=== PATIENT | male | born 1955 | race Caucasian/White ===

== ENCOUNTER 2022-08-06 12:23 | Inpatient (IN) | payer MEDICARE, OTHER ==
[2022-08-06] MEDS ORDERED: ASPIRIN 81 MG PO STA (12:57)
[2022-08-06] MEDS ORDERED: NITROGLYCERIN OINT 1 INCH/GM PACKET TOPICAL STA (12:57)
[2022-08-06 13:06] LABS: Glucose,Whole Blood 119 mg/dL (70-110)
[2022-08-06 13:18] LABS: Basophils % (A) 1 %; Eosinophils # (A) 0.1 k/uL (0-0.7); Eosinophils % (A) 2 %; HGB 11.5 gm/dL (13.0-17.5); Lymphocytes # (A) 1.1 k/uL (1.0-4.8); Lymphocytes % (A) 17 %; MCH 29.9 pg (25.0-35.0); MCHC 33.7 g/dL (31.0-37.0); MCV 88.7 fL (80.0-100.0); Mean Platelet Volume 8.4; Monocytes # (A) 0.5 k/uL (0-1.0); Monocytes % (A) 7 %; Neutrophils # (A) 4.3 k/uL (1.3-7.7); Neutrophils % (A) 71 %; Platelet Count 188 k/uL (150-450); RBC 3.84 m/uL (4.30-5.90); RDW 14.3 % (11.5-15.5); WBC 6.1 k/uL (3.8-10.6)
[2022-08-06] MEDS ORDERED: ALPRAZolam 0.25 MG TAB PO PRN (13:24)
[2022-08-06] MEDS ORDERED: NITROGLYCERIN SL TABS 0.4 MG TAB SUBLINGUAL PRN ×2 (13:24→13:50)
[2022-08-06] MEDS ORDERED: ALPRAZolam 0.5 MG TAB PO PRN (13:24)
[2022-08-06 13:27] LABS: Partial Thromboplastin Time 24.6 sec (22.0-30.0); Prothrombin Time 10.2 sec (9.0-12.0)
[2022-08-06 13:30] LABS: Albumin 3.1 g/dL (3.5-5.0); Calcium 8.3 mg/dL (8.4-10.2); Magnesium 1.8 mg/dL (1.6-2.3); Potassium 4.7 mmol/L (3.5-5.1); Total Bilirubin 0.5 mg/dL (0.2-1.3); Total Protein 5.8 g/dL (6.3-8.2)
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
--- NOTE | 2022-08-06 13:44 | ED ---
General Adult HPI - General Chief complaint: Dizziness Stated complaint: dizziness Time Seen by Provider: 08/06/22 12:47 Source: patient, family Mode of arrival: wheelchair Limitations: no limitations - History of Present Illness Initial comments: This 67-year-old male presents with a complaint of having chest pain 2 days ago. He states that it was primarily in his midsternal region. It is pressure related. He also is having shortness of breath. He presented to [facility] and was admitted to their hospital. He was seen by cardiology and had a diagnostic heart catheterization done which did show some urinary artery disease. He was to be transferred to our hospital for a heart stent by Dr. Acevedo but apparently left [facility] AGAINST MEDICAL ADVICE this past evening. He apparently changed his mind and is now ready to be admitted and have the heart stent placed. He states that the shortness of breath is worse with any exertion. There is no leg pain or swelling. He states that he was told that he only has 20% of his heart working. Overall is not a great historian but his son is present and does give good history. The patient denies any other complaints or modifying factors. Per cardiology, he apparently had a non-ST elevation myocardial infarction at [facility]. He also had a CHF exacerbation. - Related Data Home Medications Medication Instructions Recorded Confirmed No Known Home Medications 08/06/22 08/06/22 Allergies Allergy/AdvReac Type Severity Reaction Status Date / Time Sulfa (Sulfonamide Allergy Rash/Hives Verified 08/06/22 14:11 Antibiotics) Review of Systems ROS Statement: Those systems with pertinent positive or pertinent negative responses have been documented in the HPI. ROS Other: All systems not noted in ROS Statement are negative. Past Medical History Past Medical History: Diabetes Mellitus, Hyperlipidemia, Hypertension, Myocardial Infarction ([place]) History of Any Multi-Drug Resistant Organisms: None Reported Past Surgical History: Orthopedic Surgery Past Psychological History: No Psychological Hx Reported Smoking Status: Current every day smoker Past Alcohol Use History: None Reported Past Drug Use History: None Reported General Exam - General Exam Comments Initial Comments: GENERAL: The patient is well nourished and well hydrated. VITAL SIGNS: Heart rate, blood pressure, respiratory rate reviewed as recorded in nurse's notes. EYES: Pupils are round and reactive. Extraocular movements are intact. No conjunctival / lid redness or swelling. ENT: No external evidence of injury, swelling, or ecchymosis. Airway is patent. Throat is clear. NECK: Nontender. No swelling or evidence of injury. No subcutaneous emphysema. Trachea is midline. No thyroid mass. HEART: Regular rate and rhythm. Good peripheral pulses. LUNGS/CHEST: Breath sounds clear and equal bilaterally. No rales, rhonchi, or wheezes. No ecchymosis, subcutaneous emphysema, or tenderness. ABDOMEN: Abdomen soft without tenderness. No palpable masses or organomegaly. No peritoneal signs. No abdominal wall swelling or ecchymosis. EXTREMITIES: No extremity tenderness. Normal muscle tone and function. No thoracolumbar tenderness. NEUROLOGIC: Sensation is grossly intact. Cranial nerve exam reveals face is symmetrical, tongue is midline, speech is clear. SKIN: No abrasions or ecchymosis is noted. No induration or masses noted. PSYCHIATRIC: Alert and oriented. Appropriate behavior and judgment. Limitations: no limitations Course Vital Signs 08/06/22 08/06/22 08/06/22 12:28 13:18 14:14 Temperature 97 F L Pulse Rate 64 73 Pulse Rate [ 71 Project Development Coordinator ] Respiratory 20 18 Rate Blood Pressure 115/78 133/63 O2 Sat by Pulse 98 97 Oximetry Medical Decision Making - Medical Decision Making The patient was seen and examined. All diagnostics are reviewed. The patient was placed on hat lacer no ectopy is identified. The EKG shows a normal sinus rhythm at a rate of 65. There is some ST depression and T-wave inversions in leads V4 through V6. There is some T-wave inversions in inferior leads as well. There is no ST elevation identified. The MN interval is 168, QRS duration is 90, and QTC intervals 441. The patient had an IV established and does receive aspirin and Nitropaste. He is not currently complaining of any chest pain. Case is discussed with Kandice from cardiology and she does inform me the patient is scheduled to have the heart cath tomorrow morning and they rec ommend admission to the hospital. He apparently does have an LAD stenosis which will require cardiac stenting. The case also was discussed with Dr. Negro from internal medicine and he is agreeable with admission. Records from [facility] are requested and are currently pending. The laboratory thus far does show mild renal insufficiency as well as mild anemia. The chest x-ray xiomara ws evidence of congestive heart failure. It also shows evidence of a pleural based mass versus fluid. Radiologist recommends follow-up with additional radiologic imaging in this regard. The troponin did come back elevated which would be consistent with his history of recent non-ST elevation myocardial infarction. Heparin is initiated. Was pt. sent in by a medical professional or institution? @ -Patient was seen at [facility]. and left AMA at approximately 3 AM and now presents to our facility. Did you speak to anyone other than the patient for history? @ -Son is present and also does give additional history. Did you review nursing and triage notes? @ -Yes Were old charts reviewed? @ -Records are requested from previous hospital but are not currently present. Differential Diagnosis? @ -Non-ST elevation myocardial infarction, unstable angina, coronary artery disease EKG interpreted by me (3pts min.)? @ -Yes X-rays interpreted by me (1pt min.)? @ -Yes CT interpreted by me (1pt min.)? @ -Not applicable U/S interpreted by me (1pt. min.)? @ -Not applicable What testing was considered but not performed? (CT, X-rays, U/S, labs)? Why? @Not applicable What meds were considered but not given? Why? @ -None Did you discuss the management of the patient with other professionals? @ -Please see above Did you reconcile home meds? @ -The patient is unsure of his home medications. Records have been requested from [facility] and [facility]. If these are received and I will reconcile medications. Was smoking cessation discussed for >3mins.? @ -No Was critical care preformed (if so, how long)? @ -No Were there social determinants of health that impacted care today? How? (Home lessness, low income, unemployed, alcoholism, drug addiction, transportation, low edu. Level, literacy, decrease access to med. care, assisted, rehab)? @ -None Was there de-escalation of care discussed even if they declined? (Discuss DNR or withdrawal of care, Hospice)? @ -No What co-morbidities impacted this encounter? (DM, HTN, Smoking, COPD, CAD, Cancer, CVA, Hep., AIDS, mental health diagnosis, sleep apnea, morbid obesity)? @ -Smoking Was patient admitted / discharged? @ -Admitted Undiagnosed new problem with uncertain prognosis? @ -No Drug Therapy requiring intensive monitoring for toxicity (Heparin, Nitro, Insulin, Cardizem)? @ -No Were any procedures done? @ -None Diagnosis/symptom? @ -Please see chart Acute, or Chronic, or Acute on Chronic? @ -Acute Uncomplicated (without systemic symptoms) or Complicated (systemic symptoms)? @ -Uncomplicated Side effects of treatment? @ -None Exacerbation, Progression, or Severe Exacerbation] @ -Exacerbation Poses a threat to life or bodily function? @ -Yes - Lab Data Result diagrams: 08/06/22 13:09 08/06/22 13:09 Lab Results 08/06/22 08/06/22 08/06/22 Range/Units 12:49 13:09 13:09 WBC 6.1 (3.8-10.6) k/uL RBC 3.84 L (4.30-5.90) m/uL Hgb 11.5 L (13.0-17.5) gm/dL Hct 34.0 L (39.0-53.0) % MCV 88.7 (80.0-100.0) fL MCH 29.9 (25.0-35.0) pg MCHC 33.7 (31.0-37.0) g/dL RDW 14.3 (11.5-15.5) % Plt Count 188 (150-450) k/uL MPV 8.4 Neutrophils % 71 % Lymphocytes % 17 % Monocytes % 7 % Eosinophils % 2 % Basophils % 1 % Neutrophils # 4.3 (1.3-7.7) k/uL Lymphocytes # 1.1 (1.0-4.8) k/uL Monocytes # 0.5 (0-1.0) k/uL Eosinophils # 0.1 (0-0.7) k/uL Basophils # 0.0 (0-0.2) k/uL PT 10.2 (9.0-12.0) sec INR 1.0 (<1.2) APTT 24.6 (22.0-30.0) sec Sodium (137-145) mmol/L Potassium (3.5-5.1) mmol/L Chloride (98-107) mmol/L Carbon Dioxide (22-30) mmol/L Anion Gap mmol/L BUN (9-20) mg/dL Creatinine (0.66-1.25) mg/dL Est GFR (CKD-EPI)AfAm (>60 ml/min/1.73 sqM) Est GFR (CKD-EPI)NonAf (>60 ml/min/1.73 sqM) Glucose (74-99) mg/dL POC Glucose (mg/dL) 119 H (70-110) mg/dL POC Glu Retail Training Manager ID Chance Valladares Calcium (8.4-10.2) mg/dL Magnesium (1.6-2.3) mg/dL Total Bilirubin (0.2-1.3) mg/dL AST (17-59) U/L ALT (4-49) U/L Alkaline Phosphatase (38-126) U/L Troponin I (0.000-0.034) ng/mL Total Protein (6.3-8.2) g/dL Albumin (3.5-5.0) g/dL 08/06/22 08/06/22 Range/Units 13:09 13:09 WBC (3.8-10.6) k/uL RBC (4.30-5.90) m/uL Hgb (13.0-17.5) gm/dL Hct (39.0-53.0) % MCV (80.0-100.0) fL MCH (25.0-35.0) pg MCHC (31.0-37.0) g/dL RDW (11.5-15.5) % Plt Count (150-450) k/uL MPV Neutrophils % % Lymphocytes % % Monocytes % % Eosinophils % % Basophils % % Neutrophils # (1.3-7.7) k/uL Lymphocytes # (1.0-4.8) k/uL Monocytes # (0-1.0) k/uL Eosinophils # (0-0.7) k/uL Basophils # (0-0.2) k/uL PT (9.0-12.0) sec INR (<1.2) APTT (22.0-30.0) sec Sodium 137 (137-145) mmol/L Potassium 4.7 (3.5-5.1) mmol/L Chloride 107 (98-107) mmol/L Carbon Dioxide 26 (22-30) mmol/L Anion Gap 4 mmol/L BUN 35 H (9-20) mg/dL Creatinine 1.45 H (0.66-1.25) mg/dL Est GFR (CKD-EPI)AfAm 57 (>60 ml/min/1.73 sqM) Est GFR (CKD-EPI)NonAf 50 (>60 ml/min/1.73 sqM) Glucose 128 H (74-99) mg/dL POC Glucose (mg/dL) (70-110) mg/dL POC Glu Retail Training Manager ID Calcium 8.3 L (8.4-10.2) mg/dL Magnesium 1.8 (1.6-2.3) mg/dL Total Bilirubin 0.5 (0.2-1.3) mg/dL AST 28 (17-59) U/L ALT 19 (4-49) U/L Alkaline Phosphatase 126 (38-126) U/L Troponin I 2.360 H* (0.000-0.034) ng/mL Total Protein 5.8 L (6.3-8.2) g/dL Albumin 3.1 L (3.5-5.0) g/dL Disposition Clinical Impression: Chest pain, Anemia, Renal insufficiency, Congestive heart failure, Non-ST elevation myocardial infarction (NSTEMI), Hyperlipidemia, Diabetes, Nicotine dependence, Hypertension, Pleural condition, Elevated troponin Disposition: ADMITTED IP TO THIS HOSP Condition: Fair Is patient prescribed a controlled substance at d/c from ED?: No Time of Disposition: :44 Decision Date: 08/06/22 Decision Time: :44
--- NOTE | 2022-08-06 13:46 | XR ---
EXAMINATION TYPE: XR chest 2V DATE OF EXAM: 08/06/2022 COMPARISON: None HISTORY: 67-year-old male with chest pain and dizziness TECHNIQUE: AP and lateral views FINDINGS: Heart is mildly enlarged. Mild interstitial prominence. Trace pleural effusions on both sides. Convex ly marginated opacity posteriorly left hemithorax on the lateral view measuring 6.3 x 2[address] etiology is unclear. IMPRESSION: 1. Correlate for CHF with mild pulmonary vascular congestion. Trace pleural effusions on lateral view . 2. Possible 6.3 x 2.6 cm pleural-based mass or loculated fluid collection posteriorly on the left see n on the lateral view. Further cross-sectional evaluation recommended.
[2022-08-06] MEDS ORDERED: HEPARIN SODIUM 1,000 UN/ML (10ML VL) IV ONE (13:50)
[2022-08-06] MEDS ORDERED: FUROSEMIDE 10 MG/ML 4 ML VIAL IV STA (13:50)
[2022-08-06] MEDS: HEPARIN SOD,PORK IN 0.45% NACL 25,000 UNIT in 0.45% NACL 1 250ML.BAG IV SCH (14:20)
[2022-08-06] MEDS ORDERED: DEXTROSE 50% SYRINGE 50 ML IVP PRN ×2 (16:50)
[2022-08-06] MEDS ORDERED: ACETAMINOPHEN TAB 325 MG TAB PO PRN (16:52)
[2022-08-06 16:59] LABS: Glucose,Whole Blood 256 mg/dL (70-110)
[2022-08-06] MEDS: INSULIN ASPART (NovoLOG) 100 UNIT/ML VIAL SQ SCH ×2 (17:33→20:27)
--- NOTE | 2022-08-06 17:50 | XR ---
EXAMINATION TYPE: XR foot complete RT, XR ankle complete RT DATE OF EXAM: 08/06/2022 5:41 PM INDICATION: Patient age:Male; 67 years old; Reason for study: pain, redness; PHH. COMPARISON: None TECHNIQUE: The right foot and ankle were examined in the AP, oblique, and lateral projections. FINDINGS: No evidence of any acute osseous pathology. Mild soft tissue swelling suggested on the lower extremi ty. Atherosclerosis of the arterial vasculature. Mild calcaneal plantar spurring. Mild Achilles enthe sophyte formation. Joints are preserved. No evidence of osseous erosion to suggest osteomyelitis. IMPRESSION: 1. No evidence of acute fracture. 2. Soft tissue swelling around the foot and ankle. No evidence for osteomyelitis
[2022-08-06] MEDS ORDERED: NITROGLYCERIN OINT 1 INCH/GM PACKET TOPICAL SCH (18:00)
--- NOTE | 2022-08-06 18:14 | P.HPIM ---
History of Present Illness This is a pleasant 67 years old male who presents with chest pain and dyspnea. His documented chronic conditions including COPD, hypertension, CHF, diabetes, hyperlipidemia, ADHD. He was admitted to yesterday because of chest pain or dyspnea radiating to the right arm with dizziness and lightheadedness. Patient was recently hospitalized with similar symptoms on July 04 and was found to have non-STEMI and at that time echocardiogram showing ejection fraction of 20- 25% with moderate TR and RVSP of 53 mmHg. He supposed to follow up with his wall man as an outpatient because of elevated cardiac enzymes and high proB GEAR INSPECTOR at 17, 091. When he came to the hospital area On admission received IV heparin. CTA of the chest was negative for PE. On July 04 he had some admission, He had limited 2-D echocardiogram showed global hypokinesia of the left ventricle and lateral wall with moderate concentric LVH with ejection fraction of 20-25%. Cardiac cath could not be done because of worsening kidney function. Yesterday his creatinine was 1.1, glucose 261 CTA of the chest: No pulmonary embolism, trace and small loculated left pleural effusion, multifocal groundglass attenuation of the lung parenchyma, likely on t he basis of atelectasis versus acute inflammatory process. Sequelae findings suggesting underlying pulmonary hypertension patient underwent cardiac cath yesterday showing significnant coronary triple vessel coronary artery disease with 7-75% stenosis of the LAD AND 40% stenosis of the PLV Branch of the circumflex aetery , and normal left main , and diffuse disease of the RCA, as such wall man recommended and pt was planned to undergo another cardiac cath for pci of the LAD, However pt states he had some kind of interaction with the nurse and then he decided to leave against medical advise, he comes [facility] , and pt denies any chest pain or dyspea currently CBC is unremarkable. INR 1.0. Creatinine went up to 1.4 compared to 1.1 yesterday at [facility]. Elevated glucose 256. Troponin is elevated 2.3. Chest x-ray: Correlate for CHF with my pulmonary vascular congestion and trace pleural effusion on lateral view. Possible 6.3 x 2.6 cm pleural-based mass or loculated fluid collection posteriorly on the left seen on the lateral view. Right ankle x-ray: No evidence of acute fracture. Soft tissue swelling around the foot and ankle. No evidence of for osteomyelitis Review of Systems Review of systems CONSTITUTIONAL: No fever, no malaise, no fatigue. HEENT: No recent visual problems or hearing problems. Denied any sore throat. CARDIOVASCULAR: No orthopnea, PND, no palpitations, no syncope. PULMONARY: No shortness of breath, no cough, no hemoptysis. GASTROINTESTINAL: No diarrhea, no nausea, no vomiting, no abdominal pain. Normoactive bowel sounds. NEUROLOGICAL: No headaches, no weakness, no numbness. HEMATOLOGICAL: Denies any bleeding or petechiae. GENITOURINARY: Denies any burning micturition, frequency, or urgency. MUSCULOSKELETAL/RHEUMATOLOGICAL: Denies any joint pain, swelling, or any muscle pain. ENDOCRINE: Denies any polyuria or polydipsia. Past Medical History Past Medical History: Diabetes Mellitus, Hyperlipidemia, Hypertension, Myocardial Infarction ([place]) History of Any Multi-Drug Resistant Organisms: None Reported Past Surgical History: Orthopedic Surgery Past Psychological History: No Psychological Hx Reported Smoking Status: Current every day smoker Past Alcohol Use History: None Reported Past Drug Use History: None Reported Medications and Allergies Home Medications Medication Instructions Recorded Confirmed Type No Known Home Medications 08/06/22 08/06/22 History Allergies Allergy/AdvReac Type Severity Reaction Status Date / Time Sulfa (Sulfonamide Allergy Rash/Hives Verified 08/06/22 14:11 Antibiotics) Physical Exam Vitals: Vital Signs Temp Pulse Pulse Resp BP Pulse Ox 08/06/22 15:49 67 18 140/76 97 08/06/22 14:14 73 18 133/63 97 08/06/22 13:18 71 08/06/22 12:28 97 F L 64 20 115/78 98 Intake and Output 08/06/22 08/06/22 08/06/22 06:59 14:59 22:59 Other: Weight 106.141 kg GENERAL: The patient is alert and oriented x3, not in any acute distress. Well developed, well nourished. HEENT: Pupils are round and equally reacting to light. EOMI. No scleral icterus. No conjunctival pallor. Normocephalic, atraumatic. No pharyngeal erythema. No thyromegaly. CARDIOVASCULAR: S1 and S2 present. No murmurs, rubs, or gallops. -PULMONARY: Chest is clear to auscultation, no wheezing . Mild bilateral basalr crackles. ABDOMEN: Soft, nontender, nondistended, normoactive bowel sounds. No palpable organomegaly. MUSCULOSKELETAL: No joint swelling or deformity. -EXTREMITIES: No cyanosis, clubbing, , bilateral pitting leg edema. painful and tender fissure in the right ankle NEUROLOGICAL: Gross neurological examination did not reveal any focal deficits. SKIN: No rashes. no petechiae. Results CBC & Chem 7: 08/06/22 13:09 08/06/22 13:09 Labs: Abnormal Lab Results - Last 24 Hours (Table) 08/06/22 08/06/22 08/06/22 Range/Units 12:49 13:09 13:09 RBC 3.84 L (4.30-5.90) m/uL Hgb 11.5 L (13.0-17.5) gm/dL Hct 34.0 L (39.0-53.0) % BUN 35 H (9-20) mg/dL Creatinine 1.45 H (0.66-1.25) mg/dL Glucose 128 H (74-99) mg/dL POC Glucose (mg/dL) 119 H (70-110) mg/dL Calcium 8.3 L (8.4-10.2) mg/dL Troponin I (0.000-0.034) ng/mL Total Protein 5.8 L (6.3-8.2) g/dL Albumin 3.1 L (3.5-5.0) g/dL 08/06/22 Range/Units 13:09 RBC (4.30-5.90) m/uL Hgb (13.0-17.5) gm/dL Hct (39.0-53.0) % BUN (9-20) mg/dL Creatinine (0.66-1.25) mg/dL Glucose (74-99) mg/dL POC Glucose (mg/dL) (70-110) mg/dL Calcium (8.4-10.2) mg/dL Troponin I 2.360 H* (0.000-0.034) ng/mL Total Protein (6.3-8.2) g/dL Albumin (3.5-5.0) g/dL Assessment and Plan Assessment: triple-vessel coronary artery disease with 7-75% stenosis of the LAD, requring cardiac cath left ankle pain and swelling with fissure , rule acute peripheral artery disease acute kidney injury Acute and chronic CHF with ejection fraction 20-25% Moderate tricuspid regurgitation with pulmonary hypertension Bilateral pitting leg edema with possible status dermatitis secondary to above and CHF painful right ankle fissure pain and tenderness diabetes mellitus with hyperglycemia, present on admission Noncompliance, patient also left AMA from [facility] COPD with exacerbation Plan: continue with heparin drip Aspirin, and Plavix, and statin Cardiology consult Check procalcitonin, check ultrasound of the legs consult vascular surgery for right ankle fissure and pain and tenderness check hemoglobin A1c possible cardiac cath in the morning for wall man Nephrology consult Labs and medication were reviewed.. Continue same treatment. Continue with symptomatic treatment. Resume home medication. Monitor lytes and vitals. DVT and GI prophylaxis. Further recommendations as per clinical course of the patient DVT prophylaxis: heparin GI Prophylaxis: Pepcid PT/OT: Pending Prognosis is guarded
[2022-08-06] MEDS ORDERED: NICOTINE 21MG/24HR PATCH TRANSDERM SCH (18:30)
--- NOTE | 2022-08-06 19:24 | US ---
EXAMINATION TYPE: US venous doppler duplex LE DATE OF EXAM: 08/06/2022 6:10 PM COMPARISON: NONE CLINICAL HISTORY: leg swelling. Patient states his swelling is in his ankles and is having shooting p ain. No hx of DVT SIDE PERFORMED: Bilateral TECHNIQUE: The lower extremity deep venous system is examined utilizing real time linear array sonog bobby with graded compression, doppler sonography and color-flow sonography. VESSELS IMAGED: Common Femoral Vein Deep Femoral Vein Greater Saphenous Vein * Femoral Vein Popliteal Vein Small Saphenous Vein * Proximal Calf Veins (* superficial vessels) Right Leg: No evidence for DVT Left Leg: No evidence for DVT Grayscale, color doppler, spectral doppler imaging performed of the deep veins of the lower extremiti es. There is normal flow, compressibility, vascular waveforms. IMPRESSION: No evidence for deep vein thrombosis of the bilateral lower extremities.
[2022-08-06 19:49] LABS: Glucose,Whole Blood 188 mg/dL (70-110)
[2022-08-06] MEDS: FUROSEMIDE 10 MG/ML 2 ML VIAL IV SCH (20:26)
[2022-08-06] MEDS: NICOTINE 21MG/24HR PATCH TRANSDERM SCH (20:27)
[2022-08-06] MEDS: METOPROLOL TARTRATE 25 MG TAB PO SCH (20:27)
[2022-08-06] MEDS ORDERED: SODIUM CHLORIDE 0.9% 1,000 ML in EMPTY BAG 1 BAG IV SCH (23:00)
[2022-08-07 04:49] LABS: Basophils # (A) 0.1 k/uL (0-0.2); Basophils % (A) 1 %; Eosinophils # (A) 0.2 k/uL (0-0.7); Eosinophils % (A) 3 %; HCT 34.9 % (39.0-53.0); HGB 11.4 gm/dL (13.0-17.5); Hypochromasia Slight; Lymphocytes % (A) 15 %; MCH 29.4 pg (25.0-35.0); MCHC 32.5 g/dL (31.0-37.0); MCV 90.4 fL (80.0-100.0); Mean Platelet Volume 8.2; Monocytes # (A) 0.3 k/uL (0-1.0); Monocytes % (A) 5 %; Neutrophils # (A) 4.9 k/uL (1.3-7.7); Neutrophils % (A) 74 %; Platelet Count 195 k/uL (150-450); RBC 3.86 m/uL (4.30-5.90); RDW 14.2 % (11.5-15.5); WBC 6.7 k/uL (3.8-10.6)
[2022-08-07] MEDS ORDERED: ASPIRIN 325 MG TAB PO ONE (05:00)
[2022-08-07] MEDS ORDERED: ATORVASTATIN 80 MG TAB PO ONE (05:00)
[2022-08-07 05:22] LABS: African American GFR (CKD) 59 (>60 ml/min/1.73 sqM); Anion Gap 6 mmol/L; Blood Urea Nitrogen 38 mg/dL (9-20); Calcium 8.7 mg/dL (8.4-10.2); Carbon Dioxide 25 mmol/L (22-30); Chloride 106 mmol/L (98-107); Glucose 201 mg/dL (74-99); Non-African American GFR(CKD) 51 (>60 ml/min/1.73 sqM); Potassium 4.9 mmol/L (3.5-5.1); Sodium 137 mmol/L (137-145)
[2022-08-07] MEDS: CLOPIDOGREL 75 MG TAB PO SCH (05:32)
[2022-08-07] MEDS: ASPIRIN 81 MG PO SCH (05:32)
[2022-08-07] MEDS: ISOSORBIDE MONONITRATE ER 30 MG TAB.ER.24H PO SCH (05:32)
[2022-08-07] MEDS: LOSARTAN 25 MG TAB PO SCH (05:32)
[2022-08-07] MEDS: METOPROLOL TARTRATE 25 MG TAB PO SCH ×2 (05:32→20:17)
[2022-08-07 06:10] LABS: Glucose,Whole Blood 198 mg/dL (70-110)
[2022-08-07] MEDS: INSULIN ASPART (NovoLOG) 100 UNIT/ML VIAL SQ SCH ×4 (06:17→20:16)
[2022-08-07] MEDS ORDERED: HEPARIN SODIUM,PORCINE 2,500 UNIT in SODIUM CHLORIDE 0.9% 250 ML IRRIGATION PRN (07:00)
[2022-08-07] MEDS ORDERED: HEPARIN SODIUM,PORCINE 10,000 UNIT in SODIUM CHLORIDE 0.9% 1,000 ML IRRIGATION PRN (07:00)
[2022-08-07] MEDS ORDERED: SODIUM CHLORIDE 0.9% 1,000 ML IV SCH (07:45)
[2022-08-07] MEDS: FUROSEMIDE 10 MG/ML 2 ML VIAL IV SCH ×2 (08:33→20:16)
[2022-08-07] MEDS: SPIRONOLACTONE 25 MG TAB PO SCH (08:33)
[2022-08-07] MEDS ORDERED: ASPIRIN 325 MG TAB PO SCH (09:00)
[2022-08-07] MEDS ORDERED: EPINEPHrine 10 ML SYRINGE (0.1 MG/ML) ONE (09:40)
[2022-08-07] MEDS ORDERED: MIDAZOLAM 2 MG/2 ML VIAL ONE (09:40)
[2022-08-07] MEDS ORDERED: KETAMINE 10 MG/ML 20 ML VIAL ONE (09:40)
[2022-08-07] MEDS ORDERED: ESMOLOL 100 MG/10 ML VIAL ONE (09:40)
[2022-08-07] MEDS ORDERED: fentaNYL (PF) 50 MCG/ML 2 ML AMP ONE (09:40)
[2022-08-07] MEDS ORDERED: PROPOFOL 10 MG/ML 20 ML VIAL IV ONE (09:40)
[2022-08-07] MEDS ORDERED: IV FLUID CONTINUATION 1,000 ML IV ONE (09:55)
[2022-08-07] MEDS ORDERED: LIDOCAINE 1% INJ 10MG/ML (30 ML VIAL-PF) SQ ONE (09:58)
[2022-08-07] MEDS: HEPARIN SODIUM 1,000 UN/ML (10ML VL) IV ONE ×3 (10:13→10:43)
[2022-08-07] MEDS ORDERED: IOPAMIDOL-370 100ML BTL INJ ONE (10:35)
[2022-08-07] MEDS ORDERED: IOPAMIDOL-370 50ML BTL INJ ONE (10:43)
[2022-08-07] MEDS ORDERED: SODIUM CHLORIDE 0.9% 1,000 ML IV ONE (10:44)
[2022-08-07] MEDS ORDERED: ATROPINE SULFATE 0.1 MG/ML 10ML SYRINGE IV PRN (11:02)
[2022-08-07] MEDS ORDERED: ZOLPIDEM 5 MG TAB PO PRN (11:02)
[2022-08-07] MEDS ORDERED: RX INFO: IV CONTRAST WAS GIVEN 1 EACH MISC MISCELLANE PRN (11:02)
[2022-08-07] MEDS ORDERED: MAG HYDROX/AL HYDROX/SIMETH 30 ML CUP PO PRN (11:02)
[2022-08-07] MEDS ORDERED: CLOPIDOGREL 75 MG TAB PO ONE (11:32)
--- NOTE | 2022-08-07 11:51 | PTCA ---
PERCUTANEOUSTRANS CORORONARY ANGIOGRAPHY PROCEDURE PERFORMED: Percutaneous transluminal coronary angioplasty and stenting of proximal left anterior descending with drug-eluting stent. PERFORMED BY: Dr. Mary Ann Acevedo. The patient's moderate conscious sedation was provided by Anesthesia. CLINICAL INFORMATION: Mr. Rory Herman is a 67-year-old gentleman with ischemic cardiomyopathy, hypertension, hyperlipidemia, diabetes, and peripheral arterial disease, who was seen by me during his previous hospitalization, and recently, he was hospitalized at [facility] with a [id number] AR. Cardiac catheterization from right radial approach revealed that he had a proximal LAD lesion, calcified, eccentric, probably 70%, best seen in the PARAGUAYAN cranial projection. However, I advised him to come in for a PCI, but he left the hospital against medical advice and came back to the hospital yesterday. His creatinine is about 1.45. He also has a peripheral artery disease with a poorly- healing wound on his right heel. Right radial approach was technically somewhat difficult, and radial pulse is also very poor, as is the left radial pulse. I explained to the patient that his reduced ejection fraction and peripheral artery disease make it very high-risk procedure, and I am going to do it without Impella support given his peripheral artery disease. He understood all details. He understands that there is a mortality risk of nearly 10%. His left ventricular end- diastolic pressure was 24. He was diuresed. After explaining all the risks, benefits, and options, I brought him for the procedure with the Anesthesia help to sedate him because he was very difficult to give him IV conscious sedation during his catheterization at [facility]. PROCEDURE NOTE: Under local anesthesia and strict aseptic precautions, a 6-Turkish introducer was placed in the right femoral artery. I used a standard JL4 guide catheter to cannulate the left coronary artery. Using an FFR wire, I performed iFR assessment. This came out to be 0.52. Wire was kept in the mid/distal LAD. I then pre-dilated the lesion using the same with a 3.0-caliber NC Trek balloon of 15 mm length at 12 atmospheres for 20 seconds. The patient became very hypotensive. He was already on a small dose of ketamine and propofol. He became very hypotensive requiring IV epinephrine to bring his pressure up. After again stabilizing him, I went ahead and deployed a 3.25-caliber 15-mm long Xience stent at 12 atmospheres. The patient again became transiently hypotensive. However, excellent angiographic result was achieved with remarkable improvement in angiographic appearance and flow. I suspect that he may have some left main disease also, which may not be critical. Whenever I intubated the left main coronary artery, there was some damping of pressure noted, but the catheter was also oriented superiorly. Overall, excellent angiographic result was achieved. The patient's blood pressure and heart rate were normal, and he was already waking up from the anesthetic effect, was sent to the recovery room in [facility], and he will be seen by Anesthesia until he is fully recovered. He will be on dual-antiplatelet therapy with aspirin and Plavix uninterrupted for 1 year. Details of the procedure were discussed with the patient, but I could not talk to any family, and I left a message for his sister on her cellphone. Angiographically, the result was excellent. Overall prognosis is poor given his poor ejection fraction and also multiple comorbid conditions. Prognosis remains quite guarded. The patient is not an optimal candidate at this time for ICD given his poorly-healing wound on his right heel. We will have him evaluated by Wound Care and then go from there. Prognosis remains poor. MMODL / IJN: [id number] /
[2022-08-07 11:57] LABS: Glucose,Whole Blood 181 mg/dL (70-110)
--- NOTE | 2022-08-07 12:40 | P.PN ---
Subjective This is a pleasant 67 years old male who presents with chest pain and dyspnea. His documented chronic conditions including COPD, hypertension, CHF, diabetes, hyperlipidemia, ADHD. He was admitted to yesterday because of chest pain or dyspnea radiating to the right arm with dizziness and lightheadedness. Patient was recently hospitalized with similar symptoms on July 04 and was found to have non-STEMI and at that time echocardiogram showing ejection fraction of 20- 25% with moderate TR and RVSP of 53 mmHg. He supposed to follow up with his respiratory equipment assistant as an outpatient because of elevated cardiac enzymes and high proBNP at 17, 091. When he came to the hospital area On admission received IV heparin. CTA of the chest was negative for PE. On July 04 he had some admission, He had limited 2-D echocardiogram showed global hypokinesia of the left ventricle and lateral wall with moderate concentric LVH with ejection fraction of 20-25%. Cardiac cath could not be done because of worsening kidney function. Yesterday his creatinine was 1.1, glucose 261 CTA of the chest: No pulmonary embolism, trace and small loculated left pleural effusion, multifocal groundglass attenuation of the lung parenchyma, likely on the basis of atelectasis versus acute inflammatory process. Sequelae findings suggesting underlying pulmonary hypertension patient underwent cardiac cath yesterday showing significnant coronary triple vessel coronary artery disease with 7-75% stenosis of the LAD AND 40% stenosis of the PLV Branch of the circumflex aetery , and normal left main , and diffuse disease of the RCA, as such respiratory equipment assistant recommended and pt was planned to undergo another cardiac cath for pci of the LAD, However pt states he had some kind of interaction with the nurse and then he decided to leave against medical advise, he comes today to [facility] to pursue treatment , and pt denies any chest pain or dyspea currently CBC is unremarkable. INR 1.0. Creatinine went up to 1.4 compared to 1.1 yesterday at [facility]. Elevated glucose 256. Troponin is elevated 2.3. Chest x-ray: Correlate for CHF with my pulmonary vascular congestion and trace pleural effusion on lateral view. Possible 6.3 x 2.6 cm pleural-based mass or loculated fluid collection posteriorly on the left seen on the lateral view. Right ankle x-ray: No evidence of acute fracture. Soft tissue swelling around the foot and ankle. No evidence of for osteomyelitis 08/07/2029 Patient was awake and alert and not in distress this morning with no chest pain. He underwent cardiac cath and stent placement in his LAD however patient became hypotensive transiently during the cath and a levophed has to be placed for him. However his blood pressure improved and patient still monitored postoperatively by anesthesia team per report Patient creatinine is 1.4, was 1.1 at [facility] 2 days ago therefore we consulted court orderly. Remission IV Lasix 20 mg twice daily. He is on aspirin and Plavix Vascular surgery were consulted for his right heel painful fissure wound Review of systems CONSTITUTIONAL: No fever, no malaise, no fatigue. HEENT: No recent visual problems or hearing problems. Denied any sore throat. CARDIOVASCULAR: No orthopnea, PND, no palpitations, no syncope. PULMONARY: No shortness of breath, no cough, no hemoptysis. GASTROINTESTINAL: No diarrhea, no nausea, no vomiting, no abdominal pain. Normoactive bowel sounds. NEUROLOGICAL: No headaches, no weakness, no numbness. Active Medications Generic Name Dose Route Start Last Admin Trade Name Freq PRN Reason Stop Dose Admin Acetaminophen 650 mg 08/06/22 16:52 Acetaminophen Tab 325 Mg Tab PO Q6HR PRN Fever and/ or Pain Al Hydroxide/Mg Hydroxide 30 ml 08/07/22 11:02 Mag Hydrox/Al Hydrox/Simeth 30 Ml Cup PO Q4HR PRN Heartburn Alprazolam 0.25 mg 08/06/22 13:24 Alprazolam 0.25 Mg Tab PO 09/05/22 13:25 Q6HR PRN Mild Anxiety Alprazolam 0.5 mg 08/06/22 13:24 Alprazolam 0.5 Mg Tab PO 09/05/22 13:25 Q6HR PRN Moderate Anxiety Aspirin 81 mg 08/07/22 09:00 08/07/22 05:32 Aspirin 81 Mg PO 09/06/22 09:01 81 mg DAILY SHANNA Administration Atropine Sulfate 0.5 mg 08/07/22 11:02 Atropine Sulfate 0.1 Mg/Ml 10ml Syringe IV ONCE PRN Symptomatic Bradycardia Clopidogrel Bisulfate 75 mg 08/07/22 09:00 08/07/22 05:32 Clopidogrel 75 Mg Tab PO 75 mg DAILY SHANNA Administration Dextrose/Water 25 ml 08/06/22 16:50 Dextrose 50% Syringe 50 Ml IVP PER PROTOCOL PRN Hypoglycemia Protocol Dextrose/Water 50 ml 08/06/22 16:50 Dextrose 50% Syringe 50 Ml IVP PER PROTOCOL PRN Hypoglycemia Protocol Furosemide 20 mg 08/06/22 21:00 08/07/22 08:33 Furosemide 10 Mg/Ml 2 Ml Vial IV 20 mg Q12HR SHANNA Administration Heparin Sodium (Porcine) 10, 1,001 mls @ 999 mls/hr 08/07/22 07:00 000 unit/ Sodium Chloride IRRIGATION 08/07/22 23:00 ONCE PRN INTRA-OP Heparin Sodium (Porcine) 2,500 250.5 mls @ 250 mls/hr 08/07/22 07:00 unit/ Sodium Chloride IRRIGATION 08/07/22 23:00 ONCE PRN INTRA-OP Heparin Sodium/Sodium Chloride 250 mls @ 10 mls/hr 08/06/22 14:00 08/07/22 05:26 25,000 unit/ Sodium Chloride IV 09/05/22 14:01 13.421 units/kg/hr .Q24H SHANNA 14.245 mls/hr Titration Protocol 9.421 UNITS/KG/HR Sodium Chloride 1,000 mls @ 75 mls/hr 08/07/22 07:45 08/07/22 08:34 Saline 0.9% IV 08/07/22 19:46 75 mls/hr .[id number] SHANNA Administration Insulin Aspart 0 unit 08/06/22 17:30 08/07/22 12:20 Insulin Aspart (Novolog) 100 Unit/Ml Vial SQ 2 unit ACHS SHANNA Administration Protocol Isosorbide Mononitrate 30 mg 08/07/22 09:00 08/07/22 05:32 Isosorbide Mononitrate Er 30 Mg Tab.Er.24h PO 30 mg DAILY SHANNA Administration Losartan Potassium 25 mg 08/07/22 09:00 08/07/22 05:32 Losartan 25 Mg Tab PO 25 mg DAILY SHANNA Administration Metoprolol Tartrate 25 mg 08/06/22 21:00 08/07/22 05:32 Metoprolol Tartrate 25 Mg Tab PO 25 mg BID SHANNA Administration Miscellaneous Information 1 each 08/07/22 11:02 Rx Info: Iv Contrast Was Given 1 Each Misc MISCELLANE 08/09/22 11:02 DAILY PRN Per Protocol Nicotine 1 patch 08/06/22 21:00 08/06/22 20:27 Nicotine 21mg/24hr Patch TRANSDERM Not Given HS SHANNA Nitroglycerin 0.4 mg 08/06/22 13:50 Nitroglycerin Sl Tabs 0.4 Mg Tab SUBLINGUAL 09/05/22 13:51 Q5M PRN Chest Pain Spironolactone 12.5 mg 08/07/22 09:00 08/07/22 08:33 Spironolactone 25 Mg Tab PO 12.5 mg DAILY SHANNA Administration Zolpidem Tartrate 5 mg 08/07/22 11:02 Zolpidem 5 Mg Tab PO HS PRN Insomnia Objective - Vital Signs Vital signs: Vital Signs Temp 98.0 F 08/07/22 08:00 Pulse 69 08/07/22 04:00 Resp 16 08/07/22 08:00 BP 120/71 08/07/22 08:00 Pulse Ox 92 L 08/07/22 08:00 FiO2 Intake & Output 08/06/22 08/07/22 08/07/22 18:59 06:59 18:59 Intake Total 240 173.129 825 Output Total 1900 475 Balance 240 -1726.871 350 Weight 106.141 kg 87.7 kg Intake: IV 825 Intake, IV Titration 173.129 Amount Heparin Sod,Pork in 0.45% 173.129 NaCl 25,000 unit In 0.45 % NaCl 1 250ml.bag @ 9. 421 UNITS/KG/HR 10 mls/hr IV .Q24H SHANNA Rx#: [id number] Oral 240 Output: Urine 1900 475 Other: Voiding Method Toilet Urinal # Voids 1 - Exam GENERAL: The patient is alert and oriented x3, not in any acute distress. Well developed, well nourished. HEENT: Pupils are round and equally reacting to light. EOMI. No scleral icterus. No conjunctival pallor. Normocephalic, atraumatic. No pharyngeal erythema. No thyromegaly. CARDIOVASCULAR: S1 and S2 present. No murmurs, rubs, or gallops. -PULMONARY: Chest is clear to auscultation, no wheezing . Mild bilateral basalr crackles. ABDOMEN: Soft, nontender, nondistended, normoactive bowel sounds. No palpable organomegaly. MUSCULOSKELETAL: No joint swelling or deformity. -EXTREMITIES: No cyanosis, clubbing, , bilateral pitting leg edema. painful and tender fissure in the right ankle NEUROLOGICAL: Gross neurological examination did not reveal any focal deficits. SKIN: No rashes. no petechiae. - Labs CBC & Chem 7: 08/07/22 04:36 08/07/22 04:36 Labs: Abnormal Lab Results - Last 24 Hours (Table) 08/06/22 08/06/22 08/06/22 Range/Units 12:49 13:09 13:09 RBC 3.84 L (4.30-5.90) m/uL Hgb 11.5 L (13.0-17.5) gm/dL Hct 34.0 L (39.0-53.0) % APTT (22.0-30.0) sec BUN 35 H (9-20) mg/dL Creatinine 1.45 H (0.66-1.25) mg/dL Glucose 128 H (74-99) mg/dL POC Glucose (mg/dL) 119 H (70-110) mg/dL Hemoglobin A1c (0.0-6.0) % Calcium 8.3 L (8.4-10.2) mg/dL Troponin I (0.000-0.034) ng/mL Total Protein 5.8 L (6.3-8.2) g/dL Albumin 3.1 L (3.5-5.0) g/dL 08/06/22 08/06/22 08/06/22 Range/Units 13:09 16:43 16:55 RBC (4.30-5.90) m/uL Hgb (13.0-17.5) gm/dL Hct (39.0-53.0) % APTT (22.0-30.0) sec BUN (9-20) mg/dL Creatinine (0.66-1.25) mg/dL Glucose (74-99) mg/dL POC Glucose (mg/dL) 256 H (70-110) mg/dL Hemoglobin A1c (0.0-6.0) % Calcium (8.4-10.2) mg/dL Troponin I 2.360 H* 1.990 H* (0.000-0.034) ng/mL Total Protein (6.3-8.2) g/dL Albumin (3.5-5.0) g/dL 0108/06/22 08/06/22 Range/Units 19:48 20:26 20:26 RBC (4.30-5.90) m/uL Hgb (13.0-17.5) gm/dL Hct (39.0-53.0) % APTT 30.7 H (22.0-30.0) sec BUN (9-20) mg/dL Creatinine (0.66-1.25) mg/dL Glucose (74-99) mg/dL POC Glucose (mg/dL) 188 H (70-110) mg/dL Hemoglobin A1c (0.0-6.0) % Calcium (8.4-10.2) mg/dL Troponin I 1.980 H* (0.000-0.034) ng/mL Total Protein (6.3-8.2) g/dL Albumin (3.5-5.0) g/dL 08/06/22 08/07/22 08/07/22 Range/Units 20:26 04:36 04:36 RBC 3.86 L (4.30-5.90) m/uL Hgb 11.4 L (13.0-17.5) gm/dL Hct 34.9 L (39.0-53.0) % APTT (22.0-30.0) sec BUN 38 H (9-20) mg/dL Creatinine 1.43 H (0.66-1.25) mg/dL Glucose 201 H (74-99) mg/dL POC Glucose (mg/dL) (70-110) mg/dL Hemoglobin A1c 9.8 H (0.0-6.0) % Calcium (8.4-10.2) mg/dL Troponin I (0.000-0.034) ng/mL Total Protein (6.3-8.2) g/dL Albumin (3.5-5.0) g/dL 08/07/22 08/07/22 08/07/22 Range/Units 04:36 06:09 11:49 RBC (4.30-5.90) m/uL Hgb (13.0-17.5) gm/dL Hct (39.0-53.0) % APTT 37.9 H (22.0-30.0) sec BUN (9-20) mg/dL Creatinine (0.66-1.25) mg/dL Glucose (74-99) mg/dL POC Glucose (mg/dL) 198 H 181 H (70-110) mg/dL Hemoglobin A1c (0.0-6.0) % Calcium (8.4-10.2) mg/dL Troponin I (0.000-0.034) ng/mL Total Protein (6.3-8.2) g/dL Albumin (3.5-5.0) g/dL Assessment and Plan Assessment: triple-vessel coronary artery disease with 7-75% stenosis of the LAD, requring status post cardiac cath and PCI to LAD on 08/07 left ankle pain and swelling with fissure , rule acute peripheral artery disease acute kidney injury Acute and chronic CHF with ejection fraction 20-25% Moderate tricuspid regurgitation with pulmonary hypertension Bilateral pitting leg edema with possible status dermatitis secondary to above and CHF painful right ankle fissure pain and tenderness diabetes mellitus with hyperglycemia, present on admission Noncompliance, patient also left AMA from [facility] COPD with exacerbation Plan: continue with Aspirin, and Plavix, and statin Cardiology consult Check procalcitonin, check ultrasound of the legs consult vascular surgery for right ankle fissure and pain and tenderness check hemoglobin A1c possible cardiac cath in the morning for respiratory equipment assistant Nephrology consult Labs and medication were reviewed.. Continue same treatment. Continue with symptomatic treatment. Resume home medication. Monitor lytes and vitals. DVT and GI prophylaxis. Further recommendations as per clinical course of the patient DVT prophylaxis: Subcutaneous heparin GI Prophylaxis: Pepcid PT/OT: Pending Prognosis is guarded
--- NOTE | 2022-08-07 13:04 | P.NPCON ---
History of Present Illness - Reason for Consult acute renal failure - History of Present Illness Reason for consultation: Acute kidney injury History of present illness: Patient is a 67-year-old male seen in renal consultation for acute kidney injury. Patient's creatinine in May 2015 was 1.65 at this admission and has been stable near 1.45. Unknown baseline renal function. Patient denies seeing a manganese wheeler outpatient. Patient presented to [facility] due to burning sensation in the chest. He underwent cardiac catheterization and was noted to have triple-vessel disease. Echocardiogram showed ejection fraction of 20-25% with mild mitral, tricuspid and aortic regurgitation. He was transferred to [facility] and underwent cardiac catheterization with stent placement to the LAD this morning. Currently resting in bed. Denies chest pain or shortness of breath. No vomiting or diarrhea. No hematuria or dysuria. Patient was started on IV fluids last night and is currently on normal saline at 75 mL an hour. He is also receiving IV Lasix 20 mg twice daily. Patient states he did have swelling in his lower extremities but is now improved. He does admit to history of diabetes. Patient's A1c this admission was 9.8%. Denies family history of renal disease. Vital signs are stable. General: No acute distress. HEENT: Head exam is unremarkable. LUNGS: Breath sounds decreased. HEART: Rate and Rhythm are regular. ABDOMEN: Soft, no distention. EXTREMITITES: No edema. Past Medical History Past Medical History: Diabetes Mellitus, Hyperlipidemia, Hypertension, Myocardial Infarction (SC) Last Myocardial Infarction Date:: unknown History of Any Multi-Drug Resistant Organisms: None Reported Past Surgical History: Orthopedic Surgery Past Psychological History: No Psychological Hx Reported Smoking Status: Current every day smoker Past Alcohol Use History: None Reported Past Drug Use History: None Reported Medications and Allergies Home Medications Medication Instructions Recorded Confirmed Type No Known Home Medications 08/06/22 08/06/22 History Allergies Allergy/AdvReac Type Severity Reaction Status Date / Time Sulfa (Sulfonamide Allergy Rash/Hives Verified 08/06/22 14:11 Antibiotics) Physical Exam Vitals: Vital Signs Temp Pulse Pulse Pulse Resp BP BP 08/07/22 12:47 68 119/70 08/07/22 12:17 77 16 122/67 08/07/22 11:47 97.2 F L 16 111/62 08/07/22 08:00 98.0 F 16 120/71 08/07/22 04:00 69 18 138/64 08/07/22 00:00 65 18 123/59 08/06/22 20:00 98 F 74 18 119/59 08/06/22 16:56 08/06/22 16:00 98.1 F 65 18 112/71 08/06/22 15:49 67 18 140/76 08/06/22 14:22 98.2 F 66 18 116/74 08/06/22 14:14 73 18 133/63 08/06/22 13:18 71 Pulse Ox 08/07/22 12:47 08/07/22 12:17 94 L 08/07/22 11:47 97 08/07/22 08:00 92 L 08/07/22 04:00 96 08/07/22 00:00 97 08/06/22 20:00 98 08/06/22 16:56 98 08/06/22 16:00 96 08/06/22 15:49 97 08/06/22 14:22 96 08/06/22 14:14 97 08/06/22 13:18 Intake and Output 08/06/22 08/07/22 08/07/22 22:59 06:59 14:59 Intake Total 321.5 91.629 825 Output Total 700 1200 475 Balance -378.5 -1108.371 350 Intake: IV 825 Intake, IV Titration 81.5 91.629 Amount Heparin Sod,Pork in 0.45% 81.5 91.629 NaCl 25,000 unit In 0.45 % NaCl 1 250ml.bag @ 9. 421 UNITS/KG/HR 10 mls/hr IV .Q24H [facility] Rx#: [id number] Oral 240 Output: Urine 700 1200 475 Other: Voiding Method Toilet Urinal # Voids 1 1 Weight 87.7 kg Results - Lab Results Most recent lab results Calcium 8.7 mg/dL (8.4-10.2) 08/07/22 04:36 Magnesium 1.8 mg/dL (1.6-2.3) 08/06/22 13:09 08/07/22 04:36 08/07/22 04:36 Assessment and Plan Plan: Assessment: 1. Acute kidney injury versus underlying chronic kidney disease. Creatinine stable at 1.4. Patient's creatinine in May 2015 was 1.65. 2. End STEMI status post cardiac catheterization August 06 and LAD stent letty cement 08/07/2022. 3. Chronic systolic CHF with ejection fraction of 20-25%. 4. Diabetes mellitus. 5. Hypertension with chronic kidney disease. Controlled. Plan: Decrease rate of normal saline to 50 mL an hour. Hep-Lock IV fluids at 5 PM today. Transition to oral diuretics tomorrow. Check UA. Check renal ultrasound. Monitor for contrast-induced acute kidney injury. Advised patient to follow up outpatient in 1-2 weeks post discharge to establish CKD care. Avoid nephrotoxins. Thank you for the consultation. I will continue to follow the patient with you during his hospital stay.
[2022-08-07 13:28] VITALS: BMI 29.4
--- NOTE | 2022-08-07 15:55 | US ---
EXAMINATION TYPE: US kidneys/renal and bladder DATE OF EXAM: 08/07/2022 COMPARISON: NONE CLINICAL HISTORY: gokul. EXAM MEASUREMENTS: Right Kidney: 9.9 x 5.9 x 5.0 cm Left Kidney: 10.0 x 5.8 x 5.3 cm Study somewhat limited by technologist ability to reach patient and patient inability to move closer to road roller operator hot mix. Right Kidney: No hydronephrosis or masses seen Left Kidney: No hydronephrosis or masses seen Bladder: wnl IMPRESSION: No evidence of an acute process.
[2022-08-07 16:50] LABS: Glucose,Whole Blood 317 mg/dL (70-110)
[2022-08-07] MEDS: HEPARIN SOD,PORK IN 0.45% NACL 25,000 UNIT in 0.45% NACL 1 250ML.BAG IV SCH (17:16)
[2022-08-07 20:03] LABS: Glucose,Whole Blood 237 mg/dL (70-110)
[2022-08-07] MEDS: NICOTINE 21MG/24HR PATCH TRANSDERM SCH (20:08)
[2022-08-07] MEDS: HEPARIN SODIUM,PORCINE/PF 5,000 UNIT/0.5 ML SYRINGE SQ SCH (20:16)
--- NOTE | 2022-08-07 21:03 | CONS ---
DATE OF CONSULTATION: 08/07/2022 HISTORY OF PRESENT ILLNESS: Rory Herman was seen at [facility] with history of bilateral lower extremity mild cellulitis on the dorsal aspect of the foot and history of superficial wound on the right heel. This patient has history of COPD, hypertension, congestive heart failure, diabetes mellitus, and hyperlipidemia. The patient has been admitted for heart catheterization and angioplasty. The patient had a CTA of the chest, no evidence of PE. The patient has some small loculated left pleural effusion. On examination, the patient was seen in his room. SOCIAL HISTORY: The patient has history of smoking, continues to smoke. PHYSICAL EXAMINATION: CHEST: Clear. Few crackles at the lung bases. ABDOMEN: Soft and nontender. EXTREMITIES: Femorals are 1+. PT and DP by the Doppler. Right heel has a superficial skin crack. Mild redness noted on the dorsal aspect of the bilateral foot. PLAN: We will use Medihoney gel to the wound on the right heel. The patient is going for a heart catheterization and angioplasty. Follow with you. MMODL / IJN: [id number] / SOILA
[2022-08-07 21:59] LABS: Appearance,Urine Clear (Clear); Bilirubin,Urine Negative (Negative); Blood,Urine Negative (Negative); Color,Urine Colorless; Glucose,Urine (UA) Trace (Negative); Ketones,Urine Negative (Negative); Leukocyte Esterase,Urine Negative (Negative); Nitrite,Urine Negative (Negative); PH, Urine 6.5 (5.0-8.0); Protein,Urine Trace (Negative); Specific Gravity,Urine 1.016 (1.001-1.035); Urobilinogen,Urine <2.0 mg/dL (<2.0)
[2022-08-07 23:08] LABS: Chol/HDL Ratio 2.49 Ratio; LDL Cholesterol,Calculated 67.6 mg/dL (0.0-131.0)
[2022-08-08 06:38] LABS: Glucose,Whole Blood 173 mg/dL (70-110)
[2022-08-08] MEDS: INSULIN ASPART (NovoLOG) 100 UNIT/ML VIAL SQ SCH ×4 (06:41→20:20)
[2022-08-08] MEDS: LOSARTAN 25 MG TAB PO SCH (08:35)
[2022-08-08] MEDS: ISOSORBIDE MONONITRATE ER 30 MG TAB.ER.24H PO SCH (08:35)
[2022-08-08] MEDS: SPIRONOLACTONE 25 MG TAB PO SCH (08:35)
[2022-08-08] MEDS: FUROSEMIDE 10 MG/ML 2 ML VIAL IV SCH (08:36)
[2022-08-08] MEDS: METOPROLOL TARTRATE 25 MG TAB PO SCH ×2 (08:36→20:20)
[2022-08-08] MEDS: ASPIRIN 81 MG PO SCH (08:36)
[2022-08-08] MEDS: HEPARIN SODIUM,PORCINE/PF 5,000 UNIT/0.5 ML SYRINGE SQ SCH ×2 (08:36→20:20)
[2022-08-08] MEDS: CLOPIDOGREL 75 MG TAB PO SCH (08:36)
--- NOTE | 2022-08-08 09:12 | CA ---
Transthoracic Echo Report Name: Rory Herman Age: 67 Gender: M : 1955 Exam Date: 08/07/2022 14:23 Exam Location: [place] [facility] Ht (in): 68 Wt (lb): 193 Ordering Physician: Berny Acevedo MD ([id number]) Attending/Referring Phys: Dye House Helper Doreen Jones, KALEE Procedure CPT: Indications: ef 20% Cardiac Hx: Limited Study for EF. Technical Quality: Contrast 1: Total Dose (mL): Contrast 2: Total Dose (mL): MEASUREMENTS (Male / Female) Normal Values 2D ECHO LV Diastolic Diameter PLAX 5.4 cm 4.2 - 5.9 / 3.9 - 5.3 cm LV Systolic Diameter PLAX 4.4 cm IVS Diastolic Thickness 1.4 cm 0.6 - 1.0 / 0.6 - 0.9 cm LVPW Diastolic Thickness 1.6 cm 0.6 - 1.0 / 0.6 - 0.9 cm LV Relative Wall Thickness 0.6 RV Internal Dim ED PLAX 3.2 cm LA Systolic Diameter LX 4.7 cm 3.0 - 4.0 / 2.7 - 3.8 cm DOPPLER TR Peak Velocity 341.8 cm/s TR Peak Gradient 46.7 mmHg Right Ventricular Systolic Press 59.2 mmHg FINDINGS Left Ventricle Mildly increased septal wall thickness. Left ventricular ejection fraction is estimated at 40% with mild anteroseptal hypokinesia Right Ventricle Normal right ventricular size and function. Moderate pulmonary hypertension. Right ventricular systolic pressure estimated at 59 mm hg. Right Atrium Normal right atrial size. Left Atrium Mildly increased left atrial diameter. Mitral Valve Mild mitral regurgitation. Aortic Valve Trileaflet aortic valve. Tricuspid Valve Structurally normal tricuspid valve. Mild tricuspid regurgitation. Pulmonic Valve Structurally normal pulmonic valve. Pericardium Normal pericardium. Aorta Normal size aortic root and proximal ascending aorta. CONCLUSIONS Left ventricle is of a normal size with ejection fraction of 40% with anteroseptal hypokinesia and moderate to severe pulmonary hypertension. Mild mitral and moderate tricuspid regurgitation no pericardial effusion Previewed by: Dr. Berny Acevedo MD (Electronically Signed) Final Date: 08 August 2022 09:12
[2022-08-08 09:22] LABS: Basophils % (A) 0 %; Eosinophils # (A) 0.2 k/uL (0-0.7); Eosinophils % (A) 2 %; HCT 33.6 % (39.0-53.0); HGB 10.8 gm/dL (13.0-17.5); Lymphocytes # (A) 1.1 k/uL (1.0-4.8); Lymphocytes % (A) 17 %; MCH 28.7 pg (25.0-35.0); MCHC 32.2 g/dL (31.0-37.0); Mean Platelet Volume 8.3; Monocytes # (A) 0.4 k/uL (0-1.0); Monocytes % (A) 6 %; Neutrophils # (A) 4.7 k/uL (1.3-7.7); Neutrophils % (A) 72 %; Platelet Count 192 k/uL (150-450); RBC 3.77 m/uL (4.30-5.90); RDW 14.6 % (11.5-15.5); WBC 6.6 k/uL (3.8-10.6)
[2022-08-08 09:46] LABS: Calcium 8.3 mg/dL (8.4-10.2); Magnesium 1.7 mg/dL (1.6-2.3)
--- NOTE | 2022-08-08 11:04 | CDI ---
Documentation Clarification Form Date: 08/08/2022 10:47:43 AM From: Aspen Peng CCS, CCDS Admit Date: 08/06/2022 1:51:00 PM Patient Name: Rory Herman Visit Number: [id number] Discharge Date: ATTENTION: The Clinical Documentation Specialists (CDI) and [facility] Coding Staff appreciate your assistance in clarifying documentation. Please respond to the clarification below the line at the bottom and electronically sign. The CDI & [facility] Coding staff will review the response and follow-up if needed. Please note: Queries are made part of the Legal Health Record. If you have any questions, please contact the author of this message via ITS. Dr. Jean Claude Chavez. Sheet: Mild Anemia is documented in the 08/06 ED note without further specificity. The patient has co-morbid conditions of CKD, Hypertension and Diabetes Mellitus. Additional specificity regarding the Type & Acuity of Anemia is requested. History/Risk Factors per the 08/06 H/P: DM, Hyperlipidemia, Hypertension, [place], Smoker. Clinical indicators: Presented to the ED 08/06 with Dizziness, Chest Pain and SOB. Seen by cardiology at [facility] and taken to the [facility] for a diagnostic heart cath which showed CAD. Patient left AMA from [facility]. Presented back to [facility] ED with same symptoms, taken to the [facility] for a PTCA with stent. Admit with Chest Pain, Anemia, Renal Insufficiency, CHF, NSTEMI and Pleural Condition. Hemoglobin 08/06: 11.5. 08/07: 11.4. 08/08: 10.8. Hematocrit 08/06: 34.0. 08/07: 34.9. 08/08: 33.6. Treatment 08/06: Cardiology Consult, Vascular Surgery (bilateral feet red), PTCA w/KAMRYN stent, Telemetry, Accuchecks, po Aspirin 324 mg x1, Nitropaste x1, Nitro sl 0.4 mg q5M/prn, IV Lasix 40 mg x1, 20 mg x1; IV Heparin 4,000 units x1, IV Dextrose 25 ml - 50 ml per protocol/prn, Insulin sq, Habitrol patch daily, IV Na Chl 1,000 mls. 08/07: Nephrology Consult, Dietitian Consult. Please clarify the Type & Acuity of Anemia: [ ] Chronic blood loss anemia [ ] Iron deficiency anemia [ ] Hemolytic anemia [ ] Drug induced anemia [ ] Anemia due to CKD [ ] Anemia due other chronic condition [ ] Nutritional anemia [ ] Unable to determine [ ] Other, please specify (Template Last Revised: August 2020) Unable to determine MTDD
--- NOTE | 2022-08-08 11:14 | P.PN ---
Subjective Patient is seen in follow-up for acute kidney injury. Renal function stable. Has been waiting. No chest pain or shortness of breath. Hemodynamically stable. On room air. Vital signs are stable. General: Awake. No acute distress. HEENT: Head exam is unremarkable. LUNGS: Breath sounds decreased. HEART: Rate and Rhythm are regular. ABDOMEN: Soft, no distention. EXTREMITITES: Trace edema. Objective - Vital Signs Vital signs: Vital Signs Temp 98 F 08/07/22 20:00 Pulse 71 08/08/22 08:00 Resp 16 08/08/22 08:00 BP 120/59 08/08/22 08:00 Pulse Ox 100 08/08/22 08:00 FiO2 Intake & Output 08/07/22 08/08/22 08/08/22 18:59 06:59 18:59 Intake Total 2225 600 Output Total 1450 1300 600 Balance 775 -1300 0 Weight 87.7 kg 85.9 kg Intake: IV 825 Oral 1400 600 Output: Urine 1450 1300 600 Other: Voiding Method Toilet Toilet Toilet Urinal Urinal Urinal - Labs CBC & Chem 7: 08/08/22 09:08 08/08/22 09:08 Labs: Abnormal Lab Results - Last 24 Hours (Table) 08/07/22 08/07/22 08/07/22 Range/Units 04:36 11:49 12:23 RBC (4.30-5.90) m/uL Hgb (13.0-17.5) gm/dL Hct (39.0-53.0) % APTT 62.2 H (22.0-30.0) sec BUN (9-20) mg/dL Creatinine (0.66-1.25) mg/dL Glucose (74-99) mg/dL POC Glucose (mg/dL) 181 H (70-110) mg/dL Calcium (8.4-10.2) mg/dL HDL Cholesterol 63.40 H (40.00-60.00) mg/dL Urine Protein (Negative) Urine Glucose (UA) (Negative) 08/07/22 08/07/22 08/07/22 Range/Units 16:30 16:42 20:02 RBC (4.30-5.90) m/uL Hgb (13.0-17.5) gm/dL Hct (39.0-53.0) % APTT (22.0-30.0) sec BUN (9-20) mg/dL Creatinine (0.66-1.25) mg/dL Glucose (74-99) mg/dL POC Glucose (mg/dL) 317 H 237 H (70-110) mg/dL Calcium (8.4-10.2) mg/dL HDL Cholesterol (40.00-60.00) mg/dL Urine Protein Trace H (Negative) Urine Glucose (UA) Trace H (Negative) 08/08/22 08/08/22 08/08/22 Range/Units 06:36 09:08 09:08 RBC 3.77 L (4.30-5.90) m/uL Hgb 10.8 L (13.0-17.5) gm/dL Hct 33.6 L (39.0-53.0) % APTT (22.0-30.0) sec BUN 29 H (9-20) mg/dL Creatinine 1.42 H (0.66-1.25) mg/dL Glucose 255 H (74-99) mg/dL POC Glucose (mg/dL) 173 H (70-110) mg/dL Calcium 8.3 L (8.4-10.2) mg/dL HDL Cholesterol (40.00-60.00) mg/dL Urine Protein (Negative) Urine Glucose (UA) (Negative) Assessment and Plan Plan: Assessment: 1. Acute kidney injury versus underlying chronic kidney disease. Creatinine stable at 1.4. Patient's creatinine in May 2015 was 1.65. UA shows trace protein. No hydronephrosis noted on kidney ultrasound. 2. End STEMI status post cardiac catheterization August 06 and LAD stent placement 08/07/2022. 3. Chronic systolic CHF with ejection fraction of 20-25%. 4. Diabetes mellitus. 5. Hypertension with chronic kidney disease. Controlled. Plan: Change IV Lasix to oral 20 mg twice daily. Advised patient to follow up outpatient in 1-2 weeks post discharge to establish CKD care. Avoid nephrotoxins.
--- NOTE | 2022-08-08 11:15 | P.PN ---
Subjective This is a pleasant 67 years old male who presents with chest pain and dyspnea. His documented chronic conditions including COPD, hypertension, CHF, diabetes, hyperlipidemia, ADHD. He was admitted to yesterday because of chest pain or dyspnea radiating to the right arm with dizziness and lightheadedness. Patient was recently hospitalized with similar symptoms on July 04 and was found to have non-STEMI and at that time echocardiogram showing ejection fraction of 20- 25% with moderate TR and RVSP of 53 mmHg. He supposed to follow up with his cow tender as an outpatient because of elevated cardiac enzymes and high proBNP at 17, 091. When he came to the hospital area On admission received IV heparin. CTA of the chest was negative for PE. On July 04 he had some admission, He had limited 2-D echocardiogram showed global hypokinesia of the left ventricle and lateral wall with moderate concentric LVH with ejection fraction of 20-25%. Cardiac cath could not be done because of worsening kidney function. Yesterday his creatinine was 1.1, glucose 261 CTA of the chest: No pulmonary embolism, trace and small loculated left pleural effusion, multifocal groundglass attenuation of the lung parenchyma, likely on the basis of atelectasis versus acute inflammatory process. Sequelae findings suggesting underlying pulmonary hypertension patient underwent cardiac cath yesterday showing significnant coronary triple vessel coronary artery disease with 7-75% stenosis of the LAD AND 40% stenosis of the PLV Branch of the circumflex aetery , and normal left main , and diffuse disease of the RCA, as such cow tender recommended and pt was planned to undergo another cardiac cath for pci of the LAD, However pt states he had some kind of interaction with the nurse and then he decided to leave against medical advise, he [facility] , and pt denies any chest pain or dyspea currently CBC is unremarkable. INR 1.0. Creatinine went up to 1.4 compared to 1.1 yesterday at [facility]. Elevated glucose 256. Troponin is elevated 2.3. Chest x-ray: Correlate for CHF with my pulmonary vascular congestion and trace pleural effusion on lateral view. Possible 6.3 x 2.6 cm pleural-based mass or loculated fluid collection posteriorly on the left seen on the lateral view. Right ankle x-ray: No evidence of acute fracture. Soft tissue swelling around the foot and ankle. No evidence of for osteomyelitis 08/07/2022 Patient was awake and alert and not in distress this morning with no chest pain. He underwent cardiac cath and stent placement in his LAD however patient became hypotensive transiently during the cath and a levophed has to be placed for him. However his blood pressure improved and patient still monitored postoperatively by anesthesia team per report Patient creatinine is 1.4, was 1.1 at [facility] 2 days ago therefore we consulted fur blowing machine attendant. Remission IV Lasix 20 mg twice daily. He is on aspirin and Plavix Vascular surgery were consulted for his right heel painful fissure wound 08/08/2022 Patient feels no chest pain, no dyspnea at rest, he did not specify any specific complaints and actually wants to go home However patient is still have some basal interpretation is still have leg swelling. He remains on IV Lasix. Also he had the stent placed yesterday and currently on aspirin Plavix and the importance of dual antiplatelet therapy explained for him extensively. Vascular surgery and nephrology team on the case, his ultrasound of the kidney looks unremarkable. Creatinine is 1.4, patient instructed to follow up as an outpatient and is agreeable Patient also have some suspicion for cellulitis on the legs given his uncontrolled diabetes we will add a short course of oral antibiotics with close outpatient follow-up. I discussed the case with Dr. Sanchez and cleared her for discharge by tomorrow follow-up with him in 1 week, patient is already informed about his discharge instructions and he is agreeable Review of systems CONSTITUTIONAL: No fever, no malaise, no fatigue. HEENT: No recent visual problems or hearing problems. Denied any sore throat. CARDIOVASCULAR: No orthopnea, PND, no palpitations, no syncope. PULMONARY: No shortness of breath, no cough, no hemoptysis. GASTROINTESTINAL: No diarrhea, no nausea, no vomiting, no abdominal pain. Normoactive bowel sounds. NEUROLOGICAL: No headaches, no weakness, no numbness. Active Medications Generic Name Dose Route Start Last Admin Trade Name Freq PRN Reason Stop Dose Admin Acetaminophen 650 mg 08/06/22 16:52 Acetaminophen Tab 325 Mg Tab PO Q6HR PRN Fever and/ or Pain Al Hydroxide/Mg Hydroxide 30 ml 08/07/22 11:02 Mag Hydrox/Al Hydrox/Simeth 30 Ml Cup PO Q4HR PRN Heartburn Alprazolam 0.25 mg 08/06/22 13:24 Alprazolam 0.25 Mg Tab PO 09/05/22 13:25 Q6HR PRN Mild Anxiety Alprazolam 0.5 mg 08/06/22 13:24 Alprazolam 0.5 Mg Tab PO 09/05/22 13:25 Q6HR PRN Moderate Anxiety Aspirin 81 mg 08/07/22 09:00 08/08/22 08:36 Aspirin 81 Mg PO 09/06/22 09:01 81 mg DAILY [facility] Administration Atropine Sulfate 0.5 mg 08/07/22 11:02 Atropine Sulfate 0.1 Mg/Ml 10ml Syringe IV ONCE PRN Symptomatic Bradycardia Cephalexin 500 mg 08/08/22 11:15 Cephalexin 500 Mg Cap PO TID [facility] Protocol Clopidogrel Bisulfate 75 mg 08/07/22 09:00 08/08/22 08:36 Clopidogrel 75 Mg Tab PO 75 mg DAILY [facility] Administration Dextrose/Water 25 ml 08/06/22 16:50 Dextrose 50% Syringe 50 Ml IVP PER PROTOCOL PRN Hypoglycemia Protocol Dextrose/Water 50 ml 08/06/22 16:50 Dextrose 50% Syringe 50 Ml IVP PER PROTOCOL PRN Hypoglycemia Protocol Furosemide 20 mg 08/06/22 21:00 08/08/22 08:36 Furosemide 10 Mg/Ml 2 Ml Vial IV 20 mg Q12HR [facility] Administration Heparin Sodium (Porcine) 5,000 unit 08/07/22 21:00 08/08/22 08:36 Heparin Sodium,Porcine/Pf 5,000 Unit/0.5 Ml Syringe SQ 5,000 unit Q12HR [facility] Administration Heparin Sodium/Sodium Chloride 250 mls @ 10 mls/hr 08/06/22 14:00 08/07/22 17:16 25,000 unit/ Sodium Chloride IV 09/05/22 14:01 Not Given .Q24H [facility] Protocol 9.421 UNITS/KG/HR Insulin Aspart 0 unit 08/06/22 17:30 08/08/22 06:41 Insulin Aspart (Novolog) 100 Unit/Ml Vial SQ 2 unit ACHS [facility] Administration Protocol Insulin Detemir 5 unit 08/08/22 12:00 Insulin Detemir (Levemir) 100 Unit/Ml Syr SQ DAILY@0700 [facility] Isosorbide Mononitrate 30 mg 08/07/22 09:00 08/08/22 08:35 Isosorbide Mononitrate Er 30 Mg Tab.Er.24h PO 30 mg DAILY [facility] Administration Losartan Potassium 25 mg 08/07/22 09:00 08/08/22 08:35 Losartan 25 Mg Tab PO 25 mg DAILY [facility] Administration Metoprolol Tartrate 25 mg 08/06/22 21:00 08/08/22 08:36 Metoprolol Tartrate 25 Mg Tab PO 25 mg BID [facility] Administration Miscellaneous Information 1 each 08/07/22 11:02 Rx Info: Iv Contrast Was Given 1 Each Misc MISCELLANE 08/09/22 11:02 DAILY PRN Per Protocol Nicotine 1 patch 08/06/22 21:00 08/07/22 20:08 Nicotine 21mg/24hr Patch TRANSDERM Not Given HS [facility] Nitroglycerin 0.4 mg 08/06/22 13:50 Nitroglycerin Sl Tabs 0.4 Mg Tab SUBLINGUAL 09/05/22 13:51 Q5M PRN Chest Pain Spironolactone 12.5 mg 08/07/22 09:00 08/08/22 08:35 Spironolactone 25 Mg Tab PO 12.5 mg DAILY [facility] Administration Zolpidem Tartrate 5 mg 08/07/22 11:02 Zolpidem 5 Mg Tab PO HS PRN Insomnia Objective - Vital Signs Vital signs: Vital Signs Temp 98 F 08/07/22 20:00 Pulse 71 08/08/22 08:00 Resp 16 08/08/22 08:00 BP 120/59 08/08/22 08:00 Pulse Ox 100 08/08/22 08:00 FiO2 Intake & Output 08/07/22 08/08/22 08/08/22 18:59 06:59 18:59 Intake Total 2225 600 Output Total 1450 1300 600 Balance 775 -1300 0 Weight 87.7 kg 85.9 kg Intake: IV 825 Oral 1400 600 Output: Urine 1450 1300 600 Other: Voiding Method Toilet Toilet Toilet Urinal Urinal Urinal - Exam GENERAL: The patient is alert and oriented x3, not in any acute distress. Well developed, well nourished. HEENT: Pupils are round and equally reacting to light. EOMI. No scleral icterus. No conjunctival pallor. Normocephalic, atraumatic. No pharyngeal erythema. No thyromegaly. CARDIOVASCULAR: S1 and S2 present. No murmurs, rubs, or gallops. -PULMONARY: Chest is clear to auscultation, no wheezing . Mild bilateral basalr crackles. ABDOMEN: Soft, nontender, nondistended, normoactive bowel sounds. No palpable organomegaly. MUSCULOSKELETAL: No joint swelling or deformity. -EXTREMITIES: No cyanosis, clubbing, , bilateral pitting leg edema. painful and tender fissure in the right ankle, with mild surrounding erythema NEUROLOGICAL: Gross neurological examination did not reveal any focal deficits. SKIN: No rashes. no petechiae. - Labs CBC & Chem 7: 08/08/22 09:08 08/08/22 09:08 Labs: Abnormal Lab Results - Last 24 Hours (Table) 08/07/22 08/07/22 08/07/22 Range/Units 04:36 11:49 12:23 RBC (4.30-5.90) m/uL Hgb (13.0-17.5) gm/dL Hct (39.0-53.0) % APTT 62.2 H (22.0-30.0) sec BUN (9-20) mg/dL Creatinine (0.66-1.25) mg/dL Glucose (74-99) mg/dL POC Glucose (mg/dL) 181 H (70-110) mg/dL Calcium (8.4-10.2) mg/dL HDL Cholesterol 63.40 H (40.00-60.00) mg/dL Urine Protein (Negative) Urine Glucose (UA) (Negative) 08/07/22 08/07/22 08/07/22 Range/Units 16:30 16:42 20:02 RBC (4.30-5.90) m/uL Hgb (13.0-17.5) gm/dL Hct (39.0-53.0) % APTT (22.0-30.0) sec BUN (9-20) mg/dL Creatinine (0.66-1.25) mg/dL Glucose (74-99) mg/dL POC Glucose (mg/dL) 317 H 237 H (70-110) mg/dL Calcium (8.4-10.2) mg/dL HDL Cholesterol (40.00-60.00) mg/dL Urine Protein Trace H (Negative) Urine Glucose (UA) Trace H (Negative) 08/08/22 08/08/22 08/08/22 Range/Units 06:36 09:08 09:08 RBC 3.77 L (4.30-5.90) m/uL Hgb 10.8 L (13.0-17.5) gm/dL Hct 33.6 L (39.0-53.0) % APTT (22.0-30.0) sec BUN 29 H (9-20) mg/dL Creatinine 1.42 H (0.66-1.25) mg/dL Glucose 255 H (74-99) mg/dL POC Glucose (mg/dL) 173 H (70-110) mg/dL Calcium 8.3 L (8.4-10.2) mg/dL HDL Cholesterol (40.00-60.00) mg/dL Urine Protein (Negative) Urine Glucose (UA) (Negative) Assessment and Plan Assessment: triple-vessel coronary artery disease with 70-75% stenosis of the LAD, requring status post cardiac cath and PCI to LAD on 08/07 with PCI to LAD left ankle pain and swelling with fissure , rule acute peripheral artery disease acute kidney injury Acute and chronic CHF with ejection fraction 20-25% Moderate tricuspid regurgitation with pulmonary hypertension Bilateral pitting leg edema with possible status dermatitis secondary to above and CHF painful right ankle fissure pain and tenderness diabetes mellitus with hyperglycemia, present on admission Noncompliance, patient also left AMA from [facility] COPD with exacerbation Plan: continue with Aspirin, and Plavix, and statin. Importance of dual antiplatelet therapy are explained for him as well as risks and benefits and he is agreeable Cardiology consult Check procalcitonin, however start Keflex consult vascular surgery for right ankle fissure and pain and tenderness, patient can be discharged tomorrow per Vascular surgery team Nephrology consult discussed with the staff to teach him to inject insulin Labs and medication were reviewed.. Continue same treatment. Continue with sy mptomatic treatment. Resume home medication. Monitor lytes and vitals. DVT and GI prophylaxis. Further recommendations as per clinical course of the patient DVT prophylaxis: Subcutaneous heparin GI Prophylaxis: Pepcid PT/OT: Pending, however when I talked to the patient he refuses to go to rehab if indicated. He has a cane at bedside Prognosis is guarded Possible discharge in 24-48 hours
[2022-08-08 12:04] LABS: Glucose,Whole Blood 197 mg/dL (70-110)
[2022-08-08] MEDS: HEPARIN SOD,PORK IN 0.45% NACL 25,000 UNIT in 0.45% NACL 1 250ML.BAG IV SCH (12:46)
[2022-08-08] MEDS: CEPHALEXIN 500 MG CAP PO SCH ×3 (12:53→20:20)
[2022-08-08] MEDS: INSULIN DETEMIR (LEVEMIR) 100 UNIT/ML SYR SQ SCH (12:53)
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
--- NOTE | 2022-08-08 16:30 | P.PCN ---
Description of Procedure: 67-year-old gentleman patient had a coronary artery stent placed patient was seen in the office patient has a wound on the right heel which we treated with local wound care using medihoney gel patient has a poor circulation patient is going home tomorrow advised to come follow-up Friday in my office continue with the local wound care using medihoney gel
[2022-08-08 17:14] LABS: Glucose,Whole Blood 293 mg/dL (70-110)
[2022-08-08] MEDS: FUROSEMIDE 20 MG TAB PO SCH (17:23)
[2022-08-08 20:01] LABS: Glucose,Whole Blood 177 mg/dL (70-110)
[2022-08-08] MEDS: NICOTINE 21MG/24HR PATCH TRANSDERM SCH ×2 (20:20→20:25)
[2022-08-09 06:36] LABS: Glucose,Whole Blood 228 mg/dL (70-110)
[2022-08-09] MEDS: INSULIN DETEMIR (LEVEMIR) 100 UNIT/ML SYR SQ SCH (06:36)
[2022-08-09] MEDS: INSULIN ASPART (NovoLOG) 100 UNIT/ML VIAL SQ SCH (06:36)
[2022-08-09 08:22] VITALS: BP 105/59; PULSE 72; RESP 20; TEMP 97.3
[2022-08-09] MEDS: SPIRONOLACTONE 25 MG TAB PO SCH (08:25)
[2022-08-09] MEDS: HEPARIN SODIUM,PORCINE/PF 5,000 UNIT/0.5 ML SYRINGE SQ SCH (08:25)
[2022-08-09] MEDS: LOSARTAN 25 MG TAB PO SCH (08:25)
[2022-08-09] MEDS: ASPIRIN 81 MG PO SCH (08:26)
[2022-08-09] MEDS: CEPHALEXIN 500 MG CAP PO SCH (08:26)
[2022-08-09] MEDS: ISOSORBIDE MONONITRATE ER 30 MG TAB.ER.24H PO SCH (08:26)
[2022-08-09] MEDS: FUROSEMIDE 20 MG TAB PO SCH (08:26)
[2022-08-09] MEDS: METOPROLOL TARTRATE 25 MG TAB PO SCH (08:26)
[2022-08-09] MEDS: CLOPIDOGREL 75 MG TAB PO SCH (08:26)
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
--- NOTE | 2022-08-09 10:47 | P.PN ---
Subjective Patient is seen in follow-up for acute kidney injury. Renal function stable as of yesterday. Admits to good urine output. No chest pain or shortness of breath. Hemodynamically stable. On room air. Wants to go home. Vital signs are stable. General: Awake. No acute distress. HEENT: Head exam is unremarkable. LUNGS: Breath sounds decreased. HEART: Rate and Rhythm are regular. ABDOMEN: Soft, no distention. EXTREMITITES: No edema. Objective - Vital Signs Vital signs: Vital Signs Temp 97.3 F L 08/09/22 08:21 Pulse 72 08/09/22 08:21 Resp 20 08/09/22 08:21 BP 105/59 08/09/22 08:21 Pulse Ox 95 08/09/22 08:21 FiO2 Intake & Output 08/08/22 08/09/22 08/09/22 18:59 06:59 18:59 Intake Total 1200 1088 180 Output Total 600 1800 650 Balance 600 -712 -470 Weight 84.9 kg Intake: Oral 1200 1088 180 Output: Urine 600 1800 650 Other: Voiding Method Toilet Toilet Urinal Urinal - Labs CBC & Chem 7: 08/08/22 09:08 08/08/22 09:08 Labs: Abnormal Lab Results - Last 24 Hours (Table) 08/08/22 08/08/22 08/08/22 Range/Units 09:08 11:56 16:47 POC Glucose (mg/dL) 197 H 293 H (70-110) mg/dL Procalcitonin 0.18 H (0.02-0.09) ng/mL 08/08/22 08/09/22 Range/Units 19:56 06:34 POC Glucose (mg/dL) 177 H 228 H (70-110) mg/dL Procalcitonin (0.02-0.09) ng/mL Assessment and Plan Plan: Assessment: 1. Acute kidney injury versus underlying chronic kidney disease. Creatinine stable at 1.4 as of yesterday. Patient's creatinine in May 2015 was 1.65. UA shows trace protein. No hydronephrosis noted on kidney ultrasound. 2. End STEMI status post cardiac catheterization August 06 and LAD stent placement 08/07/2022. 3. Chronic systolic CHF with ejection fraction of 20-25%. 4. Diabetes mellitus. 5. Hypertension with chronic kidney disease. Controlled. Plan: Maintain oral Lasix. Advised patient to follow up outpatient in 1-2 weeks post discharge to establish CKD care. Avoid nephrotoxins.
--- NOTE | 2022-08-14 10:27 | P.DS ---
Providers Date of admission: 08/06/22 13:51 Attending physician: Jean Claude Negro MD Consults: 08/06/22 13:51 Consult Physician Urgent Consulting Provider: Berny Acevedo Consult Reason/Comments: cp Do you want consulting provider notified?: Already Contacted 08/06/22 16:53 Consult Physician Urgent Consulting Provider: Duc Sanchez Consult Reason/Comments: alexis feet red, known patient Do you want consulting provider notified?: Yes 08/07/22 08:56 Consult Physician Urgent Consulting Provider: Angelito Dougherty Consult Reason/Comments: gokul Do you want consulting provider notified?: Yes 08/07/22 09:49 Consult Physician Stat Consulting Provider: Angelito Dougherty Consult Reason/Comments: elevated creatinine Do you want consulting provider notified?: Yes 08/07/22 11:02 Consult Physician Routine Consulting Provider: [facility] Consult Reason/Comments: Post Interventional Patient Do you want consulting provider notified?: Already Contacted Primary care physician: Stated None Hospital Course: Diagnoses: triple-vessel coronary artery disease with 70-75% stenosis of the LAD, requring status post cardiac cath and PCI to LAD on 08/07 with PCI to LAD left ankle pain and swelling with fissure , rule acute peripheral artery disease acute kidney injury Acute and chronic CHF with ejection fraction 20-25% Moderate tricuspid regurgitation with pulmonary hypertension Bilateral pitting leg edema with possible status dermatitis secondary to above and CHF painful right ankle fissure pain and tenderness diabetes mellitus with hyperglycemia, present on admission Noncompliance, patient also left AMA from [facility] COPD with exacerbation Hospital course: This is a pleasant 67 years old male who presents with chest pain and dyspnea. His documented chronic conditions including COPD, hypertension, CHF, diabetes, hyperlipidemia, ADHD. Patient is found to have non-STEMI with triple-vessel coronary artery disease and 75% reduction in the flow of LAD coronary artery. He is status post PCI to the proximal LAD. Patient currently sitting up in bed and walking with no difficulty asking to be discharged and he agrees to go home today. He denies any chest pain or dyspnea. No other new complaints His leg swelling is improved and looks like he has chronic bilateral symmetrical dermatitis which is not an active issue. There is no evidence of cellulitis and no need for treatment with antibiotics as this more than benefits upon discharge. Patient afebrile with no leukocytosis. Echocardiogram showed ejection fraction is reduced, patient is been evaluated by senior planning manager and sticker on and physical discharge. Also muscular surgery following the patient and patient told me he is going to follow up with Dr. Sanchez in coming week after discharge Patient denies any other new symptoms. Problems and management plan were discussed with the patient and he verbalized understanding and acceptance Patient was found stable and can be discharged home in guarded prognosis however he needs follow-up as an outpatient. Patient was instructed to follow up with PCP patient was instructed to follow up with Dr. Sanchez on 08/12 and he agrees. And with senior planning manager Dr. Acevedo in 1-[address] Dougherty within one to two weeks and patient agrees. Physical exam Gen: patient is a AAOx3, no distress CVS: S1-S2, RRR, no murmur Lungs: B/L CTA, no wheezing Abdomen: soft, no distention, no tenderness, positive bowel sounds Extremity: no leg edema or induration Time spent more than 35 minutes Patient Condition at Discharge: Fair Plan - Discharge Summary Discharge Rx Participant: Yes New Discharge Prescriptions: New Losartan [Cozaar] 25 mg PO DAILY #30 tab Isosorbide Mononitrate ER [Imdur] 30 mg PO DAILY #30 tab Nitroglycerin Sl Tabs [Nitrostat] 0.4 mg SUBLINGUAL Q5M PRN #20 tab PRN Reason: Chest Pain Clopidogrel [Plavix] 75 mg PO DAILY #30 tab Spironolactone [Aldactone] 12.5 mg PO DAILY #15 tab Aspirin 81 mg PO DAILY #30 tab Metoprolol Tartrate [Lopressor] 25 mg PO BID #60 tab Furosemide [Lasix] 20 mg PO BID@0900,1600 #60 tab Insulin Detemir (Levemir) [Levemir] 5 unit SQ DAILY@0700 #10 ml Discharge Medication List Aspirin 81 mg PO DAILY #30 tab 08/09/22 [Rx] Clopidogrel [Plavix] 75 mg PO DAILY #30 tab 08/09/22 [Rx] Furosemide [Lasix] 20 mg PO BID@0900,1600 #60 tab 08/09/22 [Rx] Insulin Detemir (Levemir) [Levemir] 5 unit SQ DAILY@0700 #10 ml 08/09/22 [Rx] Isosorbide Mononitrate ER [Imdur] 30 mg PO DAILY #30 tab 08/09/22 [Rx] Losartan [Cozaar] 25 mg PO DAILY #30 tab 08/09/22 [Rx] Metoprolol Tartrate [Lopressor] 25 mg PO BID #60 tab 08/09/22 [Rx] Nitroglycerin Sl Tabs [Nitrostat] 0.4 mg SUBLINGUAL Q5M PRN #20 tab 08/09/22 [Rx] Spironolactone [Aldactone] 12.5 mg PO DAILY #15 tab 08/09/22 [Rx] Follow up Appointment(s)/Referral(s): Berny Acevedo MD [STAFF PHYSICIAN] - 08/19/22 2:45 pm [facility],[place] [NON-STAFF] - (Can help with housekeeping, meals on wheels, transportation.) [facility] [REFERRING] - (Call to help with in home assistance through medicaid) Sadi Stokes MD [REFERRING] - 10 Days (Diabetes DrClifford, please call when office is open to make appointment) None,Stated [Primary Care Provider] - 1-2 days Angelito Dougherty DO [STAFF PHYSICIAN] - 1 Week (office will call with appointment date and time) Duc Sanchez MD [STAFF PHYSICIAN] - 08/12/22 2:00 pm (Arterial study) Patient Instructions/Handouts: *Surgery [facility] - After Heart Catheterization - [employer] Motel Manager Instructions Activity/Diet/Wound Care/Special Instructions: Call the number on your MEDICAID card to help with medical transportation. Discharge/Stand Alone Forms: Who Do I Call?, Community Resources, Personal Recordist Chief Discharge Disposition: HOME SELF-CARE
== END 2022-08-09 11:45 | disposition home or self-care (01) | DRG 246 ==
LOC: CATHCVL 12:23 → 3SCARD 13:51
PROVIDERS: ADMIT Internal Medicine; ATTEND Internal Medicine
PROC: 027034Z Dilation of Coronary Artery, One Artery with Drug-eluting Intraluminal Device, Percutaneous Approach (ICD-10-PCS; principal; 2022-08-07 09:30)
DX: I25.110 Atherosclerotic heart disease of native coronary artery with unstable angina pectoris (principal); I21.4 Non-ST elevation (NSTEMI) myocardial infarction; I50.23 Acute on chronic systolic (congestive) heart failure; I13.0 Hypertensive heart and chronic kidney disease with heart failure and stage 1 through stage 4 chronic kidney disease, or unspecified chronic kidney disease; J44.1 Chronic obstructive pulmonary disease with (acute) exacerbation; N17.9 Acute kidney failure, unspecified; I27.20 Pulmonary hypertension, unspecified; E11.65 Type 2 diabetes mellitus with hyperglycemia; E11.22 Type 2 diabetes mellitus with diabetic chronic kidney disease; E11.51 Type 2 diabetes mellitus with diabetic peripheral angiopathy without gangrene; I95.9 Hypotension, unspecified; S90.921A Unspecified superficial injury of right foot, initial encounter; L30.9 Dermatitis, unspecified; I08.3 Combined rheumatic disorders of mitral, aortic and tricuspid valves; N18.9 Chronic kidney disease, unspecified; I25.5 Ischemic cardiomyopathy; E78.5 Hyperlipidemia, unspecified; D64.9 Anemia, unspecified; F17.210 Nicotine dependence, cigarettes, uncomplicated; Z91.199 Patient's noncompliance with other medical treatment and regimen due to unspecified reason; Z88.2 Allergy status to sulfonamides; F90.9 Attention-deficit hyperactivity disorder, unspecified type; Z79.02 Long term (current) use of antithrombotics/antiplatelets; Z79.82 Long term (current) use of aspirin; Z79.899 Other long term (current) drug therapy; Z95.5 Presence of coronary angioplasty implant and graft
CPT/HCPCS: 71046; 76770; 80048; 80053; 80061; 81003; 83036; 83735; 84145; 84484; 85025; 85610; 85730; 93005; 93308; 93970; 94760

== ENCOUNTER 2022-12-10 19:24 | Inpatient (IN) | payer MEDICARE, OTHER ==
--- NOTE | 2022-12-10 20:27 | ED ---
Skin/Abscess/FB HPI - General Source: patient, family, RN notes reviewed Mode of arrival: wheelchair Limitations: no limitations <Marlen Carlson - Last Filed: 12/10/22 20:28> <Erich Bacon - Last Filed: 12/10/22 23:28> - General Chief complaint: Skin/Abscess/Foreign Body Stated complaint: SWOLLEN FEET-REDNESS Time Seen by Provider: 12/10/22 20:25 - History of Present Illness Initial comments: This is a 67-year-old male who presents to the emergency department for pain, swelling, and redness to the right foot. This has been present for a long period of time and he states that it has started to get worse and he is now having difficulty walking on it. Denies any fevers or chills. (Marlen Carlson) This is a 67-year-old male with a past medical history including diabetes presents emergency department for pain and redness in the right foot. The patient stated that this is been going on for the last 2-3 months and stated that he had worsening pain to the point where he could not walk on his right foot. The patient reported a dark area on his right foot that his neighbor noticed and told to come to the emergency department. The patient stated that he has not noticed anything himself. The patient is an overall poor historian and did not know any of his medical issues but stated that he does have help at home and her to take care of his medications. The patient denied any fevers and chills but was complaining of right foot pain only with ambulation. The patient was not in any active acute pain or distress. (Erich Bacon) - Related Data Home Medications Medication Instructions Recorded Confirmed Atorvastatin [Lipitor] 40 mg PO DAILY 12/10/22 12/10/22 Cholecalciferol [Vitamin D3 (25 50 mcg PO DAILY 12/10/22 12/10/22 Mcg = 1000 Iu)] Collagenase [Santyl Ointment] 1 applic TOPICAL DAILY 12/10/22 12/10/22 Empagliflozin [Jardiance] 10 mg PO DAILY 12/10/22 12/10/22 Insulin Detemir (Levemir) [Levemir] 5 unit SQ DIRECTED 12/10/22 12/10/22 Nitroglycerin Sl Tabs [Nitrostat] 0.4 mg SL Q5M PRN 12/10/22 12/10/22 Previous Rx's Medication Instructions Recorded Aspirin 81 mg PO DAILY #30 tab 08/09/22 Clopidogrel [Plavix] 75 mg PO DAILY #30 tab 08/09/22 Furosemide [Lasix] 20 mg PO BID@0900,1600 #60 tab 08/09/22 Isosorbide Mononitrate ER [Imdur] 30 mg PO DAILY #30 tab 08/09/22 Losartan [Cozaar] 25 mg PO DAILY #30 tab 08/09/22 Metoprolol Tartrate [Lopressor] 25 mg PO BID #60 tab 08/09/22 Spironolactone [Aldactone] 12.5 mg PO DAILY #15 tab 08/09/22 Allergies Allergy/AdvReac Type Severity Reaction Status Date / Time Sulfa (Sulfonamide Allergy Rash/Hives Verified 12/10/22 22:38 Antibiotics) Review of Systems ROS Other: All systems not noted in ROS Statement are negative. <Marlen Carlson - Last Filed: 12/10/22 20:28> ROS Other: All systems not noted in ROS Statement are negative. <Erich Bacon - Last Filed: 12/10/22 23:28> ROS Statement: Those systems with pertinent positive or pertinent negative responses have been documented in the HPI. Past Medical History Past Medical History: Diabetes Mellitus, Hyperlipidemia, Hypertension, Myocardial Infarction (NV) Last Myocardial Infarction Date:: unknown History of Any Multi-Drug Resistant Organisms: None Reported Past Surgical History: Orthopedic Surgery Past Psychological History: No Psychological Hx Reported Smoking Status: Current every day smoker Past Alcohol Use History: None Reported Past Drug Use History: None Reported <Marlen Carlson - Last Filed: 12/10/22 20:28> General Exam Limitations: no limitations <Marlen Carlson - Last Filed: 12/10/22 20:28> Limitations: no limitations General appearance: alert, in no apparent distress Head exam: Present: atraumatic, normocephalic, normal inspection Eye exam: Present: normal appearance, PERRL Pupils: Present: normal accommodation ENT exam: Present: normal exam, normal oropharynx, mucous membranes moist Neck exam: Present: normal inspection, full ROM Respiratory exam: Present: normal lung sounds bilaterally Cardiovascular Exam: Present: regular rate, normal rhythm, normal heart sounds GI/Abdominal exam: Present: soft, normal bowel sounds Extremities exam: Present: full ROM, other (Redness noted to the underside of the right foot with a 2 cm circular necrotic area with the lower margins having active maggots in the wound. The wound was not actively draining however was tender to palpation as well as having crepitus on palpation. Small punctate necrotic areas on both feet) Back exam: Present: normal inspection, full ROM Neurological exam: Present: alert, oriented X3, CN II-XII intact Psychiatric exam: Present: normal affect, normal mood Skin exam: Present: warm, dry <Erich Bacon - Last Filed: 12/10/22 23:28> - General Exam Comments Initial Comments: Visual Physical Exam Vital signs reviewed General: Well-appearing, nontoxic, no acute distress. Head: Normocephalic, atraumatic Eyes: PERRLA, EOMI ENT: Airway patent Chest: Nonlabored breathing Skin: No visual rash, normal skin tone Neuro: Alert and oriented 3 Musculoskeletal: No gross abnormalities (Vogley,Marlen) Course Vital Signs 12/10/22 19:49 Temperature 98.5 F Pulse Rate 80 Respiratory 18 Rate Blood Pressure 111/62 O2 Sat by Pulse 97 Oximetry Medical Decision Making - Lab Data Result diagrams: 12/10/22 20:50 12/10/22 20:50 <Erich Bacon - Last Filed: 12/10/22 23:28> - Medical Decision Making Was pt. sent in by a medical professional or institution (, [facility], [facility], urgent care, hospital, or skilled nursing...) When possible be specific @ -No Did you speak to anyone other than the patient for history (EMS, parent, family, police, friend...)? What history was obtained from this source @ -No Did you review nursing and triage notes (agree or disagree)? Why? @ -I reviewed and agree with nursing and triage notes Were old charts reviewed (outside hosp., previous admission, EMS record, old EKG, old radiological studies, urgent care reports/EKG's, skilled nursing records)? Report findings @ -No old charts were reviewed Differential Diagnosis (chest pain, altered mental status, abdominal pain women, abdominal pain men, vaginal bleeding, weakness, fever, dyspnea, syncope, headache, dizziness, GI bleed, back pain, seizure, CVA, palpatations, mental health)? @ -Diabetic foot infection, wet gangrene, osteomyelitis EKG interpreted by me (3pts min.). @ -None X-rays interpreted by me (1pt min.). @ -X-ray of the right foot was obtained was interpreted by myself showing no evidence of acute osteomyelitis. There was soft tissue ulceration noted. CT interpreted by me (1pt min.). @ -None done U/S interpreted by me (1pt. min.). @ -None done What testing was considered but not performed or refused? (CT, X-rays, U/S, labs)? Why? @ -None What meds were considered but not given or refused? Why? @ -None Did you discuss the management of the patient with other professionals (professionals i.e. , PA, [employer], lab, RT, psych nurse, social security specialist, foreign exchange student coordinator, teacher, border patrol officer, block and case maker)? Give summary @ -Yes, admitting team was contacted regarding patient admission. Was smoking cessation discussed for >3mins.? @ -No Was critical care preformed (if so, how long)? @ -No Were there social determinants of health that impacted care today? How? (Homelessness, low income, unemployed, alcoholism, drug addiction, transportation, low edu. Level, literacy, decrease access to med. care, prison, rehab)? @ -No Was there de-escalation of care discussed even if they declined (Discuss DNR or withdrawal of care, Hospice)? DNR status @ -No What co-morbidities impacted this encounter? (DM, HTN, Smoking, COPD, CAD, Cancer, CVA, ARF, Chemo, Hep., AIDS, mental health diagnosis, sleep apnea, morbid obesity)? @ -Hypertension Was patient admitted / discharged? Hospital course, mention meds given and route, prescriptions, significant lab abnormalities, going to OR and other pe rtinent info. @ -The patient was seen and evaluated emergency department. On physical exam, the patient was resting in bed without any acute distress. Vital signs admission were stable. Physical exam demonstrated wet gangrene over the wound of the right foot. The patient also likely had a significant diabetic foot infection and there were maggots in the wound. The wound was rinsed with saline and diluted hydroperoxide in order to assist with the maggots. The patient did have full laboratory workup obtained and was within normal limits. Blood cultures were obtained as was a lactic acid. The patient received 30 mL per KG of fluid for possible sepsis workup. The patient did also receive vancomycin and Zosyn. Due to the patient's significant diabetic foot infection with wet gangrene, the patient will be admitted for further workup and evaluation. Vascular surgery was also placed on consult for further evaluation. The patient was told of this plan and was agreeable. The patient was admitted in stable condition. Undiagnosed new problem with uncertain prognosis? @ -No Drug Therapy requiring intensive monitoring for toxicity (Heparin, Nitro, Insulin, Cardizem)? @ -No Were any procedures done? @ -No Diagnosis/symptom? @ -Diabetic foot infection with wet gangrene Acute, or Chronic, or Acute on Chronic? @ -Acute on chronic Uncomplicated (without systemic symptoms) or Complicated (systemic symptoms)? @ -Complicated Side effects of treatment? @ -No Exacerbation, Progression, or Severe Exacerbation? @ -No Poses a threat to life or bodily function? How? (Chest pain, [place], NV, pneumonia, PE, COPD, DKA, ARF, appy, cholecystitis, CVA, Diverticulitis, Homicidal, Suicidal, threat to staff... and all critical care pts) @ -Yes, worsening infection and gangrene can lead to permanent damage and possible . (Erich Bacon) - Lab Data Lab Results 12/10/22 12/10/22 12/10/22 Range/Units 20:50 20:50 20:50 WBC 11.5 H (3.8-10.6) k/uL RBC 3.92 L (4.30-5.90) m/uL Hgb 12.2 L (13.0-17.5) gm/dL Hct 36.4 L (39.0-53.0) % MCV 93.0 (80.0-100.0) fL MCH 31.2 (25.0-35.0) pg MCHC 33.6 (31.0-37.0) g/dL RDW 12.7 (11.5-15.5) % Plt Count 523 H (150-450) k/uL MPV 7.2 Neutrophils % 76 % Lymphocytes % 15 % Monocytes % 5 % Eosinophils % 1 % Basophils % 0 % Neutrophils # 8.7 H (1.3-7.7) k/uL Lymphocytes # 1.7 (1.0-4.8) k/uL Monocytes # 0.6 (0-1.0) k/uL Eosinophils # 0.2 (0-0.7) k/uL Basophils # 0.0 (0-0.2) k/uL Poikilocytosis Slight Sodium 139 (137-145) mmol/L Potassium 4.0 (3.5-5.1) mmol/L Chloride 100 (98-107) mmol/L Carbon Dioxide 27 (22-30) mmol/L Anion Gap 12 mmol/L BUN 25 H (9-20) mg/dL Creatinine 1.30 H (0.66-1.25) mg/dL Est GFR (CKD-EPI)AfAm 66 (>60 ml/min/1.73 sqM) Est GFR (CKD-EPI)NonAf 57 (>60 ml/min/1.73 sqM) Glucose 184 H (74-99) mg/dL Plasma Lactic Acid Julien 1.1 (0.7-2.0) mmol/L Calcium 8.5 (8.4-10.2) mg/dL Total Bilirubin 0.6 (0.2-1.3) mg/dL AST 20 (17-59) U/L ALT 15 (4-49) U/L Alkaline Phosphatase 119 (38-126) U/L C-Reactive Protein 4.3 H (<1.0) mg/dL Total Protein 7.3 (6.3-8.2) g/dL Albumin 3.6 (3.5-5.0) g/dL 12/10/22 Range/Units 22:53 WBC (3.8-10.6) k/uL RBC (4.30-5.90) m/uL Hgb (13.0-17.5) gm/dL Hct (39.0-53.0) % MCV (80.0-100.0) fL MCH (25.0-35.0) pg MCHC (31.0-37.0) g/dL RDW (11.5-15.5) % Plt Count (150-450) k/uL MPV Neutrophils % % Lymphocytes % % Monocytes % % Eosinophils % % Basophils % % Neutrophils # (1.3-7.7) k/uL Lymphocytes # (1.0-4.8) k/uL Monocytes # (0-1.0) k/uL Eosinophils # (0-0.7) k/uL Basophils # (0-0.2) k/uL Poikilocytosis Sodium (137-145) mmol/L Potassium (3.5-5.1) mmol/L Chloride (98-107) mmol/L Carbon Dioxide (22-30) mmol/L Anion Gap mmol/L BUN (9-20) mg/dL Creatinine (0.66-1.25) mg/dL Est GFR (CKD-EPI)AfAm (>60 ml/min/1.73 sqM) Est GFR (CKD-EPI)NonAf (>60 ml/min/1.73 sqM) Glucose (74-99) mg/dL Plasma Lactic Acid Julien 1.1 (0.7-2.0) mmol/L Calcium (8.4-10.2) mg/dL Total Bilirubin (0.2-1.3) mg/dL AST (17-59) U/L ALT (4-49) U/L Alkaline Phosphatase (38-126) U/L C-Reactive Protein (<1.0) mg/dL Total Protein (6.3-8.2) g/dL Albumin (3.5-5.0) g/dL Disposition <Marlen Carlson - Last Filed: 12/10/22 20:28> Is patient prescribed a controlled substance at d/c from ED?: No Time of Disposition: 22:00 Decision to Admit Reason: Admit from EC Decision Date: 12/10/22 Decision Time: 22:00 <Erich Bacon - Last Filed: 12/10/22 23:28> Clinical Impression: Diabetic foot infection, Diabetic wet gangrene of the foot Disposition: ADMITTED IP TO THIS [facility] Condition: Stable Referrals: None,Stated [Primary Care Provider] - 1-2 days
--- NOTE | 2022-12-10 20:46 | XR ---
EXAMINATION TYPE: XR foot complete RT DATE OF EXAM: 12/10/2022 CLINICAL HISTORY: Infection. Focal pain and swelling. TECHNIQUE: Frontal, lateral, and oblique images of the right foot are obtained. COMPARISON: Right foot x-ray August 06, 2022 FINDINGS: No new bony destruction clearly seen. No acute displaced fracture. Soft tissue lucency cons istent with ulceration is seen along the lateral plantar aspect at the level of the anterior calcaneu s. Mild to moderate narrowing throughout the mid foot structures is present. IMPRESSION: No convincing radiographic evidence for acute osteomyelitis. Soft tissue ulceration is no jayro.
[2022-12-10 20:59] LABS: Basophils % (A) 0 %; Eosinophils # (A) 0.2 k/uL (0-0.7); Eosinophils % (A) 1 %; HCT 36.4 % (39.0-53.0); HGB 12.2 gm/dL (13.0-17.5); Lymphocytes # (A) 1.7 k/uL (1.0-4.8); Lymphocytes % (A) 15 %; MCH 31.2 pg (25.0-35.0); MCHC 33.6 g/dL (31.0-37.0); Mean Platelet Volume 7.2; Monocytes # (A) 0.6 k/uL (0-1.0); Monocytes % (A) 5 %; Neutrophils # (A) 8.7 k/uL (1.3-7.7); Neutrophils % (A) 76 %; Platelet Count 523 k/uL (150-450); Poikilocytosis Slight; RBC 3.92 m/uL (4.30-5.90); RDW 12.7 % (11.5-15.5); WBC 11.5 k/uL (3.8-10.6)
[2022-12-10 21:18] LABS: Albumin 3.6 g/dL (3.5-5.0); C Reactive Protein 4.3 mg/dL (<1.0); Calcium 8.5 mg/dL (8.4-10.2); Total Bilirubin 0.6 mg/dL (0.2-1.3); Total Protein 7.3 g/dL (6.3-8.2)
[2022-12-10] MEDS ORDERED: SODIUM CHLORIDE 0.9% 1,000 ML IV ONE ×2 (22:19→22:23)
[2022-12-10] MEDS ORDERED: PIPERACILLIN-TAZOBACTAM 3.375 GM in SODIUM CHLORIDE 0.9% 100 ML IVPB STA (22:20)
[2022-12-10] MEDS ORDERED: VANCOMYCIN 1,500 MG in SODIUM CHLORIDE 0.9% 500 ML 500 ML IVPB STA (22:20)
[2022-12-10] MEDS ORDERED: SODIUM CHLORIDE 0.9% 500 ML 500 ML IV STA (22:24)
[2022-12-10] MEDS ORDERED: VANCOMYCIN IV PER PHARMACY 1 EACH MISC MISCELLANE PRN (22:33)
[2022-12-10] MEDS ORDERED: NALOXONE 0.4 MG/ML 1 ML VIAL IV PRN (23:19)
[2022-12-10] MEDS ORDERED: BACITRACIN OINT 1 EACH PACKET TOPICAL ONE (23:54)
[2022-12-11] MEDS: SODIUM CHLORIDE 0.9% 1,000 ML IV SCH ×4 (03:02→23:29)
[2022-12-11 05:49] LABS: Glucose,Whole Blood 148 mg/dL (70-110)
[2022-12-11] MEDS ORDERED: DEXTROSE 50% SYRINGE 50 ML IVP PRN ×2 (10:16)
--- NOTE | 2022-12-11 10:37 | P.GSCN ---
History of Present Illness Consult date: 12/11/22 Reason for Consult: Diabetic foot infection, wet gangrene Requesting physician: Erich Bacon History of present illness: This 67-year-old male who reportedly has a past medical history of diabetes mellitus, hypertension, hyperlipidemia, and daily pack per day smoker for over 30 years, who states he does not follow with a primary care physician presented to the emergency department yesterday with complaints of right foot pain and wound. Patient is overall a poor historian and has health. Most obtained from chart. Patient states he has had the wound for about 2-3 months, it progressively got more painful and harder to talk so he came to the emergency department advised by his neighbor. He states he has not seen anybody for this wound in the last 2-3 months. He states there is been no drainage, he was not aware that there was a follow odor. He denies any fevers or chills. He states it is tender to touch and to walk. He also states he's had wounds to the left dorsal aspect of his foot as well, which is tender. Apparently maggots were seen coming from wound in the emergency department and foot was cleansed. Patient states he manages his diabetes, he does not see anybody for his diabetes home medications also listed Plavix but patient is unsure when he last took his medications. Reviewing patient's medical records he was seen in July of this year for a NSTEMI and underwent percutaneous transluminal coronary angioplasty and stenting of the proximal left anterior descending with drug eluding stent and put on Plavix at that time. At that time he was also seen by Dr. Sanchez for a superficial right heel skin crack and recommended medihoney to the wound and outpatient follow-up. Patient currently denies any shortness of breath, chest pain, abdominal pain, nausea or vomiting. No chills or body aches. He has been afebrile. Right foot x-ray reports no convincing radiographic evidence for acute osteomyelitis. Soft tissue ulceration noted. Admitting labs WBC 11.5 hemoglobin 12.2 platelet count 523,000 sodium 139 potassium 4.0 BUN 25 creatinine 1.3 glucose 184 lactic acid 1.1C reactive protein 4.3 Review of Systems A 14 point review systems was completed all pertinent positives and negatives as stated in the HPI. Past Medical History Past Medical History: Diabetes Mellitus, Hyperlipidemia, Hypertension, Myocardial Infarction ([place]) Last Myocardial Infarction Date:: unknown History of Any Multi-Drug Resistant Organisms: None Reported Past Surgical History: Orthopedic Surgery Past Psychological History: No Psychological Hx Reported Smoking Status: Current every day smoker Past Alcohol Use History: None Reported Past Drug Use History: None Reported Medications and Allergies Home Medications Medication Instructions Recorded Confirmed Type Aspirin 81 mg PO DAILY #30 tab 08/09/22 12/10/22 Rx Clopidogrel [Plavix] 75 mg PO DAILY #30 tab 08/09/22 12/10/22 Rx Furosemide [Lasix] 20 mg PO BID@0900,1600 #60 tab 08/09/22 12/10/22 Rx Isosorbide Mononitrate ER [Imdur] 30 mg PO DAILY #30 tab 08/09/22 12/10/22 Rx Losartan [Cozaar] 25 mg PO DAILY #30 tab 08/09/22 12/10/22 Rx Metoprolol Tartrate [Lopressor] 25 mg PO BID #60 tab 08/09/22 12/10/22 Rx Spironolactone [Aldactone] 12.5 mg PO DAILY #15 tab 08/09/22 12/10/22 Rx Atorvastatin [Lipitor] 40 mg PO DAILY 12/10/22 12/10/22 History Cholecalciferol [Vitamin D3 (25 50 mcg PO DAILY 12/10/22 12/10/22 History Mcg = 1000 Iu)] Collagenase [Santyl Ointment] 1 applic TOPICAL DAILY 12/10/22 12/10/22 History Empagliflozin [Jardiance] 10 mg PO DAILY 12/10/22 12/10/22 History Insulin Detemir (Levemir) [Levemir] 5 unit SQ DIRECTED 12/10/22 12/10/22 History Nitroglycerin Sl Tabs [Nitrostat] 0.4 mg SL Q5M PRN 12/10/22 12/10/22 History Allergies Allergy/AdvReac Type Severity Reaction Status Date / Time Sulfa (Sulfonamide Allergy Rash/Hives Verified 12/10/22 22:38 Antibiotics) Surgical - Exam Vital Signs Temp Pulse Resp BP Pulse Ox 98.5 F 80 18 111/62 97 12/10/22 19:49 12/10/22 19:49 12/10/22 19:49 12/10/22 19:49 12/10/22 19:49 General appearance: The patient is alert, oriented, appears in no acute distress. HET: Head is normocephalic and atraumatic. Pupils are equal and reactive. Neck: Supple.. Trachea midline. Heart: Regular. Lungs: Equal expansion, normal respiratory effort. Abdomen: Soft, nontender, nondistended. Extremities: Bilateral pedal edema. Right foot lateral aspect of heel with diabetic ulcer, vaginal odor, no drainage, minimal surrounding erythema. Left foot with erythema and multiple small black scabs/ulcers to dorsal aspect of fo ot. Palpable bilateral femoral pulses, nonpalpable DP or PT pulse. Good capillary refill bilaterally. Bilateral DP and PT Doppler signal present. Sensorimotor intact. Neurological: No focal deficits. Strength and sensation are grossly intact. Results - Labs 12/10/22 20:50 12/10/22 20:50 Abnormal Lab Results - Last 24 Hours (Table) 12/10/22 12/10/22 12/11/22 Range/Units 20:50 20:50 05:44 WBC 11.5 H (3.8-10.6) k/uL RBC 3.92 L (4.30-5.90) m/uL Hgb 12.2 L (13.0-17.5) gm/dL Hct 36.4 L (39.0-53.0) % Plt Count 523 H (150-450) k/uL Neutrophils # 8.7 H (1.3-7.7) k/uL BUN 25 H (9-20) mg/dL Creatinine 1.30 H (0.66-1.25) mg/dL Glucose 184 H (74-99) mg/dL POC Glucose (mg/dL) 148 H (70-110) mg/dL C-Reactive Protein 4.3 H (<1.0) mg/dL Diabetes panel 12/10/22 Range/Units 20:50 Sodium 139 (137-145) mmol/L Potassium 4.0 (3.5-5.1) mmol/L Chloride 100 (98-107) mmol/L Carbon Dioxide 27 (22-30) mmol/L BUN 25 H (9-20) mg/dL Creatinine 1.30 H (0.66-1.25) mg/dL Glucose 184 H (74-99) mg/dL Calcium 8.5 (8.4-10.2) mg/dL AST 20 (17-59) U/L ALT 15 (4-49) U/L Alkaline Phosphatase 119 (38-126) U/L Total Protein 7.3 (6.3-8.2) g/dL Albumin 3.6 (3.5-5.0) g/dL Calcium panel 12/10/22 Range/Units 20:50 Calcium 8.5 (8.4-10.2) mg/dL Albumin 3.6 (3.5-5.0) g/dL Pituitary panel 12/10/22 Range/Units 20:50 Sodium 139 (137-145) mmol/L Potassium 4.0 (3.5-5.1) mmol/L Chloride 100 (98-107) mmol/L Carbon Dioxide 27 (22-30) mmol/L BUN 25 H (9-20) mg/dL Creatinine 1.30 H (0.66-1.25) mg/dL Glucose 184 H (74-99) mg/dL Calcium 8.5 (8.4-10.2) mg/dL Adrenal panel 12/10/22 Range/Units 20:50 Sodium 139 (137-145) mmol/L Potassium 4.0 (3.5-5.1) mmol/L Chloride 100 (98-107) mmol/L Carbon Dioxide 27 (22-30) mmol/L BUN 25 H (9-20) mg/dL Creatinine 1.30 H (0.66-1.25) mg/dL Glucose 184 H (74-99) mg/dL Calcium 8.5 (8.4-10.2) mg/dL Total Bilirubin 0.6 (0.2-1.3) mg/dL AST 20 (17-59) U/L ALT 15 (4-49) U/L Alkaline Phosphatase 119 (38-126) U/L Total Protein 7.3 (6.3-8.2) g/dL Albumin 3.6 (3.5-5.0) g/dL Assessment and Plan Assessment: 1. Infected diabetic foot ulcer 2. Cellulitis of left foot 3. Diabetes mellitus 4. Coronary artery disease status post recent stenting 5. Nicotine dependence, 1ppd greater than 30 years 6. Chronic kidney disease Plan: 1. Continue IV antibiotics 2. Arterial duplex ordered 3. The patient had previously been seen and established with Dr. Sanchez, will defer consult to him. Dr. Sanchez is agreeable. Thank you for this consultation, we will continue to follow. The impression and plan of care has been dictated as directed. I performed a history and examination of this patient, discussed the same with the dictator. I agree with the dictator's note ,documented as a scribe. Any additional findings or plans will be noted.
[2022-12-11] MEDS: METOPROLOL TARTRATE 25 MG TAB PO SCH ×2 (10:38→21:16)
[2022-12-11] MEDS: ISOSORBIDE MONONITRATE ER 30 MG TAB.ER.24H PO SCH (10:38)
[2022-12-11] MEDS: ATORVASTATIN 40 MG TAB PO SCH (10:38)
[2022-12-11 11:32] LABS: Glucose,Whole Blood 189 mg/dL (70-110)
[2022-12-11] MEDS: INSULIN ASPART (NovoLOG) 100 UNIT/ML VIAL SQ SCH ×3 (11:37→21:16)
[2022-12-11] MEDS ORDERED: LIDOCAINE 1% INJ 10MG/ML (30 ML VIAL-PF) SQ ONE (16:04)
[2022-12-11 16:52] LABS: Glucose,Whole Blood 236 mg/dL (70-110)
[2022-12-11] MEDS: HEPARIN SODIUM,PORCINE/PF 5,000 UNIT/0.5 ML SYRINGE SQ SCH ×2 (16:54→23:58)
[2022-12-11] MEDS: VANCOMYCIN 1,500 MG in SODIUM CHLORIDE 0.9% 500 ML 500 ML IVPB SCH (17:31)
[2022-12-11 21:01] LABS: Glucose,Whole Blood 234 mg/dL (70-110)
[2022-12-11] MEDS: HYDROcodone/APAP 5-325MG 1 EACH TAB PO PRN (21:15)
[2022-12-11] MEDS: INSULIN DETEMIR (LEVEMIR) 100 UNIT/ML SYR SQ SCH (21:16)
--- NOTE | 2022-12-11 22:42 | P.HPIM ---
History of Present Illness H&P Date: 12/11/22 Chief Complaint: Foot pain Patient is a 67-year-old male with a known history of hypertension, hyperlipidemia, diabetes type 2 insulin-dependent, history [place], chronic CHF with systolic dysfunction ejection fraction 20 to 25%, coronary artery disease status post stent placement to LAD on 08/08/2022 and currently everyday smoker presents to ER with complaints of right foot pain and wound on the lateral side of the heel. Patient was seen by his primary care physician and recommended to go to ER. Patient states that she has been having right foot wound for about a month and progressively getting painful and ulcer with dark scab and getting harder. Denies any purulent discharge. Denies any fever or chills. Patient is also having leg swelling and difficulty to walk. Patient otherwise denies any complaints of chest pain or shortness of breath. No nausea vomiting abdominal pain or diarrhea. No cough or sputum production. X-ray of the foot showed no convincing radiographic evidence for acute osteomyelitis. Soft tissue ulceration seen along the lateral plantar aspect at the level of anterior calcaneus. Laboratory data showed WBC 11.4 hemoglobin 12.2 and platelets 523 Sodium 139 potassium 4.0 chloride 100 bicarb is 27 BUN 25 and creatinine 1.3 and blood sugar 184. CRP 4.3 and liver enzymes are not elevated. Patient is a poor historian. Review of Systems Constitutional: Patient denies any fever or chills . Generalized weakness. Abdomen: Patient denied any nausea or vomiting or abd. pain Cardiovascular: Patient denies any chest pain or short of breath no palpitations. Respiratory: patient denied any cough . no sputum production. No shortness of breath Neurologic: Patient denied any numbness or tingling headache. Musculoskeletal: Patient denies any complaints of joint swelling or deformity. Right foot swelling and wound. Skin: Negative Psychiatric: Negative Endocrine: No heat or cold intolerance. No recent weight gain. Genitourinary: No dysuria or hematuria. All other 14 point ROS negative except the above Past Medical History Past Medical History: Diabetes Mellitus, Hyperlipidemia, Hypertension, Myocardial Infarction ([place]) Last Myocardial Infarction Date:: unknown History of Any Multi-Drug Resistant Organisms: None Reported Past Surgical History: Orthopedic Surgery Past Psychological History: No Psychological Hx Reported Smoking Status: Current every day smoker Past Alcohol Use History: None Reported Past Drug Use History: None Reported Medications and Allergies Home Medications Medication Instructions Recorded Confirmed Type Aspirin 81 mg PO DAILY #30 tab 08/09/22 12/10/22 Rx Clopidogrel [Plavix] 75 mg PO DAILY #30 tab 08/09/22 12/10/22 Rx Furosemide [Lasix] 20 mg PO BID@0900,1600 #60 tab 08/09/22 12/10/22 Rx Isosorbide Mononitrate ER [Imdur] 30 mg PO DAILY #30 tab 08/09/22 12/10/22 Rx Losartan [Cozaar] 25 mg PO DAILY #30 tab 08/09/22 12/10/22 Rx Metoprolol Tartrate [Lopressor] 25 mg PO BID #60 tab 08/09/22 12/10/22 Rx Spironolactone [Aldactone] 12.5 mg PO DAILY #15 tab 08/09/22 12/10/22 Rx Atorvastatin [Lipitor] 40 mg PO DAILY 12/10/22 12/10/22 History Cholecalciferol [Vitamin D3 (25 50 mcg PO DAILY 12/10/22 12/10/22 History Mcg = 1000 Iu)] Collagenase [Santyl Ointment] 1 applic TOPICAL DAILY 12/10/22 12/10/22 History Empagliflozin [Jardiance] 10 mg PO DAILY 12/10/22 12/10/22 History Insulin Detemir (Levemir) [Levemir] 5 unit SQ DIRECTED 12/10/22 12/10/22 History Nitroglycerin Sl Tabs [Nitrostat] 0.4 mg SL Q5M PRN 12/10/22 12/10/22 History Allergies Allergy/AdvReac Type Severity Reaction Status Date / Time Sulfa (Sulfonamide Allergy Rash/Hives Verified 12/10/22 22:38 Antibiotics) Physical Exam Vitals: Vital Signs Temp Pulse Resp BP Pulse Ox 12/11/22 20:00 97.8 F 84 17 143/68 97 12/11/22 13:05 97.4 F L 58 L 18 140/59 95 12/11/22 07:10 97.8 F 78 14 173/79 97 12/11/22 02:55 98.1 F 73 16 139/57 100 Intake and Output 12/11/22 12/11/22 12/11/22 06:59 14:59 22:59 Output Total 1900 Balance -1900 Output: Urine 1900 Other: Voiding Method Urinal # Voids 0 Weight 86.183 kg PHYSICAL EXAMINATION: Patient is lying in the bed comfortably, no acute distress, awake alert and oriented.. Lethargic and weak and poor historian. HEENT: Normocephalic. Neck is supple. Pupils reactive. Nostrils clear. Oral cavity is moist. Neck reveals no JVD, carotid bruits, or thyromegaly. CHEST EXAMINATION: Trachea is central. Symmetrical expansion. Lung marquez clear to auscultation and percussion. CARDIAC: Normal S1, S2 with no gallops. No murmurs ABDOMEN: Soft. Bowel sounds present. Nontender. No organomegaly. No abdominal bruits. Extremities: reveal no edema. No clubbing or cyanosis. Pulses palpable. Neurologically awake, alert, oriented x2-3 with well-coordinated movements. No gross focal deficits noted Skin: Right foot necrotic wound about 4 x 2 cm on the lateral aspect of the ca lcaneum without any discharge. Surrounding redness of the foot and tender to palpation. Psychiatric: Coperative. Could not be assessed completely. Musculoskeletal: No joint swelling or deformity. Normal range of motion. Results CBC & Chem 7: 12/10/22 20:50 12/10/22 20:50 Labs: Abnormal Lab Results - Last 24 Hours (Table) 12/11/22 12/11/22 12/11/22 Range/Units 05:44 11:30 16:50 POC Glucose (mg/dL) 148 H 189 H 236 H (70-110) mg/dL 12/11/22 Range/Units 21:00 POC Glucose (mg/dL) 234 H (70-110) mg/dL Assessment and Plan Assessment: Right diabetic foot ulcer with necrotic base on the lateral aspect of the calcaneum. Left foot swelling and redness/cellulitis Diabetes type 2 insulin-dependent. Uncontrolled. Coronary artery disease history of stent placement to LAD in July 2022 History of non-ST elevated [place] Chronic CHF with systolic dysfunction with ejection fraction 40% in July 2022 Severe pulmonary hypertension Mild MR and moderate TR Chronic kidney disease stage III Normocytic anemia with hemoglobin 12.2 Ongoing nicotine addiction Noncompliance with medications and follow-up. DVT prophylaxis with heparin subcu Plan: Patient will be continued on antibiotics, vancomycin will continue with gentle hydration due to history of CHF. Vascular surgery was consulted for possible wound debridement and cultures and further evaluation. Lower extremity ultrasound was ordered.. Continue with wound care and ID will be consulted. Patient will be started on insulin regimen better blood sugar control along with sliding scale. We will continue with aspirin and Plavix if no surgical intervention is planned. Continue with statins, metoprolol losartan and Imdur and Aldactone and also on Lasix.. Follow-up closely. Prognosis guarded with multimedical problems and comorbid conditions. Time with Patient: Greater than 30
--- NOTE | 2022-12-12 00:16 | CONS ---
CONSULTATION HISTORY OF PRESENT ILLNESS: This is a 67-year-old gentleman, who has been admitted through the emergency room with history of ulcer on his right foot heel and also superficial ulcer on the left foot toes. The patient has history of diabetes, hypertension, hyperlipidemia. The patient complained of pain and foul odor noted on the right foot. PAST MEDICAL HISTORY: History of hypertension, diabetes, and hyperlipidemia. PERSONAL HISTORY: The patient had a history of smoking. He continued to smoke. PHYSICAL EXAMINATION: GENERAL: The patient was seen in his room. NECK: Supple. No bruit appreciated. CHEST: Clear. Good air entry in both lungs. HEART: First and second sounds present. ABDOMEN: Soft, nontender. VASCULAR: Femorals are 2+ bilateral. PT, DP not palpable. Right foot heel has a scab with foul odor smell with some redness and some fluctuation noted and left foot toes had superficial ulcer on the toes. PLAN: The patient is on IV antibiotic. The patient needs debridement and deep culture. X- ray foot showed possible acute osteomyelitis of the right foot. We will arrange for debridement and follow with you. MMODL / IJN: [id number] /
[2022-12-12] MEDS: HYDROcodone/APAP 5-325MG 1 EACH TAB PO PRN ×3 (00:21→20:28)
[2022-12-12 05:46] LABS: Glucose,Whole Blood 127 mg/dL (70-110)
[2022-12-12] MEDS: INSULIN ASPART (NovoLOG) 100 UNIT/ML VIAL SQ SCH ×4 (06:05→21:44)
[2022-12-12 07:52] LABS: African American GFR (CKD) >90 (>60 ml/min/1.73 sqM); Anion Gap 9 mmol/L; Blood Urea Nitrogen 17 mg/dL (9-20); Calcium 8.4 mg/dL (8.4-10.2); Carbon Dioxide 23 mmol/L (22-30); Chloride 108 mmol/L (98-107); Glucose 127 mg/dL (74-99); Non-African American GFR(CKD) 81 (>60 ml/min/1.73 sqM); Potassium 4.4 mmol/L (3.5-5.1); Sodium 140 mmol/L (137-145)
--- NOTE | 2022-12-12 08:23 | PCN ---
PROCEDURE NOTE PREOPERATIVE DIAGNOSIS: Infected wound, right foot lateral aspect of the heel with maggots. Measurement is 4 x 3 cm. POSTOPERATIVE DIAGNOSIS: Infected wound, right foot lateral aspect of the heel with maggots. Measurement is 4 x 3 x 1 cm. INDICATIONS FOR PROCEDURE: This patient came to the emergency room with a history of maggots in the right foot heel. He had this for the past few months. The patient has a history of diabetes. DESCRIPTION OF PROCEDURE: Right foot was prepped, and drapes were applied in a sterile manner. 1% lidocaine plain was infiltrated. Using knife, we did the debridement down to the subcutaneous fat and fascia. All the devitalized tissue was removed. There was foul odor smell noted. There were a few maggots under the deep tissue. The wound was irrigated. Hemostasis was well controlled. Medihoney gel was applied to the wound. Plan is to be sent the deep culture. I request to have an ID consult on this patient, and we will change the dressing tomorrow. MMODL / IJN: [id number] /
[2022-12-12] MEDS: LOSARTAN 25 MG TAB PO SCH (09:06)
[2022-12-12] MEDS: ATORVASTATIN 40 MG TAB PO SCH (09:06)
[2022-12-12] MEDS: SPIRONOLACTONE 25 MG TAB PO SCH (09:06)
[2022-12-12] MEDS: METOPROLOL TARTRATE 25 MG TAB PO SCH (09:06)
[2022-12-12] MEDS: CHOLECALCIFEROL 25 MCG (1000 IU) TABLET PO SCH (09:06)
[2022-12-12] MEDS: ISOSORBIDE MONONITRATE ER 30 MG TAB.ER.24H PO SCH (09:06)
[2022-12-12] MEDS: HEPARIN SODIUM,PORCINE/PF 5,000 UNIT/0.5 ML SYRINGE SQ SCH ×2 (09:07→17:18)
[2022-12-12] MEDS: VANCOMYCIN 1,500 MG in SODIUM CHLORIDE 0.9% 500 ML 500 ML IVPB SCH ×2 (09:07→21:46)
[2022-12-12] MEDS: FUROSEMIDE 20 MG TAB PO SCH ×2 (09:07→17:19)
[2022-12-12 11:04] LABS: Basophils # (A) 0.06 X 10*3/uL (0.00-0.10); Basophils % (A) 0.5 %; Eosinophils # (A) 0.18 X 10*3/uL (0.04-0.35); Eosinophils % (A) 1.4 %; HCT 34.3 % (39.6-50.0); HGB 10.9 g/dL (13.0-17.0); Immature Grans, Automated 0.7 %; Lymphocytes # (A) 1.16 X 10*3/uL (0.90-5.00); Lymphocytes % (A) 8.8 %; MCH 30.4 pg (27.0-32.0); MCHC 31.8 g/dL (32.0-37.0); MCV 95.8 fL (80.0-97.0); Mean Platelet Volume 9.2 fL (9.5-12.2); Monocytes # (A) 0.85 X 10*3/uL (0.20-1.00); Monocytes % (A) 6.4 %; NRBC Per 100 WBC 0 /100 WBCS (0.0-0.0); Neutrophils # (A) 10.85 X 10*3/uL (1.80-7.70); Neutrophils % (A) 82.2 %; Platelet Count 425 X 10*3/uL (140-440); RBC 3.58 X 10*6/uL (4.40-5.60); RDW 12.1 % (11.5-14.5); WBC 13.19 X 10*3/uL (4.50-10.00)
[2022-12-12 11:12] LABS: Glucose,Whole Blood 167 mg/dL (70-110)
[2022-12-12] MEDS: AMPICILLIN-SULBACTAM 3 GM in SODIUM CHLORIDE 0.9% 100 ML IVPB SCH ×2 (13:41→17:19)
[2022-12-12] MEDS: ASPIRIN 81 MG PO SCH (14:23)
[2022-12-12] MEDS: CLOPIDOGREL 75 MG TAB PO SCH (14:23)
--- NOTE | 2022-12-12 16:07 | CDI ---
Documentation Clarification Form Date: 12/12/2022 3:40:33 PM From: Bertha Kennedy RN, CCDS Admit Date: 12/10/2022 11:21:00 PM Patient Name: Rory Herman Visit Number: [id number] Discharge Date: ATTENTION: The Clinical Documentation Specialists (CDI) and [facility] Coding Staff appreciate your assistance in clarifying documentation. Please respond to the clarification below the line at the bottom and electronically sign. The CDI & [facility] Coding staff will review the response and follow-up if needed. Please note: Queries are made part of the Legal Health Record. If you have any questions, please contact the author of this message via ITS. Dr. Duc Galo debridement is documented in the procedure note on 12/11/22. Additional clarification regarding the procedure is requested. History/Risk Factors: DM, HTN MT Hyperlipidemia, Current smoker Clinical Indicators: 67-year-old male present with complaints of pain swelling redness to right foot. He was ruled in for right infected diabetic foot ulcer. VS 111/62 80 18 98.5 97% 11.5 hgb 12.2 bun 25 Cr 1.30 12/11/22 Procedure report: Using knife, we did the debridement down to the subcutaneous fat and fascia. All the devitalized tissue was removed. Treatment: Medihoney gel to wound change dressing 12/13/22 Unasyn 3 GM IVPB Vancomychn 1,500 MG IVPB Q 12 (PTD) ID Consult Please clarify the type of procedure performed: [ ] Excisional debridement (the removal of necrotic, devitalized tissue or slough by means of cutting away of tissue) [ ] Non-excisional debridement (the removal of necrotic, devitalized tissue or slough by means of flushing, brushing, or washing. (Irrigation) [ ] Other; please specify [ ] Unable to determine Five elements required for accurate and compliant documentation of a debridement: Technique used (e.g., excisional, excised, cutting, brushing, jet lavage etc.) Instrument(s) used (e.g., scalpel, curette, etc.) Nature of the tissue removed (e.g., necrotic, devitalized tissues, non-viable tissue, etc.) Appearance and size of the wound (e.g., down to fresh bleeding tissue, 7cm x 10cm, etc.) Depth of the debridement* (e.g., skin, subcutaneous tissue, fascia, muscle, bone, etc.) (Template Last Revised: September 2020) MTDD
[2022-12-12 16:49] LABS: Glucose,Whole Blood 562 mg/dL (70-110)
[2022-12-12] MEDS ORDERED: INSULIN ASPART (NovoLOG) 100 UNIT/ML VIAL SQ ONE (17:15)
[2022-12-12 20:46] LABS: Glucose,Whole Blood 131 mg/dL (70-110)
[2022-12-12] MEDS: INSULIN DETEMIR (LEVEMIR) 100 UNIT/ML SYR SQ SCH (21:44)
[2022-12-12 21:45] LABS: Glucose,Whole Blood 75 mg/dL (70-110)
--- NOTE | 2022-12-12 22:18 | P.CONS ---
History of Present Illness - Reason for Consult Consult date: 12/12/22 Infected heel wound Requesting physician: Duc Sanchez - Chief Complaint Nonhealing wound to the right foot x weeks - History of Present Illness Patient is a 67-year-old male with a past medical his significant for diabetes mellitus hypertension hyperlipidemia history of smoking presenting to the ER complaining of right foot pain and wound apparently the patient wound has been going on for the last 2 to 3 months and has been progressive getting more worse and painful patient has been complaining of pain to the right foot wound to be sharp almost 7-8 of 10 with no radiation with associated swelling redness and some foul-smelling drainage apparently patient was noticed to have maggots coming out of the wound in the emergency department and the wound was clean subsequently has been evaluated by vascular surgery patient did have a debridement of the wound which apparently has been tracking down to the bone patient on presentation to the hospital was afebrile and no fever has been recorded subsequently did have vital of 13.19 creatinine has been normal patient was started on vancomycin infectious disease was consulted for further management of antibiotic therapy Review of Systems Positive point and negatives has been mentioned in the HPI, complete review of systems was performed and all other systems are negative Past Medical History Past Medical History: Diabetes Mellitus, Hyperlipidemia, Hypertension, Myocardial Infarction (DE) Last Myocardial Infarction Date:: unknown History of Any Multi-Drug Resistant Organisms: None Reported Past Surgical History: Orthopedic Surgery Past Psychological History: No Psychological Hx Reported Smoking Status: Current every day smoker Past Alcohol Use History: None Reported Past Drug Use History: None Reported Medications and Allergies Home Medications Medication Instructions Recorded Confirmed Type Aspirin 81 mg PO DAILY #30 tab 08/09/22 12/10/22 Rx Clopidogrel [Plavix] 75 mg PO DAILY #30 tab 08/09/22 12/10/22 Rx Furosemide [Lasix] 20 mg PO BID@0900,1600 #60 tab 08/09/22 12/10/22 Rx Isosorbide Mononitrate ER [Imdur] 30 mg PO DAILY #30 tab 08/09/22 12/10/22 Rx Losartan [Cozaar] 25 mg PO DAILY #30 tab 08/09/22 12/10/22 Rx Metoprolol Tartrate [Lopressor] 25 mg PO BID #60 tab 08/09/22 12/10/22 Rx Spironolactone [Aldactone] 12.5 mg PO DAILY #15 tab 08/09/22 12/10/22 Rx Cholecalciferol [Vitamin D3 (25 50 mcg PO DAILY 12/10/22 12/10/22 History Mcg = 1000 Iu)] Collagenase [Santyl Ointment] 1 applic TOPICAL DAILY 12/10/22 12/10/22 History Empagliflozin [Jardiance] 10 mg PO DAILY 12/10/22 12/10/22 History Insulin Detemir (Levemir) [Levemir] 5 unit SQ DIRECTED 12/10/22 12/10/22 History Nitroglycerin Sl Tabs [Nitrostat] 0.4 mg SL Q5M PRN 12/10/22 12/10/22 History HYDROcodone/APAP 7.5-325MG [[place] 1 each PO Q6HR PRN #12 tab 12/16/22 Rx 7.5-325] metroNIDAZOLE [Flagyl] 500 mg PO TID #90 tab 12/16/22 Rx DAPTOmycin [Cubicin] 500 mg IV DAILY #42 each 12/18/22 Rx Allergies Allergy/AdvReac Type Severity Reaction Status Date / Time Sulfa (Sulfonamide Allergy Rash/Hives Verified 12/10/22 22:38 Antibiotics) Physical Exam Vitals: Vital Signs Temp Pulse Resp BP Pulse Ox 12/12/22 08:00 97.8 F 72 16 133/63 97 12/12/22 02:00 97.9 F 62 18 191/76 100 12/11/22 20:00 97.8 F 84 17 143/68 97 12/11/22 13:05 97.4 F L 58 L 18 140/59 95 Intake and Output 12/11/22 12/12/22 12/12/22 22:59 06:59 14:59 Output Total 1900 800 Balance -1900 -800 Output: Urine 1900 800 Other: Voiding Method Urinal # Voids 1 GENERAL DESCRIPTION: Elderly male lying in bed, no distress. No tachypnea or accessory muscle of respiration use. HEENT: Shows Pallor , no scleral icterus. Oral mucous membrane is dry. NECK: Trachea central, no thyromegaly. LUNGS: Unlabored breathing. Clear to auscultation anteriorly. No wheeze or crackle. HEART: S1, S2, regular rate and rhythm. No loud murmur ABDOMEN: Soft, no tenderness , guarding or rigidity, no organomegaly EXTREMITIES: Right foot wound which is deep with surrounding swelling redness no foul-smelling drainage SKIN: No rash, no masses palpable. NEUROLOGICAL: The patient is awake, alert, oriented x3, mood and affect normal. Results CBC & Chem 7: 12/15/22 09:17 12/16/22 05:36 Labs: Abnormal Lab Results - Last 24 Hours (Table) 12/11/22 12/11/22 12/12/22 Range/Units 16:50 21:00 05:44 WBC (4.50-10.00) X 10*3/uL RBC (4.40-5.60) X 10*6/uL Hgb (13.0-17.0) g/dL Hct (39.6-50.0) % MCHC (32.0-37.0) g/dL MPV (9.5-12.2) fL Immature Gran # (0.00-0.04) X 10*3/uL Neutrophils # (1.80-7.70) X 10*3/uL Chloride (98-107) mmol/L Glucose (74-99) mg/dL POC Glucose (mg/dL) 236 H 234 H 127 H (70-110) mg/dL Hemoglobin A1c (0.0-6.0) % 12/12/22 12/12/22 12/12/22 Range/Units 06:25 06:25 06:25 WBC 13.19 H (4.50-10.00) X 10*3/uL RBC 3.58 L (4.40-5.60) X 10*6/uL Hgb 10.9 L (13.0-17.0) g/dL Hct 34.3 L (39.6-50.0) % MCHC 31.8 L (32.0-37.0) g/dL MPV 9.2 L (9.5-12.2) fL Immature Gran # 0.09 H (0.00-0.04) X 10*3/uL Neutrophils # 10.85 H (1.80-7.70) X 10*3/uL Chloride 108 H (98-107) mmol/L Glucose 127 H (74-99) mg/dL POC Glucose (mg/dL) (70-110) mg/dL Hemoglobin A1c 8.0 H (0.0-6.0) % 12/12/22 Range/Units 11:10 WBC (4.50-10.00) X 10*3/uL RBC (4.40-5.60) X 10*6/uL Hgb (13.0-17.0) g/dL Hct (39.6-50.0) % MCHC (32.0-37.0) g/dL MPV (9.5-12.2) fL Immature Gran # (0.00-0.04) X 10*3/uL Neutrophils # (1.80-7.70) X 10*3/uL Chloride (98-107) mmol/L Glucose (74-99) mg/dL POC Glucose (mg/dL) 167 H (70-110) mg/dL Hemoglobin A1c (0.0-6.0) % Microbiology - Last 24 Hours (Table) 12/10/22 22:50 Blood Culture - Preliminary Blood 12/10/22 22:35 Blood Culture - Preliminary Blood 12/11/22 16:48 Anaerobic Culture - Preliminary Heel - Right 12/11/22 16:48 Tissue Culture - Preliminary Heel - Right Assessment and Plan (1) Diabetic foot infection Status: Acute Code(s): E11.628 - TYPE 2 DIABETES MELLITUS WITH OTHER SKIN COMPLICATIONS; L08.9 - LOCAL INFECTION OF THE SKIN AND SUBCUTANEOUS TISSUE, UNSP SNOMED Code(s): 360010052 (2) Foot osteomyelitis, right Status: Acute Code(s): M86.9 - OSTEOMYELITIS, UNSPECIFIED SNOMED Code(s): 6858837264208815 Plan: 1patient with right diabetic foot wound infection that has been going on for the last few months with maggot infestation in this patient who is status post surgical debridement with a wound extend down to the bone we will need to cover for the polymicrobial gregg usually associated with diabetic foot infection with underlying acute osteomyelitis 2-patient to continue vancomycin pharmacy to dose however we will add Unasyn 3 g every 6 hours while waiting for the culture to finalize 3local wound care to continue per surgery 4patient will likely need outpatient antibiotic therapy on discharge We will follow on clinical condition and cultures to further adjust medication if needed Thank you for this consultation we will follow the patient along with you Time with Patient: Greater than 30
[2022-12-13] MEDS: AMPICILLIN-SULBACTAM 3 GM in SODIUM CHLORIDE 0.9% 100 ML IVPB SCH ×5 (02:04→23:06)
[2022-12-13] MEDS: HEPARIN SODIUM,PORCINE/PF 5,000 UNIT/0.5 ML SYRINGE SQ SCH ×4 (02:05→23:06)
[2022-12-13] MEDS: METOPROLOL TARTRATE 25 MG TAB PO SCH ×3 (02:05→20:09)
[2022-12-13 02:07] LABS: Glucose,Whole Blood 267 mg/dL (70-110)
[2022-12-13] MEDS: INSULIN DETEMIR (LEVEMIR) 100 UNIT/ML SYR SQ SCH ×2 (02:13→20:09)
[2022-12-13] MEDS: SODIUM CHLORIDE 0.9% 1,000 ML IV SCH (03:05)
[2022-12-13 06:07] LABS: Glucose,Whole Blood 192 mg/dL (70-110)
[2022-12-13] MEDS: INSULIN ASPART (NovoLOG) 100 UNIT/ML VIAL SQ SCH ×4 (06:52→20:09)
[2022-12-13] MEDS ORDERED: VANCOMYCIN TROUGH DUE 1 EACH MISC MISCELLANE ONE (08:00)
[2022-12-13 08:38] LABS: African American GFR (CKD) 83 (>60 ml/min/1.73 sqM); Anion Gap 10 mmol/L; Blood Urea Nitrogen 24 mg/dL (9-20); Calcium 8.6 mg/dL (8.4-10.2); Carbon Dioxide 23 mmol/L (22-30); Chloride 106 mmol/L (98-107); Glucose 185 mg/dL (74-99); Non-African American GFR(CKD) 72 (>60 ml/min/1.73 sqM); Potassium 4.2 mmol/L (3.5-5.1); Sodium 139 mmol/L (137-145)
[2022-12-13] MEDS: CHOLECALCIFEROL 25 MCG (1000 IU) TABLET PO SCH (09:50)
[2022-12-13] MEDS: ATORVASTATIN 40 MG TAB PO SCH (09:50)
[2022-12-13] MEDS: FUROSEMIDE 20 MG TAB PO SCH ×2 (09:50→16:02)
[2022-12-13] MEDS: CLOPIDOGREL 75 MG TAB PO SCH (09:50)
[2022-12-13] MEDS: ASPIRIN 81 MG PO SCH (09:50)
[2022-12-13] MEDS: ISOSORBIDE MONONITRATE ER 30 MG TAB.ER.24H PO SCH (09:54)
[2022-12-13] MEDS: LOSARTAN 25 MG TAB PO SCH (09:54)
[2022-12-13] MEDS: VANCOMYCIN 1,500 MG in SODIUM CHLORIDE 0.9% 500 ML 500 ML IVPB SCH (09:55)
[2022-12-13] MEDS: SPIRONOLACTONE 25 MG TAB PO SCH (09:56)
[2022-12-13 10:52] LABS: Basophils # (A) 0.05 X 10*3/uL (0.00-0.10); Basophils % (A) 0.5 %; Eosinophils # (A) 0.16 X 10*3/uL (0.04-0.35); Eosinophils % (A) 1.6 %; HCT 31.5 % (39.6-50.0); HGB 10.3 g/dL (13.0-17.0); Immature Grans, Automated 0.8 %; Lymphocytes # (A) 1.38 X 10*3/uL (0.90-5.00); Lymphocytes % (A) 13.4 %; MCH 31.2 pg (27.0-32.0); MCHC 32.7 g/dL (32.0-37.0); MCV 95.5 fL (80.0-97.0); Mean Platelet Volume 9.1 fL (9.5-12.2); Monocytes # (A) 0.71 X 10*3/uL (0.20-1.00); Monocytes % (A) 6.9 %; NRBC Per 100 WBC 0 /100 WBCS (0.0-0.0); Neutrophils # (A) 7.94 X 10*3/uL (1.80-7.70); Neutrophils % (A) 76.8 %; Platelet Count 396 X 10*3/uL (140-440); RDW 12.3 % (11.5-14.5); WBC 10.32 X 10*3/uL (4.50-10.00)
[2022-12-13 11:17] LABS: Glucose,Whole Blood 165 mg/dL (70-110)
[2022-12-13] MEDS ORDERED: LIDOCAINE 1% INJ 10MG/ML (30 ML VIAL-PF) SQ ONE (13:00)
--- NOTE | 2022-12-13 15:41 | P.PN ---
Subjective Progress Note Date: 12/13/22 Principal diagnosis: Right diabetic foot infection with Osteomyelitis acute MRSA Patient is a 67-year-old male with a past medical his significant for diabetes mellitus hypertension hyperlipidemia history of smoking presenting to the ER complaining of right foot pain and wound apparently the patient wound has been going on for the last 2 to 3 months , patient noticed to have Maggot infestation in his wound, patient is status post surgical debridement of the wound which has been extended on to the bone concerning for osteomyelitis. On today's evaluation that is 12/13/2022, the patient denies having any fever and chills has been complaining of some pain to the ear, patient denies any chest pain shortness of breath or cough no nausea no vomiting no abdominal pain or worsening pain to the right foot wound area Objective - Vital Signs Vital signs: Vital Signs Temp 98.0 F 12/13/22 07:05 Pulse 87 12/13/22 07:05 Resp 15 12/13/22 07:05 BP 106/56 12/13/22 07:05 Pulse Ox 99 12/13/22 07:05 FiO2 Intake & Output 12/12/22 12/13/22 12/13/22 18:59 06:59 18:59 Intake Total 1050 Output Total 700 Balance 350 Intake: Intake, IV Titration 1050 Amount Ampicillin-Sulbactam 3 gm 100 In Sodium Chloride 0.9% 100 ml @ 200 mls/hr IVPB Q6HR [facility] Rx#:[id number] Sodium Chloride 0.9% 1, 450 000 ml @ 50 mls/hr IV . Q20H [facility] Rx#:[id number] Vancomycin 1,500 mg In 500 Sodium Chloride 0.9% 500 ml 500 ml @ 167 mls/hr IVPB Q12H [facility] Rx#: [id number] Output: Urine 700 Other: # Voids 5 1 # Bowel Movements 2 - Exam GENERAL DESCRIPTION: An elderly male lying in bed in no distress RESPIRATORY SYSTEM: Unlabored breathing , decreased breath sounds at bases HEART: S1 S2 regular rate and rhythm , ABDOMEN: Soft , no tenderness EXTREMITIES: Right foot wound is currently dressed no drainage on the dressing - Labs CBC & Chem 7: 12/13/22 07:56 12/13/22 07:56 Labs: Abnormal Lab Results - Last 24 Hours (Table) 12/12/22 12/12/22 12/13/22 Range/Units 16:48 20:45 02:06 WBC (4.50-10.00) X 10*3/uL RBC (4.40-5.60) X 10*6/uL Hgb (13.0-17.0) g/dL Hct (39.6-50.0) % MPV (9.5-12.2) fL Immature Gran # (0.00-0.04) X 10*3/uL Neutrophils # (1.80-7.70) X 10*3/uL BUN (9-20) mg/dL Glucose (74-99) mg/dL POC Glucose (mg/dL) 562 H 131 H 267 H (70-110) mg/dL 12/13/22 12/13/22 12/13/22 Range/Units 06:06 07:56 07:56 WBC 10.32 H (4.50-10.00) X 10*3/uL RBC 3.30 L (4.40-5.60) X 10*6/uL Hgb 10.3 L (13.0-17.0) g/dL Hct 31.5 L (39.6-50.0) % MPV 9.1 L (9.5-12.2) fL Immature Gran # 0.08 H (0.00-0.04) X 10*3/uL Neutrophils # 7.94 H (1.80-7.70) X 10*3/uL BUN 24 H (9-20) mg/dL Glucose 185 H (74-99) mg/dL POC Glucose (mg/dL) 192 H (70-110) mg/dL 12/13/22 Range/Units 11:15 WBC (4.50-10.00) X 10*3/uL RBC (4.40-5.60) X 10*6/uL Hgb (13.0-17.0) g/dL Hct (39.6-50.0) % MPV (9.5-12.2) fL Immature Gran # (0.00-0.04) X 10*3/uL Neutrophils # (1.80-7.70) X 10*3/uL BUN (9-20) mg/dL Glucose (74-99) mg/dL POC Glucose (mg/dL) 165 H (70-110) mg/dL Microbiology - Last 24 Hours (Table) 12/11/22 16:48 Gram Stain - Preliminary Heel - Right Tissue Culture - Preliminary Presumptive MRSA Gram Neg Bacilli 12/10/22 22:50 Blood Culture - Preliminary Blood 12/10/22 22:35 Blood Culture - Preliminary Blood Assessment and Plan (1) Foot osteomyelitis, right Current Visit: Yes Status: Acute Code(s): M86.9 - OSTEOMYELITIS, UNSPECIFIED SNOMED Code(s): 5900581825979157 (2) MRSA (methicillin resistant staph aureus) culture positive Current Visit: Yes Status: Acute Code(s): Z22.322 - CARRIER OR SUSPECTED CARRIER OF METHICILLIN RESIS STAPH SNOMED Code(s): 809279198 (3) Diabetic foot infection Current Visit: Yes Status: Acute Code(s): E11.628 - TYPE 2 DIABETES MELLITUS WITH OTHER SKIN COMPLICATIONS; L08.9 - LOCAL INFECTION OF THE SKIN AND SUBCUTANEOUS TISSUE, UNSP SNOMED Code(s): 051367692 Plan: 1patient with right diabetic foot wound infection that has been going on for the last few months with maggot infestation in this patient who is status post surgical debridement with a wound extend down to the bone we will need to cover for the polymicrobial gregg usually associated with diabetic foot infection with underlying acute osteomyelitis 2-patient is status post surgical debridement culture is currently growing gram- negative and presented to MRSA 3-patient to continue vancomycin pharmacy to dose and Unasyn 3 g every 6 hours while waiting for the culture to finalize 4local wound care to continue per surgery Time with Patient: Less than 30
[2022-12-13 16:45] LABS: Glucose,Whole Blood 192 mg/dL (70-110)
[2022-12-13] MEDS: HYDROcodone/APAP 5-325MG 1 EACH TAB PO PRN ×2 (16:53→23:07)
[2022-12-13 20:03] LABS: Glucose,Whole Blood 201 mg/dL (70-110)
[2022-12-14] MEDS: VANCOMYCIN 1,500 MG in SODIUM CHLORIDE 0.9% 500 ML 500 ML IVPB SCH ×2 (01:31→18:41)
--- NOTE | 2022-12-14 02:22 | P.PN ---
Subjective Progress Note Date: 12/12/22 Patient is a 67-year-old male with a known history of hypertension, hyperlipidemia, diabetes type 2 insulin-dependent, history [place], chronic CHF with systolic dysfunction ejection fraction 20 to 25%, coronary artery disease status post stent placement to LAD on 08/08/2022 and currently everyday smoker presents to ER with complaints of right foot pain and wound on the lateral side of the heel. Patient was seen by his primary care physician and recommended to go to ER. Patient states that she has been having right foot wound for about a month and progressively getting painful and ulcer with dark scab and getting harder. Denies any purulent discharge. Denies any fever or chills. Patient is also hav ing leg swelling and difficulty to walk. Patient otherwise denies any complaints of chest pain or shortness of breath. No nausea vomiting abdominal pain or diarrhea. No cough or sputum production. X-ray of the foot showed no convincing radiographic evidence for acute osteomyelitis. Soft tissue ulceration seen along the lateral plantar aspect at the level of anterior calcaneus. Laboratory data showed WBC 11.4 hemoglobin 12.2 and platelets 523 Sodium 139 potassium 4.0 chloride 100 bicarb is 27 BUN 25 and creatinine 1.3 and blood sugar 184. CRP 4.3 and liver enzymes are not elevated. Patient is a poor historian. 12/12/2022 Patient is currently lying in the bed. Awake alert and oriented x2-3. No complaints of chest pain. Leg pain and swelling is improving. Patient was seen by vascular surgery and is s/p debridement of the right foot wound. Patient is being continued on broad-spectrum antibiotics and follow culture reports. Blood sugar was elevated today afternoon 562 and was given 10 units of NovoLog. Continue with Levemir 15 units at bedtime and titrate dose as needed. Laboratory data showed WBC 13.1 hemoglobin 10.9 and platelets 425 Sodium 140 potassium 4.4 chloride 108 bicarb is 23 BUN 17 and creatinine 0.97 and A1c level is 8.0. Current medications reviewed. Objective - Vital Signs Vital signs: Vital Signs Temp 97.7 F 12/13/22 19:40 Pulse 76 12/13/22 19:40 Resp 18 12/13/22 19:40 BP 115/64 12/13/22 19:40 Pulse Ox 97 12/13/22 19:40 FiO2 Intake & Output 12/13/22 12/13/22 12/14/22 06:59 18:59 06:59 Intake Total 1050 Output Total 700 2950 450 Balance 350 -2950 -450 Intake: Intake, IV Titration 1050 Amount Ampicillin-Sulbactam 3 gm 100 In Sodium Chloride 0.9% 100 ml @ 200 mls/hr IVPB Q6HR [facility] Rx#:[id number] Sodium Chloride 0.9% 1, 450 000 ml @ 50 mls/hr IV . Q20H [facility] Rx#:[id number] Vancomycin 1,500 mg In 500 Sodium Chloride 0.9% 500 ml 500 ml @ 167 mls/hr IVPB Q12H [facility] Rx#: [id number] Output: Urine 700 2950 450 Other: # Voids 1 - Exam PHYSICAL EXAMINATION: Patient is lying in the bed comfortably, no acute distress, awake alert and oriented.. Lethargic and weak and poor historian. HEENT: Normocephalic. Neck is supple. Pupils reactive. Nostrils clear. Oral cavity is moist. Neck reveals no JVD, carotid bruits, or thyromegaly. CHEST EXAMINATION: Trachea is central. Symmetrical expansion. Lung marquez clear to auscultation and percussion. CARDIAC: Normal S1, S2 with no gallops. No murmurs ABDOMEN: Soft. Bowel sounds present. Nontender. No organomegaly. No abdominal bruits. Extremities: reveal no edema. No clubbing or cyanosis. Pulses palpable. Neurologically awake, alert, oriented x2-3 with well-coordinated movements. No gross focal deficits noted Skin: Right foot wound is bandaged. Left foot swelling is improving.. Psychiatric: Coperative. Could not be assessed completely. Musculoskeletal: No joint swelling or deformity. Normal range of motion. - Labs CBC & Chem 7: 12/13/22 07:56 12/13/22 07:56 Labs: Abnormal Lab Results - Last 24 Hours (Table) 12/13/22 12/13/22 12/13/22 Range/Units 06:06 07:56 07:56 WBC 10.32 H (4.50-10.00) X 10*3/uL RBC 3.30 L (4.40-5.60) X 10*6/uL Hgb 10.3 L (13.0-17.0) g/dL Hct 31.5 L (39.6-50.0) % MPV 9.1 L (9.5-12.2) fL Immature Gran # 0.08 H (0.00-0.04) X 10*3/uL Neutrophils # 7.94 H (1.80-7.70) X 10*3/uL BUN 24 H (9-20) mg/dL Glucose 185 H (74-99) mg/dL POC Glucose (mg/dL) 192 H (70-110) mg/dL 12/13/22 12/13/22 12/13/22 Range/Units 11:15 16:44 20:01 WBC (4.50-10.00) X 10*3/uL RBC (4.40-5.60) X 10*6/uL Hgb (13.0-17.0) g/dL Hct (39.6-50.0) % MPV (9.5-12.2) fL Immature Gran # (0.00-0.04) X 10*3/uL Neutrophils # (1.80-7.70) X 10*3/uL BUN (9-20) mg/dL Glucose (74-99) mg/dL POC Glucose (mg/dL) 165 H 192 H 201 H (70-110) mg/dL Microbiology - Last 24 Hours (Table) 12/11/22 16:48 Gram Stain - Preliminary Heel - Right Tissue Culture - Preliminary Presumptive MRSA Gram Neg Bacilli 12/10/22 22:50 Blood Culture - Preliminary Blood 12/10/22 22:35 Blood Culture - Preliminary Blood Assessment and Plan Assessment: Right diabetic foot ulcer with necrotic base on the lateral aspect of the c alcaneum.S/p debridement. Left foot swelling and redness/cellulitis Diabetes type 2 insulin-dependent. Uncontrolled. Coronary artery disease history of stent placement to LAD in July 2022 History of non-ST elevated [place] Chronic CHF with systolic dysfunction with ejection fraction 40% in July 2022 Severe pulmonary hypertension Mild MR and moderate TR Chronic kidney disease stage III Normocytic anemia with hemoglobin 12.2 Ongoing nicotine addiction Noncompliance with medications and follow-up. DVT prophylaxis with heparin subcu Plan: Patient will be continued on antibiotics, vancomycin will continue with gentle hydration due to history of CHF. Patient was seen by vascular surgery and is s/p debridement. Follow-up wound cultures.. Continue with wound care and ID is on board. Patient will be started on insulin regimen better blood sugar control along with sliding scale. We will continue with aspirin and Plavix if no surgical intervention is planned. Continue with statins, metoprolol losartan and Imdur and Aldactone and also on Lasix.. Follow-up closely. Prognosis guarded with multimedical problems and comorbid conditions. Time with Patient: Greater than 30
--- NOTE | 2022-12-14 02:24 | P.PN ---
Subjective Progress Note Date: 12/13/22 Patient is a 67-year-old male with a known history of hypertension, hyperlipidemia, diabetes type 2 insulin-dependent, history [place], chronic CHF with systolic dysfunction ejection fraction 20 to 25%, coronary artery disease status post stent placement to LAD on 08/08/2022 and currently everyday smoker presents to ER with complaints of right foot pain and wound on the lateral side of the heel. Patient was seen by his primary care physician and recommended to go to ER. Patient states that she has been having right foot wound for about a month and progressively getting painful and ulcer with dark scab and getting harder. Denies any purulent discharge. Denies any fever or chills. Patient is also hav ing leg swelling and difficulty to walk. Patient otherwise denies any complaints of chest pain or shortness of breath. No nausea vomiting abdominal pain or diarrhea. No cough or sputum production. X-ray of the foot showed no convincing radiographic evidence for acute osteomyelitis. Soft tissue ulceration seen along the lateral plantar aspect at the level of anterior calcaneus. Laboratory data showed WBC 11.4 hemoglobin 12.2 and platelets 523 Sodium 139 potassium 4.0 chloride 100 bicarb is 27 BUN 25 and creatinine 1.3 and blood sugar 184. CRP 4.3 and liver enzymes are not elevated. Patient is a poor historian. 12/12/2022 Patient is currently lying in the bed. Awake alert and oriented x2-3. No complaints of chest pain. Leg pain and swelling is improving. Patient was seen by vascular surgery and is s/p debridement of the right foot wound. Patient is being continued on broad-spectrum antibiotics and follow culture reports. Blood sugar was elevated today afternoon 562 and was given 10 units of NovoLog. Continue with Levemir 15 units at bedtime and titrate dose as needed. Laboratory data showed WBC 13.1 hemoglobin 10.9 and platelets 425 Sodium 140 potassium 4.4 chloride 108 bicarb is 23 BUN 17 and creatinine 0.97 and A1c level is 8.0. 12/13/2022 Patient is currently sitting on the side of the bed. No complaints chest pain or shortness of breath. Afebrile. Pain is fairly controlled. Tolerating oral diet. Blood sugars controlled as well. Ordered wound cultures showing present MRSA and gram-negative bacilli. Patient remains on antibiotics and follow vancomycin and Unasyn. ID is on board. Patient may need PICC line and IV antibiotics at home. Laboratory data reviewed. Current medications reviewed. Objective - Vital Signs Vital signs: Vital Signs Temp 98.0 F 12/13/22 07:05 Pulse 87 12/13/22 07:05 Resp 15 12/13/22 07:05 BP 106/56 12/13/22 07:05 Pulse Ox 99 12/13/22 07:05 FiO2 Intake & Output 12/12/22 12/13/22 12/13/22 18:59 06:59 18:59 Intake Total 1050 Output Total 700 2400 Balance 350 -2400 Intake: Intake, IV Titration 1050 Amount Ampicillin-Sulbactam 3 gm 100 In Sodium Chloride 0.9% 100 ml @ 200 mls/hr IVPB Q6HR [facility] Rx#:[id number] Sodium Chloride 0.9% 1, 450 000 ml @ 50 mls/hr IV . Q20H [facility] Rx#:[id number] Vancomycin 1,500 mg In 500 Sodium Chloride 0.9% 500 ml 500 ml @ 167 mls/hr IVPB Q12H [facility] Rx#: [id number] Output: Urine 700 2400 Other: # Voids 5 1 # Bowel Movements 2 - Exam PHYSICAL EXAMINATION: Patient is lying in the bed comfortably, no acute distress, awake alert and oriented.. Lethargic and weak and poor historian. HEENT: Normocephalic. Neck is supple. Pupils reactive. Nostrils clear. Oral cavity is moist. Neck reveals no JVD, carotid bruits, or thyromegaly. CHEST EXAMINATION: Trachea is central. Symmetrical expansion. Lung marquez clear to auscultation and percussion. CARDIAC: Normal S1, S2 with no gallops. No murmurs ABDOMEN: Soft. Bowel sounds present. Nontender. No organomegaly. No abdominal bruits. Extremities: reveal no edema. No clubbing or cyanosis. Pulses palpable. Neurologically awake, alert, oriented x2-3 with well-coordinated movements. No gross focal deficits noted Skin: Right foot wound is bandaged. Left foot swelling is improving.. Psychiatric: Coperative. Could not be assessed completely. Musculoskeletal: No joint swelling or deformity. Normal range of motion. - Labs CBC & Chem 7: 12/13/22 07:56 12/13/22 07:56 Labs: Abnormal Lab Results - Last 24 Hours (Table) 12/12/22 12/13/22 12/13/22 Range/Units 20:45 02:06 06:06 WBC (4.50-10.00) X 10*3/uL RBC (4.40-5.60) X 10*6/uL Hgb (13.0-17.0) g/dL Hct (39.6-50.0) % MPV (9.5-12.2) fL Immature Gran # (0.00-0.04) X 10*3/uL Neutrophils # (1.80-7.70) X 10*3/uL BUN (9-20) mg/dL Glucose (74-99) mg/dL POC Glucose (mg/dL) 131 H 267 H 192 H (70-110) mg/dL 12/13/22 12/13/22 12/13/22 Range/Units 07:56 07:56 11:15 WBC 10.32 H (4.50-10.00) X 10*3/uL RBC 3.30 L (4.40-5.60) X 10*6/uL Hgb 10.3 L (13.0-17.0) g/dL Hct 31.5 L (39.6-50.0) % MPV 9.1 L (9.5-12.2) fL Immature Gran # 0.08 H (0.00-0.04) X 10*3/uL Neutrophils # 7.94 H (1.80-7.70) X 10*3/uL BUN 24 H (9-20) mg/dL Glucose 185 H (74-99) mg/dL POC Glucose (mg/dL) 165 H (70-110) mg/dL 12/13/22 Range/Units 16:44 WBC (4.50-10.00) X 10*3/uL RBC (4.40-5.60) X 10*6/uL Hgb (13.0-17.0) g/dL Hct (39.6-50.0) % MPV (9.5-12.2) fL Immature Gran # (0.00-0.04) X 10*3/uL Neutrophils # (1.80-7.70) X 10*3/uL BUN (9-20) mg/dL Glucose (74-99) mg/dL POC Glucose (mg/dL) 192 H (70-110) mg/dL Microbiology - Last 24 Hours (Table) 12/11/22 16:48 Gram Stain - Preliminary Heel - Right Tissue Culture - Preliminary Presumptive MRSA Gram Neg Bacilli 12/10/22 22:50 Blood Culture - Preliminary Blood 12/10/22 22:35 Blood Culture - Preliminary Blood Assessment and Plan Assessment: Right diabetic foot ulcer with necrotic base on the lateral aspect of the calcaneum.S/p debridement.Wound cultures growing presumptive MRSA and gram- negative bacilli. Left foot swelling and redness/cellulitis Diabetes type 2 insulin-dependent. Uncontrolled. Coronary artery disease history of stent placement to LAD in July 2022 History of non-ST elevated CT Chronic CHF with systolic dysfunction with ejection fraction 40% in July 2022 Severe pulmonary hypertension Mild MR and moderate TR Chronic kidney disease stage III Normocytic anemia with hemoglobin 12.2 Ongoing nicotine addiction Noncompliance with medications and follow-up. DVT prophylaxis with heparin subcu Plan: Patient will be continued on antibiotics, vancomycin will continue with gentle hydration due to history of CHF. Patient was seen by vascular surgery and is s/p debridement. Follow-up wound cultures.. Continue with wound care and ID is on board. Patient will be started on insulin regimen better blood sugar control along with sliding scale. We will continue with aspirin and Plavix if no surgical intervention is planned. Continue with statins, metoprolol losartan and Imdur and Aldactone and also on Lasix.. Follow-up closely. Prognosis guarded with multimedical problems and comorbid conditions. Time with Patient: Greater than 30
[2022-12-14 05:48] LABS: Glucose,Whole Blood 140 mg/dL (70-110)
[2022-12-14] MEDS: INSULIN ASPART (NovoLOG) 100 UNIT/ML VIAL SQ SCH ×4 (06:10→20:52)
[2022-12-14] MEDS: AMPICILLIN-SULBACTAM 3 GM in SODIUM CHLORIDE 0.9% 100 ML IVPB SCH ×3 (06:12→18:08)
[2022-12-14] MEDS: CHOLECALCIFEROL 25 MCG (1000 IU) TABLET PO SCH (08:52)
[2022-12-14] MEDS: HEPARIN SODIUM,PORCINE/PF 5,000 UNIT/0.5 ML SYRINGE SQ SCH ×2 (08:52→17:05)
[2022-12-14] MEDS: ATORVASTATIN 40 MG TAB PO SCH (08:52)
[2022-12-14] MEDS: SPIRONOLACTONE 25 MG TAB PO SCH (08:52)
[2022-12-14] MEDS: CLOPIDOGREL 75 MG TAB PO SCH (08:52)
[2022-12-14] MEDS: ISOSORBIDE MONONITRATE ER 30 MG TAB.ER.24H PO SCH (08:52)
[2022-12-14] MEDS: METOPROLOL TARTRATE 25 MG TAB PO SCH ×2 (08:53→20:52)
[2022-12-14] MEDS: LOSARTAN 25 MG TAB PO SCH (08:53)
[2022-12-14] MEDS: FUROSEMIDE 20 MG TAB PO SCH ×2 (08:53→17:05)
[2022-12-14] MEDS: ASPIRIN 81 MG PO SCH (08:53)
[2022-12-14 11:32] LABS: Glucose,Whole Blood 269 mg/dL (70-110)
[2022-12-14 14:31] VITALS: BMI 28.8
--- NOTE | 2022-12-14 15:20 | P.PN ---
Subjective Progress Note Date: 12/14/22 Patient is a 67-year-old male with a known history of hypertension, hyperlipidemia, diabetes type 2 insulin-dependent, history [place], chronic CHF with systolic dysfunction ejection fraction 20 to 25%, coronary artery disease status post stent placement to LAD on 08/08/2022 and currently everyday smoker presents to ER with complaints of right foot pain and wound on the lateral side of the heel. Patient was seen by his primary care physician and recommended to go to ER. Patient states that she has been having right foot wound for about a month and progressively getting painful and ulcer with dark scab and getting harder. Denies any purulent discharge. Denies any fever or chills. Patient is also having leg swelling and difficulty to walk. Patient otherwise denies any complaints of chest pain or shortness of breath. No nausea vomiting abdominal pain or diarrhea. No cough or sputum production. X-ray of the foot showed no convincing radiographic evidence for acute osteomyelitis. Soft tissue ulceration seen along the lateral plantar aspect at the level of anterior calcaneus. Laboratory data showed WBC 11.4 hemoglobin 12.2 and platelets 523 Sodium 139 potassium 4.0 chloride 100 bicarb is 27 BUN 25 and creatinine 1.3 and blood sugar 184. CRP 4.3 and liver enzymes are not elevated. Patient is a poor historian. 12/12/2022 Patient is currently lying in the bed. Awake alert and oriented x2-3. No complaints of chest pain. Leg pain and swelling is improving. Patient was seen by vascular surgery and is s/p debridement of the right foot wound. Patient is being continued on broad-spectrum antibiotics and follow culture reports. Blood sugar was elevated today afternoon 562 and was given 10 units of NovoLog. Continue with Levemir 15 units at bedtime and titrate dose as needed. Laboratory data showed WBC 13.1 hemoglobin 10.9 and platelets 425 Sodium 140 potassium 4.4 chloride 108 bicarb is 23 BUN 17 and creatinine 0.97 and A1c level is 8.0. 12/13/2022 Patient is currently sitting on the side of the bed. No complaints chest pain or shortness of breath. Afebrile. Pain is fairly controlled. Tolerating oral diet. Blood sugars controlled as well. Ordered wound cultures showing present MRSA and gram-negative bacilli. Patient remains on antibiotics and follow vancomycin and Unasyn. ID is on board. Patient may need PICC line and IV antibiotics at home. Laboratory data reviewed. 12/14. Patient seen and examined. Still complaining of pain in his right foot. Denies any acute issues overnight REVIEW OF SYSTEMS: CONSTITUTIONAL: No fever, no malaise,. CARDIOVASCULAR: No chest pain, no palpitations, no syncope. PULMONARY: No shortness of breath, no cough, GASTROINTESTINAL: No diarrhea, no nausea, no vomiting, no abdominal pain. NEUROLOGICAL: No headaches, no weakness, PHYSICAL EXAMINATION: GENERAL: The patient is alert and oriented x3, not in any acute distress. Well developed, well nourished. HEENT: Pupils are round and equally reacting to light. EOMI. No scleral icterus. No conjunctival pallor. Normocephalic, atraumatic. No pharyngeal erythema. No thyromegaly. CARDIOVASCULAR: S1 and S2 present. No murmurs, rubs, or gallops. PULMONARY: Chest is clear to auscultation, no wheezing or crackles. ABDOMEN: Soft, nontender, nondistended, normoactive bowel sounds. No palpable organomegaly. MUSCULOSKELETAL: Right foot dressing in place NEUROLOGICAL: Gross neurological examination did not reveal any focal deficits. SKIN: No rashes. Assessment and plan Right diabetic foot ulcer with necrotic base on the lateral aspect of the calcaneum.S/p debridement.Wound cultures growing presumptive MRSA and gram- negative bacilli. Left foot swelling and redness/cellulitis Diabetes type 2 insulin-dependent. Uncontrolled. Coronary artery disease history of stent placement to LAD in July 2022 History of non-ST elevated [place] Chronic CHF with systolic dysfunction with ejection fraction 40% in July 2022 Severe pulmonary hypertension Mild MR and moderate TR Chronic kidney disease stage III Normocytic anemia with hemoglobin 12.2 Ongoing nicotine addiction Monitor vital signs Monitor CBC Monitor CMP status post surgical debridement culture is currently growing gram-negative and presented to MRSA Continue pharmacy dose vancomycin and Unasyn Follow-up wound cultures.. Continue with wound care and ID is on board. Continue sliding scale insulin Continue aspirin and Plavix if no surgical intervention is planned. Continue with statins, metoprolol losartan and Imdur and Aldactone and also on Lasix.. Objective - Vital Signs Vital signs: Vital Signs Temp 98.4 F 12/14/22 07:20 Pulse 64 12/14/22 07:20 Resp 16 12/14/22 07:20 BP 163/71 12/14/22 07:20 Pulse Ox 97 12/14/22 07:20 FiO2 Intake & Output 12/13/22 12/14/22 12/14/22 18:59 06:59 18:59 Output Total 2950 850 Balance -2950 -850 Output: Urine 2950 850 Other: # Voids 3 - Labs CBC & Chem 7: 12/13/22 07:56 12/13/22 07:56 Labs: Abnormal Lab Results - Last 24 Hours (Table) 12/13/22 12/13/22 12/13/22 Range/Units 07:56 11:15 16:44 WBC 10.32 H (4.50-10.00) X 10*3/uL RBC 3.30 L (4.40-5.60) X 10*6/uL Hgb 10.3 L (13.0-17.0) g/dL Hct 31.5 L (39.6-50.0) % MPV 9.1 L (9.5-12.2) fL Immature Gran # 0.08 H (0.00-0.04) X 10*3/uL Neutrophils # 7.94 H (1.80-7.70) X 10*3/uL POC Glucose (mg/dL) 165 H 192 H (70-110) mg/dL 12/13/22 12/14/22 Range/Units 20:01 05:47 WBC (4.50-10.00) X 10*3/uL RBC (4.40-5.60) X 10*6/uL Hgb (13.0-17.0) g/dL Hct (39.6-50.0) % MPV (9.5-12.2) fL Immature Gran # (0.00-0.04) X 10*3/uL Neutrophils # (1.80-7.70) X 10*3/uL POC Glucose (mg/dL) 201 H 140 H (70-110) mg/dL Microbiology - Last 24 Hours (Table) 12/11/22 16:48 Gram Stain - Preliminary Heel - Right Tissue Culture - Preliminary Presumptive MRSA Gram Neg Bacilli 12/10/22 22:50 Blood Culture - Preliminary Blood 12/10/22 22:35 Blood Culture - Preliminary Blood
[2022-12-14 16:25] LABS: Glucose,Whole Blood 190 mg/dL (70-110)
[2022-12-14] MEDS: HYDROcodone/APAP 5-325MG 1 EACH TAB PO PRN ×2 (18:45→23:37)
[2022-12-14 20:18] LABS: Glucose,Whole Blood 209 mg/dL (70-110)
[2022-12-14] MEDS: INSULIN DETEMIR (LEVEMIR) 100 UNIT/ML SYR SQ SCH (20:52)
--- NOTE | 2022-12-14 22:16 | P.PN ---
Subjective Progress Note Date: 12/14/22 Principal diagnosis: Right diabetic foot infection with Osteomyelitis acute MRSA Patient is a 67-year-old male with a past medical his significant for diabetes mellitus hypertension hyperlipidemia history of smoking presenting to the ER complaining of right foot pain and wound apparently the patient wound has been going on for the last 2 to 3 months , patient noticed to have Maggot infestation in his wound, patient is status post surgical debridement of the wound which has been extended on to the bone concerning for osteomyelitis. On today's evaluation that is 12/14/2022 patient remains to be afebrile, the patient is breathing comfortably on room air patient denies having any chest pain shortness of breath occasional cough no nausea vomiting no abdominal pain s till complaining of pain to the right foot area and wants her pain medication to be adjusted up Objective - Vital Signs Vital signs: Vital Signs Temp 98.4 F 12/14/22 07:20 Pulse 64 12/14/22 07:20 Resp 16 12/14/22 07:20 BP 163/71 12/14/22 07:20 Pulse Ox 97 12/14/22 07:20 FiO2 Intake & Output 12/13/22 12/14/22 12/14/22 18:59 06:59 18:59 Output Total 2950 850 Balance -2950 -850 Output: Urine 2950 850 Other: # Voids 3 - Exam GENERAL DESCRIPTION: An elderly male lying in bed in no distress RESPIRATORY SYSTEM: Unlabored breathing , decreased breath sounds at bases HEART: S1 S2 regular rate and rhythm , ABDOMEN: Soft , no tenderness EXTREMITIES: Right foot wound is currently dressed no drainage on the dressing - Labs CBC & Chem 7: 12/13/22 07:56 12/13/22 07:56 Labs: Abnormal Lab Results - Last 24 Hours (Table) 12/13/22 12/13/22 12/13/22 Range/Units 11:15 16:44 20:01 POC Glucose (mg/dL) 165 H 192 H 201 H (70-110) mg/dL 12/14/22 Range/Units 05:47 POC Glucose (mg/dL) 140 H (70-110) mg/dL Microbiology - Last 24 Hours (Table) 12/11/22 16:48 Gram Stain - Preliminary Heel - Right Tissue Culture - Preliminary Presumptive MRSA Gram Neg Bacilli 12/10/22 22:50 Blood Culture - Preliminary Blood 12/10/22 22:35 Blood Culture - Preliminary Blood Assessment and Plan (1) Foot osteomyelitis, right Current Visit: Yes Status: Acute Code(s): M86.9 - OSTEOMYELITIS, UNSPECIFIED SNOMED Code(s): 9857089727178934 (2) MRSA (methicillin resistant staph aureus) culture positive Current Visit: Yes Status: Acute Code(s): Z22.322 - CARRIER OR SUSPECTED CARRIER OF METHICILLIN RESIS STAPH SNOMED Code(s): 248320060 (3) Diabetic foot infection Current Visit: Yes Status: Acute Code(s): E11.628 - TYPE 2 DIABETES MELLITUS WITH OTHER SKIN COMPLICATIONS; L08.9 - LOCAL INFECTION OF THE SKIN AND SUBCUTANEOUS TISSUE, UNSP SNOMED Code(s): 398829642 Plan: 1patient with right diabetic foot wound infection that has been going on for the last few months with maggot infestation in this patient who is status post surgical debridement with a wound extend down to the bone we will need to cover for the polymicrobial gregg usually associated with diabetic foot infection with underlying acute osteomyelitis 2-patient is status post surgical debridement culture Are currently growing MRSA and gram-negative with ID sensitivities pending. 3patient to continue with the Unasyn and vancomycin while waiting for the culture to finalize he will need PICC line for outpatient IV antibiotic therapy Time with Patient: Less than 30
[2022-12-15] MEDS: AMPICILLIN-SULBACTAM 3 GM in SODIUM CHLORIDE 0.9% 100 ML IVPB SCH ×5 (06:18→17:05)
[2022-12-15] MEDS: INSULIN ASPART (NovoLOG) 100 UNIT/ML VIAL SQ SCH ×4 (06:19→21:37)
[2022-12-15 06:21] LABS: Glucose,Whole Blood 96 mg/dL (70-110)
[2022-12-15] MEDS: HYDROcodone/APAP 5-325MG 1 EACH TAB PO PRN ×2 (06:33→10:02)
[2022-12-15] MEDS ORDERED: VANCOMYCIN TROUGH DUE 1 EACH MISC MISCELLANE ONE (09:00)
[2022-12-15] MEDS: VANCOMYCIN 1,500 MG in SODIUM CHLORIDE 0.9% 500 ML 500 ML IVPB SCH (09:57)
[2022-12-15] MEDS: LOSARTAN 25 MG TAB PO SCH (09:59)
[2022-12-15] MEDS: CLOPIDOGREL 75 MG TAB PO SCH (09:59)
[2022-12-15] MEDS: SPIRONOLACTONE 25 MG TAB PO SCH (09:59)
[2022-12-15] MEDS: ISOSORBIDE MONONITRATE ER 30 MG TAB.ER.24H PO SCH (09:59)
[2022-12-15] MEDS: ASPIRIN 81 MG PO SCH (09:59)
[2022-12-15] MEDS: CHOLECALCIFEROL 25 MCG (1000 IU) TABLET PO SCH (09:59)
[2022-12-15] MEDS: ATORVASTATIN 40 MG TAB PO SCH (09:59)
[2022-12-15] MEDS: METOPROLOL TARTRATE 25 MG TAB PO SCH ×2 (09:59→21:36)
[2022-12-15] MEDS: HEPARIN SODIUM,PORCINE/PF 5,000 UNIT/0.5 ML SYRINGE SQ SCH ×3 (10:00→17:05)
[2022-12-15] MEDS: FUROSEMIDE 20 MG TAB PO SCH ×2 (10:00→17:05)
--- NOTE | 2022-12-15 10:01 | PN ---
PROGRESS NOTE This is a 67-year-old male patient with right foot heel infected wound with maggots. The patient had extensive debridement. He has been treated with local wound care. Today, we have changed the dressing with Medihoney gel. The patient is on IV antibiotic, under care of Infectious Disease. Continue with local wound care and IV antibiotics. MMODL / IJN: [id number] /
[2022-12-15 10:07] LABS: HCT 29.8 % (39.0-53.0); HGB 10.1 gm/dL (13.0-17.5); Hypochromasia Slight; MCH 31.8 pg (25.0-35.0); MCHC 33.8 g/dL (31.0-37.0); MCV 94.1 fL (80.0-100.0); Platelet Count 393 k/uL (150-450); RBC 3.17 m/uL (4.30-5.90); RDW 13.1 % (11.5-15.5); WBC 8.5 k/uL (3.8-10.6)
[2022-12-15 10:56] LABS: ALT 17 U/L (4-49); AST 28 U/L (17-59); African American GFR (CKD) 81 (>60 ml/min/1.73 sqM); Albumin 3.1 g/dL (3.5-5.0); Alkaline Phosphatase 92 U/L (38-126); Anion Gap 14 mmol/L; Blood Urea Nitrogen 24 mg/dL (9-20); Calcium 8.7 mg/dL (8.4-10.2); Carbon Dioxide 23 mmol/L (22-30); Chloride 104 mmol/L (98-107); Globulin 3.2 g/dL; Glucose 150 mg/dL (74-99); Non-African American GFR(CKD) 70 (>60 ml/min/1.73 sqM); Potassium 4.1 mmol/L (3.5-5.1); Sodium 141 mmol/L (137-145); Total Bilirubin 0.4 mg/dL (0.2-1.3); Total Protein 6.3 g/dL (6.3-8.2)
[2022-12-15 11:31] LABS: Glucose,Whole Blood 194 mg/dL (70-110)
--- NOTE | 2022-12-15 13:09 | P.PN ---
Subjective Progress Note Date: 12/15/22 Patient is a 67-year-old male with a known history of hypertension, hyperlipidemia, diabetes type 2 insulin-dependent, history [place], chronic CHF with systolic dysfunction ejection fraction 20 to 25%, coronary artery disease status post stent placement to LAD on 08/08/2022 and currently everyday smoker presents to ER with complaints of right foot pain and wound on the lateral side of the heel. Patient was seen by his primary care physician and recommended to go to ER. Patient states that she has been having right foot wound for about a month and progressively getting painful and ulcer with dark scab and getting harder. Denies any purulent discharge. Denies any fever or chills. Patient is also having leg swelling and difficulty to walk. Patient otherwise denies any complaints of chest pain or shortness of breath. No nausea vomiting abdominal pain or diarrhea. No cough or sputum production. X-ray of the foot showed no convincing radiographic evidence for acute osteomyelitis. Soft tissue ulceration seen along the lateral plantar aspect at the level of anterior calcaneus. Laboratory data showed WBC 11.4 hemoglobin 12.2 and platelets 523 Sodium 139 potassium 4.0 chloride 100 bicarb is 27 BUN 25 and creatinine 1.3 and blood sugar 184. CRP 4.3 and liver enzymes are not elevated. Patient is a poor historian. 12/12/2022 Patient is currently lying in the bed. Awake alert and oriented x2-3. No complaints of chest pain. Leg pain and swelling is improving. Patient was seen by vascular surgery and is s/p debridement of the right foot wound. Patient is being continued on broad-spectrum antibiotics and follow culture reports. Blood sugar was elevated today afternoon 562 and was given 10 units of NovoLog. Continue with Levemir 15 units at bedtime and titrate dose as needed. Laboratory data showed WBC 13.1 hemoglobin 10.9 and platelets 425 Sodium 140 potassium 4.4 chloride 108 bicarb is 23 BUN 17 and creatinine 0.97 and A1c level is 8.0. 12/13/2022 Patient is currently sitting on the side of the bed. No complaints chest pain or shortness of breath. Afebrile. Pain is fairly controlled. Tolerating oral diet. Blood sugars controlled as well. Ordered wound cultures showing present MRSA and gram-negative bacilli. Patient remains on antibiotics and follow vancomycin and Unasyn. ID is on board. Patient may need PICC line and IV antibiotics at home. Laboratory data reviewed. 12/14. Patient seen and examined. Still complaining of pain in his right foot. Denies any acute issues overnight 12/15. Patient seen and examined. WBC 8.5, hemoglobin 10.1, sodium 141, pota ssium 4.1, BUN 24, creatinine 1.09. Still complaining of pain in his right foot. Friend at the bedside. All questions answered REVIEW OF SYSTEMS: CONSTITUTIONAL: No fever, no malaise,. CARDIOVASCULAR: No chest pain, no palpitations, no syncope. PULMONARY: No shortness of breath, no cough, GASTROINTESTINAL: No diarrhea, no nausea, no vomiting, no abdominal pain. NEUROLOGICAL: No headaches, no weakness, PHYSICAL EXAMINATION: GENERAL: The patient is alert and oriented x3, not in any acute distress. Well developed, well nourished. HEENT: Pupils are round and equally reacting to light. EOMI. No scleral icterus. No conjunctival pallor. Normocephalic, atraumatic. No pharyngeal erythema. No thyromegaly. CARDIOVASCULAR: S1 and S2 present. No murmurs, rubs, or gallops. PULMONARY: Chest is clear to auscultation, no wheezing or crackles. ABDOMEN: Soft, nontender, nondistended, normoactive bowel sounds. No palpable organomegaly. MUSCULOSKELETAL: Right foot dressing in place NEUROLOGICAL: Gross neurological examination did not reveal any focal deficits. SKIN: No rashes. Assessment and plan Right diabetic foot ulcer with necrotic base on the lateral aspect of the calcaneum.S/p debridement.Wound cultures growing presumptive MRSA and gram-negat timothy bacilli. Left foot swelling and redness/cellulitis Diabetes type 2 insulin-dependent. Uncontrolled. Coronary artery disease history of stent placement to LAD in July 2022 History of non-ST elevated [place] Chronic CHF with systolic dysfunction with ejection fraction 40% in July 2022 Severe pulmonary hypertension Mild MR and moderate TR Chronic kidney disease stage III Normocytic anemia with hemoglobin 12.2 Ongoing nicotine addiction Monitor vital signs Monitor CBC Monitor CMP status post surgical debridement culture is currently growing gram-negative and presented to MRSA Continue pharmacy dose vancomycin and Unasyn Follow-up wound cultures.. Continue with wound care Continue sliding scale insulin Continue aspirin and Plavix Continue with statins, metoprolol losartan and Imdur and Aldactone and also on Lasix.. ID will determine the duration of outpatient IV antibiotics Objective - Vital Signs Vital signs: Vital Signs Temp 97.5 F L 12/15/22 07:05 Pulse 64 12/15/22 07:05 Resp 14 12/15/22 07:05 BP 136/73 12/15/22 07:05 Pulse Ox 97 12/15/22 07:05 FiO2 Intake & Output 12/14/22 12/15/22 12/15/22 18:59 06:59 18:59 Output Total 1500 2000 Balance -1500 -1999 Weight 86.183 kg Output: Urine 1500 2000 Other: Voiding Method Toilet Toilet Urinal Urinal - Labs CBC & Chem 7: 12/15/22 09:17 12/15/22 09:17 Labs: Abnormal Lab Results - Last 24 Hours (Table) 12/14/22 12/14/22 12/15/22 Range/Units 16:21 20:17 09:17 RBC 3.17 L (4.30-5.90) m/uL Hgb 10.1 L (13.0-17.5) gm/dL Hct 29.8 L (39.0-53.0) % BUN (9-20) mg/dL Glucose (74-99) mg/dL POC Glucose (mg/dL) 190 H 209 H (70-110) mg/dL Albumin (3.5-5.0) g/dL 12/15/22 12/15/22 Range/Units 09:17 11:30 RBC (4.30-5.90) m/uL Hgb (13.0-17.5) gm/dL Hct (39.0-53.0) % BUN 24 H (9-20) mg/dL Glucose 150 H (74-99) mg/dL POC Glucose (mg/dL) 194 H (70-110) mg/dL Albumin 3.1 L (3.5-5.0) g/dL Microbiology - Last 24 Hours (Table) 12/11/22 16:48 Gram Stain - Final Heel - Right Tissue Culture - Final Methicillin resist S. aureus Staphylococcus cohnii Klebsiella oxytoca 12/10/22 22:50 Blood Culture - Preliminary Blood 12/10/22 22:35 Blood Culture - Preliminary Blood
--- NOTE | 2022-12-15 15:07 | P.PN ---
Subjective Progress Note Date: 12/15/22 Principal diagnosis: Right diabetic foot infection with Osteomyelitis acute MRSA Patient is a 67-year-old male with a past medical his significant for diabetes mellitus hypertension hyperlipidemia history of smoking presenting to the ER complaining of right foot pain and wound apparently the patient wound has been going on for the last 2 to 3 months , patient noticed to have Maggot infestation in his wound, patient is status post surgical debridement of the wound which has been extended on to the bone concerning for osteomyelitis. On today's evaluation that is 12/15/2022 patient continues to be afebrile, the patient is breathing comfortably on room air, patient denies having any chest pain shortness of breath occasional cough no nausea vomiting no abdominal pain , the patient pain to the right foot area is better controlled today Objective - Vital Signs Vital signs: Vital Signs Temp 97.9 F 12/15/22 13:49 Pulse 60 12/15/22 13:49 Resp 16 12/15/22 13:49 BP 184/68 12/15/22 13:49 Pulse Ox 98 12/15/22 13:49 FiO2 Intake & Output 12/14/22 12/15/22 12/15/22 18:59 06:59 18:59 Output Total 1500 2000 1200 Balance -1500 -2000 -1200 Weight 86.183 kg Output: Urine 1500 2000 1200 Other: Voiding Method Toilet Toilet Urinal Urinal - Exam GENERAL DESCRIPTION: An elderly male lying in bed in no distress RESPIRATORY SYSTEM: Unlabored breathing , decreased breath sounds at bases HEART: S1 S2 regular rate and rhythm , ABDOMEN: Soft , no tenderness EXTREMITIES: Right foot wound is currently dressed no drainage on the dressing - Labs CBC & Chem 7: 12/15/22 09:17 12/15/22 09:17 Labs: Abnormal Lab Results - Last 24 Hours (Table) 12/14/22 12/14/22 12/15/22 Range/Units 16:21 20:17 09:17 RBC 3.17 L (4.30-5.90) m/uL Hgb 10.1 L (13.0-17.5) gm/dL Hct 29.8 L (39.0-53.0) % BUN (9-20) mg/dL Glucose (74-99) mg/dL POC Glucose (mg/dL) 190 H 209 H (70-110) mg/dL Albumin (3.5-5.0) g/dL 12/15/22 12/15/22 Range/Units 09:17 11:30 RBC (4.30-5.90) m/uL Hgb (13.0-17.5) gm/dL Hct (39.0-53.0) % BUN 24 H (9-20) mg/dL Glucose 150 H (74-99) mg/dL POC Glucose (mg/dL) 194 H (70-110) mg/dL Albumin 3.1 L (3.5-5.0) g/dL Microbiology - Last 24 Hours (Table) 12/10/22 22:50 Blood Culture - Preliminary Blood 12/10/22 22:35 Blood Culture - Preliminary Blood 12/11/22 16:48 Anaerobic Culture - Final Heel - Right Anaerobic Gm Negative Bacilli 12/11/22 16:48 Gram Stain - Final Heel - Right Tissue Culture - Final Methicillin resist S. aureus Staphylococcus cohnii Klebsiella oxytoca Assessment and Plan (1) Foot osteomyelitis, right Current Visit: Yes Status: Acute Code(s): M86.9 - OSTEOMYELITIS, UNSPECIFIED SNOMED Code(s): 8300161188919713 (2) MRSA (methicillin resistant staph aureus) culture positive Current Visit: Yes Status: Acute Code(s): Z22.322 - CARRIER OR SUSPECTED CARRIER OF METHICILLIN RESIS STAPH SNOMED Code(s): 773483723 (3) Diabetic foot infection Current Visit: Yes Status: Acute Code(s): E11.628 - TYPE 2 DIABETES MELLITUS WITH OTHER SKIN COMPLICATIONS; L08.9 - LOCAL INFECTION OF THE SKIN AND SUBCUTANEOUS TISSUE, UNSP SNOMED Code(s): 633785165 Plan: 1patient with right diabetic foot wound infection that has been going on for the last few months with maggot infestation in this patient who is status post surgical debridement with a wound extend down to the bone we will need to cover for the polymicrobial gregg usually associated with diabetic foot infection with underlying acute osteomyelitis 2-patient is status post surgical debridement culture Are currently growing MRSA , Klebsiella and anaerobic gram-negative bacilli. 3patient to continue with the Unasyn and vancomycin , will order a PICC line for outpatient IV antibiotic therapy local care to continue per surgery
[2022-12-15 16:38] LABS: Glucose,Whole Blood 190 mg/dL (70-110)
[2022-12-15] MEDS: HYDROcodone/APAP 7.5-325MG 1 EACH TAB PO PRN (17:36)
[2022-12-15 20:06] LABS: Glucose,Whole Blood 232 mg/dL (70-110)
[2022-12-15] MEDS: INSULIN DETEMIR (LEVEMIR) 100 UNIT/ML SYR SQ SCH (21:36)
[2022-12-16] MEDS: AMPICILLIN-SULBACTAM 3 GM in SODIUM CHLORIDE 0.9% 100 ML IVPB SCH ×3 (00:08→12:57)
[2022-12-16] MEDS: HEPARIN SODIUM,PORCINE/PF 5,000 UNIT/0.5 ML SYRINGE SQ SCH ×3 (00:09→15:15)
[2022-12-16 05:31] LABS: Glucose,Whole Blood 230 mg/dL (70-110)
[2022-12-16] MEDS: HYDROcodone/APAP 7.5-325MG 1 EACH TAB PO PRN (06:10)
[2022-12-16] MEDS: INSULIN ASPART (NovoLOG) 100 UNIT/ML VIAL SQ SCH ×2 (07:14→12:56)
--- NOTE | 2022-12-16 07:44 | PN ---
PROGRESS NOTE Rae came with history of maggots, infected wound right heel. Patient went for extensive debridement. Today, we have changed the dressing and we placed Medihoney gel to the wound. The patient is on IV antibiotic under care of Infectious Disease. Plan is continue with Medihoney gel and IV antibiotic. If the patient goes home, patient to follow up with the wound clinic. Patient needs a PICC line for long-term antibiotic per Infectious Disease. DICTATION ENDS HERE MMODL / IJN: [id number] /
[2022-12-16 08:00] VITALS: RESP 17
[2022-12-16] MEDS: FUROSEMIDE 20 MG TAB PO SCH ×2 (08:12→15:15)
[2022-12-16] MEDS: ASPIRIN 81 MG PO SCH (08:12)
[2022-12-16] MEDS: CHOLECALCIFEROL 25 MCG (1000 IU) TABLET PO SCH (08:12)
[2022-12-16] MEDS: ATORVASTATIN 40 MG TAB PO SCH (08:12)
[2022-12-16] MEDS: ISOSORBIDE MONONITRATE ER 30 MG TAB.ER.24H PO SCH (08:12)
[2022-12-16] MEDS: CLOPIDOGREL 75 MG TAB PO SCH (08:13)
[2022-12-16] MEDS: SPIRONOLACTONE 25 MG TAB PO SCH (08:13)
[2022-12-16] MEDS: LOSARTAN 25 MG TAB PO SCH (08:13)
[2022-12-16] MEDS: METOPROLOL TARTRATE 25 MG TAB PO SCH (08:14)
[2022-12-16 11:04] LABS: Glucose,Whole Blood 206 mg/dL (70-110)
[2022-12-16 11:28] LABS: Prothrombin Time 10.6 sec (9.0-12.0)
--- NOTE | 2022-12-16 11:50 | US ---
EXAMINATION TYPE: US arterial LE single level DATE OF EXAM: 12/11/2022 9:53 AM CLINICAL INDICATION: Male, 67 years old with history of chronic wounds b/l feet; Chronic wounds b/l f eet. History of: Smoker: Current Smoker Hypertension: Yes Diabetic: Yes Hyperlipidemia: TIA/CVA: No Previous Vascular Surgery: Hx cardiac stents placed. CAD: CO: Yes Vascular Ulcers: Yes Gangrene: Yes Doppler Waveforms: Right: Monophasic Left: Monophasic Pulse Volume Recording: Pressure Gradients: Right Brachial Pressure: Deferred due to IV. Left Brachial Pressure: 179 Ankle-Brachial Indices: Right: CNO Left: CNO Toe Brachial Indices: Right: 0.98 Left: Unable to obtain due to movement of foot with cuff inflation. IMPRESSION: Nondiagnostic study. Further workup and follow-up advised.
--- NOTE | 2022-12-16 14:25 | P.DS ---
Providers Date of admission: 12/10/22 23:21 Expected date of discharge: 12/16/22 Attending physician: Simone Srinivasan Consults: 12/11/22 11:08 Consult Physician Routine Consulting Provider: Duc Sanchez Consult Reason/Comments: diabetic foot ulcer Do you want consulting provider notified?: Already Contacted 12/11/22 16:47 Consult Physician Routine Consulting Provider: Hanane Graham Consult Reason/Comments: infected heel wound Do you want consulting provider notified?: Yes Primary care physician: Stated None Hospital Course: Discharge diagnoses; Right diabetic foot ulcer with necrotic base on the lateral aspect of the calcaneum.S/p debridement.Wound cultures growing presumptive MRSA and gram- negative bacilli. Left foot swelling and redness/cellulitis Diabetes type 2 insulin-dependent. Uncontrolled. Coronary artery disease history of stent placement to LAD in July 2022 History of non-ST elevated WI Chronic CHF with systolic dysfunction with ejection fraction 40% in July 2022 Severe pulmonary hypertension Mild MR and moderate TR Chronic kidney disease stage III Normocytic anemia with hemoglobin 12.2 Ongoing nicotine addiction Hospital course; Patient is a 67-year-old male with a known history of hypertension, hyperlipidemia, diabetes type 2 insulin-dependent, history WI, chronic CHF with systolic dysfunction ejection fraction 20 to 25%, coronary artery disease status post stent placement to LAD on 08/08/2022 and currently everyday smoker presents to ER with complaints of right foot pain and wound on the lateral side of the heel. Patient was seen by his primary care physician and recommended to go to ER. Patient states that she has been having right foot wound for about a month and progressively getting painful and ulcer with dark scab and getting harder. Denies any purulent discharge. Denies any fever or chills. Patient is also having leg swelling and difficulty to walk. Patient otherwise denies any complaints of chest pain or shortness of breath. No nausea vomiting abdominal pain or diarrhea. No cough or sputum production. X-ray of the foot showed no convincing radiographic evidence for acute osteomyelitis. Soft tissue ulceration seen along the lateral plantar aspect at the level of anterior calcaneus. Laboratory data showed WBC 11.4 hemoglobin 12.2 and platelets 523 Sodium 139 potassium 4.0 chloride 100 bicarb is 27 BUN 25 and creatinine 1.3 and blood sugar 184. CRP 4.3 and liver enzymes are not elevated. Patient is a poor historian. 12/12/2022 Patient is currently lying in the bed. Awake alert and oriented x2-3. No complaints of chest pain. Leg pain and swelling is improving. Patient was seen by vascular surgery and is s/p debridement of the right foot wound. Patient is being continued on broad-spectrum antibiotics and follow culture reports. Blood sugar was elevated today afternoon 562 and was given 10 units of NovoLog. Continue with Levemir 15 units at bedtime and titrate dose as needed. Laboratory data showed WBC 13.1 hemoglobin 10.9 and platelets 425 Sodium 140 potassium 4.4 chloride 108 bicarb is 23 BUN 17 and creatinine 0.97 and A1c level is 8.0. 12/13/2022 Patient is currently sitting on the side of the bed. No complaints chest pain or shortness of breath. Afebrile. Pain is fairly controlled. Tolerating oral diet. Blood sugars controlled as well. Ordered wound cultures showing present MRSA and gram-negative bacilli. Patient remains on antibiotics and follow vancomycin and Unasyn. ID is on board. Patient may need PICC line and IV antibiotics at home. Laboratory data reviewed. 12/14. Patient seen and examined. Still complaining of pain in his right foot. Denies any acute issues overnight 12/15. Patient seen and examined. WBC 8.5, hemoglobin 10.1, sodium 141, potassium 4.1, BUN 24, creatinine 1.09. Still complaining of pain in his right foot. Friend at the bedside. All questions answered 12/16. Patient seen and examined. ID cleared the patient for discharge, scripts were given by ID for vancomycin, Flagyl. Outpatient follow-up with ID PHYSICAL EXAMINATION: GENERAL: The patient is alert and oriented x3, not in any acute distress. Well developed, well nourished. HEENT: Pupils are round and equally reacting to light. EOMI. No scleral icterus. No conjunctival pallor. Normocephalic, atraumatic. No pharyngeal erythema. No thyromegaly. CARDIOVASCULAR: S1 and S2 present. No murmurs, rubs, or gallops. PULMONARY: Chest is clear to auscultation, no wheezing or crackles. ABDOMEN: Soft, nontender, nondistended, normoactive bowel sounds. No palpable organomegaly. MUSCULOSKELETAL: Right foot dressing in place NEUROLOGICAL: Gross neurological examination did not reveal any focal deficits. SKIN: No rashes. Patient Condition at Discharge: Stable Plan - Discharge Summary New Discharge Prescriptions: New metroNIDAZOLE [Flagyl] 500 mg PO TID #90 tab HYDROcodone/APAP 7.5-325MG [[place] 7.5-325] 1 each PO Q6HR PRN #12 tab PRN Reason: Pain Continue Losartan [Cozaar] 25 mg PO DAILY #30 tab Isosorbide Mononitrate ER [Imdur] 30 mg PO DAILY #30 tab Clopidogrel [Plavix] 75 mg PO DAILY #30 tab Empagliflozin [Jardiance] 10 mg PO DAILY Spironolactone [Aldactone] 12.5 mg PO DAILY #15 tab Aspirin 81 mg PO DAILY #30 tab Metoprolol Tartrate [Lopressor] 25 mg PO BID #60 tab Furosemide [Lasix] 20 mg PO BID@0900,1600 #60 tab Cholecalciferol [Vitamin D3 (25 Mcg = 1000 Iu)] 50 mcg PO DAILY Atorvastatin [Lipitor] 40 mg PO DAILY Collagenase [Santyl Ointment] 1 applic TOPICAL DAILY Insulin Detemir (Levemir) [Levemir] 5 unit SQ DIRECTED Nitroglycerin Sl Tabs [Nitrostat] 0.4 mg SL Q5M PRN PRN Reason: Chest Pain Discharge Medication List Aspirin 81 mg PO DAILY #30 tab 08/09/22 [Rx] Clopidogrel [Plavix] 75 mg PO DAILY #30 tab 08/09/22 [Rx] Furosemide [Lasix] 20 mg PO BID@0900,1600 #60 tab 08/09/22 [Rx] Isosorbide Mononitrate ER [Imdur] 30 mg PO DAILY #30 tab 08/09/22 [Rx] Losartan [Cozaar] 25 mg PO DAILY #30 tab 08/09/22 [Rx] Metoprolol Tartrate [Lopressor] 25 mg PO BID #60 tab 08/09/22 [Rx] Spironolactone [Aldactone] 12.5 mg PO DAILY #15 tab 08/09/22 [Rx] Atorvastatin [Lipitor] 40 mg PO DAILY 12/10/22 [History] Cholecalciferol [Vitamin D3 (25 Mcg = 1000 Iu)] 50 mcg PO DAILY 12/10/22 [History] Collagenase [Santyl Ointment] 1 applic TOPICAL DAILY 12/10/22 [History] Empagliflozin [Jardiance] 10 mg PO DAILY 12/10/22 [History] Insulin Detemir (Levemir) [Levemir] 5 unit SQ DIRECTED 12/10/22 [History] Nitroglycerin Sl Tabs [Nitrostat] 0.4 mg SL Q5M PRN 12/10/22 [History] HYDROcodone/APAP 7.5-325MG [[place] 7.5-325] 1 each PO Q6HR PRN #12 tab 12/16/22 [Rx] metroNIDAZOLE [Flagyl] 500 mg PO TID #90 tab 12/16/22 [Rx] Follow up Appointment(s)/Referral(s): [facility], [NON-STAFF] - As Needed None,Stated [Primary Care Provider] - 1-2 days Hanane Graham MD [STAFF PHYSICIAN] - 1 Week Discharge Disposition: HOME SELF-CARE
[2022-12-16 14:36] VITALS: BP 170/56; PULSE 69; TEMP 97.9
[2022-12-16] MEDS ORDERED: DAPTOmycin 500 MG in SODIUM CHLORIDE 0.9% 50 ML IVPB ONE (16:00)
[2022-12-16] MEDS ORDERED: VANCOMYCIN 1,500 MG in SODIUM CHLORIDE 0.9% 500 ML 500 ML IVPB SCH (16:00)
--- NOTE | 2022-12-18 13:50 | P.PN ---
Subjective Progress Note Date: 12/16/22 Principal diagnosis: Right diabetic foot infection with Osteomyelitis acute MRSA Patient is a 67-year-old male with a past medical his significant for diabetes mellitus hypertension hyperlipidemia history of smoking presenting to the ER complaining of right foot pain and wound apparently the patient wound has been going on for the last 2 to 3 months , patient noticed to have Maggot infestation in his wound, patient is status post surgical debridement of the wound which has been extended on to the bone concerning for osteomyelitis. On today's evaluation that is 12/16/2022 patient remains to be afebrile, the patient is breathing comfortably on room air, patient denies having any chest pain shortness of breath , no cough no nausea vomiting no abdominal pain , the patient pain to the right foot area is better controlled with the current medication, patient has been insisting on going home Objective - Vital Signs Vital signs: Vital Signs Temp 97.8 F 12/16/22 07:20 Pulse 68 12/16/22 07:20 Resp 17 12/16/22 07:20 BP 149/75 12/16/22 07:20 Pulse Ox 98 12/16/22 07:20 FiO2 Intake & Output 12/15/22 12/16/22 12/16/22 18:59 06:59 18:59 Intake Total 1000 Output Total 1200 2000 Balance -200 -2000 Intake: Intake, IV Titration 500 Amount Vancomycin 1,500 mg In 500 Sodium Chloride 0.9% 500 ml 500 ml @ 167 mls/hr IVPB Q24H [facility] Rx#: [id number] Oral 500 Output: Urine 1200 2000 Other: Voiding Method Toilet Toilet Urinal Urinal # Voids 2 - Exam GENERAL DESCRIPTION: An elderly male lying in bed in no distress RESPIRATORY SYSTEM: Unlabored breathing , decreased breath sounds at bases HEART: S1 S2 regular rate and rhythm , ABDOMEN: Soft , no tenderness EXTREMITIES: Right foot wound is currently dressed no drainage on the dressing - Labs CBC & Chem 7: 12/15/22 09:17 12/16/22 05:36 Labs: Abnormal Lab Results - Last 24 Hours (Table) 12/15/22 12/15/22 12/16/22 Range/Units 16:37 20:04 05:30 POC Glucose (mg/dL) 190 H 232 H 230 H (70-110) mg/dL 05/22/23 Range/Units 11:03 POC Glucose (mg/dL) 206 H (70-110) mg/dL Microbiology - Last 24 Hours (Table) 12/10/22 22:50 Blood Culture - Final Blood 12/10/22 22:35 Blood Culture - Final Blood 12/11/22 16:48 Anaerobic Culture - Final Heel - Right Anaerobic Gm Negative Bacilli 12/11/22 16:48 Gram Stain - Final Heel - Right Tissue Culture - Final Methicillin resist S. aureus Staphylococcus cohnii Klebsiella oxytoca Assessment and Plan (1) Foot osteomyelitis, right Status: Acute Code(s): M86.9 - OSTEOMYELITIS, UNSPECIFIED SNOMED Code(s): 5104077727462958 (2) MRSA (methicillin resistant staph aureus) culture positive Status: Acute Code(s): Z22.322 - CARRIER OR SUSPECTED CARRIER OF METHICILLIN RESIS STAPH SNOMED Code(s): 892765927 (3) Diabetic foot infection Status: Acute Code(s): E11.628 - TYPE 2 DIABETES MELLITUS WITH OTHER SKIN COMPLICATIONS; L08.9 - LOCAL INFECTION OF THE SKIN AND SUBCUTANEOUS TISSUE, UNSP SNOMED Code(s): 636422046 Plan: 1patient with right diabetic foot wound infection that has been going on for the last few months with maggot infestation in this patient who is status post surgical debridement with a wound extend down to the bone we will need to cover for the polymicrobial gregg usually associated with diabetic foot infection with underlying acute osteomyelitis 2-patient is status post surgical debridement culture Are currently growing MRSA , Klebsiella and anaerobic gram-negative bacilli. 3patient has been insisting on going home. We will try to arrange for a PICC line unfortunately intervention radiology is not available and patient ended up getting a midline with a plan for a PICC line week later, patient biotic has been adjusted to vancomycin pharmacy to dose with a target trough of 15, may be adjusted to daptomycin if vancomycin cannot be done however Lipitor should be discontinued while on daptomycin, Unasyn to be switched over to Rocephin 2 g daily and oral Flagyl this has been discussed in detail with the director case as well as with admitting physician
== END 2022-12-16 17:05 | disposition home or self-care (01) | DRG 264 ==
LOC: EC 19:24 → 4SSUR 23:21
PROVIDERS: ADMIT Hospitalist; ATTEND Hospitalist
PROC: 0JBQ0ZZ Excision of Right Foot Subcutaneous Tissue and Fascia, Open Approach (ICD-10-PCS; principal; 2022-12-11)
DX: E11.52 Type 2 diabetes mellitus with diabetic peripheral angiopathy with gangrene (principal); I13.0 Hypertensive heart and chronic kidney disease with heart failure and stage 1 through stage 4 chronic kidney disease, or unspecified chronic kidney disease; I50.22 Chronic systolic (congestive) heart failure; L03.116 Cellulitis of left lower limb; E11.621 Type 2 diabetes mellitus with foot ulcer; B95.62 Methicillin resistant Staphylococcus aureus infection as the cause of diseases classified elsewhere; E11.628 Type 2 diabetes mellitus with other skin complications; D63.1 Anemia in chronic kidney disease; E78.5 Hyperlipidemia, unspecified; I08.1 Rheumatic disorders of both mitral and tricuspid valves; F17.210 Nicotine dependence, cigarettes, uncomplicated; I25.10 Atherosclerotic heart disease of native coronary artery without angina pectoris; I25.2 Old myocardial infarction; I27.20 Pulmonary hypertension, unspecified; L97.519 Non-pressure chronic ulcer of other part of right foot with unspecified severity; N18.30 Chronic kidney disease, stage 3 unspecified; Z91.148 Patient's other noncompliance with medication regimen for other reason; Z79.02 Long term (current) use of antithrombotics/antiplatelets; Z79.4 Long term (current) use of insulin; Z79.82 Long term (current) use of aspirin; Z79.84 Long term (current) use of oral hypoglycemic drugs; Z79.899 Other long term (current) drug therapy; Z95.5 Presence of coronary angioplasty implant and graft; B87.0 Cutaneous myiasis; Z28.310 Unvaccinated for COVID-19; Z88.2 Allergy status to sulfonamides
CPT/HCPCS: 36410; 36415; 76937; 80048; 80053; 80202; 82565; 83036; 83605; 85025; 85027; 85610; 86140; 87040; 87070; 87075; 87077; 87186; 87205; 93922; 96361; 96365; 96366; 96367; 99284

== ENCOUNTER 2022-12-21 11:53 | Emergency (ER) | payer MEDICARE, OTHER ==
[2022-12-21 12:06] VITALS: PULSE 65; TEMP 98.2
--- NOTE | 2022-12-21 13:04 | ED ---
General Adult HPI - General Chief complaint: Recheck/Abnormal Lab/Rx Stated complaint: Recheck Time Seen by Provider: 12/21/22 12:10 Source: patient, RN notes reviewed Mode of arrival: wheelchair Limitations: no limitations - History of Present Illness Initial comments: Patient is a pleasant 67-year-old male presenting to the emergency department with concerns with right foot infection. Patient was discharged from the hospital several days ago. Patient does have a PICC line however the PICC line accidentally fell out. Patient did talk to his nurse who recommended he come to the emergency department. Patient feels the wound is getting better and has no complaints. No increase in pain. No fever. Patient feels color looks better. - Related Data Home Medications Medication Instructions Recorded Confirmed Cholecalciferol [Vitamin D3 (25 50 mcg PO DAILY 12/10/22 12/10/22 Mcg = 1000 Iu)] Collagenase [Santyl Ointment] 1 applic TOPICAL DAILY 12/10/22 12/10/22 Empagliflozin [Jardiance] 10 mg PO DAILY 12/10/22 12/10/22 Insulin Detemir (Levemir) [Levemir] 5 unit SQ DIRECTED 12/10/22 12/10/22 Nitroglycerin Sl Tabs [Nitrostat] 0.4 mg SL Q5M PRN 12/10/22 12/10/22 Previous Rx's Medication Instructions Recorded Aspirin 81 mg PO DAILY #30 tab 08/09/22 Clopidogrel [Plavix] 75 mg PO DAILY #30 tab 08/09/22 Furosemide [Lasix] 20 mg PO BID@0900,1600 #60 tab 08/09/22 Isosorbide Mononitrate ER [Imdur] 30 mg PO DAILY #30 tab 08/09/22 Losartan [Cozaar] 25 mg PO DAILY #30 tab 08/09/22 Metoprolol Tartrate [Lopressor] 25 mg PO BID #60 tab 08/09/22 Spironolactone [Aldactone] 12.5 mg PO DAILY #15 tab 08/09/22 HYDROcodone/APAP 7.5-325MG [[place] 1 each PO Q6HR PRN #12 tab 12/16/22 7.5-325] metroNIDAZOLE [Flagyl] 500 mg PO TID #90 tab 12/16/22 DAPTOmycin [Cubicin] 500 mg IV DAILY #42 each 12/18/22 Allergies Allergy/AdvReac Type Severity Reaction Status Date / Time Sulfa (Sulfonamide Allergy Rash/Hives Verified 12/21/22 12:06 Antibiotics) Review of Systems ROS Statement: Those systems with pertinent positive or pertinent negative responses have been documented in the HPI. ROS Other: All systems not noted in ROS Statement are negative. Constitutional: Denies: fever Eyes: Denies: eye pain ENT: Denies: ear pain Respiratory: Denies: cough Cardiovascular: Denies: chest pain Endocrine: Denies: fatigue Gastrointestinal: Denies: abdominal pain Genitourinary: Denies: dysuria Skin: Reports: as per HPI Past Medical History Past Medical History: Diabetes Mellitus, Hyperlipidemia, Hypertension, Myocardial Infarction ([place]) Last Myocardial Infarction Date:: unknown History of Any Multi-Drug Resistant Organisms: None Reported Past Surgical History: Orthopedic Surgery Past Psychological History: No Psychological Hx Reported Smoking Status: Current every day smoker Past Alcohol Use History: None Reported Past Drug Use History: None Reported General Exam Limitations: no limitations General appearance: alert, in no apparent distress Head exam: Present: normocephalic Eye exam: Present: normal appearance Neck exam: Present: normal inspection Respiratory exam: Present: normal lung sounds bilaterally Cardiovascular Exam: Present: regular rate, normal rhythm GI/Abdominal exam: Present: soft. Absent: tenderness Extremities exam: Present: other (Right lateral foot ulcer) Neurological exam: Present: alert Psychiatric exam: Present: normal affect, normal mood Skin exam: Present: other (Right lateral foot ulcer near the heel approximately 2 x 3 cm. No odor. There is ointment on and appears to be healing well.) Course Vital Signs 12/21/22 12:02 Temperature 98.2 F Pulse Rate 65 Respiratory 20 Rate Blood Pressure 137/66 O2 Sat by Pulse 96 Oximetry Medical Decision Making - Medical Decision Making Was pt. sent in by a medical professional or institution (, PA, PLATING STRIPPER, urgent care, hospital, or snf...) When possible be specific @ -No Did you speak to anyone other than the patient for history (EMS, parent, family, police, friend...)? What history was obtained from this source @ - is present to help provide history including antibiotics Did you review nursing and triage notes (agree or disagree)? Why? @ -I reviewed and agree with nursing and triage notes Were old charts reviewed (outside hosp., previous admission, EMS record, old EKG, old radiological studies, urgent care reports/EKG's, snf records)? Report findings @ -Previous culture reviewed with sensitivities. Differential Diagnosis (chest pain, altered mental status, abdominal pain women, abdominal pain men, vaginal bleeding, weakness, fever, dyspnea, syncope, headache, dizziness, GI bleed, back pain, seizure, CVA, palpatations, mental health)? @ -not applicable EKG interpreted by me (3pts min.). @ -As above X-rays interpreted by me (1pt min.). @ -None done CT interpreted by me (1pt min.). @ -None done U/S interpreted by me (1pt. min.). @ -None done What testing was considered but not performed or refused? (CT, X-rays, U/S, labs)? Why? @ -None What meds were considered but not given or refused? Why? @ -None Did you discuss the management of the patient with other professionals (professionals i.e. , PA, PLATING STRIPPER, lab, RT, psych nurse, social media community manager, double bottom driver, teacher, marketing and communications officer, pillowcase cleaner)? Give summary @ -Unable to have a PICC line placed at this time. Her for case was discussed with Dr. Kilpatrick who does recommend admission for IV antibiotics secondary to patient having osteomyelitis Was smoking cessation discussed for >3mins.? @ -No Was critical care preformed (if so, how long)? @ -No Were there social determinants of health that impacted care today? How? (Homelessness, low income, unemployed, alcoholism, drug addiction, transportation, low edu. Level, literacy, decrease access to med. care, residential, rehab)? @ -No Was there de-escalation of care discussed even if they declined (Discuss DNR or withdrawal of care, Hospice)? DNR status @ -No What co-morbidities impacted this encounter? (DM, HTN, Smoking, COPD, CAD, Cancer, CVA, ARF, Chemo, Hep., AIDS, mental health diagnosis, sleep apnea, morbid obesity)? @ -None Was patient admitted / discharged? Hospital course, mention meds given and route, prescriptions, significant lab abnormalities, going to OR and other pertinent info. @ -Unable to have PICC line placed this time secondary to interventional radiology not available. Patient advised admission. Patient refuses. After encouragement patient is agreeable to a short-term placement of IV with infusion of his medications from home. Following this patient will leave gets medical advice. Patient is agreeable to return over the next couple of days for repeat treatment until PICC line can be placed. Undiagnosed new problem with uncertain prognosis? @ -No Drug Therapy requiring intensive monitoring for toxicity (Heparin, Nitro, Insulin, Cardizem)? @ -No Were any procedures done? @ -No Diagnosis/symptom? @ -Ostemyelitis right foot Acute, or Chronic, or Acute on Chronic? @ -Acute on chronic Uncomplicated (without systemic symptoms) or Complicated (systemic symptoms)? @ -default Side effects of treatment? @ -No Exacerbation, Progression, or Severe Exacerbation? @ -No Poses a threat to life or bodily function? How? (Chest pain, [place], [place], pneumonia, PE, COPD, DKA, ARF, appy, cholecystitis, CVA, Diverticulitis, Homicidal, Suicidal, threat to staff... and all critical care pts) @ -No Disposition Clinical Impression: Foot osteomyelitis, right Disposition: Left Against Medical Advice Instructions (If sedation given, give patient instructions): Osteomyelitis (ED) Additional Instructions: Please follow-up tomorrow for IV placement and antibiotics. Please bring your antibiotics. Return for increased pain, fever, worsening or change in symptoms or other concerns. Is patient prescribed a controlled substance at d/c from ED?: No Referrals: Wil Oconnor MD [STAFF PHYSICIAN] - 1-2 days Hanane Graham MD [STAFF PHYSICIAN] - 1-2 days Time of Disposition: 13:29
[2022-12-21] MEDS ORDERED: cefTRIAXone IN SWFI 2,000 MG/20 ML SYRINGE IVP STA (13:30)
[2022-12-21 14:45] VITALS: BP 130/60; RESP 18
[2022-12-21] MEDS ORDERED: NORMAL SALINE IV STA (14:46)
[2022-12-21] MEDS ORDERED: DAPTOMYCIN IV STA (14:46)
== END 2022-12-21 14:00 | disposition left against medical advice (07) ==
LOC: EC 11:53
DX: M86.9 Osteomyelitis, unspecified (principal); E11.9 Type 2 diabetes mellitus without complications; I10 Essential (primary) hypertension; I25.2 Old myocardial infarction; F17.200 Nicotine dependence, unspecified, uncomplicated; Z79.84 Long term (current) use of oral hypoglycemic drugs; Z88.2 Allergy status to sulfonamides; Z53.29 Procedure and treatment not carried out because of patient's decision for other reasons
CPT/HCPCS: 99283

== ENCOUNTER 2023-02-18 00:50 | Inpatient (IN) | payer MEDICARE, OTHER ==
[2023-02-18 02:04] LABS: Basophils # (A) 0.1 k/uL (0-0.2); Basophils % (A) 0 %; Eosinophils # (A) 0.3 k/uL (0-0.7); Eosinophils % (A) 2 %; HCT 36.9 % (39.0-53.0); HGB 12.6 gm/dL (13.0-17.5); Lymphocytes # (A) 1.4 k/uL (1.0-4.8); Lymphocytes % (A) 11 %; MCH 31.7 pg (25.0-35.0); MCHC 34.1 g/dL (31.0-37.0); Monocytes # (A) 0.8 k/uL (0-1.0); Monocytes % (A) 7 %; Neutrophils # (A) 9.5 k/uL (1.3-7.7); Neutrophils % (A) 78 %; Platelet Count 294 k/uL (150-450); RBC 3.97 m/uL (4.30-5.90); RDW 13.7 % (11.5-15.5); WBC 12.1 k/uL (3.8-10.6)
[2023-02-18 02:11] LABS: Prothrombin Time 10.2 sec (9.0-12.0)
[2023-02-18 02:12] LABS: Partial Thromboplastin Time 27.5 sec (22.0-30.0)
[2023-02-18] MEDS ORDERED: VANCOMYCIN IV PER PHARMACY 1 EACH MISC MISCELLANE PRN ×2 (02:25→04:54)
[2023-02-18] MEDS ORDERED: VANCOMYCIN 1,500 MG in SODIUM CHLORIDE 0.9% 500 ML 500 ML IVPB STA (02:28)
--- NOTE | 2023-02-18 02:44 | ED ---
General Adult HPI - General Chief complaint: Skin/Abscess/Foreign Body Stated complaint: Right foot bleeding Time Seen by Provider: 02/18/23 00:57 Source: patient, RN notes reviewed, old records reviewed Mode of arrival: wheelchair Limitations: no limitations - History of Present Illness Initial comments: 67-year-old male history of diabetes presenting for evaluation of nonhealing wound to the right foot. Patient is uncertain exactly how long this is been there but he believes several months. He was previously following with wound care but has lost their contact information and does not have anyone to drive him. He states that the woman who was previously taking care of him has moved out of town. He denies fever. He did notice that there was some drainage from the wound. He states he has been changing the bandage. - Related Data Home Medications Medication Instructions Recorded Confirmed Cholecalciferol [Vitamin D3 (25 50 mcg PO DAILY 12/10/22 12/10/22 Mcg = 1000 Iu)] Collagenase [Santyl Ointment] 1 applic TOPICAL DAILY 12/10/22 12/10/22 Empagliflozin [Jardiance] 10 mg PO DAILY 12/10/22 12/10/22 Insulin Detemir (Levemir) [Levemir] 5 unit SQ DIRECTED 12/10/22 12/10/22 Nitroglycerin Sl Tabs [Nitrostat] 0.4 mg SL Q5M PRN 12/10/22 12/10/22 Previous Rx's Medication Instructions Recorded Aspirin 81 mg PO DAILY #30 tab 08/09/22 Clopidogrel [Plavix] 75 mg PO DAILY #30 tab 08/09/22 Furosemide [Lasix] 20 mg PO BID@0900,1600 #60 tab 08/09/22 Isosorbide Mononitrate ER [Imdur] 30 mg PO DAILY #30 tab 08/09/22 Losartan [Cozaar] 25 mg PO DAILY #30 tab 08/09/22 Metoprolol Tartrate [Lopressor] 25 mg PO BID #60 tab 08/09/22 Spironolactone [Aldactone] 12.5 mg PO DAILY #15 tab 08/09/22 HYDROcodone/APAP 7.5-325MG [[place] 1 each PO Q6HR PRN #12 tab 12/16/22 7.5-325] metroNIDAZOLE [Flagyl] 500 mg PO TID #90 tab 12/16/22 DAPTOmycin [Cubicin] 500 mg IV DAILY #42 each 12/18/22 Allergies Allergy/AdvReac Type Severity Reaction Status Date / Time Sulfa (Sulfonamide Allergy Rash/Hives Verified 02/18/23 00:56 Antibiotics) Review of Systems ROS Statement: Those systems with pertinent positive or pertinent negative responses have been documented in the HPI. ROS Other: All systems not noted in ROS Statement are negative. Past Medical History Past Medical History: Diabetes Mellitus, Hyperlipidemia, Hypertension, Myocardial Infarction ([place]) Additional Past Medical History / Comment(s): Diabetic ulcer Last Myocardial Infarction Date:: unknown History of Any Multi-Drug Resistant Organisms: None Reported Past Surgical History: Orthopedic Surgery Past Psychological History: No Psychological Hx Reported Smoking Status: Current every day smoker, Heavy tobacco smoker Past Alcohol Use History: None Reported Past Drug Use History: None Reported General Exam Limitations: no limitations General appearance: alert, in no apparent distress Head exam: Present: atraumatic, normocephalic Eye exam: Present: normal appearance ENT exam: Present: normal exam Neck exam: Present: normal inspection. Absent: tenderness Respiratory exam: Present: normal lung sounds bilaterally, respiratory distress Cardiovascular Exam: Present: regular rate, normal rhythm GI/Abdominal exam: Present: soft Extremities exam: Present: other (Cavitating wound on the right foot with numerous maggots) Neurological exam: Present: alert, oriented X3 Psychiatric exam: Present: normal affect, normal mood Skin exam: Present: warm, dry. Absent: cyanosis, diaphoretic Course Vital Signs 02/18/23 02/18/23 00:54 00:56 Temperature 97.9 F 97.8 F Pulse Rate 117 H 95 Respiratory 20 14 Rate Blood Pressure 142/73 140/82 O2 Sat by Pulse 94 L 93 L Oximetry Medical Decision Making - Medical Decision Making Was pt. sent in by a medical professional or institution (, PA, HEAD SHIPPER, urgent care, hospital, or correction...) When possible be specific @ -No Did you speak to anyone other than the patient for history (EMS, parent, family, police, friend...)? What history was obtained from this source @ -No Did you review nursing and triage notes (agree or disagree)? Why? @ -I reviewed and agree with nursing and triage notes Were old charts reviewed (outside hosp., previous admission, EMS record, old EKG, old radiological studies, urgent care reports/EKG's, correction records)? Report findings @ -No old charts were reviewed Differential Diagnosis (chest pain, altered mental status, abdominal pain women, abdominal pain men, vaginal bleeding, weakness, fever, dyspnea, syncope, headache, dizziness, GI bleed, back pain, seizure, CVA, palpatations, mental health, musculoskeletal)? @ Soft tissue infection, gangrene, diabetic ulceration EKG interpreted by me (3pts min.). @ -As above X-rays interpreted by me (1pt min.). @ -None done CT interpreted by me (1pt min.). @ -None done U/S interpreted by me (1pt. min.). @ -None done What testing was considered but not performed or refused? (CT, X-rays, U/S, labs)? Why? @ -None What meds were considered but not given or refused? Why? @ -None Did you discuss the management of the patient with other professionals (professionals i.e. , PA, HEAD SHIPPER, lab, RT, psych nurse, social worker health services, immigration lawyer, teacher, public service officer, manager rn case)? Give summary @ -No Was smoking cessation discussed for >3mins.? @ -No Was critical care preformed (if so, how long)? @ -No Were there social determinants of health that impacted care today? How? (Homelessness, low income, unemployed, alcoholism, drug addiction, transportation, low edu. Level, literacy, decrease access to med. care, senior care, rehab)? @ -No Was there de-escalation of care discussed even if they declined (Discuss DNR or withdrawal of care, Hospice)? DNR status @ -No What co-morbidities impacted this encounter? (DM, HTN, Smoking, COPD, CAD, Cancer, CVA, ARF, Chemo, Hep., AIDS, mental health diagnosis, sleep apnea, morbid obesity)? @ Diabetes Was patient admitted / discharged? Hospital course, mention meds given and route, prescriptions, significant lab abnormalities, going to OR and other pertinent info. @ -[67-year-old male with nonhealing wound to the right foot with cavitating ulceration and maggot infestation there is surrounding erythema. Patient is afebrile white count mildly elevated at 12. Normal lactic acid. Placed on IV antibiotics. Will be admitted for debridement and wound care. Undiagnosed new problem with uncertain prognosis? @ -No Drug Therapy requiring intensive monitoring for toxicity (Heparin, Nitro, Insulin, Cardizem)? @ -No Were any procedures done? @ -No Diagnosis/symptom? @ -Cavitating diabetic foot ulcer Acute, or Chronic, or Acute on Chronic? @ -Acute Uncomplicated (without systemic symptoms) or Complicated (systemic symptoms)? @ -default Side effects of treatment? @ -No Exacerbation, Progression, or Severe Exacerbation? @ -No Poses a threat to life or bodily function? How? (Chest pain, [place], [place], pneumonia, PE, COPD, DKA, ARF, appy, cholecystitis, CVA, Diverticulitis, Homicidal, Suicidal, threat to staff... and all critical care pts) @ -[Yes, sepsis - Lab Data Result diagrams: 02/18/23 01:09 02/18/23 01:09 Lab Results 02/18/23 02/18/23 02/18/23 Range/Units 01:09 01:09 01:09 WBC 12.1 H (3.8-10.6) k/uL RBC 3.97 L (4.30-5.90) m/uL Hgb 12.6 L (13.0-17.5) gm/dL Hct 36.9 L (39.0-53.0) % MCV 93.0 (80.0-100.0) fL MCH 31.7 (25.0-35.0) pg MCHC 34.1 (31.0-37.0) g/dL RDW 13.7 (11.5-15.5) % Plt Count 294 (150-450) k/uL MPV 7.0 Neutrophils % 78 % Lymphocytes % 11 % Monocytes % 7 % Eosinophils % 2 % Basophils % 0 % Neutrophils # 9.5 H (1.3-7.7) k/uL Lymphocytes # 1.4 (1.0-4.8) k/uL Monocytes # 0.8 (0-1.0) k/uL Eosinophils # 0.3 (0-0.7) k/uL Basophils # 0.1 (0-0.2) k/uL PT 10.2 (9.0-12.0) sec INR 1.0 (<1.2) APTT 27.5 (22.0-30.0) sec Sodium 136 L (137-145) mmol/L Potassium 3.9 (3.5-5.1) mmol/L Chloride 104 (98-107) mmol/L Carbon Dioxide 21 L (22-30) mmol/L Anion Gap 11 mmol/L BUN 26 H (9-20) mg/dL Creatinine 1.09 (0.66-1.25) mg/dL Est GFR (CKD-EPI)AfAm 81 (>60 ml/min/1.73 sqM) Est GFR (CKD-EPI)NonAf 70 (>60 ml/min/1.73 sqM) Glucose 134 H (74-99) mg/dL Plasma Lactic Acid Julien (0.7-2.0) mmol/L Calcium 9.1 (8.4-10.2) mg/dL Total Bilirubin 0.7 (0.2-1.3) mg/dL AST 22 (17-59) U/L ALT 16 (4-49) U/L Alkaline Phosphatase 115 (38-126) U/L Total Protein 7.5 (6.3-8.2) g/dL Albumin 3.7 (3.5-5.0) g/dL 02/18/23 Range/Units 01:09 WBC (3.8-10.6) k/uL RBC (4.30-5.90) m/uL Hgb (13.0-17.5) gm/dL Hct (39.0-53.0) % MCV (80.0-100.0) fL MCH (25.0-35.0) pg MCHC (31.0-37.0) g/dL RDW (11.5-15.5) % Plt Count (150-450) k/uL MPV Neutrophils % % Lymphocytes % % Monocytes % % Eosinophils % % Basophils % % Neutrophils # (1.3-7.7) k/uL Lymphocytes # (1.0-4.8) k/uL Monocytes # (0-1.0) k/uL Eosinophils # (0-0.7) k/uL Basophils # (0-0.2) k/uL PT (9.0-12.0) sec INR (<1.2) APTT (22.0-30.0) sec Sodium (137-145) mmol/L Potassium (3.5-5.1) mmol/L Chloride (98-107) mmol/L Carbon Dioxide (22-30) mmol/L Anion Gap mmol/L BUN (9-20) mg/dL Creatinine (0.66-1.25) mg/dL Est GFR (CKD-EPI)AfAm (>60 ml/min/1.73 sqM) Est GFR (CKD-EPI)NonAf (>60 ml/min/1.73 sqM) Glucose (74-99) mg/dL Plasma Lactic Acid Julien 1.2 (0.7-2.0) mmol/L Calcium (8.4-10.2) mg/dL Total Bilirubin (0.2-1.3) mg/dL AST (17-59) U/L ALT (4-49) U/L Alkaline Phosphatase (38-126) U/L Total Protein (6.3-8.2) g/dL Albumin (3.5-5.0) g/dL Disposition Clinical Impression: Diabetes, Diabetic foot infection, Maggot infestation Disposition: ADMITTED IP TO THIS HOSP Condition: Stable Is patient prescribed a controlled substance at d/c from ED?: No Time of Disposition: 02:52
[2023-02-18] MEDS ORDERED: NALOXONE 0.4 MG/ML 1 ML VIAL IV PRN (02:53)
[2023-02-18 03:02] LABS: ALT 16 U/L (4-49); AST 22 U/L (17-59); African American GFR (CKD) 81 (>60 ml/min/1.73 sqM); Albumin 3.7 g/dL (3.5-5.0); Alkaline Phosphatase 115 U/L (38-126); Anion Gap 11 mmol/L; Blood Urea Nitrogen 26 mg/dL (9-20); Calcium 9.1 mg/dL (8.4-10.2); Carbon Dioxide 21 mmol/L (22-30); Chloride 104 mmol/L (98-107); Glucose 134 mg/dL (74-99); Non-African American GFR(CKD) 70 (>60 ml/min/1.73 sqM); Potassium 3.9 mmol/L (3.5-5.1); Sodium 136 mmol/L (137-145); Total Bilirubin 0.7 mg/dL (0.2-1.3); Total Protein 7.5 g/dL (6.3-8.2)
[2023-02-18] MEDS: SODIUM CHLORIDE 0.9% 1,000 ML IV SCH ×3 (03:05→23:23)
--- NOTE | 2023-02-18 05:09 | P.HPIM ---
History of Present Illness H&P Date: 02/18/23 Chief Complaint: right foot abscess 67 year old male with DM , CAD s/p stents , hypertension he is coming in today due to worsening right foot wound/abscess with draining b lood and seeing Maggots today . he is not sure how long had this wound for , he believes at least 3-4 months , his GF used to take care of his appointments, but since she left a month ago , he lost follow ups and medications refills. his neighbour has been helping him out, and today helped him come in for evaluation. he noticed some pimple on the lateral side of his right foot, that was getting bigger, and today started bleeding then saw maggots coming out of it. no fever ,chills. he feels some pain , but due to neuropathy, he does not feel much. denies tobacco smoking, illicit drugs or alcohol wound was cleaned and dressed in the ED, maggots were taken out PMHX dm , hypertension CAD s/p stents review of systems Pertinent positives as noted in HPI. All other systems were reviewed and are negative on exam Constitutional: No acute distress, conversant,disheveled Eyes: Anicteric sclerae, moist conjunctiva, Pupils equal round reactive to light ENMT: NC/AT Oropharynx clear, no erythema, or exudates Neck: Supple, no masses, or JVD No carotid bruits No thyromegaly Lungs: Clear to auscultation Clear to percussion Normal respiratory effort, no accessory muscle use Cardiovascular: Heart regular in rate and rhythm, No murmurs, gallops, or rubs No peripheral edema Abdominal: Soft Nontender, no guarding, rebound or rigidity Abdomen moving with respiration Normoactive bowel sounds No hepatomegaly, No splenomegaly No palpable mass No abdominal wall hernia noted Skin: surgical dressing freshly done in the ED, no pics were taken , I did not take off the bandage, patient currently in pain Extremities: No digital cyanosis No clubbing Pedal pulses weak bilaterally and symmetrical, capillary refill immediate Radial pulses intact and symmetrical No calf tenderness Psychiatric: Alert and oriented to person, place and time Appropriate affect Neuro Muscles Strength 5/5 in all 4 extremities Sensation to light touch grossly present throughout, decrease sensation over both feet and hands Cranial nerves II-XII grossly intact Lymphatics: no palpable cervical or supraclavicular lymph nodes Past Medical History Past Medical History: Diabetes Mellitus, Hyperlipidemia, Hypertension, Myocardial Infarction ([place]) Additional Past Medical History / Comment(s): Diabetic ulcer Last Myocardial Infarction Date:: unknown History of Any Multi-Drug Resistant Organisms: None Reported Past Surgical History: Orthopedic Surgery Past Psychological History: No Psychological Hx Reported Smoking Status: Current every day smoker, Heavy tobacco smoker Past Alcohol Use History: None Reported Past Drug Use History: None Reported Medications and Allergies Home Medications Medication Instructions Recorded Confirmed Type Aspirin 81 mg PO DAILY #30 tab 08/09/22 12/10/22 Rx Clopidogrel [Plavix] 75 mg PO DAILY #30 tab 08/09/22 12/10/22 Rx Furosemide [Lasix] 20 mg PO BID@0900,1600 #60 tab 08/09/22 12/10/22 Rx Isosorbide Mononitrate ER [Imdur] 30 mg PO DAILY #30 tab 08/09/22 12/10/22 Rx Losartan [Cozaar] 25 mg PO DAILY #30 tab 08/09/22 12/10/22 Rx Metoprolol Tartrate [Lopressor] 25 mg PO BID #60 tab 08/09/22 12/10/22 Rx Spironolactone [Aldactone] 12.5 mg PO DAILY #15 tab 08/09/22 12/10/22 Rx Cholecalciferol [Vitamin D3 (25 50 mcg PO DAILY 12/10/22 12/10/22 History Mcg = 1000 Iu)] Collagenase [Santyl Ointment] 1 applic TOPICAL DAILY 12/10/22 12/10/22 History Empagliflozin [Jardiance] 10 mg PO DAILY 12/10/22 12/10/22 History Insulin Detemir (Levemir) [Levemir] 5 unit SQ DIRECTED 12/10/22 12/10/22 History Nitroglycerin Sl Tabs [Nitrostat] 0.4 mg SL Q5M PRN 12/10/22 12/10/22 History HYDROcodone/APAP 7.5-325MG [[place] 1 each PO Q6HR PRN #12 tab 12/16/22 Rx 7.5-325] metroNIDAZOLE [Flagyl] 500 mg PO TID #90 tab 12/16/22 Rx DAPTOmycin [Cubicin] 500 mg IV DAILY #42 each 12/18/22 Rx Allergies Allergy/AdvReac Type Severity Reaction Status Date / Time Sulfa (Sulfonamide Allergy Rash/Hives Verified 02/18/23 00:56 Antibiotics) Physical Exam Vitals: Vital Signs Temp Pulse Pulse Resp BP BP Pulse Ox 02/18/23 04:11 97.6 F 78 18 118/53 02/18/23 03:13 97.7 F 77 14 122/51 98 02/18/23 00:56 97.8 F 95 14 140/82 93 L 02/18/23 00:54 97.9 F 117 H 20 142/73 94 L Intake and Output 02/17/23 02/17/23 02/18/23 14:59 22:59 06:59 Other: Weight 86.183 kg Results CBC & Chem 7: 02/18/23 01:09 02/18/23 01:09 Labs: Abnormal Lab Results - Last 24 Hours (Table) 02/18/23 02/18/23 Range/Units 01:09 01:09 WBC 12.1 H (3.8-10.6) k/uL RBC 3.97 L (4.30-5.90) m/uL Hgb 12.6 L (13.0-17.5) gm/dL Hct 36.9 L (39.0-53.0) % Neutrophils # 9.5 H (1.3-7.7) k/uL Sodium 136 L (137-145) mmol/L Carbon Dioxide 21 L (22-30) mmol/L BUN 26 H (9-20) mg/dL Glucose 134 H (74-99) mg/dL Thrombosis Risk Factor Assmnt - Choose All That Apply Other Risk Factors: Yes Each Risk Factor Represents 2 Points: Age 61-74 years Thrombosis Risk Factor Assessment Total Risk Factor Score: 2 Thrombosis Risk Factor Assessment Level: Low Risk Assessment and Plan Assessment: 67 year old male coming in with non healing right foot wound with diabetes, I discussed the case with ED doc, and I accepted the admission for sepsis 2/2 diabetic foot ulcer for surgical debridement and IV antibiotics with anticipated length of stay > 2 midnights sepsis , 2/2 diabetic foot ulcer follow up cultures maggots removed surgery eval vanco dosing by pharmacy zosyn 3.75 q8hr IVPB tylenol for fever norco for pain PRN WBC 12.6 HR 117 chronic conditions DM insulin sliding scale hypertension resume home BP meds full code DVT PPX heparin sc tid
[2023-02-18] MEDS ORDERED: DEXTROSE 50% SYRINGE 50 ML IVP PRN ×2 (05:10)
[2023-02-18] MEDS: HYDROcodone/APAP 7.5-325MG 1 EACH TAB PO PRN ×2 (05:14→10:54)
[2023-02-18 06:02] LABS: Glucose,Whole Blood 196 mg/dL (70-110)
[2023-02-18] MEDS: INSULIN ASPART (NovoLOG) 100 UNIT/ML VIAL SQ SCH ×4 (06:34→21:00)
[2023-02-18] MEDS ORDERED: PIPERACILLIN-TAZOBACTAM 3.375 GM in SODIUM CHLORIDE 0.9% 100 ML IVPB SCH (08:00)
[2023-02-18] MEDS: HEPARIN SODIUM,PORCINE/PF 5,000 UNIT/0.5 ML SYRINGE SQ SCH ×3 (08:59→23:23)
[2023-02-18] MEDS ORDERED: METOPROLOL TARTRATE 25 MG TAB PO SCH (09:00)
[2023-02-18] MEDS: ASPIRIN 81 MG PO SCH (10:10)
[2023-02-18] MEDS: ISOSORBIDE MONONITRATE ER 30 MG TAB.ER.24H PO SCH (10:10)
[2023-02-18] MEDS: LOSARTAN 25 MG TAB PO SCH (10:10)
[2023-02-18] MEDS: CLOPIDOGREL 75 MG TAB PO SCH (10:10)
[2023-02-18 11:12] LABS: Glucose,Whole Blood 120 mg/dL (70-110)
[2023-02-18 12:20] VITALS: BMI 28.8
--- NOTE | 2023-02-18 12:27 | P.PN ---
Subjective Progress Note Date: 02/18/23 Hospital course: Patient is a very pleasant 67-year-old male with a past medical history of CAD status post stenting on Plavix, insulin-dependent diabetes mellitus, hypertension, and hyperlipidemia. He presented to the emergency department status post failed outpatient treatment of diabetic ulcer with worsening wound/abscess. Patient reportedly had draining blood and Maggots from his wound. Patient reports he lost the follow-up information to obtain this medication refills because [place] neighbor [place] and she was helping him by taking him to his appointments. Patient underwent full evaluation in the emergency department. Labs completed and reviewed. CBC showing leukocytosis with WBC count of 12.1 and normocytic anemia with hemoglobin of 12.6. BMP revealing prerenal azotemia with BUN of 26, creatinine 1.09, and GFR of 70. Liver profile was unremarkable. Wound cleaned and soaked with peroxide in the ER resulting in removal of maggots and clean dressing applied. Patient started on IV antibiotics with vancomycin and Zosyn and admitted under our services. Physical exam: Vital signs reviewed and stable. General: Nontoxic, no distress and appears stated age. Derm: Skin warm and dry, normal coloration for ethnicity. Head: Atraumatic, normocephalic and symmetric. Eyes: EOMs intact, no lid lag, and anicteric sclera Mouth: no lip lesions, mucus membranes moist Cardiovascular: regular rate and rhythm with normal S1S2, no murmur, positive posterior tibial pulses bilaterally, and cap refill < 2 seconds. Lungs: Respirations even, regular, and unlabored on room air. Lungs CTA bilaterally, no rhonchi, no rales, no wheezing, and no accessory muscle usage. Abdominal: soft, nontender to palpation, no guarding, no appreciable organomegaly Ext: ROM intact. No gross muscle atrophy, no edema, no contractures. Dressing in place to right lower extremity, reinforced secondary to excess drainage. Bleeding controlled. Neuro: Speech clear, face symmetrical and CN II-XII grossly intact with no noted focal neuro deficits Psych: Alert and oriented to person, place, time, and situation. Appropriate and pleasant affect. Assessment and Plan of Care: Infected diabetic foot ulcer Sepsis secondary to above Diabetes mellitus with hyperglycemia -Continue IV antibiotics with vancomycin and Zosyn pending further recommendations from infectious disease. -Infectious disease consulted, appreciate recommendations. -Vascular surgery consulted for evaluation of wound and possible debridement. -Continue wound care. -Xray right foot to rule out osteomyelitis -Follow up on blood cultures and wound cultures -Patient placed on glycemic protocol with NovoLog sliding scale to maintain tight glycemic control throughout hospitalization. -Hemoglobin A1c -Symptomatic care and pain management with Tylenol 650 mg every 6 hours as needed for mild pain and/or Walters 5/325 mg by mouth every 4 hours as needed for [id number] pain. -Continue wound care CAD status post stenting Hypertension Hyperlipidemia -Continue cardiac medication regimen with Plavix 75 mg daily, aspirin 81 mg daily, isosorbide mononitrate 30 mg daily, losartan 25 mg daily, and metoprolol 12.5 mg twice daily CODE STATUS: Full code DVT prophylaxis: Heparin Discussed with: Patient and RN Anticipated discharge date: Clinical course to determine Anticipated discharge place: Home with home care versus group home facility Patient was seen independently by Nurse Pracitioner. This document was prepared using [employer] dictation software. Please allow for errors in wire coating machine operator, while rare they do occur. I reviewed the documentation as provided by the KHUSHI above, who is the original author of this note. I agree with the documented assessment and plan, with the following changes: none Objective - Vital Signs Vital signs: Vital Signs Temp 97.7 F 02/18/23 07:20 Pulse 75 02/18/23 07:20 Resp 16 02/18/23 07:20 BP 131/72 02/18/23 07:20 Pulse Ox 99 02/18/23 07:20 FiO2 Intake & Output 02/17/23 02/18/23 02/18/23 18:59 06:59 18:59 Weight 86.183 kg Other: # Voids 0 - Labs CBC & Chem 7: 02/18/23 01:09 02/18/23 01:09 Labs: Abnormal Lab Results - Last 24 Hours (Table) 02/18/23 02/18/23 02/18/23 Range/Units 01:09 01:09 06:01 WBC 12.1 H (3.8-10.6) k/uL RBC 3.97 L (4.30-5.90) m/uL Hgb 12.6 L (13.0-17.5) gm/dL Hct 36.9 L (39.0-53.0) % Neutrophils # 9.5 H (1.3-7.7) k/uL Sodium 136 L (137-145) mmol/L Carbon Dioxide 21 L (22-30) mmol/L BUN 26 H (9-20) mg/dL Glucose 134 H (74-99) mg/dL POC Glucose (mg/dL) 196 H (70-110) mg/dL
[2023-02-18] MEDS ORDERED: ACETAMINOPHEN TAB 325 MG TAB PO PRN (12:58)
--- NOTE | 2023-02-18 13:50 | XR ---
EXAMINATION TYPE: XR foot complete RT DATE OF EXAM: 02/18/2023 CLINICAL HISTORY: pain TECHNIQUE: Frontal, lateral and oblique images of the right foot are obtained. COMPARISON: None. FINDINGS: There is no acute fracture/dislocation evident. The joint spaces appear within normal hooks its. Soft tissue ulceration along the lateral aspect of the right foot. No radiographic evidence to s uggest osteomyelitis at this time. IMPRESSION: There is no acute fracture or dislocation. ICD 10 NO FRACTURE, INITIAL EVALUATION
[2023-02-18] MEDS: HYDROcodone/APAP 5-325MG 1 EACH TAB PO PRN ×3 (15:04→23:22)
--- NOTE | 2023-02-18 15:57 | P.GSCN ---
History of Present Illness History of present illness: 67-year-old gentleman known to me from the past patient came to the emergency room with wound on his a right heel with maggots and pain and open wound patient was scheduled to have a wound debridement and deep culture Medical history history of diabetes Neck is supple no bruit appreciated Chest is clear good and both lungs first and second sound present Abdomen soft nontender Vascular femorals are 1+ bilateral patient has open wound on the right heel with some devitalized tissue and multiple maggots noticed Plan is debridement and deep culture Past Medical History Past Medical History: Diabetes Mellitus, Hyperlipidemia, Hypertension, My ocardial Infarction ([place]) Additional Past Medical History / Comment(s): Diabetic ulcer Last Myocardial Infarction Date:: unknown History of Any Multi-Drug Resistant Organisms: None Reported Past Surgical History: Orthopedic Surgery Past Psychological History: No Psychological Hx Reported Smoking Status: Current every day smoker, Heavy tobacco smoker Past Alcohol Use History: None Reported Past Drug Use History: None Reported Medications and Allergies Home Medications Medication Instructions Recorded Confirmed Type Aspirin 81 mg PO DAILY #30 tab 08/09/22 02/18/23 Rx Clopidogrel [Plavix] 75 mg PO DAILY #30 tab 08/09/22 02/18/23 Rx Furosemide [Lasix] 20 mg PO BID@0900,1600 #60 tab 08/09/22 02/18/23 Rx Isosorbide Mononitrate ER [Imdur] 30 mg PO DAILY #30 tab 08/09/22 02/18/23 Rx Losartan [Cozaar] 25 mg PO DAILY #30 tab 08/09/22 02/18/23 Rx Spironolactone [Aldactone] 12.5 mg PO DAILY #15 tab 08/09/22 02/18/23 Rx Collagenase [Santyl Ointment] 1 applic TOPICAL DAILY 12/10/22 02/18/23 History Empagliflozin [Jardiance] 10 mg PO DAILY 12/10/22 02/18/23 History Nitroglycerin Sl Tabs [Nitrostat] 0.4 mg SL Q5M PRN 12/10/22 02/18/23 History Atorvastatin [Lipitor] 40 mg PO HS 02/18/23 02/18/23 History Metoprolol Tartrate [Lopressor] 12.5 mg PO BID 02/18/23 02/18/23 History Allergies Allergy/AdvReac Type Severity Reaction Status Date / Time Sulfa (Sulfonamide Allergy Rash/Hives Verified 02/18/23 10:50 Antibiotics) Surgical - Exam Vital Signs Temp Pulse Resp BP Pulse Ox 97.9 F 117 H 20 142/73 94 L 02/18/23 00:54 02/18/23 00:54 02/18/23 00:54 02/18/23 00:54 02/18/23 00:54 Results - Labs 02/18/23 01:09 02/18/23 01:09 Abnormal Lab Results - Last 24 Hours (Table) 02/18/23 02/18/23 02/18/23 Range/Units 01:09 01:09 06:01 WBC 12.1 H (3.8-10.6) k/uL RBC 3.97 L (4.30-5.90) m/uL Hgb 12.6 L (13.0-17.5) gm/dL Hct 36.9 L (39.0-53.0) % Neutrophils # 9.5 H (1.3-7.7) k/uL Sodium 136 L (137-145) mmol/L Carbon Dioxide 21 L (22-30) mmol/L BUN 26 H (9-20) mg/dL Glucose 134 H (74-99) mg/dL POC Glucose (mg/dL) 196 H (70-110) mg/dL 02/18/23 Range/Units 11:09 WBC (3.8-10.6) k/uL RBC (4.30-5.90) m/uL Hgb (13.0-17.5) gm/dL Hct (39.0-53.0) % Neutrophils # (1.3-7.7) k/uL Sodium (137-145) mmol/L Carbon Dioxide (22-30) mmol/L BUN (9-20) mg/dL Glucose (74-99) mg/dL POC Glucose (mg/dL) 120 H (70-110) mg/dL Diabetes panel 02/18/23 Range/Units 01:09 Sodium 136 L (137-145) mmol/L Potassium 3.9 (3.5-5.1) mmol/L Chloride 104 (98-107) mmol/L Carbon Dioxide 21 L (22-30) mmol/L BUN 26 H (9-20) mg/dL Creatinine 1.09 (0.66-1.25) mg/dL Glucose 134 H (74-99) mg/dL Calcium 9.1 (8.4-10.2) mg/dL AST 22 (17-59) U/L ALT 16 (4-49) U/L Alkaline Phosphatase 115 (38-126) U/L Total Protein 7.5 (6.3-8.2) g/dL Albumin 3.7 (3.5-5.0) g/dL Calcium panel 02/18/23 Range/Units 01:09 Calcium 9.1 (8.4-10.2) mg/dL Albumin 3.7 (3.5-5.0) g/dL Pituitary panel 02/18/23 Range/Units 01:09 Sodium 136 L (137-145) mmol/L Potassium 3.9 (3.5-5.1) mmol/L Chloride 104 (98-107) mmol/L Carbon Dioxide 21 L (22-30) mmol/L BUN 26 H (9-20) mg/dL Creatinine 1.09 (0.66-1.25) mg/dL Glucose 134 H (74-99) mg/dL Calcium 9.1 (8.4-10.2) mg/dL Adrenal panel 02/18/23 Range/Units 01:09 Sodium 136 L (137-145) mmol/L Potassium 3.9 (3.5-5.1) mmol/L Chloride 104 (98-107) mmol/L Carbon Dioxide 21 L (22-30) mmol/L BUN 26 H (9-20) mg/dL Creatinine 1.09 (0.66-1.25) mg/dL Glucose 134 H (74-99) mg/dL Calcium 9.1 (8.4-10.2) mg/dL Total Bilirubin 0.7 (0.2-1.3) mg/dL AST 22 (17-59) U/L ALT 16 (4-49) U/L Alkaline Phosphatase 115 (38-126) U/L Total Protein 7.5 (6.3-8.2) g/dL Albumin 3.7 (3.5-5.0) g/dL
[2023-02-18 16:07] LABS: Glucose,Whole Blood 161 mg/dL (70-110)
[2023-02-18] MEDS ORDERED: LACTATED RINGERS 1,000 ML IV ONE (16:25)
[2023-02-18 16:28] LABS: Glucose,Whole Blood 145 mg/dL (70-110)
[2023-02-18] MEDS: AMPICILLIN-SULBACTAM 3 GM in SODIUM CHLORIDE 0.9% 100 ML IVPB SCH ×2 (17:59→23:23)
[2023-02-18] MEDS ORDERED: fentaNYL (PF) 50 MCG/ML 2 ML AMP ONE (19:55)
[2023-02-18] MEDS ORDERED: MIDAZOLAM 2 MG/2 ML VIAL ONE (19:55)
[2023-02-18] MEDS ORDERED: PROPOFOL 10 MG/ML 20 ML VIAL IV ONE (19:55)
[2023-02-18] MEDS ORDERED: KETAMINE 10 MG/ML 20 ML VIAL ONE (19:55)
[2023-02-18] MEDS ORDERED: LIDOCAINE 2% INJ 20 MG/ML SQ ONE (20:15)
[2023-02-18] MEDS ORDERED: LIDOCAINE 1% INJ 10MG/ML (20 ML MDV) SQ ONE (20:17)
[2023-02-18] MEDS: METOPROLOL TARTRATE 12.5 MG TAB PO SCH (21:00)
[2023-02-18 21:27] LABS: Glucose,Whole Blood 90 mg/dL (70-110)
--- NOTE | 2023-02-18 22:30 | OP ---
OPERATIVE REPORT DATE OF SERVICE : PREOPERATIVE DIAGNOSIS: Infected wound, right foot heel with maggots. Measurement is 6 x 4 cm. POSTOPERATIVE DIAGNOSIS: Infected wound, right foot heel with maggots. Measurement is 6 x 4 x 2. INDICATIONS FOR PROCEDURE: This patient has a wound on his right heel for the past 1 month. The patient came to the ER last night with maggots seen in his wound. DESCRIPTION OF PROCEDURE: The patient was brought to the operating room. Under local and IV sedation, right foot was prepped, and drapes were applied in a sterile manner. We did the debridement down to the subcutaneous fat and fascia. This wound was full of maggots, which were removed along with devitalized tissue. Hemostasis was controlled, and the wound was irrigated with hydrogen peroxide and saline. Aqua Silver was placed. Pressure dressing was applied. The patient tolerated the procedure well and was transferred to recovery room in satisfactory condition. We will change the dressing on . Advised nonweightbearing. MMODL / IJN: [id number] /
[2023-02-19] MEDS ORDERED: VANCOMYCIN 1,500 MG in SODIUM CHLORIDE 0.9% 500 ML 500 ML IVPB SCH (03:00)
[2023-02-19 05:34] LABS: Glucose,Whole Blood 103 mg/dL (70-110)
[2023-02-19] MEDS: HYDROcodone/APAP 5-325MG 1 EACH TAB PO PRN (06:37)
[2023-02-19] MEDS: AMPICILLIN-SULBACTAM 3 GM in SODIUM CHLORIDE 0.9% 100 ML IVPB SCH (06:38)
[2023-02-19 07:42] VITALS: BP 119/68; PULSE 81; RESP 17; TEMP 97.5
[2023-02-19] MEDS: INSULIN ASPART (NovoLOG) 100 UNIT/ML VIAL SQ SCH (07:52)
--- NOTE | 2023-02-19 08:53 | P.CONS ---
History of Present Illness - Reason for Consult Consult date: 02/18/23 Infected diabetic wound Requesting physician: Kapil Flores - Chief Complaint Worsening wound to the right heel x weeks - History of Present Illness Patient is a 67-year-old male with a past medical history significant for diabetes mellitus and hypertension coronary artery disease patient did have history of right foot wound infection and osteomyelitis for the patient was admitted at this facility in November 2022 at that time he did have a maggot infestation of the wound s/p debridement with a wound extending down to the bone culture positive for MRSA Klebsiella and patient was advised IV antibiotic therapy however the patient has been lost to follow-up since then patient mentioned that he was cleaning the wound every day with a peroxide and seem to be doing well unless a day ago when he noticed having bugs coming out of the wound patient denies high-grade fever or any chills has been complaining of pain to the wound apparently getting worse for the last few days more of a sharp pain 6-7 out of 10 no radiation did have some foul-smelling drainage with the symptoms the patient has been evaluated on presentation to the hospital the patient was afebrile and a fever has been recorded subsequently patient did have iron of 12.1 with a left shift kidney function was normal liver was also normal patient was admitted to hospital started on vancomycin and Zosyn infectious disease was consulted for further management of antibiotic therapy Review of Systems Positive point and negatives has been mentioned in the HPI, complete review of systems was performed and all other systems are negative Past Medical History Past Medical History: Diabetes Mellitus, Hyperlipidemia, Hypertension, My ocardial Infarction ([place]) Additional Past Medical History / Comment(s): Diabetic ulcer Last Myocardial Infarction Date:: unknown History of Any Multi-Drug Resistant Organisms: None Reported Past Surgical History: Orthopedic Surgery Past Psychological History: No Psychological Hx Reported Smoking Status: Current every day smoker, Heavy tobacco smoker Past Alcohol Use History: None Reported Past Drug Use History: None Reported Medications and Allergies Home Medications Medication Instructions Recorded Confirmed Type Aspirin 81 mg PO DAILY #30 tab 08/09/22 02/18/23 Rx Clopidogrel [Plavix] 75 mg PO DAILY #30 tab 08/09/22 02/18/23 Rx Furosemide [Lasix] 20 mg PO BID@0900,1600 #60 tab 08/09/22 02/18/23 Rx Isosorbide Mononitrate ER [Imdur] 30 mg PO DAILY #30 tab 08/09/22 02/18/23 Rx Losartan [Cozaar] 25 mg PO DAILY #30 tab 08/09/22 02/18/23 Rx Spironolactone [Aldactone] 12.5 mg PO DAILY #15 tab 08/09/22 02/18/23 Rx Collagenase [Santyl Ointment] 1 applic TOPICAL DAILY 12/10/22 02/18/23 History Empagliflozin [Jardiance] 10 mg PO DAILY 12/10/22 02/18/23 History Nitroglycerin Sl Tabs [Nitrostat] 0.4 mg SL Q5M PRN 12/10/22 02/18/23 History Atorvastatin [Lipitor] 40 mg PO HS 02/18/23 02/18/23 History Metoprolol Tartrate [Lopressor] 12.5 mg PO BID 02/18/23 02/18/23 History Allergies Allergy/AdvReac Type Severity Reaction Status Date / Time Sulfa (Sulfonamide Allergy Rash/Hives Verified 02/18/23 10:50 Antibiotics) Physical Exam Vitals: Vital Signs Temp Pulse Pulse Pulse Resp BP BP 02/18/23 13:12 98.1 F 62 16 111/64 02/18/23 07:20 97.7 F 75 16 131/72 02/18/23 04:11 97.6 F 78 18 118/53 02/18/23 03:13 97.7 F 77 14 122/51 02/18/23 00:56 97.8 F 95 14 140/82 02/18/23 00:54 97.9 F 117 H 20 142/73 Pulse Ox 02/18/23 13:12 99 02/18/23 07:20 99 02/18/23 04:11 02/18/23 03:13 98 02/18/23 00:56 93 L 02/18/23 00:54 94 L Intake and Output 02/17/23 02/18/23 02/18/23 22:59 06:59 14:59 Intake Total 940 Balance 940 Intake: Intake, IV Titration 600 Amount Piperacillin-Tazobactam 3 100 .375 gm In Sodium Chloride 0.9% 100 ml @ 25 mls/hr IVPB Q8HR [facility] Rx# :[id number] Vancomycin 1,500 mg In 500 Sodium Chloride 0.9% 500 ml 500 ml @ 167 mls/hr IVPB Q24H [facility] Rx#: [id number] Oral 340 Other: # Voids 0 2 Weight 86.183 kg 86.183 kg GENERAL DESCRIPTION: An elderly male lying in bed, no distress. No tachypnea or accessory muscle of respiration use. HEENT: Shows Pallor , no scleral icterus. Oral mucous membrane is dry. No pharyngeal erythema or thrush NECK: Trachea central, no thyromegaly. LUNGS: Unlabored breathing. Clear to auscultation anteriorly. No wheeze or crackle. HEART: S1, S2, regular rate and rhythm. No loud murmur ABDOMEN: Soft, no tenderness , guarding or rigidity, no organomegaly EXTREMITIES: Right heel wound SKIN: No rash, no masses palpable. NEUROLOGICAL: The patient is awake, alert, oriented x3, mood and affect normal. Results CBC & Chem 7: 02/18/23 01:09 02/18/23 01:09 Labs: Abnormal Lab Results - Last 24 Hours (Table) 02/18/23 02/18/23 02/18/23 Range/Units 01:09 01:09 06:01 WBC 12.1 H (3.8-10.6) k/uL RBC 3.97 L (4.30-5.90) m/uL Hgb 12.6 L (13.0-17.5) gm/dL Hct 36.9 L (39.0-53.0) % Neutrophils # 9.5 H (1.3-7.7) k/uL Sodium 136 L (137-145) mmol/L Carbon Dioxide 21 L (22-30) mmol/L BUN 26 H (9-20) mg/dL Glucose 134 H (74-99) mg/dL POC Glucose (mg/dL) 196 H (70-110) mg/dL 02/18/23 Range/Units 11:09 WBC (3.8-10.6) k/uL RBC (4.30-5.90) m/uL Hgb (13.0-17.5) gm/dL Hct (39.0-53.0) % Neutrophils # (1.3-7.7) k/uL Sodium (137-145) mmol/L Carbon Dioxide (22-30) mmol/L BUN (9-20) mg/dL Glucose (74-99) mg/dL POC Glucose (mg/dL) 120 H (70-110) mg/dL Assessment and Plan Plan: 1patient with the right diabetic foot infection with negative infiltration with a similar presentation about 2 months ago at that time he did have debridement of the wound which was extended onto the bone concerning for osteomyelitis c ulture positive for MRSA Klebsiella anaerobes unfortunately the patient was lost to follow-up because of noncompliance now presenting with worsening wound and maggot infestation and concern for underlying osteomyelitis. 2vascular surgery has been consulted waiting for debridement and deep culture. 3we will continue patient on vancomycin pharmacy to dose however discontinue Zosyn to decrease risk of nephro toxicity and add Unasyn to cover for gram- negative and anaerobes We will follow on clinical condition and cultures to further adjust medication if needed Thank you for this consultation we will follow the patient along with you Dictation was produced using [employer] dictation software. please excuse any grammatical, word or spelling errors. Time with Patient: Greater than 30
[2023-02-19] MEDS: CLOPIDOGREL 75 MG TAB PO SCH (09:22)
[2023-02-19] MEDS: METOPROLOL TARTRATE 12.5 MG TAB PO SCH (09:23)
[2023-02-19] MEDS: ASPIRIN 81 MG PO SCH (09:23)
[2023-02-19] MEDS: ISOSORBIDE MONONITRATE ER 30 MG TAB.ER.24H PO SCH (09:23)
[2023-02-19] MEDS: HEPARIN SODIUM,PORCINE/PF 5,000 UNIT/0.5 ML SYRINGE SQ SCH (09:23)
[2023-02-19] MEDS: LOSARTAN 25 MG TAB PO SCH (09:23)
[2023-02-19] MEDS ORDERED: HYDROmorphone 1 MG/ML 1 ML SYRINGE IVP PRN (09:34)
--- NOTE | 2023-02-19 15:35 | P.PN ---
Subjective Progress Note Date: 02/19/23 Hospital course: Patient is a very pleasant 67-year-old male with a past medical history of CAD status post stenting on Plavix, insulin-dependent diabetes mellitus, hypertension, and hyperlipidemia. He presented to the emergency department status post failed outpatient treatment of diabetic ulcer with worsening wound/abscess. Patient reportedly had draining blood and Maggots from his wound. Patient reports he lost the follow-up information to obtain this medication refills because his neighbor [place] and she was helping him by taking him to his appointments. Patient underwent full evaluation in the emergency department. Labs completed and reviewed. CBC showing leukocytosis with WBC count of 12.1 and normocytic anemia with hemoglobin of 12.6. BMP revealing prerenal azotemia with BUN of 26, creatinine 1.09, and GFR of 70. Liver profile was unremarkable. Wound cleaned and soaked with peroxide in the ER resulting in removal of maggots and clean dressing applied. Patient started on IV antibiotics with vancomycin and Zosyn and admitted under our services. Infectious disease consulted and changed antibiotics to vancomycin and Unasyn. Vascular surgery was consulted and took patient to operating room on the evening of 02/18/23 for debridement of infected necrotic ulcer/wound of right foot which was filled with maggots despite multiple dressing changes and wound care for removal of maggots. Vascular surgeon reports maggots were removed along with devitalized tissue and reports irrigated and pressure dressing applied. Pressure dressing to remain in place until vascular surgeon changes on . Physical exam: Patient reports increased pain in right heel this morning. Orders place for Dilaudid 1 mg IVP every 4 hours in addition to [place]. Vital signs reviewed and stable. General: Nontoxic, no distress and appears stated age. Derm: Skin warm and dry, normal coloration for ethnicity. Head: Atraumatic, normocephalic and symmetric. Eyes: EOMs intact, no lid lag, and anicteric sclera Mouth: no lip lesions, mucus membranes moist Cardiovascular: regular rate and rhythm with normal S1S2, no murmur, positive posterior tibial pulses bilaterally, and cap refill < 2 seconds. Lungs: Respirations even, regular, and unlabored on room air. Lungs CTA bilaterally, no rhonchi, no rales, no wheezing, and no accessory muscle usage. Abdominal: soft, nontender to palpation, no guarding, no appreciable organomegaly Ext: ROM intact. No gross muscle atrophy, no edema, no contractures. Postsurgical pressure dressing in place to right lower extremity. Neuro: Speech clear, face symmetrical and CN II-XII grossly intact with no noted focal neuro deficits Psych: Alert and oriented to person, place, time, and situation. Appropriate and pleasant affect. Assessment and Plan of Care: Infected diabetic foot ulcer Sepsis secondary to above Diabetes mellitus with hyperglycemia -Continue IV antibiotics with vancomycin and Unasyn pending culture results and further recommendations from infectious disease. -Infectious disease following and changed antibiotics to vancomycin and Unasyn. -Vascular surgery was consulted and after evaluation took patient to operating room on the evening of 02/18/23 for debridement of infected necrotic ulcer/wound of right foot which was filled with maggots despite multiple dressing changes and wound care for removal of maggots. Vascular surgeon reports maggots were removed along with devitalized tissue and reports irrigated and pressure dressing applied. -Per recommendations of vascular surgeon, Pressure dressing to remain in place until vascular surgeon changes pressure dressing tomorrow 02/20/23. -Xray right foot was completed in radiology report reviewed stating negative for acute fracture or dislocation revealing soft tissue ulceration along the lateral aspect of the right foot with no radiographic evidence to suggest osteomyelitis at this time. -Follow up on blood cultures and wound cultures -Continue glycemic protocol with NovoLog sliding scale to maintain tight glycemic control throughout hospitalization. -Hemoglobin A1c in 7.3% -Symptomatic care and pain management with Tylenol 650 mg every 6 hours as needed for mild pain, [place] 5/325 mg by mouth every 4 hours as needed for moder ate pain, and Dilaudid 1 mg IVP as needed for severe pain. -Continue wound care and reinforced dressing as needed CAD status post stenting Hypertension Hyperlipidemia -Continue cardiac medication regimen with Plavix 75 mg daily, aspirin 81 mg daily, isosorbide mononitrate 30 mg daily, losartan 25 mg daily, and metoprolol 12.5 mg twice daily Data review: -Hemoglobin A1c resulting of 7.3%. -Blood culture showing no growth to date. -Morning vitals reviewed and stable with blood pressure 119/68, heart rate 81, respiratory rate 17, temp 97.5F, SpO2 of 99% on room air. Imaging review: -Xray right foot was completed in radiology report reviewed stating negative for acute fracture or dislocation revealing soft tissue ulceration along the lateral aspect of the right foot with no radiographic evidence to suggest osteomyelitis at this time. CODE STATUS: Full code DVT prophylaxis: Heparin Discussed with: Patient, infectious disease physician and RN Anticipated discharge date: Clinical course to determine Anticipated discharge place: Home with home care versus half-way facility Patient was seen independently by Nurse Pracitioner. This document was prepared using [employer] dictation software. Please allow for errors in rug hooker, while rare they do occur. Objective - Vital Signs Vital signs: Vital Signs Temp 97.5 F L 02/19/23 07:10 Pulse 81 02/19/23 07:10 Resp 17 02/19/23 07:10 BP 119/68 02/19/23 07:10 Pulse Ox 99 02/19/23 07:10 FiO2 Intake & Output 02/18/23 02/19/23 02/19/23 18:59 06:59 18:59 Intake Total 1740 50 Output Total 800 2 Balance 940 48 Weight 86.183 kg Intake: IV 700 50 Intake, IV Titration 700 Amount Ampicillin-Sulbactam 3 gm 100 In Sodium Chloride 0.9% 100 ml @ 200 mls/hr IVPB Q6HR [facility] Rx#:[id number] Piperacillin-Tazobactam 3 100 .375 gm In Sodium Chloride 0.9% 100 ml @ 25 mls/hr IVPB Q8HR [facility] Rx# :[id number] Vancomycin 1,500 mg In 500 Sodium Chloride 0.9% 500 ml 500 ml @ 167 mls/hr IVPB Q24H [facility] Rx#: [id number] Oral 340 Output: Urine 800 Estimated Blood Loss 2 Other: # Voids 2 2 - Labs CBC & Chem 7: 02/18/23 01:09 02/18/23 01:09 Labs: Abnormal Lab Results - Last 24 Hours (Table) 02/18/23 02/18/23 02/18/23 Range/Units 11:09 16:05 16:26 POC Glucose (mg/dL) 120 H 161 H 145 H (70-110) mg/dL
--- NOTE | 2023-02-19 15:41 | P.DS ---
Providers Date of admission: 02/18/23 02:53 Expected date of discharge: 02/19/23 Attending physician: Ileana Lopez MD Consults: 02/18/23 11:38 Consult Physician Routine Consulting Provider: Duc Sanchez Consult Reason/Comments: diabetic ulcer, evaluate for debridement Do you want consulting provider notified?: Yes 02/18/23 12:22 Consult Physician Routine Consulting Provider: Hanane Graham Consult Reason/Comments: infected diabetic wound Do you want consulting provider notified?: Yes Primary care physician: Stated None Hospital Course: THIS IS NOT A DISCHARGE SUMMARY, BUT A SUMMARY OF CARE PT LEFT HOSPITAL AGAINST MEDICAL ADVICE ON 02/19/23 AT 10:06 AM: Infected and necrotic diabetic foot ulcer Sepsis secondary to above Diabetes mellitus with hyperglycemia CAD status post stenting Hypertension Hyperlipidemia Hospital Course: Patient is a very pleasant 67-year-old male with a past medical history of CAD status post stenting on Plavix, insulin-dependent diabetes mellitus, hypertension, and hyperlipidemia. He presented to the emergency department status post failed outpatient treatment of diabetic ulcer with worsening wound/abscess. Patient reportedly had draining blood and Maggots from his wound. Patient reports he lost the follow-up information to obtain this medication refills because [place] and she was helping him by taking him to his appointments. Patient underwent full evaluation in the emergency department. Labs completed and reviewed. CBC showing leukocytosis with WBC count of 12.1 and normocytic anemia with hemoglobin of 12.6. BMP revealing prerenal azotemia with BUN of 26, creatinine 1.09, and GFR of 70. Liver profile was unremarkable. Wound cleaned and soaked with peroxide in the ER resulting in removal of maggots and clean dressing applied. Patient started on IV antibiotics with vancomycin and Zosyn and admitted under our services. Infectious disease consulted and changed antibiotics to vancomycin and Unasyn. Vascular surgery was consulted and took patient to operating room on the evening of 02/18/23 for debridement of infected necrotic ulcer/wound of right foot which was filled with maggots despite multiple dressing changes and wound care for removal of maggots. Vascular surgeon reports maggots were removed along with devitalized tissue and reports irrigated and pressure dressing applied. Pressure dressing to remain in place until vascular surgeon changes on . Received notification from RN at 10:06 AM that patient personally removed his own IVs in left hospital AGAINST MEDICAL ADVICE. Unclear as to why patient left AMA, RN reports patient anxious and agitated stating hospitals related prisons and he was not staying here. Notified infectious disease physician and RN notified vascular surgeon of patient leaving facility prior to completion of treatment. NOTIFIED BY RN THAT PT LEFT HOSPITAL AGAINST MEDICAL ADVICE ON 02/19/23 AT 10:06 AM This document was prepared using [employer] dictation software. Please allow for errors in bicycle fitter while rare they do occur. Patient Condition at Discharge: Undetermined Plan - Discharge Summary Discharge Rx Participant: No New Discharge Prescriptions: No Action Losartan [Cozaar] 25 mg PO DAILY #30 tab Isosorbide Mononitrate ER [Imdur] 30 mg PO DAILY #30 tab Clopidogrel [Plavix] 75 mg PO DAILY #30 tab Empagliflozin [Jardiance] 10 mg PO DAILY Atorvastatin [Lipitor] 40 mg PO HS Spironolactone [Aldactone] 12.5 mg PO DAILY #15 tab Aspirin 81 mg PO DAILY #30 tab Furosemide [Lasix] 20 mg PO BID@0900,1600 #60 tab Collagenase [Santyl Ointment] 1 applic TOPICAL DAILY Nitroglycerin Sl Tabs [Nitrostat] 0.4 mg SL Q5M PRN PRN Reason: Chest Pain Metoprolol Tartrate [Lopressor] 12.5 mg PO BID Discharge Medication List Aspirin 81 mg PO DAILY #30 tab 08/09/22 [Rx] Clopidogrel [Plavix] 75 mg PO DAILY #30 tab 08/09/22 [Rx] Furosemide [Lasix] 20 mg PO BID@0900,1600 #60 tab 08/09/22 [Rx] Isosorbide Mononitrate ER [Imdur] 30 mg PO DAILY #30 tab 08/09/22 [Rx] Losartan [Cozaar] 25 mg PO DAILY #30 tab 08/09/22 [Rx] Spironolactone [Aldactone] 12.5 mg PO DAILY #15 tab 08/09/22 [Rx] Collagenase [Santyl Ointment] 1 applic TOPICAL DAILY 12/10/22 [History] Empagliflozin [Jardiance] 10 mg PO DAILY 12/10/22 [History] Nitroglycerin Sl Tabs [Nitrostat] 0.4 mg SL Q5M PRN 12/10/22 [History] Atorvastatin [Lipitor] 40 mg PO HS 02/18/23 [History] Metoprolol Tartrate [Lopressor] 12.5 mg PO BID 02/18/23 [History] Follow up Appointment(s)/Referral(s): None,Stated [Primary Care Provider] - 1-2 days Discharge Disposition: LEFT AGAINST MEDICAL ADVICE
== END 2023-02-19 10:11 | disposition left against medical advice (07) | DRG 854 ==
LOC: EC 00:50 → 4SSUR 02:53
PROVIDERS: ADMIT Internal Medicine; ATTEND Internal Medicine
PROC: 0JBQ0ZZ Excision of Right Foot Subcutaneous Tissue and Fascia, Open Approach (ICD-10-PCS; principal; 2023-02-18 15:48)
DX: A41.9 Sepsis, unspecified organism (principal); E11.52 Type 2 diabetes mellitus with diabetic peripheral angiopathy with gangrene; L97.419 Non-pressure chronic ulcer of right heel and midfoot with unspecified severity; L02.611 Cutaneous abscess of right foot; E11.621 Type 2 diabetes mellitus with foot ulcer; E11.65 Type 2 diabetes mellitus with hyperglycemia; Z79.4 Long term (current) use of insulin; Z79.84 Long term (current) use of oral hypoglycemic drugs; B87.1 Wound myiasis; D64.9 Anemia, unspecified; E11.628 Type 2 diabetes mellitus with other skin complications; E78.5 Hyperlipidemia, unspecified; I10 Essential (primary) hypertension; I25.10 Atherosclerotic heart disease of native coronary artery without angina pectoris; I25.2 Old myocardial infarction; L97.519 Non-pressure chronic ulcer of other part of right foot with unspecified severity; Z53.29 Procedure and treatment not carried out because of patient's decision for other reasons; Z79.02 Long term (current) use of antithrombotics/antiplatelets; Z79.82 Long term (current) use of aspirin; Z79.899 Other long term (current) drug therapy; Z86.14 Personal history of Methicillin resistant Staphylococcus aureus infection; Z95.5 Presence of coronary angioplasty implant and graft; Z88.2 Allergy status to sulfonamides
CPT/HCPCS: 36415; 80053; 83036; 83605; 85025; 85610; 85730; 87040; 87070; 87075; 87102; 87205

== ENCOUNTER 2023-04-05 14:04 | Inpatient (IN) | payer MEDICARE, OTHER ==
--- NOTE | 2023-04-05 14:39 | ED ---
General Adult HPI - General Source: patient Mode of arrival: wheelchair Limitations: no limitations <Gail Johnston - Last Filed: 04/05/23 14:39> <Sandra Moreno - Last Filed: 04/05/23 19:13> - General Chief complaint: Skin/Abscess/Foreign Body Stated complaint: right foot diabetic foot issue hole had maggots Time Seen by Provider: 04/05/23 14:38 - History of Present Illness Initial comments: 67-year-old male presents emergency department chief complaint of "hole" in right foot. He states that he had it debrided in the hospital about 2 months ago. He has not had any follow up since then. Denies fever, chills. (Gail Johnston) I close a 67-year-old gentleman with history of diabetes a history of a diabetic foot ulcer he was hospitalized in January with a diabetic foot ulcer he had it debrided, he left the hospital and never had any follow-up. Since that time he said progressively worsening wound that he now describes as a hole in his foot he's also now developed a diabetic wound on the other foot. He borrowed a hard sole shoe from a friend and has been trying to keep the foot clean and dry. He does report pain malodorous discharge. (Sandra Moreno) - Related Data Home Medications Medication Instructions Recorded Confirmed Empagliflozin [Jardiance] 10 mg PO DAILY 12/10/22 04/05/23 Nitroglycerin Sl Tabs [Nitrostat] 0.4 mg SL Q5M PRN 12/10/22 04/05/23 Atorvastatin [Lipitor] 40 mg PO HS 02/18/23 04/05/23 Metoprolol Tartrate [Lopressor] 12.5 mg PO BID 02/18/23 04/05/23 Previous Rx's Medication Instructions Recorded Aspirin 81 mg PO DAILY #30 tab 08/09/22 Clopidogrel [Plavix] 75 mg PO DAILY #30 tab 08/09/22 Furosemide [Lasix] 20 mg PO BID@0900,1600 #60 tab 08/09/22 Isosorbide Mononitrate ER [Imdur] 30 mg PO DAILY #30 tab 08/09/22 Losartan [Cozaar] 25 mg PO DAILY #30 tab 08/09/22 Spironolactone [Aldactone] 12.5 mg PO DAILY #15 tab 08/09/22 Allergies Allergy/AdvReac Type Severity Reaction Status Date / Time Sulfa (Sulfonamide Allergy Rash/Hives Verified 04/05/23 17:49 Antibiotics) Review of Systems ROS Other: All systems not noted in ROS Statement are negative. <Gail Johnston - Last Filed: 04/05/23 14:39> ROS Other: All systems not noted in ROS Statement are negative. <Sandra Moreno - Last Filed: 04/05/23 19:13> ROS Statement: Those systems with pertinent positive or pertinent negative responses have been documented in the HPI. Past Medical History Past Medical History: Diabetes Mellitus, Hyperlipidemia, Hypertension, Myocardial Infarction ([place]) Additional Past Medical History / Comment(s): Diabetic ulcer Last Myocardial Infarction Date:: unknown History of Any Multi-Drug Resistant Organisms: None Reported Past Surgical History: Orthopedic Surgery Additional Past Surgical History / Comment(s): 2 cardiac stents, bilateral knee replacements, right foot wound debridement. Past Anesthesia/Blood Transfusion Reactions: No Reported Reaction Date of Last Stent Placement:: 2022 Past Psychological History: No Psychological Hx Reported Smoking Status: Current every day smoker, Heavy tobacco smoker Past Alcohol Use History: None Reported Past Drug Use History: None Reported - Past Family History Mother Family Medical History: No Reported History <Gail Johnston - Last Filed: 04/05/23 14:39> General Exam Limitations: no limitations <Gail Johnston - Last Filed: 04/05/23 14:39> <Sandra Moreno - Last Filed: 04/05/23 19:13> - General Exam Comments Initial Comments: k Visual Physical Exam Vital signs reviewed General: Well-appearing, nontoxic, no acute distress. Head: Normocephalic, atraumatic Eyes: PERRLA, EOMI ENT: Airway patent Chest: Nonlabored breathing Skin: No visual rash, normal skin tone Neuro: Alert and oriented 3 Musculoskeletal: No gross abnormalities, walking shoe present (Gail Johnston) Physical Exam GENERAL: Appears older than stated age HENT: Normocephalic, Atraumatic. EYES: PERRL, EOMI PULMONARY: Unlabored respirations. CARDIOVASCULAR: RRR ABDOMEN: Non-distended SKIN: there is a large necrotic lesion of the heel of the foot on the lateral side, lesion measures 6 x 6 cm and is approximately 4 cm deep. There is a malodorous discharge second lesion on the medial surface of the foot at the base of the great toe : Deferred NEUROLOGIC: Alert and oriented Normal speech MUSCULOSKELETAL: Moving all extremities PSYCHIATRIC: No SI/HI (Sandra Moreno) Course Vital Signs 04/05/23 04/05/23 04/05/23 14:10 15:43 17:03 Temperature 98.1 F 97.8 F Pulse Rate 70 67 75 Respiratory 20 18 17 Rate Blood Pressure 133/54 146/65 159/55 O2 Sat by Pulse 95 100 100 Oximetry 04/05/23 18:11 Temperature 97.8 F Pulse Rate 71 Respiratory 18 Rate Blood Pressure 157/93 O2 Sat by Pulse 99 Oximetry Medical Decision Making <Gail Johnston - Last Filed: 04/05/23 14:39> - Lab Data Result diagrams: 04/05/23 16:29 04/05/23 16:29 <Sandra Moreno - Last Filed: 04/05/23 19:13> - Medical Decision Making I performed the quick note portion of this chart. Electronically signed by Gail Johnston PA-C (Gail Johnston) Was pt. sent in by a medical professional or institution ([facility], [facility], urgent care, hospital, or [place] health care facility...) When possible be specific @ -No Did you speak to anyone other than the patient for history (EMS, parent, family, police, friend...)? What history was obtained from this source @ -No Did you review nursing and triage notes (agree or disagree)? Why? @ -I reviewed and agree with nursing and triage notes Were old charts reviewed (outside hosp., previous admission, EMS record, old EKG, old radiological studies, urgent care reports/EKG's, [place] health care facility records)? Report findings @ previous admission notes and infectious disease consults were reviewed Differential Diagnosis (chest pain, altered mental status, abdominal pain women, abdominal pain men, vaginal bleeding, weakness, fever, dyspnea, syncope, headache, dizziness, GI bleed, back pain, seizure, CVA, palpatations, mental health, musculoskeletal)? @ diabetic foot ulcer,osteomyelitis, peripheral arterial disease venous stasis ulcer EKG interpreted by me (3pts min.). @ -As above X-rays interpreted by me (1pt min.). @ x-ray reveals obvious soft tissue defect no fractures or dislocations CT interpreted by me (1pt min.). @ -None done U/S interpreted by me (1pt. min.). @ -None done What testing was considered but not performed or refused? (CT, X-rays, U/S, la bs)? Why? @ MRI to evaluate for osteomyelitis can't be performed inpatient if needed What meds were considered but not given or refused? Why? @ -None Did you discuss the management of the patient with other professionals (pr ofessionals i.e. , PA, [facility], lab, RT, psych nurse, health and social care teacher, cargo agent, teacher, agricultural extension officer, wrapper caser)? Give summary @ -No Was smoking cessation discussed for >3mins.? @ -No Was critical care preformed (if so, how long)? @ -No Were there social determinants of health that impacted care today? How? (Homelessness, low income, unemployed, alcoholism, drug addiction, transport ation, low edu. Level, literacy, decrease access to med. care, care home, rehab)? @ low education level, low literacy Was there de-escalation of care discussed even if they declined (Discuss DNR or withdrawal of care, Hospice)? DNR status @ -No What co-morbidities impacted this encounter? (DM, HTN, Smoking, COPD, CAD, Cancer, CVA, ARF, Chemo, Hep., AIDS, mental health diagnosis, sleep apnea, morbid obesity)? @ diabetes Was patient admitted / discharged? Hospital course, mention meds given and route, prescriptions, significant lab abnormalities, going to OR and other pertinent info. @ Patient was seen, labs, xrays obtained, broad spectrum antibiotics ordered Patient to be admitted for further evaluation by infectious disease and ortho/vascular surgery Patient accepted by Dr. Bates of [facility] Undiagnosed new problem with uncertain prognosis? @ -No Drug Therapy requiring intensive monitoring for toxicity (Heparin, Nitro, Insulin, Cardizem)? @ -No Were any procedures done? @ -No Diagnosis/symptom? @ Infected Diabetic Foot Ulcer Acute, or Chronic, or Acute on Chronic? @ Recurrent Uncomplicated (without systemic symptoms) or Complicated (systemic symptoms)? @ Complicated Side effects of treatment? @ -No Exacerbation, Progression, or Severe Exacerbation? @ -No Poses a threat to life or bodily function? How? (Chest pain, [place], [place], pneumonia, PE, COPD, DKA, ARF, appy, cholecystitis, CVA, Diverticulitis, Homicidal, Suicidal, threat to staff... and all critical care pts) @ Yes - risk of sepsis (Sandra Moreno) - Lab Data Lab Results 04/05/23 04/05/23 04/05/23 Range/Units 16:29 16:29 16:29 WBC 14.9 H (3.8-10.6) k/uL RBC 3.53 L (4.30-5.90) m/uL Hgb 10.5 L (13.0-17.5) gm/dL Hct 32.4 L (39.0-53.0) % MCV 91.7 (80.0-100.0) fL MCH 29.8 (25.0-35.0) pg MCHC 32.5 (31.0-37.0) g/dL RDW 13.6 (11.5-15.5) % Plt Count 365 (150-450) k/uL MPV 7.3 Neutrophils % 86 % Lymphocytes % 8 % Monocytes % 4 % Eosinophils % 1 % Basophils % 0 % Neutrophils # 12.8 H (1.3-7.7) k/uL Lymphocytes # 1.2 (1.0-4.8) k/uL Monocytes # 0.5 (0-1.0) k/uL Eosinophils # 0.2 (0-0.7) k/uL Basophils # 0.0 (0-0.2) k/uL PT 10.2 (9.0-12.0) sec INR 1.0 (<1.2) APTT 26.7 (22.0-30.0) sec Sodium 140 (137-145) mmol/L Potassium 3.8 (3.5-5.1) mmol/L Chloride 107 (98-107) mmol/L Carbon Dioxide 22 (22-30) mmol/L Anion Gap 11 mmol/L BUN 16 (9-20) mg/dL Creatinine 1.09 (0.66-1.25) mg/dL Est GFR (CKD-EPI)AfAm 81 (>60 ml/min/1.73 sqM) Est GFR (CKD-EPI)NonAf 70 (>60 ml/min/1.73 sqM) Glucose 189 H (74-99) mg/dL Plasma Lactic Acid Julien (0.7-2.0) mmol/L Calcium 9.6 (8.4-10.2) mg/dL Total Bilirubin 0.4 (0.2-1.3) mg/dL AST 19 (17-59) U/L ALT 13 (4-49) U/L Alkaline Phosphatase 98 (38-126) U/L C-Reactive Protein 5.2 H (<1.0) mg/dL Total Protein 7.6 (6.3-8.2) g/dL Albumin 3.6 (3.5-5.0) g/dL 04/05/23 Range/Units 16:29 WBC (3.8-10.6) k/uL RBC (4.30-5.90) m/uL Hgb (13.0-17.5) gm/dL Hct (39.0-53.0) % MCV (80.0-100.0) fL MCH (25.0-35.0) pg MCHC (31.0-37.0) g/dL RDW (11.5-15.5) % Plt Count (150-450) k/uL MPV Neutrophils % % Lymphocytes % % Monocytes % % Eosinophils % % Basophils % % Neutrophils # (1.3-7.7) k/uL Lymphocytes # (1.0-4.8) k/uL Monocytes # (0-1.0) k/uL Eosinophils # (0-0.7) k/uL Basophils # (0-0.2) k/uL PT (9.0-12.0) sec INR (<1.2) APTT (22.0-30.0) sec Sodium (137-145) mmol/L Potassium (3.5-5.1) mmol/L Chloride (98-107) mmol/L Carbon Dioxide (22-30) mmol/L Anion Gap mmol/L BUN (9-20) mg/dL Creatinine (0.66-1.25) mg/dL Est GFR (CKD-EPI)AfAm (>60 ml/min/1.73 sqM) Est GFR (CKD-EPI)NonAf (>60 ml/min/1.73 sqM) Glucose (74-99) mg/dL Plasma Lactic Acid Julien 1.4 (0.7-2.0) mmol/L Calcium (8.4-10.2) mg/dL Total Bilirubin (0.2-1.3) mg/dL AST (17-59) U/L ALT (4-49) U/L Alkaline Phosphatase (38-126) U/L C-Reactive Protein (<1.0) mg/dL Total Protein (6.3-8.2) g/dL Albumin (3.5-5.0) g/dL Disposition <Gail Johnston - Last Filed: 04/05/23 14:39> <Sandra Moreno - Last Filed: 04/05/23 19:13> Clinical Impression: Diabetic foot ulcer Disposition: ADMITTED IP TO THIS [facility] Condition: Serious Referrals: None,Stated [Primary Care Provider] - 1-2 days
--- NOTE | 2023-04-05 16:13 | XR ---
EXAMINATION TYPE: XR foot complete RT DATE OF EXAM: 04/05/2023 COMPARISON: 02/18/2023 HISTORY: Pain, heel ulcer TECHNIQUE: 3 view right foot FINDINGS: No acute fracture or dislocation is evident. There is significant soft tissue abnormality w ithin the heel pad. Adjacent calcaneal cortical erosion however is not identified. Three-phase bone s can could be performed for sufficient suspicion of osteomyelitis. IMPRESSION: 1. Large soft tissue defect at the heel pad. 2. Suspicious changes for osteomyelitis not radiographically apparent.
[2023-04-05] MEDS ORDERED: VANCOMYCIN IV PER PHARMACY 1 EACH MISC MISCELLANE PRN (16:25)
[2023-04-05] MEDS ORDERED: VANCOMYCIN 1,500 MG in SODIUM CHLORIDE 0.9% 500 ML 500 ML IVPB STA (16:34)
[2023-04-05] MEDS ORDERED: CEFEPIME 2 GM in SODIUM CHLORIDE 0.9% 100 ML IVPB STA (16:34)
[2023-04-05 17:18] LABS: Basophils % (A) 0 %; Eosinophils # (A) 0.2 k/uL (0-0.7); Eosinophils % (A) 1 %; HCT 32.4 % (39.0-53.0); HGB 10.5 gm/dL (13.0-17.5); Lymphocytes # (A) 1.2 k/uL (1.0-4.8); Lymphocytes % (A) 8 %; MCH 29.8 pg (25.0-35.0); MCHC 32.5 g/dL (31.0-37.0); MCV 91.7 fL (80.0-100.0); Mean Platelet Volume 7.3; Monocytes # (A) 0.5 k/uL (0-1.0); Monocytes % (A) 4 %; Neutrophils # (A) 12.8 k/uL (1.3-7.7); Neutrophils % (A) 86 %; Platelet Count 365 k/uL (150-450); RBC 3.53 m/uL (4.30-5.90); RDW 13.6 % (11.5-15.5); WBC 14.9 k/uL (3.8-10.6)
[2023-04-05 17:46] LABS: Partial Thromboplastin Time 26.7 sec (22.0-30.0); Prothrombin Time 10.2 sec (9.0-12.0)
[2023-04-05 17:50] LABS: ALT 13 U/L (4-49); AST 19 U/L (17-59); African American GFR (CKD) 81 (>60 ml/min/1.73 sqM); Albumin 3.6 g/dL (3.5-5.0); Alkaline Phosphatase 98 U/L (38-126); Anion Gap 11 mmol/L; Blood Urea Nitrogen 16 mg/dL (9-20); C Reactive Protein 5.2 mg/dL (<1.0); Calcium 9.6 mg/dL (8.4-10.2); Carbon Dioxide 22 mmol/L (22-30); Chloride 107 mmol/L (98-107); Glucose 189 mg/dL (74-99); Non-African American GFR(CKD) 70 (>60 ml/min/1.73 sqM); Potassium 3.8 mmol/L (3.5-5.1); Sodium 140 mmol/L (137-145); Total Bilirubin 0.4 mg/dL (0.2-1.3); Total Protein 7.6 g/dL (6.3-8.2)
[2023-04-05] MEDS: MORPHINE SULFATE 4 MG/ML SYRINGE IVP PRN ×2 (18:35→22:00)
[2023-04-05] MEDS ORDERED: NALOXONE 0.4 MG/ML 1 ML VIAL IV PRN (19:11)
[2023-04-05 20:02] LABS: Erythrocyte Sedimentation Rate 114 mm/hr (0-15)
[2023-04-06] MEDS: HYDROcodone/APAP 10-325MG 1 EACH TAB PO PRN ×3 (01:35→13:08)
[2023-04-06] MEDS ORDERED: CEFEPIME 2 GM in SODIUM CHLORIDE 0.9% 100 ML IVPB SCH (02:00)
[2023-04-06] MEDS ORDERED: DEXTROSE 50% SYRINGE 50 ML IVP PRN ×2 (04:52)
[2023-04-06] MEDS ORDERED: ACETAMINOPHEN TAB 325 MG TAB PO PRN (04:53)
[2023-04-06] MEDS ORDERED: PIPERACILLIN-TAZOBACTAM 3.375 GM in SODIUM CHLORIDE 0.9% 100 ML IVPB ONE (05:00)
--- NOTE | 2023-04-06 05:05 | P.HPIM ---
History of Present Illness H&P Date: 04/05/23 Chief Complaint: Foot wound 67-year-old male with diabetes mellitus and coronary artery disease status post stent hypertension Patient coming in due to worsening right foot wound with malodorous discharge, he was hospitalizes back in January where he had draining blood and maggots from his wound. wound debridement was done however he left AGAINST MEDICAL ADVICE and was lost to follow-up since then . Currently he denies any fevers or chills denies any nausea vomiting denies any chest pain or trouble breathing he denies any falls at home he lives alone. He reports some pain in the right heel otherwise he has couple more smaller ulcers over bilateral feet. He claims to be compliant with his medications he admits to tobacco smoking denies any illicit drugs or alcohol Patient is also complaining of blurry vision in his left eye otherwise denies any GI bleeding denies any abdominal pain denies any new focal neuro deficits review of systems Pertinent positives as noted in HPI. All other systems were reviewed and are negative on exam Constitutional: No acute distress, conversant, pleasant Eyes: Anicteric sclerae, moist conjunctiva, Pupils equal round reactive to light ENMT: NC/AT Oropharynx clear, no erythema, or exudates Neck: Supple, no masses, or JVD No carotid bruits No thyromegaly Lungs: Clear to auscultation Clear to percussion Normal respiratory effort, no accessory muscle use Cardiovascular: Heart regular in rate and rhythm, No murmurs, gallops, or rubs No peripheral edema Abdominal: Soft Nontender, no guarding, rebound or rigidity Abdomen moving with respiration Normoactive bowel sounds No hepatomegaly, No splenomegaly No palpable mass No abdominal wall hernia noted Skin: Large deep wound over the lateral aspect of the right foot proximally near the heel with exposed tendons and bone. Another small superficial ulcer with black base eschar over the medial aspect of the right foot along with 2 more ulcers over the left foot one on the medial aspect and one on the dorsum of the left foot both are smaller ulcers with black eschar base no drainage. There is some swelling of bilateral feet with some mild erythema Extremities: No digital cyanosis No clubbing Pedal pulses absent and symmetrical capillary refill is immediate Radial pulses intact and symmetrical No calf tenderness Psychiatric: Alert and oriented to person, place and time Appropriate affect fair judgement Neuro Muscles Strength 5/5 in all 4 extremities Sensation to light touch grossly present throughout Cranial nerves II-XII grossly intact Lymphatics: no palpable cervical or supraclavicular lymph nodes Past Medical History Past Medical History: Diabetes Mellitus, Hyperlipidemia, Hypertension, Myocardial Infarction ([place]) Additional Past Medical History / Comment(s): Diabetic ulcer Last Myocardial Infarction Date:: unknown History of Any Multi-Drug Resistant Organisms: None Reported Past Surgical History: Orthopedic Surgery Additional Past Surgical History / Comment(s): 2 cardiac stents, bilateral knee replacements, right foot wound debridement. Past Anesthesia/Blood Transfusion Reactions: No Reported Reaction Date of Last Stent Placement:: 2022 Past Psychological History: No Psychological Hx Reported Smoking Status: Current every day smoker, Heavy tobacco smoker Past Alcohol Use History: None Reported Past Drug Use History: None Reported - Past Family History Mother Family Medical History: No Reported History Medications and Allergies Home Medications Medication Instructions Recorded Confirmed Type Aspirin 81 mg PO DAILY #30 tab 08/09/22 04/05/23 Rx Clopidogrel [Plavix] 75 mg PO DAILY #30 tab 08/09/22 04/05/23 Rx Furosemide [Lasix] 20 mg PO BID@0900,1600 #60 tab 08/09/22 04/05/23 Rx Isosorbide Mononitrate ER [Imdur] 30 mg PO DAILY #30 tab 08/09/22 04/05/23 Rx Losartan [Cozaar] 25 mg PO DAILY #30 tab 08/09/22 04/05/23 Rx Spironolactone [Aldactone] 12.5 mg PO DAILY #15 tab 08/09/22 04/05/23 Rx Empagliflozin [Jardiance] 10 mg PO DAILY 12/10/22 04/05/23 History Nitroglycerin Sl Tabs [Nitrostat] 0.4 mg SL Q5M PRN 12/10/22 04/05/23 History Atorvastatin [Lipitor] 40 mg PO HS 02/18/23 04/05/23 History Metoprolol Tartrate [Lopressor] 12.5 mg PO BID 02/18/23 04/05/23 History Allergies Allergy/AdvReac Type Severity Reaction Status Date / Time Sulfa (Sulfonamide Allergy Rash/Hives Verified 04/05/23 17:49 Antibiotics) Physical Exam Vitals: Vital Signs Temp Pulse Resp BP Pulse Ox 04/06/23 01:37 98 F 73 19 102/60 100 04/05/23 19:38 69 16 132/64 04/05/23 18:11 97.8 F 71 18 157/93 99 04/05/23 17:03 75 17 159/55 100 04/05/23 15:43 97.8 F 67 18 146/65 100 04/05/23 14:10 98.1 F 70 20 133/54 95 Intake and Output 04/05/23 04/05/23 04/06/23 14:59 22:59 06:59 Other: Weight 83.915 kg Results CBC & Chem 7: 04/05/23 16:29 04/05/23 16:29 Labs: Abnormal Lab Results - Last 24 Hours (Table) 04/05/23 04/05/23 Range/Units 16:29 16:29 WBC 14.9 H (3.8-10.6) k/uL RBC 3.53 L (4.30-5.90) m/uL Hgb 10.5 L (13.0-17.5) gm/dL Hct 32.4 L (39.0-53.0) % Neutrophils # 12.8 H (1.3-7.7) k/uL ESR 114 H (0-15) mm/hr Glucose 189 H (74-99) mg/dL C-Reactive Protein 5.2 H (<1.0) mg/dL Assessment and Plan Assessment: 67-year-old male with coronary artery disease and diabetes mellitus coming in for worsening right foot wound with malodorous drainage and pain I discussed the case with the ED doctor and accepted the admission for infected diabetic foot ulcer for IV antibiotics and vascular surgery evaluation with anticipated length of stay more than 2 midnights Infected diabetic foot ulcer Leukocytosis with white count of 14.9 Follow-up cultures Initiated on vancomycin in the ED dosing by pharmacy Patient given cefepime in the ED will discontinue and switch to Zosyn 3.375 IV piggyback every 8 hours Tylenol for fever Pain control with Okarche when necessary X-ray of the foot did not show clear bony involvement suggestive of osteomyelitis Diabetes mellitus Insulin sliding scale Coronary artery disease status post stents Continue with aspirin Plavix and atorvastatin Hypertension Continue with losartan and metoprolol spironolactone in diameter Chronic anemia Patient denies GI bleeding Continue to monitor hemoglobin Currently 10.5 Renal function overall unremarkable sodium 140 potassium 3.8 BUN is 16 creatinine 1.09 Vital signs stable Full code DVT prophylaxis heparin subcu 3 times a day
[2023-04-06] MEDS: INSULIN ASPART (NovoLOG) 100 UNIT/ML VIAL SQ SCH ×4 (08:44→20:54)
[2023-04-06 08:55] LABS: Carbon Dioxide 21 mmol/L (22-30); Chloride 109 mmol/L (98-107); Glucose 147 mg/dL (74-99); Sodium 138 mmol/L (137-145)
[2023-04-06 08:56] LABS: African American GFR (CKD) 86 (>60 ml/min/1.73 sqM); Anion Gap 8 mmol/L; Blood Urea Nitrogen 22 mg/dL (9-20); Calcium 8.8 mg/dL (8.4-10.2); Non-African American GFR(CKD) 74 (>60 ml/min/1.73 sqM)
[2023-04-06] MEDS: ASPIRIN 81 MG PO SCH (09:01)
[2023-04-06] MEDS: HEPARIN SODIUM,PORCINE 5,000 UNIT/ML 1 ML VIAL SQ SCH ×3 (09:01→23:58)
[2023-04-06] MEDS: METOPROLOL TARTRATE 12.5 MG TAB PO SCH ×2 (09:01→20:54)
[2023-04-06] MEDS: CLOPIDOGREL 75 MG TAB PO SCH (09:01)
[2023-04-06] MEDS: ISOSORBIDE MONONITRATE ER 30 MG TAB.ER.24H PO SCH (09:02)
[2023-04-06] MEDS: SPIRONOLACTONE 25 MG TAB PO SCH (09:02)
[2023-04-06] MEDS: LOSARTAN 25 MG TAB PO SCH (09:02)
[2023-04-06 09:16] LABS: Basophils % (A) 0 %; Eosinophils # (A) 0.2 k/uL (0-0.7); Eosinophils % (A) 2 %; HCT 29.8 % (39.0-53.0); HGB 9.7 gm/dL (13.0-17.5); Lymphocytes # (A) 1.2 k/uL (1.0-4.8); Lymphocytes % (A) 12 %; MCH 30.3 pg (25.0-35.0); MCHC 32.6 g/dL (31.0-37.0); MCV 92.8 fL (80.0-100.0); Mean Platelet Volume 7.6; Monocytes # (A) 0.5 k/uL (0-1.0); Monocytes % (A) 5 %; Neutrophils % (A) 80 %; Platelet Count 324 k/uL (150-450); RBC 3.21 m/uL (4.30-5.90); RDW 13.7 % (11.5-15.5)
[2023-04-06] MEDS: VANCOMYCIN 1,500 MG in SODIUM CHLORIDE 0.9% 500 ML 500 ML IVPB SCH ×2 (11:06→13:07)
[2023-04-06 11:47] LABS: Glucose,Whole Blood 177 mg/dL (70-110)
[2023-04-06] MEDS ORDERED: LIDOCAINE 1% INJ 10MG/ML (20 ML MDV) ONE (12:24)
--- NOTE | 2023-04-06 13:15 | P.GSCN ---
History of Present Illness History of present illness: 67-year-old gentleman patient has history of diabetes hypertension. Patient was here in January when he had a maggots in the wound wound he had a debridement of the wound the right foot and patient was treated with IV antibiotic patient left AGAINST MEDICAL ADVICE been readmitted he is a foul odor wound on his right foot heel shunt has a history of diabetes hypertension on examination neck is supple no bruit appreciated Chest is clear good and both then first and second sound normal. Abdomen soft nontender Vascular femorals are 1+ bilateral PT by the Doppler patient still large wound on the right foot with some debridement less tissue and we under local anesthesia we took the deep culture culture of the tissue sent for deep culture prognosis is guarded I have I recommended to major amputation patient is refusing we will continue with local wound care and IV antibiotic follow with you Past Medical History Past Medical History: Coronary Artery Disease (CAD), Chest Pain / Angina, Heart Failure, Diabetes Mellitus, Hyperlipidemia, Hypertension, Myocardial Infarction ([place]), Vascular Disorder Additional Past Medical History / Comment(s): Diabetic ulcer, ischemic cardiomyopathy Last Myocardial Infarction Date:: unknown History of Any Multi-Drug Resistant Organisms: MRSA Year Discovered:: 12/11/22 MDRO Source:: right heel Past Surgical History: Heart Catheterization, Heart Catheterization With Stent, Orthopedic Surgery Additional Past Surgical History / Comment(s): 2 cardiac stents, bilateral knee replacements, right foot wound debridement,non-compliance Past Anesthesia/Blood Transfusion Reactions: No Reported Reaction Date of Last Stent Placement:: 08/07/22 Past Psychological History: No Psychological Hx Reported Smoking Status: Current every day smoker, Heavy tobacco smoker Past Alcohol Use History: None Reported Additional Past Alcohol Use History / Comment(s): Smokes 1 ppd for 35 -40 yrs. No alcohol in 4 yrs. Past Drug Use History: None Reported - Past Family History Mother Family Medical History: No Reported History Medications and Allergies Home Medications Medication Instructions Recorded Confirmed Type Aspirin 81 mg PO DAILY #30 tab 08/09/22 04/05/23 Rx Clopidogrel [Plavix] 75 mg PO DAILY #30 tab 08/09/22 04/05/23 Rx Furosemide [Lasix] 20 mg PO BID@0900,1600 #60 tab 08/09/22 04/05/23 Rx Isosorbide Mononitrate ER [Imdur] 30 mg PO DAILY #30 tab 08/09/22 04/05/23 Rx Losartan [Cozaar] 25 mg PO DAILY #30 tab 08/09/22 04/05/23 Rx Spironolactone [Aldactone] 12.5 mg PO DAILY #15 tab 08/09/22 04/05/23 Rx Empagliflozin [Jardiance] 10 mg PO DAILY 12/10/22 04/05/23 History Nitroglycerin Sl Tabs [Nitrostat] 0.4 mg SL Q5M PRN 12/10/22 04/05/23 History Atorvastatin [Lipitor] 40 mg PO HS 02/18/23 04/05/23 History Metoprolol Tartrate [Lopressor] 12.5 mg PO BID 02/18/23 04/05/23 History Allergies Allergy/AdvReac Type Severity Reaction Status Date / Time Sulfa (Sulfonamide Allergy Rash/Hives Verified 04/05/23 17:49 Antibiotics) Surgical - Exam Vital Signs Temp Pulse Resp BP Pulse Ox 98.1 F 70 20 133/54 95 04/05/23 14:10 04/05/23 14:10 04/05/23 14:10 04/05/23 14:10 04/05/23 14:10 Results - Labs 04/06/23 08:28 04/06/23 08:28 Abnormal Lab Results - Last 24 Hours (Table) 04/05/23 04/05/23 04/06/23 Range/Units 16:29 16:29 08:28 WBC 14.9 H (3.8-10.6) k/uL RBC 3.53 L 3.21 L (4.30-5.90) m/uL Hgb 10.5 L 9.7 L (13.0-17.5) gm/dL Hct 32.4 L 29.8 L (39.0-53.0) % Neutrophils # 12.8 H 8.0 H (1.3-7.7) k/uL ESR 114 H (0-15) mm/hr Chloride (98-107) mmol/L Carbon Dioxide (22-30) mmol/L BUN (9-20) mg/dL Glucose 189 H (74-99) mg/dL POC Glucose (mg/dL) (70-110) mg/dL C-Reactive Protein 5.2 H (<1.0) mg/dL 04/06/23 04/06/23 Range/Units 08:28 11:37 WBC (3.8-10.6) k/uL RBC (4.30-5.90) m/uL Hgb (13.0-17.5) gm/dL Hct (39.0-53.0) % Neutrophils # (1.3-7.7) k/uL ESR (0-15) mm/hr Chloride 109 H (98-107) mmol/L Carbon Dioxide 21 L (22-30) mmol/L BUN 22 H (9-20) mg/dL Glucose 147 H (74-99) mg/dL POC Glucose (mg/dL) 177 H (70-110) mg/dL C-Reactive Protein (<1.0) mg/dL Diabetes panel 04/05/23 04/06/23 Range/Units 16:29 08:28 Sodium 140 138 (137-145) mmol/L Potassium 3.8 4.0 (3.5-5.1) mmol/L Chloride 107 109 H (98-107) mmol/L Carbon Dioxide 22 21 L (22-30) mmol/L BUN 16 22 H (9-20) mg/dL Creatinine 1.09 1.04 (0.66-1.25) mg/dL Glucose 189 H 147 H (74-99) mg/dL Calcium 9.6 8.8 (8.4-10.2) mg/dL AST 19 (17-59) U/L ALT 13 (4-49) U/L Alkaline Phosphatase 98 (38-126) U/L Total Protein 7.6 (6.3-8.2) g/dL Albumin 3.6 (3.5-5.0) g/dL Calcium panel 04/05/23 04/06/23 Range/Units 16:29 08:28 Calcium 9.6 8.8 (8.4-10.2) mg/dL Albumin 3.6 (3.5-5.0) g/dL Pituitary panel 04/05/23 04/06/23 Range/Units 16:29 08:28 Sodium 140 138 (137-145) mmol/L Potassium 3.8 4.0 (3.5-5.1) mmol/L Chloride 107 109 H (98-107) mmol/L Carbon Dioxide 22 21 L (22-30) mmol/L BUN 16 22 H (9-20) mg/dL Creatinine 1.09 1.04 (0.66-1.25) mg/dL Glucose 189 H 147 H (74-99) mg/dL Calcium 9.6 8.8 (8.4-10.2) mg/dL Adrenal panel 04/05/23 04/06/23 Range/Units 16:29 08:28 Sodium 140 138 (137-145) mmol/L Potassium 3.8 4.0 (3.5-5.1) mmol/L Chloride 107 109 H (98-107) mmol/L Carbon Dioxide 22 21 L (22-30) mmol/L BUN 16 22 H (9-20) mg/dL Creatinine 1.09 1.04 (0.66-1.25) mg/dL Glucose 189 H 147 H (74-99) mg/dL Calcium 9.6 8.8 (8.4-10.2) mg/dL Total Bilirubin 0.4 (0.2-1.3) mg/dL AST 19 (17-59) U/L ALT 13 (4-49) U/L Alkaline Phosphatase 98 (38-126) U/L Total Protein 7.6 (6.3-8.2) g/dL Albumin 3.6 (3.5-5.0) g/dL
[2023-04-06] MEDS ORDERED: PIPERACILLIN-TAZOBACTAM 3.375 GM in SODIUM CHLORIDE 0.9% 100 ML IVPB SCH (14:00)
--- NOTE | 2023-04-06 14:06 | P.PN ---
Subjective Progress Note Date: 04/06/23 Hospital Course: 67-year-old male with a history of coronary artery disease status post stent, hypertension, diabetes mellitus presenting with worsening right foot wound. He was previously here. He left AGAINST MEDICAL ADVICE. He does not have a primary care doctor, and has not been taking any medications at home. Vital signs have been within normal limits. Laboratory workup showed leukocytosis and mild normocytic anemia, renal function was normal. Has hyperglycemia. Foot x-r ay shows large soft tissue defect of the heel pad on the right, unclear about osteomyelitis. ID and vascular surgery consulted. Patient currently on IV vancomycin and IV Zosyn. Subjective: Patient seen and examined at bedside. No acute events overnight. Continues to have right foot pain. Pertinent positives and negatives as discussed above, a complete review of systems was performed and all other systems are negative. Vitals Signs Reviewed. General: nontoxic, no distress, appears at stated age Derm: warm, dry, large deep wound over the lateral aspect of right foot near the heel with exposed tendon and bone, bilateral feet swelling Head: atraumatic, normocephalic, symmetric Eyes: EOMI, no lid lag, anicteric sclera Mouth: no lip lesion, mucus membranes moist Cardiovascular: S1S2 reg, no murmur Lungs: CTA bilateral, no rhonchi, no rales , no accessory muscle use Abdominal: soft, nontender to palpation, no guarding, no appreciable organomegaly Ext: no gross muscle atrophy, no edema, no contractures Neuro: CN II-XI grossly intact, no focal neuro deficits Psych: Alert, oriented, appropriate affect Data Reviewed Today: Pertinent Labs: WBC 10, hemoglobin 9.7, bicarb 21, creatinine 1.04, blood sugars range between 147-177 Imaging: No new imaging Assessment and Plan: Active: Diabetic foot ulcer Osteomyelitis suspected Leukocytosis, resolved Type 2 diabetes Medication noncompliance -Vascular surgery note reviewed, recommending amputation, however patient refusing -ID consulted -Continue IV antibiotics, including IV vancomycin, monitor for renal toxicity -Repeat CBC and BMP tomorrow -Continue sliding scale insulin Chronic: Coronary artery disease status post stents Hypertension Chronic normocytic anemia DVT ppx: Subcu heparin Code status: Full code Anticipated discharge place: Pending clinical course Anticipated discharge time: Pending clinical course Objective - Vital Signs Vital signs: Vital Signs Temp 98.3 F 04/06/23 12:00 Pulse 71 04/06/23 12:00 Resp 16 04/06/23 12:00 BP 118/62 04/06/23 12:00 Pulse Ox 94 L 04/06/23 08:14 FiO2 Intake & Output 04/05/23 04/06/23 04/06/23 18:59 06:59 18:59 Weight 83.915 kg - Labs CBC & Chem 7: 04/06/23 08:28 04/06/23 08:28 Labs: Abnormal Lab Results - Last 24 Hours (Table) 04/05/23 04/05/23 04/06/23 Range/Units 16:29 16:29 08:28 WBC 14.9 H (3.8-10.6) k/uL RBC 3.53 L 3.21 L (4.30-5.90) m/uL Hgb 10.5 L 9.7 L (13.0-17.5) gm/dL Hct 32.4 L 29.8 L (39.0-53.0) % Neutrophils # 12.8 H 8.0 H (1.3-7.7) k/uL ESR 114 H (0-15) mm/hr Chloride (98-107) mmol/L Carbon Dioxide (22-30) mmol/L BUN (9-20) mg/dL Glucose 189 H (74-99) mg/dL POC Glucose (mg/dL) (70-110) mg/dL C-Reactive Protein 5.2 H (<1.0) mg/dL 04/06/23 04/06/23 Range/Units 08:28 11:37 WBC (3.8-10.6) k/uL RBC (4.30-5.90) m/uL Hgb (13.0-17.5) gm/dL Hct (39.0-53.0) % Neutrophils # (1.3-7.7) k/uL ESR (0-15) mm/hr Chloride 109 H (98-107) mmol/L Carbon Dioxide 21 L (22-30) mmol/L BUN 22 H (9-20) mg/dL Glucose 147 H (74-99) mg/dL POC Glucose (mg/dL) 177 H (70-110) mg/dL C-Reactive Protein (<1.0) mg/dL
[2023-04-06 16:26] LABS: Glucose,Whole Blood 112 mg/dL (70-110)
[2023-04-06] MEDS: AMPICILLIN-SULBACTAM 3 GM in SODIUM CHLORIDE 0.9% 100 ML IVPB SCH ×2 (17:13→23:58)
[2023-04-06 20:04] LABS: Glucose,Whole Blood 153 mg/dL (70-110)
[2023-04-06] MEDS: ATORVASTATIN 40 MG TAB PO SCH (20:54)
[2023-04-07] MEDS: HYDROcodone/APAP 10-325MG 1 EACH TAB PO PRN ×3 (01:02→20:12)
[2023-04-07 06:19] LABS: Glucose,Whole Blood 116 mg/dL (70-110)
[2023-04-07] MEDS: INSULIN ASPART (NovoLOG) 100 UNIT/ML VIAL SQ SCH ×4 (06:20→20:17)
[2023-04-07] MEDS: AMPICILLIN-SULBACTAM 3 GM in SODIUM CHLORIDE 0.9% 100 ML IVPB SCH ×4 (06:39→22:59)
[2023-04-07 08:18] LABS: Basophils % (A) 0 %; Eosinophils # (A) 0.2 k/uL (0-0.7); Eosinophils % (A) 2 %; HCT 26.9 % (39.0-53.0); HGB 8.7 gm/dL (13.0-17.5); Lymphocytes % (A) 11 %; MCH 29.9 pg (25.0-35.0); MCHC 32.3 g/dL (31.0-37.0); MCV 92.8 fL (80.0-100.0); Monocytes # (A) 0.6 k/uL (0-1.0); Monocytes % (A) 6 %; Neutrophils # (A) 7.8 k/uL (1.3-7.7); Neutrophils % (A) 80 %; Platelet Count 335 k/uL (150-450); RDW 13.6 % (11.5-15.5); WBC 9.8 k/uL (3.8-10.6)
--- NOTE | 2023-04-07 08:20 | P.CONS ---
History of Present Illness - Reason for Consult Consult date: 04/06/23 - History of Present Illness Patient is a 67-year-old male with a past medical history significant for diabetes mellitus hypertension hyperlipidemia patient did have a history of wound to the right foot area with evidence of osteomyelitis in this patient unfortunately did have a severe noncompliance with medical treatment recently admitted to the hospital with maggot infestation patient did have debridement after the patient left AGAINST MEDICAL ADVICE patient now presenting to the hospital concerning for hole in his right foot this wound has been going on for a couple of months now patient mention that he did have a female friend who are taking care of this wound and applying dressing however she fled away along with his medication and dressing and he has nobody to take care of his wound for the patient present to the hospital patient denies having any fever or any chills has been complaining of pain to the right foot wound area to be more of a throbbing and sharp in nature almost 7-8 out of 10 and no radiation patient did have some drainage from the right foot wound daily foul-smelling patient on presentation to the hospital was afebrile and no fever has been recorded subsequently patient was not tachycardic hypertensive did have vital of 14.9 with a left shift creatinine has been normal limits of the normal CRP is 5.2 blood cultures obtained currently pending patient has been evaluated by vascular surgeon recommending debridement he did have x-ray of the foot large soft tissue defect at the heel pad suspicious change for osteomyelitis not radiographically apparent patient was started on vancomycin and Zosyn infectious disease was consulted for further management of antibiotic therapy Past Medical History Past Medical History: Coronary Artery Disease (CAD), Chest Pain / Angina, Heart Failure, Diabetes Mellitus, Hyperlipidemia, Hypertension, Myocardial Infarction ([place]), Vascular Disorder Additional Past Medical History / Comment(s): Diabetic ulcer, ischemic cardiomyopathy Last Myocardial Infarction Date:: unknown History of Any Multi-Drug Resistant Organisms: MRSA Year Discovered:: 12/11/22 MDRO Source:: right heel Past Surgical History: Heart Catheterization, Heart Catheterization With Stent, Orthopedic Surgery Additional Past Surgical History / Comment(s): 2 cardiac stents, bilateral knee replacements, right foot wound debridement,non-compliance Past Anesthesia/Blood Transfusion Reactions: No Reported Reaction Date of Last Stent Placement:: 08/07/22 Past Psychological History: No Psychological Hx Reported Smoking Status: Current every day smoker, Heavy tobacco smoker Past Alcohol Use History: None Reported Additional Past Alcohol Use History / Comment(s): Smokes 1 ppd for 35 -40 yrs. No alcohol in 4 yrs. Past Drug Use History: None Reported - Past Family History Mother Family Medical History: No Reported History Medications and Allergies Home Medications Medication Instructions Recorded Confirmed Type Aspirin 81 mg PO DAILY #30 tab 08/09/22 04/05/23 Rx Clopidogrel [Plavix] 75 mg PO DAILY #30 tab 08/09/22 04/05/23 Rx Furosemide [Lasix] 20 mg PO BID@0900,1600 #60 tab 08/09/22 04/05/23 Rx Isosorbide Mononitrate ER [Imdur] 30 mg PO DAILY #30 tab 08/09/22 04/05/23 Rx Losartan [Cozaar] 25 mg PO DAILY #30 tab 08/09/22 04/05/23 Rx Spironolactone [Aldactone] 12.5 mg PO DAILY #15 tab 08/09/22 04/05/23 Rx Empagliflozin [Jardiance] 10 mg PO DAILY 12/10/22 04/05/23 History Nitroglycerin Sl Tabs [Nitrostat] 0.4 mg SL Q5M PRN 12/10/22 04/05/23 History Atorvastatin [Lipitor] 40 mg PO HS 02/18/23 04/05/23 History Metoprolol Tartrate [Lopressor] 12.5 mg PO BID 02/18/23 04/05/23 History Allergies Allergy/AdvReac Type Severity Reaction Status Date / Time Sulfa (Sulfonamide Allergy Rash/Hives Verified 04/05/23 17:49 Antibiotics) Physical Exam Vitals: Vital Signs Temp Pulse Pulse Resp BP BP Pulse Ox 04/06/23 12:00 98.3 F 71 16 118/62 04/06/23 08:14 98 F 86 20 123/56 94 L 04/06/23 08:00 97.0 F L 65 16 149/72 98 04/06/23 05:00 86 20 123/56 94 L 04/06/23 01:37 98 F 73 19 102/60 100 04/05/23 19:38 69 16 132/64 04/05/23 18:11 97.8 F 71 18 157/93 99 04/05/23 17:03 75 17 159/55 100 04/05/23 15:43 97.8 F 67 18 146/65 100 Intake and Output 04/06/23 04/06/23 04/06/23 06:59 14:59 22:59 Other: Weight 83.915 kg Results CBC & Chem 7: 04/06/23 08:28 04/06/23 08:28 Labs: Abnormal Lab Results - Last 24 Hours (Table) 04/05/23 04/05/23 04/06/23 Range/Units 16:29 16:29 08:28 WBC 14.9 H (3.8-10.6) k/uL RBC 3.53 L 3.21 L (4.30-5.90) m/uL Hgb 10.5 L 9.7 L (13.0-17.5) gm/dL Hct 32.4 L 29.8 L (39.0-53.0) % Neutrophils # 12.8 H 8.0 H (1.3-7.7) k/uL ESR 114 H (0-15) mm/hr Chloride (98-107) mmol/L Carbon Dioxide (22-30) mmol/L BUN (9-20) mg/dL Glucose 189 H (74-99) mg/dL POC Glucose (mg/dL) (70-110) mg/dL C-Reactive Protein 5.2 H (<1.0) mg/dL 04/06/23 04/06/23 Range/Units 08:28 11:37 WBC (3.8-10.6) k/uL RBC (4.30-5.90) m/uL Hgb (13.0-17.5) gm/dL Hct (39.0-53.0) % Neutrophils # (1.3-7.7) k/uL ESR (0-15) mm/hr Chloride 109 H (98-107) mmol/L Carbon Dioxide 21 L (22-30) mmol/L BUN 22 H (9-20) mg/dL Glucose 147 H (74-99) mg/dL POC Glucose (mg/dL) 177 H (70-110) mg/dL C-Reactive Protein (<1.0) mg/dL Assessment and Plan Plan: 1patient with extensive right diabetic foot wound infection in clinic suspicious for osteomyelitis in this patient noticed to have significant worsening of his wound over the last few months because of his noncompliance and leaving AGAINST MEDICAL ADVICE, patient has previously grown MRSA Klebsiella and anaerobes from his wound and could be the likely pathogen. 2await surgical debridement and deep culture. 3check inflammatory markers and a bone scan. 4continue with the vancomycin while watching his kidney function closely however discontinue Zosyn to decrease risk of nephrotoxicity and add Unasyn to cover for the gram-negative and anaerobes. 5local wound care per the surgical team. We will follow on clinical condition and cultures to further adjust medication if needed Thank you for this consultation we will follow the patient along with you Dictation was produced using [employer] dictation software. please excuse any grammatical, word or spelling errors. Time with Patient: Greater than 30
[2023-04-07] MEDS: HEPARIN SODIUM,PORCINE 5,000 UNIT/ML 1 ML VIAL SQ SCH ×3 (08:31→22:58)
[2023-04-07] MEDS: ISOSORBIDE MONONITRATE ER 30 MG TAB.ER.24H PO SCH (08:32)
[2023-04-07] MEDS: ASPIRIN 81 MG PO SCH (08:32)
[2023-04-07] MEDS: CLOPIDOGREL 75 MG TAB PO SCH (08:32)
[2023-04-07] MEDS: VANCOMYCIN 1,500 MG in SODIUM CHLORIDE 0.9% 500 ML 500 ML IVPB SCH (08:32)
[2023-04-07] MEDS: SPIRONOLACTONE 25 MG TAB PO SCH (08:32)
[2023-04-07] MEDS: LOSARTAN 25 MG TAB PO SCH (08:32)
[2023-04-07] MEDS: METOPROLOL TARTRATE 12.5 MG TAB PO SCH ×2 (08:32→20:12)
[2023-04-07 08:47] LABS: African American GFR (CKD) 71 (>60 ml/min/1.73 sqM); Anion Gap 10 mmol/L; Blood Urea Nitrogen 28 mg/dL (9-20); Calcium 8.7 mg/dL (8.4-10.2); Carbon Dioxide 19 mmol/L (22-30); Chloride 108 mmol/L (98-107); Glucose 98 mg/dL (74-99); Non-African American GFR(CKD) 61 (>60 ml/min/1.73 sqM); Potassium 3.9 mmol/L (3.5-5.1); Sodium 137 mmol/L (137-145)
[2023-04-07 11:27] LABS: Glucose,Whole Blood 175 mg/dL (70-110)
--- NOTE | 2023-04-07 13:23 | P.PN ---
Subjective Progress Note Date: 04/07/23 Hospital Course: 67-year-old male with a history of coronary artery disease status post stent, hypertension, diabetes mellitus presenting with worsening right foot wound. He was previously here. He left AGAINST MEDICAL ADVICE. He does not have a primary care doctor, and has not been taking any medications at home. Vital signs have been within normal limits. Laboratory workup showed leukocytosis and mild normocytic anemia, renal function was normal. Has hyperglycemia. Foot x- ray shows large soft tissue defect of the heel pad on the right, unclear about osteomyelitis. ID and vascular surgery consulted. Antibiotics switched to IV vancomycin and IV Unasyn. Subjective: Patient seen and examined at bedside. No acute events overnight. Continues to have right foot pain. Also complaining of slightly decrease in urine output. Does not want to get amputation. Pertinent positives and negatives as discussed above, a complete review of systems was performed and all other systems are negative. Vitals Signs Reviewed. General: nontoxic, no distress, appears at stated age Derm: warm, dry, large deep wound over the lateral aspect of right foot near the heel with exposed tendon and bone, bilateral feet swelling dressing in place. Head: atraumatic, normocephalic, symmetric Eyes: EOMI, no lid lag, anicteric sclera Mouth: no lip lesion, mucus membranes moist Cardiovascular: S1S2 reg, no murmur Lungs: CTA bilateral, no rhonchi, no rales , no accessory muscle use Abdominal: soft, nontender to palpation, no guarding, no appreciable organomegaly Ext: no gross muscle atrophy, no edema, no contractures Neuro: CN II-XI grossly intact, no focal neuro deficits Psych: Alert, oriented, appropriate affect Data Reviewed Today: Pertinent Labs: WBC 9.8, hemoglobin 8.7, bicarb 19, BUN 28, creatinine 1.22, blood sugars range between 116-175, A1c 7 Imaging: No new imaging Assessment and Plan: Active: Diabetic foot ulcer Osteomyelitis suspected Leukocytosis, resolved Type 2 diabetes, A1c 7 Medication noncompliance Chronic normocytic anemia, slightly down trending -Vascular surgery and ID following -Patient does not want to get amputation -Continue IV vancomycin and IV Unasyn, monitor for renal toxicity -Slight uptake in creatinine, strict I's and O's -It may also be because most of his medications were restarted, as he was not taking it at home -Repeat CBC and BMP tomorrow -Continue sliding scale insulin -Patient does not have any active signs of bleeding. Chronic: Coronary artery disease status post stents Hypertension DVT ppx: Subcu heparin Code status: Full code Anticipated discharge place: Pending clinical course Anticipated discharge time: Pending clinical course Objective - Vital Signs Vital signs: Vital Signs Temp 98.0 F 04/07/23 12:00 Pulse 65 04/07/23 12:00 Resp 16 04/07/23 12:00 BP 121/58 04/07/23 12:00 Pulse Ox 100 04/07/23 12:00 FiO2 Intake & Output 04/06/23 04/07/23 04/07/23 18:59 06:59 18:59 Output Total 400 550 Balance -400 -550 Output: Urine 400 550 Other: Voiding Method Urinal Urinal # Voids 2 1 - Labs CBC & Chem 7: 04/07/23 07:54 04/07/23 07:54 Labs: Abnormal Lab Results - Last 24 Hours (Table) 04/06/23 04/06/23 04/07/23 Range/Units 16:25 20:02 06:18 RBC (4.30-5.90) m/uL Hgb (13.0-17.5) gm/dL Hct (39.0-53.0) % Neutrophils # (1.3-7.7) k/uL Chloride (98-107) mmol/L Carbon Dioxide (22-30) mmol/L BUN (9-20) mg/dL POC Glucose (mg/dL) 112 H 153 H 116 H (70-110) mg/dL Hemoglobin A1c (<=6.0) % 04/07/23 04/07/23 04/07/23 Range/Units 07:54 07:54 07:54 RBC 2.90 L (4.30-5.90) m/uL Hgb 8.7 L (13.0-17.5) gm/dL Hct 26.9 L (39.0-53.0) % Neutrophils # 7.8 H (1.3-7.7) k/uL Chloride 108 H (98-107) mmol/L Carbon Dioxide 19 L (22-30) mmol/L BUN 28 H (9-20) mg/dL POC Glucose (mg/dL) (70-110) mg/dL Hemoglobin A1c 7.0 H (<=6.0) % 04/07/23 Range/Units 11:25 RBC (4.30-5.90) m/uL Hgb (13.0-17.5) gm/dL Hct (39.0-53.0) % Neutrophils # (1.3-7.7) k/uL Chloride (98-107) mmol/L Carbon Dioxide (22-30) mmol/L BUN (9-20) mg/dL POC Glucose (mg/dL) 175 H (70-110) mg/dL Hemoglobin A1c (<=6.0) % Microbiology - Last 24 Hours (Table) 04/05/23 14:45 Blood Culture - Preliminary Blood 04/05/23 14:30 Blood Culture - Preliminary Blood
[2023-04-07 14:13] VITALS: BMI 28.1
[2023-04-07 16:34] LABS: Glucose,Whole Blood 145 mg/dL (70-110)
--- NOTE | 2023-04-07 16:50 | P.PN ---
Progress Note - Text 67-year-old gentleman history of diabetes patient has a chronic wound right foot plantar aspect patient was irrigated and then he had a maggots on right foot patient went AGAINST MEDICAL ADVICE and patient was supposed to follow up in the wound clinic for 2 month he came back to the emergency room he has a large wound on the right foot plantar aspect with foul order smell and devitalized tissue metatarsal bone exposed we treated wound culture pending patient and IV antibiotic under infectious disease femorals are 1+ PTDP not palpable large wound on the plantar aspect of the foot today we discussed this gentleman needs a major amputation patient is refusing he wants go home on antibiotic and I'll follow-up in the wound clinic for local wound care prognosis is guarded I will discuss with infectious disease
--- NOTE | 2023-04-07 17:25 | P.PN ---
Subjective Progress Note Date: 04/07/23 Principal diagnosis: Right diabetic foot wound and osteomyelitis Patient is a 67-year-old male with a past medical history significant for diabetes mellitus hypertension hyperlipidemia patient did have a history of wound to the right foot area with evidence of osteomyelitis in this patient unfortunately did have a severe noncompliance with medical treatment and recent ly left AGAINST MEDICAL ADVICE and presented to hospital with worsening wound. On today's evaluation that is 04/07/2023, the patient remains to be afebrile, the patient is breathing comfortably , the patient denies having any chest pain or cough, the patient denies nausea and vomiting no abdominal pain and no diarrhea, patient continued to complaining of pain to the right foot wound area, patient refused to undergo bone scan patient did have white count of 9.8, crit is 1.22, blood cultures are currently pending local cultures pending Objective - Vital Signs Vital signs: Vital Signs Temp 98.0 F 04/07/23 12:00 Pulse 65 04/07/23 12:00 Resp 16 04/07/23 12:00 BP 121/58 04/07/23 12:00 Pulse Ox 100 04/07/23 12:00 FiO2 Intake & Output 04/06/23 04/07/23 04/07/23 18:59 06:59 18:59 Output Total 400 550 Balance -400 -550 Output: Urine 400 550 Other: Voiding Method Urinal Urinal # Voids 2 1 - Exam GENERAL DESCRIPTION: An elderly male lying in bed in no distress RESPIRATORY SYSTEM: Unlabored breathing , decreased breath sounds at bases HEART: S1 S2 regular rate and rhythm , ABDOMEN: Soft , no tenderness EXTREMITIES: Right heel wound is dressed, no drainage on the dressing - Labs CBC & Chem 7: 04/07/23 07:54 04/07/23 07:54 Labs: Abnormal Lab Results - Last 24 Hours (Table) 04/06/23 04/06/23 04/07/23 Range/Units 16:25 20:02 06:18 RBC (4.30-5.90) m/uL Hgb (13.0-17.5) gm/dL Hct (39.0-53.0) % Neutrophils # (1.3-7.7) k/uL Chloride (98-107) mmol/L Carbon Dioxide (22-30) mmol/L BUN (9-20) mg/dL POC Glucose (mg/dL) 112 H 153 H 116 H (70-110) mg/dL Hemoglobin A1c (<=6.0) % 04/07/23 04/07/23 04/07/23 Range/Units 07:54 07:54 07:54 RBC 2.90 L (4.30-5.90) m/uL Hgb 8.7 L (13.0-17.5) gm/dL Hct 26.9 L (39.0-53.0) % Neutrophils # 7.8 H (1.3-7.7) k/uL Chloride 108 H (98-107) mmol/L Carbon Dioxide 19 L (22-30) mmol/L BUN 28 H (9-20) mg/dL POC Glucose (mg/dL) (70-110) mg/dL Hemoglobin A1c 7.0 H (<=6.0) % 04/07/23 Range/Units 11:25 RBC (4.30-5.90) m/uL Hgb (13.0-17.5) gm/dL Hct (39.0-53.0) % Neutrophils # (1.3-7.7) k/uL Chloride (98-107) mmol/L Carbon Dioxide (22-30) mmol/L BUN (9-20) mg/dL POC Glucose (mg/dL) 175 H (70-110) mg/dL Hemoglobin A1c (<=6.0) % Microbiology - Last 24 Hours (Table) 04/05/23 14:45 Blood Culture - Preliminary Blood 04/05/23 14:30 Blood Culture - Preliminary Blood Assessment and Plan (1) Osteomyelitis of right foot Current Visit: Yes Status: Acute Code(s): M86.9 - OSTEOMYELITIS, UNSPECIFIED SNOMED Code(s): 5030597118318780 (2) Diabetic foot ulcer Current Visit: Yes Status: Acute Code(s): E11.621 - TYPE 2 DIABETES MELLITUS WITH FOOT ULCER; L97.509 - NON-PRESSURE CHRONIC ULCER OTH PRT UNSP FOOT W UNSP SEVERITY SNOMED Code(s): 331381766 Plan: 1patient with extensive right diabetic foot wound infection in clinic suspicious for osteomyelitis in this patient noticed to have significant worsening of his wound over the last few months because of his noncompliance and leaving AGAINST MEDICAL ADVICE, patient has previously grown MRSA Klebsiella and anaerobes from his wound and could be the likely pathogen. 2 patient unfortunately has refused bone scan however the patient wound is si gnificantly deep enough reaching the bone as per discussion with the surgeon. 4patient to continue with the vancomycin and Unasyn while waiting for the culture finalized patient will benefit for possible amputation as results of healing of this wound are low keeping in mind his noncompliance Dictation was produced using [employer] dictation software. please excuse any grammatical, word or spelling errors. Time with Patient: Less than 30
[2023-04-07 20:00] LABS: Glucose,Whole Blood 188 mg/dL (70-110)
[2023-04-07] MEDS: ATORVASTATIN 40 MG TAB PO SCH (20:12)
[2023-04-08 06:20] LABS: Glucose,Whole Blood 133 mg/dL (70-110)
[2023-04-08] MEDS: INSULIN ASPART (NovoLOG) 100 UNIT/ML VIAL SQ SCH ×4 (06:31→20:29)
[2023-04-08] MEDS: AMPICILLIN-SULBACTAM 3 GM in SODIUM CHLORIDE 0.9% 100 ML IVPB SCH ×3 (06:57→17:23)
[2023-04-08] MEDS: VANCOMYCIN 1,500 MG in SODIUM CHLORIDE 0.9% 500 ML 500 ML IVPB SCH (08:08)
[2023-04-08] MEDS: HYDROcodone/APAP 10-325MG 1 EACH TAB PO PRN ×3 (08:08→22:13)
[2023-04-08] MEDS: ASPIRIN 81 MG PO SCH (08:09)
[2023-04-08] MEDS: ISOSORBIDE MONONITRATE ER 30 MG TAB.ER.24H PO SCH (08:09)
[2023-04-08] MEDS: CLOPIDOGREL 75 MG TAB PO SCH (08:09)
[2023-04-08] MEDS: HEPARIN SODIUM,PORCINE 5,000 UNIT/ML 1 ML VIAL SQ SCH ×2 (08:09→15:55)
[2023-04-08] MEDS: METOPROLOL TARTRATE 12.5 MG TAB PO SCH ×2 (08:09→20:33)
[2023-04-08] MEDS: LOSARTAN 25 MG TAB PO SCH (08:09)
[2023-04-08] MEDS: SPIRONOLACTONE 25 MG TAB PO SCH (08:09)
--- NOTE | 2023-04-08 10:45 | P.PN ---
Subjective Progress Note Date: 04/08/23 Hospital Course: 67-year-old male with a history of coronary artery disease status post stent, hypertension, diabetes mellitus presenting with worsening right foot wound. He was previously here. He left AGAINST MEDICAL ADVICE. He does not have a primary care doctor, and has not been taking any medications at home. Vital signs have been within normal limits. Laboratory workup showed leukocytosis and mild normocytic anemia, renal function was normal. Has hyperglycemia. Foot x- ray shows large soft tissue defect of the heel pad on the right, unclear about osteomyelitis. ID and vascular surgery consulted. Antibiotics switched to IV vancomycin and IV Unasyn. Recommended to get amputation, however patient refusing. Subjective: Patient seen and examined at bedside. No acute events overnight. Continues to have right foot pain. Does not want to get amputation. Pertinent positives and negatives as discussed above, a complete review of systems was performed and all other systems are negative. Vitals Signs Reviewed. General: nontoxic, no distress, appears at stated age Derm: warm, dry, large deep wound over the lateral aspect of right foot near the heel with exposed tendon and bone, bilateral feet swelling dressing in place. Head: atraumatic, normocephalic, symmetric Eyes: EOMI, no lid lag, anicteric sclera Mouth: no lip lesion, mucus membranes moist Cardiovascular: S1S2 reg, no murmur Lungs: CTA bilateral, no rhonchi, no rales , no accessory muscle use Abdominal: soft, nontender to palpation, no guarding, no appreciable organomegaly Ext: no gross muscle atrophy, no edema, no contractures Neuro: CN II-XI grossly intact, no focal neuro deficits Psych: Alert, oriented, appropriate affect Data Reviewed Today: Pertinent Labs: CBC and BMP pending, will be reviewed when available, glucose range between 133-188 Imaging: No new imaging Assessment and Plan: Active: Diabetic foot ulcer Osteomyelitis suspected Leukocytosis, resolved Type 2 diabetes, A1c 7 Medication noncompliance Chronic normocytic anemia, slightly down trending -Vascular surgery and ID following -Patient does not want to get amputation -Continue IV vancomycin and IV Unasyn, monitor for renal toxicity -Slight uptake in creatinine yesterday, strict I's and O's -It may also be because most of his medications were restarted, as he was not taking it at home -Repeat CBC and BMP pending for today, will be reviewed -Patient would not like to get any amputation, not an ideal candidate for IV antibiotics, as previously he had lost to follow-up -He may need to go to the nursing facility if he wants IV antibiotics, discussed plan of care with ID -Continue sliding scale insulin -Patient does not have any active signs of bleeding. Chronic: Coronary artery disease status post stents Hypertension DVT ppx: Subcu heparin Code status: Full code Anticipated discharge place: Pending clinical course Anticipated discharge time: Pending clinical course Objective - Vital Signs Vital signs: Vital Signs Temp 98.4 F 04/08/23 08:07 Pulse 72 04/08/23 08:07 Resp 16 04/08/23 08:07 BP 140/54 04/08/23 08:07 Pulse Ox 97 04/08/23 08:07 FiO2 Intake & Output 04/07/23 04/08/23 04/08/23 18:59 06:59 18:59 Intake Total 118 237 Output Total 550 750 Balance -432 -513 Weight 83.915 kg Intake: Oral 118 237 Output: Urine 550 750 Other: Voiding Method Urinal # Voids 1 - Labs CBC & Chem 7: 04/07/23 07:54 04/07/23 07:54 Labs: Abnormal Lab Results - Last 24 Hours (Table) 04/07/23 04/07/23 04/07/23 Range/Units 07:54 11:25 16:30 POC Glucose (mg/dL) 175 H 145 H (70-110) mg/dL Hemoglobin A1c 7.0 H (<=6.0) % 04/07/23 04/08/23 Range/Units 19:59 06:19 POC Glucose (mg/dL) 188 H 133 H (70-110) mg/dL Hemoglobin A1c (<=6.0) % Microbiology - Last 24 Hours (Table) 04/05/23 14:45 Blood Culture - Preliminary Blood 04/05/23 14:30 Blood Culture - Preliminary Blood 04/06/23 12:36 Gram Stain - Preliminary Foot - Right
[2023-04-08 11:36] LABS: Glucose,Whole Blood 139 mg/dL (70-110)
[2023-04-08 16:23] LABS: Glucose,Whole Blood 188 mg/dL (70-110)
--- NOTE | 2023-04-08 16:23 | P.PN ---
Subjective Progress Note Date: 04/08/23 Principal diagnosis: Right diabetic foot wound and osteomyelitis Patient is a 67-year-old male with a past medical history significant for diabetes mellitus hypertension hyperlipidemia patient did have a history of wound to the right foot area with evidence of osteomyelitis in this patient unfortunately did have a severe noncompliance with medical treatment and recent ly left AGAINST MEDICAL ADVICE and presented to hospital with worsening wound. On today's evaluation that is 04/08/2023, the patient denies any fever or any chills, the patient is breathing comfortably , the patient denies chest pain or cough, the patient denies nausea and vomiting no abdominal pain and no diarrhea has been reported, patient is still complaining of pain to the right foot wound area, patient refused to undergo bone scan and is refusing surgery patient did have white count of 9.8, creatinine is 1.22 as of yesterday no blood draw today, blood cultures are currently pending local cultures pending Objective - Vital Signs Vital signs: Vital Signs Temp 98.4 F 04/08/23 08:07 Pulse 72 04/08/23 08:07 Resp 16 04/08/23 08:07 BP 140/54 04/08/23 08:07 Pulse Ox 97 04/08/23 08:07 FiO2 Intake & Output 04/07/23 04/08/23 04/08/23 18:59 06:59 18:59 Intake Total 118 237 Output Total 550 750 Balance -432 -513 Weight 83.915 kg Intake: Oral 118 237 Output: Urine 550 750 Other: Voiding Method Urinal # Voids 1 - Exam GENERAL DESCRIPTION: An elderly male lying in bed in no distress RESPIRATORY SYSTEM: Unlabored breathing , decreased breath sounds at bases HEART: S1 S2 regular rate and rhythm , ABDOMEN: Soft , no tenderness EXTREMITIES: Right heel wound is dressed, no drainage on the dressing - Labs CBC & Chem 7: 04/07/23 07:54 04/07/23 07:54 Labs: Abnormal Lab Results - Last 24 Hours (Table) 04/07/23 04/07/23 04/07/23 Range/Units 11:25 16:30 19:59 POC Glucose (mg/dL) 175 H 145 H 188 H (70-110) mg/dL 04/08/23 Range/Units 06:19 POC Glucose (mg/dL) 133 H (70-110) mg/dL Microbiology - Last 24 Hours (Table) 04/05/23 14:45 Blood Culture - Preliminary Blood 04/05/23 14:30 Blood Culture - Preliminary Blood 04/06/23 12:36 Gram Stain - Preliminary Foot - Right Assessment and Plan (1) Osteomyelitis of right foot Current Visit: Yes Status: Acute Code(s): M86.9 - OSTEOMYELITIS, UNSPECIFIED SNOMED Code(s): 0283407116298558 (2) Diabetic foot ulcer Current Visit: Yes Status: Acute Code(s): E11.621 - TYPE 2 DIABETES MELLITUS WITH FOOT ULCER; L97.509 - NON-PRESSURE CHRONIC ULCER OTH PRT UNSP FOOT W UNSP SEVERITY SNOMED Code(s): 974247151 Plan: 1patient with extensive right diabetic foot wound infection in clinic suspicious for osteomyelitis in this patient noticed to have significant worsening of his wound over the last few months because of his noncompliance and leaving AGAINST MEDICAL ADVICE, patient has previously grown MRSA Klebsiella and anaerobes from his wound and could be the likely pathogen. 2 patient unfortunately has refused bone scan however the patient wound is significantly deep enough reaching the bone as per discussion with the surgeon and cultures are currently pending. 4patient to continue with the vancomycin and Unasyn , patient benefit from either amputation or going to a fpc for local wound care as well as IV antibiotic therapy as the patient is not a very good candidate for home IV antibiotic therapy with his past experiences this has been discussed in detail with the admitting team Dictation was produced using [employer] dictation software. please excuse any grammatical, word or spelling errors. Time with Patient: Less than 30
[2023-04-08 20:21] LABS: Glucose,Whole Blood 135 mg/dL (70-110)
[2023-04-08] MEDS: ATORVASTATIN 40 MG TAB PO SCH (20:33)
[2023-04-09] MEDS: HEPARIN SODIUM,PORCINE 5,000 UNIT/ML 1 ML VIAL SQ SCH ×3 (01:12→18:23)
[2023-04-09] MEDS: AMPICILLIN-SULBACTAM 3 GM in SODIUM CHLORIDE 0.9% 100 ML IVPB SCH ×4 (01:12→18:23)
[2023-04-09] MEDS: HYDROcodone/APAP 10-325MG 1 EACH TAB PO PRN ×2 (05:17→21:08)
[2023-04-09] MEDS: INSULIN ASPART (NovoLOG) 100 UNIT/ML VIAL SQ SCH ×4 (06:23→21:08)
[2023-04-09 06:27] LABS: Glucose,Whole Blood 120 mg/dL (70-110)
[2023-04-09] MEDS ORDERED: VANCOMYCIN TROUGH DUE 1 EACH MISC MISCELLANE ONE (07:00)
[2023-04-09 08:18] LABS: Basophils % (A) 0 %; Eosinophils # (A) 0.2 k/uL (0-0.7); Eosinophils % (A) 3 %; HCT 26.2 % (39.0-53.0); HGB 8.6 gm/dL (13.0-17.5); Lymphocytes # (A) 1.2 k/uL (1.0-4.8); Lymphocytes % (A) 15 %; MCH 30.2 pg (25.0-35.0); MCHC 32.8 g/dL (31.0-37.0); MCV 92.1 fL (80.0-100.0); Mean Platelet Volume 7.1; Monocytes # (A) 0.5 k/uL (0-1.0); Monocytes % (A) 7 %; Neutrophils # (A) 6.2 k/uL (1.3-7.7); Neutrophils % (A) 74 %; Platelet Count 335 k/uL (150-450); RBC 2.85 m/uL (4.30-5.90); RDW 13.6 % (11.5-15.5); WBC 8.3 k/uL (3.8-10.6)
[2023-04-09 08:27] LABS: African American GFR (CKD) 70 (>60 ml/min/1.73 sqM); Anion Gap 7 mmol/L; Blood Urea Nitrogen 34 mg/dL (9-20); Calcium 8.9 mg/dL (8.4-10.2); Carbon Dioxide 20 mmol/L (22-30); Chloride 112 mmol/L (98-107); Glucose 118 mg/dL (74-99); Non-African American GFR(CKD) 60 (>60 ml/min/1.73 sqM); Potassium 4.1 mmol/L (3.5-5.1); Sodium 139 mmol/L (137-145)
[2023-04-09] MEDS: ASPIRIN 81 MG PO SCH (09:37)
[2023-04-09] MEDS: SPIRONOLACTONE 25 MG TAB PO SCH (09:37)
[2023-04-09] MEDS: LOSARTAN 25 MG TAB PO SCH (09:37)
[2023-04-09] MEDS: ISOSORBIDE MONONITRATE ER 30 MG TAB.ER.24H PO SCH (09:37)
[2023-04-09] MEDS: METOPROLOL TARTRATE 12.5 MG TAB PO SCH ×2 (09:37→21:08)
[2023-04-09] MEDS: VANCOMYCIN 1,500 MG in SODIUM CHLORIDE 0.9% 500 ML 500 ML IVPB SCH (09:37)
[2023-04-09] MEDS: CLOPIDOGREL 75 MG TAB PO SCH (09:37)
--- NOTE | 2023-04-09 11:07 | P.PN ---
Subjective Progress Note Date: 04/09/23 Hospital Course: 67-year-old male with a history of coronary artery disease status post stent, hypertension, diabetes mellitus presenting with worsening right foot wound. He was previously here. He left AGAINST MEDICAL ADVICE. He does not have a primary care doctor, and has not been taking any medications at home. Vital signs have been within normal limits. Laboratory workup showed leukocytosis and mild normocytic anemia, renal function was normal. Has hyperglycemia. Foot x- ray shows large soft tissue defect of the heel pad on the right, unclear about osteomyelitis. ID and vascular surgery consulted. Antibiotics switched to IV vancomycin and IV Unasyn. Recommended to get amputation, however patient refusing. Agreed to going to nursing facility for IV antibiotics. Subjective: Patient seen and examined at bedside. No acute events overnight. Continues to have right foot pain. Does not want to get amputation. Pertinent positives and negatives as discussed above, a complete review of systems was performed and all other systems are negative. Vitals Signs Reviewed. General: nontoxic, no distress, appears at stated age Derm: warm, dry, large deep wound over the lateral aspect of right foot near the heel with exposed tendon and bone, bilateral feet swelling dressing in place. Head: atraumatic, normocephalic, symmetric Eyes: EOMI, no lid lag, anicteric sclera Mouth: no lip lesion, mucus membranes moist Cardiovascular: S1S2 reg, no murmur Lungs: CTA bilateral, no rhonchi, no rales , no accessory muscle use Abdominal: soft, nontender to palpation, no guarding, no appreciable organomegaly Ext: no gross muscle atrophy, no edema, no contractures Neuro: CN II-XI grossly intact, no focal neuro deficits Psych: Alert, oriented, appropriate affect Data Reviewed Today: Pertinent Labs: WBC 8.3, hemoglobin 8.6, bicarb 20, creatinine 1.24, blood sugars range between 120-188 Imaging: No new imaging Assessment and Plan: Active: Diabetic foot ulcer Osteomyelitis suspected Leukocytosis, resolved Type 2 diabetes, A1c 7 Medication noncompliance Chronic normocytic anemia, slightly down trending -Vascular surgery and ID following -Patient does not want to get amputation -Continue IV vancomycin and IV Unasyn, monitor for renal toxicity, daily BMP -Patient would not like to get any amputation -Patient agreed to go to nursing facility for IV antibiotics -Continue sliding scale insulin -Patient does not have any active signs of bleeding Chronic: Coronary artery disease status post stents Hypertension DVT ppx: Subcu heparin Code status: Full code Anticipated discharge place: Pending clinical course Anticipated discharge time: Pending clinical course Objective - Vital Signs Vital signs: Vital Signs Temp 97.6 F 04/09/23 08:00 Pulse 60 04/09/23 08:00 Resp 18 04/09/23 08:00 BP 160/114 04/09/23 08:00 Pulse Ox 97 04/09/23 08:00 FiO2 Intake & Output 04/08/23 04/09/23 04/09/23 18:59 06:59 18:59 Intake Total 180 240 Output Total 550 900 Balance 180 -550 -660 Intake: Oral 180 240 Output: Urine 550 900 Other: Voiding Method Urinal - Labs CBC & Chem 7: 04/09/23 07:46 04/09/23 07:46 Labs: Abnormal Lab Results - Last 24 Hours (Table) 04/08/23 04/08/23 04/08/23 Range/Units 11:35 16:22 20:19 RBC (4.30-5.90) m/uL Hgb (13.0-17.5) gm/dL Hct (39.0-53.0) % Chloride (98-107) mmol/L Carbon Dioxide (22-30) mmol/L BUN (9-20) mg/dL Glucose (74-99) mg/dL POC Glucose (mg/dL) 139 H 188 H 135 H (70-110) mg/dL 04/09/23 04/09/23 04/09/23 Range/Units 06:23 07:46 07:46 RBC 2.85 L (4.30-5.90) m/uL Hgb 8.6 L (13.0-17.5) gm/dL Hct 26.2 L (39.0-53.0) % Chloride 112 H (98-107) mmol/L Carbon Dioxide 20 L (22-30) mmol/L BUN 34 H (9-20) mg/dL Glucose 118 H (74-99) mg/dL POC Glucose (mg/dL) 120 H (70-110) mg/dL Microbiology - Last 24 Hours (Table) 04/05/23 14:45 Blood Culture - Preliminary Blood 04/05/23 14:30 Blood Culture - Preliminary Blood
[2023-04-09 11:28] LABS: Glucose,Whole Blood 303 mg/dL (70-110)
[2023-04-09 12:13] LABS: Glucose,Whole Blood 280 mg/dL (70-110)
[2023-04-09 16:10] LABS: Glucose,Whole Blood 228 mg/dL (70-110)
[2023-04-09 20:22] LABS: Glucose,Whole Blood 194 mg/dL (70-110)
[2023-04-09] MEDS: ATORVASTATIN 40 MG TAB PO SCH (21:08)
--- NOTE | 2023-04-09 21:42 | P.PN ---
Subjective Progress Note Date: 04/09/23 Principal diagnosis: Right diabetic foot wound and osteomyelitis Patient is a 67-year-old male with a past medical history significant for diabetes mellitus hypertension hyperlipidemia patient did have a history of wound to the right foot area with evidence of osteomyelitis in this patient unfortunately did have a severe noncompliance with medical treatment and recent ly left AGAINST MEDICAL ADVICE and presented to hospital with worsening wound. On today's evaluation that is 04/09/2023, the patient denies having any fever or any chills, the patient is breathing comfortably, the patient denies having any chest pain shortness of breath or cough no nausea vomiting no abdominal pain or diarrhea, the patient denies having any worsening pain to the right foot wound a deanne. Patient is a white count of 8.3 creatinine is 1.24 blood culture so far negative local cultures currently pending. Objective - Vital Signs Vital signs: Vital Signs Temp 97.6 F 04/09/23 08:00 Pulse 60 04/09/23 08:00 Resp 18 04/09/23 08:00 BP 160/114 04/09/23 08:00 Pulse Ox 97 04/09/23 08:00 FiO2 Intake & Output 04/08/23 04/09/23 04/09/23 18:59 06:59 18:59 Intake Total 180 240 Output Total 550 900 Balance 180 -550 -660 Intake: Oral 180 240 Output: Urine 550 900 Other: Voiding Method Urinal - Exam GENERAL DESCRIPTION: An elderly male lying in bed in no distress RESPIRATORY SYSTEM: Unlabored breathing , decreased breath sounds at bases HEART: S1 S2 regular rate and rhythm , ABDOMEN: Soft , no tenderness EXTREMITIES: Right heel wound is dressed, no drainage on the dressing - Labs CBC & Chem 7: 04/09/23 07:46 04/09/23 07:46 Labs: Abnormal Lab Results - Last 24 Hours (Table) 04/08/23 04/08/23 04/09/23 Range/Units 16:22 20:19 06:23 RBC (4.30-5.90) m/uL Hgb (13.0-17.5) gm/dL Hct (39.0-53.0) % Chloride (98-107) mmol/L Carbon Dioxide (22-30) mmol/L BUN (9-20) mg/dL Glucose (74-99) mg/dL POC Glucose (mg/dL) 188 H 135 H 120 H (70-110) mg/dL 04/09/23 04/09/23 04/09/23 Range/Units 07:46 07:46 11:27 RBC 2.85 L (4.30-5.90) m/uL Hgb 8.6 L (13.0-17.5) gm/dL Hct 26.2 L (39.0-53.0) % Chloride 112 H (98-107) mmol/L Carbon Dioxide 20 L (22-30) mmol/L BUN 34 H (9-20) mg/dL Glucose 118 H (74-99) mg/dL POC Glucose (mg/dL) 303 H (70-110) mg/dL 04/09/23 Range/Units 12:11 RBC (4.30-5.90) m/uL Hgb (13.0-17.5) gm/dL Hct (39.0-53.0) % Chloride (98-107) mmol/L Carbon Dioxide (22-30) mmol/L BUN (9-20) mg/dL Glucose (74-99) mg/dL POC Glucose (mg/dL) 280 H (70-110) mg/dL Microbiology - Last 24 Hours (Table) 04/05/23 14:45 Blood Culture - Preliminary Blood 04/05/23 14:30 Blood Culture - Preliminary Blood Assessment and Plan (1) Osteomyelitis of right foot Current Visit: Yes Status: Acute Code(s): M86.9 - OSTEOMYELITIS, UNSPECIFIED SNOMED Code(s): 3752634011692710 (2) Diabetic foot ulcer Current Visit: Yes Status: Acute Code(s): E11.621 - TYPE 2 DIABETES MELLITUS WITH FOOT ULCER; L97.509 - NON-PRESSURE CHRONIC ULCER OTH PRT UNSP FOOT W UNSP SEVERITY SNOMED Code(s): 100367895 Plan: 1patient with extensive right diabetic foot wound infection in clinic suspicious for osteomyelitis in this patient noticed to have significant worsening of his wound over the last few months because of his noncompliance and leaving AGAINST MEDICAL ADVICE, patient has previously grown MRSA Klebsiella and anaerobes from his wound and could be the likely pathogen. 2 patient unfortunately has refused bone scan however the patient wound is sig nificantly deep enough reaching the bone as per discussion with the surgeon and cultures are currently pending. 3patient seem to have finally agreed to go to the [place] [facility] we will place a PICC line for outpatient IV antibiotic therapy currently covered with the vancomycin and Unasyn on the basis of the previous culture as current cultures so far negative. Dictation was produced using [employer] dictation software. please excuse any grammatical, word or spelling errors.
[2023-04-10] MEDS: HEPARIN SODIUM,PORCINE 5,000 UNIT/ML 1 ML VIAL SQ SCH ×2 (00:50→08:42)
[2023-04-10] MEDS: AMPICILLIN-SULBACTAM 3 GM in SODIUM CHLORIDE 0.9% 100 ML IVPB SCH ×3 (00:50→12:35)
[2023-04-10] MEDS: HYDROcodone/APAP 10-325MG 1 EACH TAB PO PRN ×2 (04:13→12:33)
[2023-04-10 05:53] LABS: Glucose,Whole Blood 122 mg/dL (70-110)
[2023-04-10] MEDS: INSULIN ASPART (NovoLOG) 100 UNIT/ML VIAL SQ SCH ×2 (05:55→12:30)
[2023-04-10] MEDS ORDERED: polyethylene glycoL 3350 17 GM POWD.PACK PO STA (08:43)
[2023-04-10] MEDS: VANCOMYCIN 1,500 MG in SODIUM CHLORIDE 0.9% 500 ML 500 ML IVPB SCH (08:58)
[2023-04-10] MEDS: CLOPIDOGREL 75 MG TAB PO SCH (09:00)
[2023-04-10] MEDS: ASPIRIN 81 MG PO SCH (09:00)
[2023-04-10] MEDS: METOPROLOL TARTRATE 12.5 MG TAB PO SCH (09:00)
[2023-04-10] MEDS: SPIRONOLACTONE 25 MG TAB PO SCH (09:00)
[2023-04-10] MEDS ORDERED: SENNOSIDES 8.6 MG TAB PO SCH (09:00)
[2023-04-10] MEDS: LOSARTAN 25 MG TAB PO SCH (09:01)
[2023-04-10] MEDS: ISOSORBIDE MONONITRATE ER 30 MG TAB.ER.24H PO SCH (09:01)
[2023-04-10 09:04] LABS: African American GFR (CKD) 62 (>60 ml/min/1.73 sqM); Anion Gap 11 mmol/L; Blood Urea Nitrogen 36 mg/dL (9-20); Calcium 8.7 mg/dL (8.4-10.2); Carbon Dioxide 20 mmol/L (22-30); Chloride 108 mmol/L (98-107); Glucose 97 mg/dL (74-99); Non-African American GFR(CKD) 54 (>60 ml/min/1.73 sqM); Potassium 4.5 mmol/L (3.5-5.1); Sodium 139 mmol/L (137-145)
[2023-04-10 09:20] LABS: African American GFR (CKD) 62 (>60 ml/min/1.73 sqM); Non-African American GFR(CKD) 54 (>60 ml/min/1.73 sqM)
[2023-04-10] MEDS ORDERED: LIDOCAINE 1% INJ 10MG/ML (5 ML VIAL-PF) SQ ONE (11:12)
[2023-04-10 11:40] LABS: Glucose,Whole Blood 136 mg/dL (70-110)
--- NOTE | 2023-04-10 12:54 | P.DS ---
Providers Date of admission: 04/05/23 19:11 Expected date of discharge: 04/10/23 Attending physician: Justin Bates MD Consults: 04/06/23 04:54 Consult Physician Routine Consulting Provider: Duc Sanchez Consult Reason/Comments: diabetic foot ulcer Do you want consulting provider notified?: Yes, Notify in am 04/06/23 09:12 Consult Physician Routine Consulting Provider: Hanane Graham Consult Reason/Comments: possible osteomelitis Do you want consulting provider notified?: Yes Primary care physician: Stated None Hospital Course: Discharge Diagnosis: Diabetic foot ulcer Osteomyelitis suspected Leukocytosis, resolved Type 2 diabetes, A1c 7 Medication noncompliance Chronic normocytic anemia Coronary artery disease status post stents Hypertension Hospital Course: 67-year-old male with a history of coronary artery disease status post stent, hypertension, diabetes mellitus presenting with worsening right foot wound. He was previously here. He left AGAINST MEDICAL ADVICE. He does not have a primary care doctor, and has not been taking any medications at home. Vital signs have been within normal limits. Laboratory workup showed leukocytosis and mild normocytic anemia, renal function was normal. Has hyperglycemia. Foot x- ray shows large soft tissue defect of the heel pad on the right, unclear about osteomyelitis. ID and vascular surgery consulted. Antibiotics switched to IV vancomycin and IV Unasyn. Recommended to get amputation, however patient refusing. Agreed to going to nursing facility for IV antibiotics. Being discharge on IV vancomycin and IV Unasyn. Due to the extent of ulceration, unlikely to improve with long-term antibiotics. Patient will likely end up needing amputation in the future. Patient seen and examined at bedside. Vital signs reviewed and stable. General: nontoxic, no distress, appears at stated age Derm: warm, dry, large deep wound over the lateral aspect of right foot near the heel with exposed tendon and bone, bilateral feet swelling dressing in place. Head: atraumatic, normocephalic, symmetric Eyes: EOMI, no lid lag, anicteric sclera Mouth: no lip lesion, mucus membranes moist Cardiovascular: S1S2 reg, no murmur Lungs: CTA bilateral, no rhonchi, no rales , no accessory muscle use Abdominal: soft, nontender to palpation, no guarding, no appreciable organomegaly Ext: no gross muscle atrophy, no edema, no contractures Neuro: CN II-XI grossly intact, no focal neuro deficits Psych: Alert, oriented, appropriate affect A total of 33 minutes of time were spent preparing this complex discharge summary. Patient was discharged on 04/10/23 at 1150. Patient Condition at Discharge: Stable Plan - Discharge Summary Discharge Rx Participant: Yes New Discharge Prescriptions: New Ampicillin Sodium/Sulbactam Na [Unasyn 3 gm Vial] 3 gm IVPB Q6H #120 each Vancomycin HCl in 5 % Dextrose [Vancomycin 1 Gram/250 ml-D5w] 1.5 gm IV Q24HR #40 each Sennosides [Senokot] 8.6 mg PO BID tab Acetaminophen Tab [Tylenol] 650 mg PO Q6HR PRN tab PRN Reason: Fever And/ Or Pain Continue Losartan [Cozaar] 25 mg PO DAILY #30 tab Isosorbide Mononitrate ER [Imdur] 30 mg PO DAILY #30 tab Clopidogrel [Plavix] 75 mg PO DAILY #30 tab Empagliflozin [Jardiance] 10 mg PO DAILY Atorvastatin [Lipitor] 40 mg PO HS Spironolactone [Aldactone] 12.5 mg PO DAILY #15 tab Aspirin 81 mg PO DAILY #30 tab Nitroglycerin Sl Tabs [Nitrostat] 0.4 mg SL Q5M PRN PRN Reason: Chest Pain Metoprolol Tartrate [Lopressor] 12.5 mg PO BID Discontinued Furosemide [Lasix] 20 mg PO BID@0900,1600 #60 tab Discharge Medication List Aspirin 81 mg PO DAILY #30 tab 08/09/22 [Rx] Clopidogrel [Plavix] 75 mg PO DAILY #30 tab 08/09/22 [Rx] Isosorbide Mononitrate ER [Imdur] 30 mg PO DAILY #30 tab 08/09/22 [Rx] Losartan [Cozaar] 25 mg PO DAILY #30 tab 08/09/22 [Rx] Spironolactone [Aldactone] 12.5 mg PO DAILY #15 tab 08/09/22 [Rx] Empagliflozin [Jardiance] 10 mg PO DAILY 12/10/22 [History] Nitroglycerin Sl Tabs [Nitrostat] 0.4 mg SL Q5M PRN 12/10/22 [History] Atorvastatin [Lipitor] 40 mg PO HS 02/18/23 [History] Metoprolol Tartrate [Lopressor] 12.5 mg PO BID 02/18/23 [History] Acetaminophen Tab [Tylenol] 650 mg PO Q6HR PRN tab 04/10/23 [Rx] Ampicillin Sodium/Sulbactam Na [Unasyn 3 gm Vial] 3 gm IVPB Q6H #120 each 04/10/23 [Rx] Sennosides [Senokot] 8.6 mg PO BID tab 04/10/23 [Rx] Vancomycin HCl in 5 % Dextrose [Vancomycin 1 Gram/250 ml-D5w] 1.5 gm IV Q24HR #40 each 04/10/23 [Rx] Follow up Appointment(s)/Referral(s): None,Stated [Primary Care Provider] - 1-2 days Hanane Graham MD [STAFF PHYSICIAN] - 2 Weeks Ambulatory/Diagnostic Orders: Basic Metabolic Panel [LAB.AMB] Location: None Selected C Reactive Protein [LAB.AMB] Location: None Selected Complete Blood Count w/diff [LAB.AMB] Location: None Selected Erythrocyte Sedimentation Rate [LAB.AMB] Location: None Selected Patient Instructions/Handouts: Osteomyelitis (DC) Activity/Diet/Wound Care/Special Instructions: Please see your PCP and ID. Discharge Disposition: TRANSFER TO SNF/ECF
--- NOTE | 2023-04-10 13:13 | IR ---
PICC LINE PLACEMENT: HISTORY: Infection requiring long-term antibiotic therapy PROCEDURE: Ultrasound and fluoroscopic guidance of PICC line placement. COMPLICATIONS: None ANESTHESIA: 1. 1% Lidocaine locally. FINDINGS/TECHNIQUE: The procedure was explained to the patient. The risks, complications, benefits and alternatives were discussed and any questions were answered. Informed consent was obtained. The patient was placed supine on the fluoroscopic table and prepped and draped in the usual sterile fash ion. Utilizing a 21 gauge needle and sonographic and fluoroscopic guidance, access in the right bas ilic vein was achieved and there is placement of a 0.018 guidewire. The vein is patent. A 4-F sheat h was placed over the guidewire. The guidewire and dilator were removed and a 4-F. PICC line was letty jumana through the sheath with the tip at the level of the SVC. The sheath was removed, the catheter wa s flushed and sutured into position. The patient was stable throughout the procedure and remained st able upon discharge from the Department of Radiology. The vein puncture was patent under ultrasound. A carrillo scale image was obtained to document patency of the vein punctured. All elements of the maximal barrier technique were utilized. FLUOROSCOPY TIME: DAP 0.0936Gy cm2 IMPRESSION: Successful PICC line placement under ultrasound and fluoroscopic guidance.
--- NOTE | 2023-04-10 14:10 | P.PN ---
Subjective Progress Note Date: 04/10/23 Principal diagnosis: Right diabetic foot wound and osteomyelitis Patient is a 67-year-old male with a past medical history significant for diabetes mellitus hypertension hyperlipidemia patient did have a history of wound to the right foot area with evidence of osteomyelitis in this patient unfortunately did have a severe noncompliance with medical treatment and recent ly left AGAINST MEDICAL ADVICE and presented to hospital with worsening wound. On today's evaluation that is 04/10/2023, the patient is afebrile, the patient is breathing comfortably on room air, the patient denies chest pain and no significant cough, the patient denies nausea and vomiting no abdominal pain and no diarrhea,, the patient denies having any worsening pain to the right foot wound area. Patient is a white count of 8.3 as of yesterday creatinine is 1.35 blood culture so far negative local cultures so far negative Objective - Vital Signs Vital signs: Vital Signs Temp 97.6 F 04/10/23 08:05 Pulse 65 04/10/23 08:05 Resp 18 04/10/23 08:05 BP 141/60 04/10/23 08:05 Pulse Ox 97 04/10/23 08:20 FiO2 21 04/10/23 08:20 Intake & Output 04/09/23 04/10/23 04/10/23 18:59 06:59 18:59 Intake Total 660 Output Total 900 Balance -240 Intake: Oral 660 Output: Urine 900 Other: Voiding Method Urinal Urinal - Exam GENERAL DESCRIPTION: An elderly male lying in bed in no distress RESPIRATORY SYSTEM: Unlabored breathing , decreased breath sounds at bases HEART: S1 S2 regular rate and rhythm , ABDOMEN: Soft , no tenderness EXTREMITIES: Right heel wound is dressed, no drainage on the dressing - Labs CBC & Chem 7: 04/09/23 07:46 04/10/23 07:21 Labs: Abnormal Lab Results - Last 24 Hours (Table) 04/09/23 04/09/23 04/09/23 Range/Units 12:11 16:09 20:21 Chloride (98-107) mmol/L Carbon Dioxide (22-30) mmol/L BUN (9-20) mg/dL Creatinine (0.66-1.25) mg/dL POC Glucose (mg/dL) 280 H 228 H 194 H (70-110) mg/dL 04/10/23 04/10/23 04/10/23 Range/Units 05:51 07:21 07:21 Chloride 108 H (98-107) mmol/L Carbon Dioxide 20 L (22-30) mmol/L BUN 36 H (9-20) mg/dL Creatinine 1.36 H 1.35 H (0.66-1.25) mg/dL POC Glucose (mg/dL) 122 H (70-110) mg/dL Microbiology - Last 24 Hours (Table) 04/06/23 12:36 Gram Stain - Final Foot - Right Tissue Culture - Final Assessment and Plan (1) Osteomyelitis of right foot Current Visit: Yes Status: Acute Code(s): M86.9 - OSTEOMYELITIS, UNSPECIFIED SNOMED Code(s): 1524274358283298 (2) Diabetic foot ulcer Current Visit: Yes Status: Acute Code(s): E11.621 - TYPE 2 DIABETES MELLITUS WITH FOOT ULCER; L97.509 - NON-PRESSURE CHRONIC ULCER OTH PRT UNSP FOOT W UNSP S [facility] SNOMED Code(s): 025978602 Plan: 1patient with extensive right diabetic foot wound infection in clinic suspicious for osteomyelitis in this patient noticed to have significant worsening of his wound over the last few months because of his noncompliance and leaving AGAINST MEDICAL ADVICE, patient has previously grown MRSA Klebsiella and anaerobes from his wound and could be the likely pathogen. 2 patient unfortunately has refused bone scan however the patient wound is significantly deep enough reaching the bone as per discussion with the surgeon and cultures are so far negative 3patient seem to have finally agreed to go to the [facility] patient did got PICC line plan is for vancomycin and Unasyn 6 weeks on the basis of the previous culture grew MRSA Klebsiella and anaerobes. Dictation was produced using [employer]ation software. please excuse any grammatical, word or spelling errors. Time with Patient: Less than 30
[2023-04-10 16:05] VITALS: RESP 16
[2023-04-10 16:12] VITALS: BP 147/66; PULSE 64; TEMP 97.7
== END 2023-04-10 15:57 | DRG 638 ==
LOC: EC 14:04 → 5NMEDONC 19:11 → 3SCARD 04-06 05:37
PROVIDERS: ADMIT Internal Medicine; ATTEND Internal Medicine
PROC: 02HV33Z Insertion of Infusion Device into Superior Vena Cava, Percutaneous Approach (ICD-10-PCS; principal; 2023-04-10 12:10)
DX: E11.69 Type 2 diabetes mellitus with other specified complication (principal); M86.9 Osteomyelitis, unspecified; E11.621 Type 2 diabetes mellitus with foot ulcer; E11.51 Type 2 diabetes mellitus with diabetic peripheral angiopathy without gangrene; D64.9 Anemia, unspecified; E78.5 Hyperlipidemia, unspecified; F17.210 Nicotine dependence, cigarettes, uncomplicated; I25.2 Old myocardial infarction; I25.5 Ischemic cardiomyopathy; I50.9 Heart failure, unspecified; I25.10 Atherosclerotic heart disease of native coronary artery without angina pectoris; I11.0 Hypertensive heart disease with heart failure; L08.9 Local infection of the skin and subcutaneous tissue, unspecified; E11.65 Type 2 diabetes mellitus with hyperglycemia; L97.509 Non-pressure chronic ulcer of other part of unspecified foot with unspecified severity; Z28.310 Unvaccinated for COVID-19; Z88.2 Allergy status to sulfonamides; Z96.653 Presence of artificial knee joint, bilateral; Z95.5 Presence of coronary angioplasty implant and graft; Z91.199 Patient's noncompliance with other medical treatment and regimen due to unspecified reason; Z91.148 Patient's other noncompliance with medication regimen for other reason; Z79.899 Other long term (current) drug therapy; Z79.84 Long term (current) use of oral hypoglycemic drugs; Z79.82 Long term (current) use of aspirin; Z79.02 Long term (current) use of antithrombotics/antiplatelets; Z86.14 Personal history of Methicillin resistant Staphylococcus aureus infection; B87.9 Myiasis, unspecified
CPT/HCPCS: 36415; 36573; 80048; 80053; 80202; 82565; 83036; 83605; 84145; 85025; 85610; 85652; 85730; 86140; 87040; 87070; 87205; 94760; 96365; 96366; 96367; 96375; 96376; 99285

== ENCOUNTER 2023-05-14 12:32 | Inpatient (IN) | payer MEDICARE, OTHER ==
--- NOTE | 2023-05-14 13:31 | ED ---
Skin/Abscess/FB HPI - General Source: patient, EMS, RN notes reviewed Mode of arrival: EMS Limitations: no limitations <Srinivas Mccabe - Last Filed: 05/14/23 13:30> - History of Present Illness MD complaint: other -: days(s) Location: L foot, R foot Severity: moderate Quality: aching Consistency: constant Improves with: none Worsens with: none Associated symptoms: other (Lightheadedness/dizziness) Treatments Prior to Arrival: none <Brandt Byrd - Last Filed: 05/14/23 22:25> - General Chief complaint: Skin/Abscess/Foreign Body Stated complaint: weakness Time Seen by Provider: 05/14/23 13:30 - History of Present Illness Initial comments: 67-year-old male presented from via EMS chief complaint of wound/infection of his feet. Patient states there gradually getting worse. Patient was admitted and left AMA from half-way with a PICC line. They state the PICC line is falling out. Patient states he has large wound on his feet. (Srinivas Mccabe) This patient is a 67-year-old man here to have evaluation of dizziness. The patient also gives history of foot ulcers which are chronic and he states not much different. He states that the real reason the ambulance was called his because he was feeling weak and dizzy and it was hard to get around, therefore his neighbor called the ambulance. The patient as noted above had been to receive course of antibiotics through PICC line related to his foot ulcers, but states that he left AGAINST MEDICAL ADVICE because there were issues related to the timing of the medication and the fact that he wanted to be at his home. He states he has not had any antibiotic treatment for about a month now. (Brandt Byrd) - Related Data Home Medications Medication Instructions Recorded Confirmed Empagliflozin [Jardiance] 10 mg PO DAILY 12/10/22 05/14/23 Nitroglycerin Sl Tabs [Nitrostat] 0.4 mg SL Q5M PRN 12/10/22 05/14/23 Atorvastatin [Lipitor] 40 mg PO HS 02/18/23 05/14/23 Metoprolol Tartrate [Lopressor] 12.5 mg PO BID 02/18/23 05/14/23 Previous Rx's Medication Instructions Recorded Aspirin 81 mg PO DAILY #30 tab 08/09/22 Clopidogrel [Plavix] 75 mg PO DAILY #30 tab 08/09/22 Isosorbide Mononitrate ER [Imdur] 30 mg PO DAILY #30 tab 08/09/22 Losartan [Cozaar] 25 mg PO DAILY #30 tab 08/09/22 Spironolactone [Aldactone] 12.5 mg PO DAILY #15 tab 08/09/22 Acetaminophen Tab [Tylenol] 650 mg PO Q6HR PRN tab 04/10/23 Sennosides [Senokot] 8.6 mg PO BID tab 04/10/23 Allergies Allergy/AdvReac Type Severity Reaction Status Date / Time Sulfa (Sulfonamide Allergy Rash/Hives Verified 05/14/23 19:40 Antibiotics) Review of Systems ROS Other: All systems not noted in ROS Statement are negative. <Srinivas Mccabe - Last Filed: 05/14/23 13:30> ROS Other: All systems not noted in ROS Statement are negative. Constitutional: Reports: weakness. Denies: fever, chills Respiratory: Denies: cough, dyspnea Cardiovascular: Denies: chest pain Gastrointestinal: Denies: abdominal pain, nausea, vomiting Skin: Reports: as per HPI, lesions (Chronic foot ulcers) Neurological: Denies: headache, weakness <Brandt Byrd - Last Filed: 05/14/23 22:25> ROS Statement: Those systems with pertinent positive or pertinent negative responses have been documented in the HPI. Past Medical History Past Medical History: Coronary Artery Disease (CAD), Chest Pain / Angina, Heart Failure, Diabetes Mellitus, Hyperlipidemia, Hypertension, Myocardial Infarction (MO), Vascular Disorder Additional Past Medical History / Comment(s): Diabetic ulcer, ischemic cardiomyopathy Last Myocardial Infarction Date:: unknown History of Any Multi-Drug Resistant Organisms: MRSA Date of last positivie culture/infection: 12/11/22 MDRO Source:: right heel Past Surgical History: Heart Catheterization, Heart Catheterization With Stent, Orthopedic Surgery Additional Past Surgical History / Comment(s): 2 cardiac stents, bilateral knee replacements, right foot wound debridement,non-compliance Past Anesthesia/Blood Transfusion Reactions: No Reported Reaction Date of Last Stent Placement:: 08/07/22 Past Psychological History: No Psychological Hx Reported Smoking Status: Current every day smoker, Heavy tobacco smoker Past Alcohol Use History: None Reported Past Drug Use History: None Reported - Past Family History Mother Family Medical History: No Reported History <Srinivas Mccabe - Last Filed: 05/14/23 13:30> General Exam Limitations: no limitations <Srinivas Mccabe - Last Filed: 05/14/23 13:30> Limitations: no limitations General appearance: alert Head exam: Present: atraumatic, normocephalic Eye exam: Present: normal appearance Neck exam: Present: normal inspection Respiratory exam: Present: normal lung sounds bilaterally. Absent: respiratory distress, wheezes, rales, rhonchi, stridor Cardiovascular Exam: Present: regular rate, normal rhythm, normal heart sounds. Absent: systolic murmur, diastolic murmur, rubs, gallop GI/Abdominal exam: Present: soft. Absent: distended, tenderness, guarding, rebound, rigid, mass Extremities exam: Present: normal capillary refill, other (Large chronic ulceration (stage 3)to the plantar aspect of the right foot, probably approximately 10 x 12 cm no definite exposed bone. No purulent drainage. Also approximately 3 cm diameter ulceration dorsal aspect left foot) Back exam: Present: normal inspection. Absent: CVA tenderness (R), CVA tenderness (L) Neurological exam: Present: alert Skin exam: Present: warm, dry, intact, normal color. Absent: rash <Brandt Byrd - Last Filed: 05/14/23 22:25> - General Exam Comments Initial Comments: Visual Physical Exam Vital signs reviewed General: Well-appearing, nontoxic, no acute distress. Head: Normocephalic, atraumatic Eyes: PERRLA, EOMI ENT: Airway patent Chest: Nonlabored breathing Skin: No visual rash, normal skin tone Neuro: Alert and oriented 3 Musculoskeletal: No gross abnormalities (Srinivas Mccabe) Course Vital Signs 05/14/23 12:54 Temperature 98.8 F Pulse Rate 79 Respiratory 18 Rate Blood Pressure 115/57 O2 Sat by Pulse 98 Oximetry Medical Decision Making <Srinivas Mccabe - Last Filed: 05/14/23 13:30> - Lab Data Result diagrams: 05/14/23 15:27 05/14/23 15:27 <Brandt Byrd - Last Filed: 05/14/23 22:25> - Medical Decision Making I completed the quick note portion of this chart signed Srinivas Mccabe PA-C (Srinivas Mccabe) - Lab Data Lab Results 05/14/23 05/14/23 05/14/23 Range/Units 15:27 15:27 15:27 WBC 7.3 (3.8-10.6) k/uL RBC 3.50 L (4.30-5.90) m/uL Hgb 10.8 L (13.0-17.5) gm/dL Hct 34.1 L (39.0-53.0) % MCV 97.4 D (80.0-100.0) fL MCH 30.9 (25.0-35.0) pg MCHC 31.7 (31.0-37.0) g/dL RDW 15.5 (11.5-15.5) % Plt Count 281 (150-450) k/uL MPV 8.1 Neutrophils % 85 % Lymphocytes % 9 % Monocytes % 4 % Eosinophils % 1 % Basophils % 0 % Neutrophils # 6.2 (1.3-7.7) k/uL Lymphocytes # 0.6 L (1.0-4.8) k/uL Monocytes # 0.3 (0-1.0) k/uL Eosinophils # 0.1 (0-0.7) k/uL Basophils # 0.0 (0-0.2) k/uL Hypochromasia Marked Poikilocytosis Slight Macrocytosis Slight ESR Cancelled Sodium 141 (137-145) mmol/L Potassium 4.4 (3.5-5.1) mmol/L Chloride 110 H (98-107) mmol/L Carbon Dioxide 22 (22-30) mmol/L Anion Gap 9 mmol/L BUN 23 H (9-20) mg/dL Creatinine 0.89 (0.66-1.25) mg/dL Est GFR (CKD-EPI)AfAm >90 (>60 ml/min/1.73 sqM) Est GFR (CKD-EPI)NonAf 89 (>60 ml/min/1.73 sqM) Glucose 78 (74-99) mg/dL Plasma Lactic Acid Julien 1.8 (0.7-2.0) mmol/L Calcium 8.7 (8.4-10.2) mg/dL Magnesium 1.9 (1.6-2.3) mg/dL Total Bilirubin 1.1 (0.2-1.3) mg/dL AST 43 (17-59) U/L ALT 21 (4-49) U/L Alkaline Phosphatase 106 (38-126) U/L C-Reactive Protein 2.4 H (<1.0) mg/dL Total Protein 7.5 (6.3-8.2) g/dL Albumin 3.7 (3.5-5.0) g/dL Disposition <Srinivas Mccabe - Last Filed: 05/14/23 13:30> Is patient prescribed a controlled substance at d/c from ED?: No <Barndt Byrd - Last Filed: 05/14/23 22:25> Clinical Impression: Diabetic foot ulcer, Foot osteomyelitis, right Disposition: ADMITTED IP TO THIS HOSP Condition: Fair
[2023-05-14 15:39] LABS: Basophils % (A) 0 %; Eosinophils # (A) 0.1 k/uL (0-0.7); Eosinophils % (A) 1 %; HCT 34.1 % (39.0-53.0); HGB 10.8 gm/dL (13.0-17.5); Hypochromasia Marked; Lymphocytes # (A) 0.6 k/uL (1.0-4.8); Lymphocytes % (A) 9 %; MCH 30.9 pg (25.0-35.0); MCHC 31.7 g/dL (31.0-37.0); Macrocytosis Slight; Mean Platelet Volume 8.1; Monocytes # (A) 0.3 k/uL (0-1.0); Monocytes % (A) 4 %; Neutrophils # (A) 6.2 k/uL (1.3-7.7); Neutrophils % (A) 85 %; Platelet Count 281 k/uL (150-450); Poikilocytosis Slight; RDW 15.5 % (11.5-15.5); WBC 7.3 k/uL (3.8-10.6)
[2023-05-14 15:48] LABS: MCV 97.4 fL (80.0-100.0)
[2023-05-14 15:51] LABS: African American GFR (CKD) >90 (>60 ml/min/1.73 sqM); Albumin 3.7 g/dL (3.5-5.0); Blood Urea Nitrogen 23 mg/dL (9-20); C Reactive Protein 2.4 mg/dL (<1.0); Carbon Dioxide 22 mmol/L (22-30); Chloride 110 mmol/L (98-107); Non-African American GFR(CKD) 89 (>60 ml/min/1.73 sqM); Total Bilirubin 1.1 mg/dL (0.2-1.3); Total Protein 7.5 g/dL (6.3-8.2)
[2023-05-14 16:05] LABS: ALT 21 U/L (4-49); AST 43 U/L (17-59); Alkaline Phosphatase 106 U/L (38-126); Anion Gap 9 mmol/L; Calcium 8.7 mg/dL (8.4-10.2); Glucose 78 mg/dL (74-99); Magnesium 1.9 mg/dL (1.6-2.3); Sodium 141 mmol/L (137-145)
[2023-05-14 16:15] LABS: Potassium 4.4 mmol/L (3.5-5.1)
--- NOTE | 2023-05-14 16:17 | XR ---
EXAMINATION TYPE: XR chest 1V DATE OF EXAM: 05/14/2023 COMPARISON: None HISTORY: 67-year-old male with weakness and pain TECHNIQUE: Single frontal view of the chest is obtained. FINDINGS: Heart mildly enlarged. Interstitial prominence. Some possible trace fluid thickening the m inor fissure and blunting the right costophrenic angle. IMPRESSION: Correlate for CHF with pulmonary vascular congestion. Suspect trace effusion on the righ t.
--- NOTE | 2023-05-14 16:22 | XR ---
EXAMINATION TYPE: XR foot complete 3 views bilateral DATE OF EXAM: 05/14/2023 Comparison: Right foot from 04/05/2023 Clinical History: 67-year-old male pain, infections Findings: Left: There is generalized soft tissue swelling. Onychomycosis. There is degenerative change tibiotalar dawson nt. Vascular calcifications. Small posterior and plantar heel spurs. No matt lytic destruction or ac kevin fracture is seen. Right: Generalized soft tissue swelling. Small posterior calcaneal spur. Vascular calcifications. Mild degen erative spurring tibiotalar joint. Bipartite tibial sesamoid. Onychomycosis. Truncated appearance to the first distal phalangeal tuft appears old/chronic. There appears to be a deep wound along the late ral hindfoot and sagittal cortical erosion lateral calcaneal body. Impression: 1. Right: Large soft tissue ulcer lateral hindfoot. There is underlying subtle cortical erosion along the lateral calcaneal body on the oblique view. Findings concerning for early osteomyelitis. 2. Prominent generalized soft tissue swelling on both sides. No convincing radiographic findings of o steomyelitis on the left. Short interval follow-up with [facility] imaging if persistent concern at a ny particular site.
[2023-05-14] MEDS ORDERED: NALOXONE 0.4 MG/ML 1 ML VIAL IV PRN (22:12)
[2023-05-14] MEDS ORDERED: MAG HYDROX/AL HYDROX/SIMETH 30 ML CUP PO PRN (22:12)
[2023-05-14] MEDS ORDERED: ONDANSETRON 4 MG/2 ML VIAL IVP PRN (22:12)
[2023-05-14] MEDS ORDERED: ACETAMINOPHEN TAB 325 MG TAB PO PRN (22:12)
[2023-05-14] MEDS ORDERED: VANCOMYCIN IV PER PHARMACY 1 EACH MISC MISCELLANE PRN (22:17)
[2023-05-14] MEDS ORDERED: VANCOMYCIN 1,500 MG in SODIUM CHLORIDE 0.9% 500 ML 500 ML IVPB STA (22:21)
[2023-05-14] MEDS: SODIUM CHLORIDE 0.9% 1,000 ML IV SCH (22:38)
[2023-05-14] MEDS: PIPERACILLIN-TAZOBACTAM 3.375 GM in SODIUM CHLORIDE 0.9% 100 ML IVPB SCH (22:39)
[2023-05-14] MEDS ORDERED: HYDROcodone/APAP 5-325MG 1 EACH TAB ONE (22:40)
[2023-05-15] MEDS ORDERED: DEXTROSE 50% SYRINGE 50 ML IVP ONE (01:35)
[2023-05-15 05:42] LABS: Glucose,Whole Blood 54 mg/dL (70-110)
[2023-05-15 05:42] LABS: Glucose,Whole Blood 34 mg/dL (70-110)
[2023-05-15 05:42] LABS: Glucose,Whole Blood 109 mg/dL (70-110)
[2023-05-15 05:42] LABS: Glucose,Whole Blood 43 mg/dL (70-110)
[2023-05-15 05:42] LABS: Glucose,Whole Blood 97 mg/dL (70-110)
[2023-05-15 05:42] LABS: Glucose,Whole Blood 44 mg/dL (70-110)
[2023-05-15] MEDS: HYDROcodone/APAP 5-325MG 1 EACH TAB PO PRN ×3 (06:20→20:36)
[2023-05-15 09:38] LABS: Glucose,Whole Blood <20 mg/dL (70-110)
[2023-05-15] MEDS: DEXTROSE 50% SYRINGE 50 ML IVP PRN ×4 (09:40→17:41)
[2023-05-15 09:42] LABS: Glucose,Whole Blood 51 mg/dL (70-110)
[2023-05-15 10:03] LABS: Glucose,Whole Blood 32 mg/dL (70-110)
[2023-05-15 10:03] LABS: Glucose,Whole Blood 47 mg/dL (70-110)
[2023-05-15] MEDS: PIPERACILLIN-TAZOBACTAM 3.375 GM in SODIUM CHLORIDE 0.9% 100 ML IVPB SCH ×2 (10:06→16:02)
[2023-05-15] MEDS: FAMOTIDINE 20 MG TAB PO SCH ×2 (10:09→20:34)
[2023-05-15 10:33] LABS: Glucose,Whole Blood 113 mg/dL (70-110)
[2023-05-15] MEDS ORDERED: NITROGLYCERIN SL TABS 0.4 MG TAB SUBLINGUAL PRN (11:29)
[2023-05-15] MEDS ORDERED: ACETAMINOPHEN TAB 325 MG TAB PO PRN (11:29)
[2023-05-15] MEDS ORDERED: VANCOMYCIN 1,500 MG in SODIUM CHLORIDE 0.9% 500 ML 500 ML IVPB SCH (12:00)
[2023-05-15 12:17] LABS: Glucose,Whole Blood 111 mg/dL (70-110)
[2023-05-15] MEDS: LOSARTAN 25 MG TAB PO SCH (13:12)
[2023-05-15] MEDS: METOPROLOL TARTRATE 12.5 MG TAB PO SCH ×2 (13:12→20:34)
[2023-05-15] MEDS: VANCOMYCIN 1,500 MG in SODIUM CHLORIDE 0.9% 500 ML 500 ML IVPB SCH (16:02)
[2023-05-15] MEDS ORDERED: LIDOCAINE 1% INJ 10MG/ML (20 ML MDV) SQ ONE (16:24)
[2023-05-15 17:13] LABS: Glucose,Whole Blood 54 mg/dL (70-110)
[2023-05-15 17:34] LABS: Glucose,Whole Blood 58 mg/dL (70-110)
--- NOTE | 2023-05-15 17:41 | P.GSCN ---
History of Present Illness History of present illness: 67-year-old gentleman who came to the emergency room with history of weakness and dizziness he was brought in by the ambulance his been admitted admitted. I have seen this patient in about 5 months ago and he came maggots on his right foot plantar aspect we did the debridement debridement and he was getting treatment he left AGAINST MEDICAL ADVICE patient never followed up in the wound clinic. I was consulted patient has a wound on the right heel plantar aspects measurement is 6 x 4 x 1 cm and rolled right dorsum suspected 1 1 x 1 cm. And left dorsum aspect aspect of the foot patient has a wound 3 3 x 2 cm Medical history history of diabetes coronary artery disease hypertension On examination neck is supple no bruit appreciated Chest is clear good and both lungs first and second sound normal abdomen is soft nontender Femorals are 1+ bilateral patient has a large chronic wound from the plantar aspect measurement is 6 x 4 x 1 cm and right dorsum suspected 1 x 1 cm and left dorsal suspect 3 x [address] the medihoney gel patient wants to be taken to the OR under to put to sleep for wound debridement. Plan is to continue with medihoney gel and patient be changed daily follow with you Past Medical History Past Medical History: Coronary Artery Disease (CAD), Chest Pain / Angina, Heart Failure, Diabetes Mellitus, Hyperlipidemia, Hypertension, Myocardial Infarction (SD), Vascular Disorder Additional Past Medical History / Comment(s): Diabetic ulcer, ischemic cardiomyopathy Last Myocardial Infarction Date:: unknown History of Any Multi-Drug Resistant Organisms: MRSA Year Discovered:: 12/11/22 MDRO Source:: right heel Past Surgical History: Heart Catheterization, Heart Catheterization With Stent, Orthopedic Surgery Additional Past Surgical History / Comment(s): 2 cardiac stents, bilateral knee replacements, right foot wound debridement,non-compliance Past Anesthesia/Blood Transfusion Reactions: No Reported Reaction Date of Last Stent Placement:: 08/07/22 Past Psychological History: No Psychological Hx Reported Smoking Status: Current every day smoker, Heavy tobacco smoker Past Alcohol Use History: None Reported Additional Past Alcohol Use History / Comment(s): Smokes 1 ppd for 35 -40 yrs. No alcohol in 4 yrs. Past Drug Use History: None Reported - Past Family History Mother Family Medical History: No Reported History Medications and Allergies Home Medications Medication Instructions Recorded Confirmed Type Aspirin 81 mg PO DAILY #30 tab 08/09/22 05/14/23 Rx Clopidogrel [Plavix] 75 mg PO DAILY #30 tab 08/09/22 05/14/23 Rx Isosorbide Mononitrate ER [Imdur] 30 mg PO DAILY #30 tab 08/09/22 05/14/23 Rx Losartan [Cozaar] 25 mg PO DAILY #30 tab 08/09/22 05/14/23 Rx Spironolactone [Aldactone] 12.5 mg PO DAILY #15 tab 08/09/22 05/14/23 Rx Empagliflozin [Jardiance] 10 mg PO DAILY 12/10/22 05/14/23 History Nitroglycerin Sl Tabs [Nitrostat] 0.4 mg SL Q5M PRN 12/10/22 05/14/23 History Atorvastatin [Lipitor] 40 mg PO HS 02/18/23 05/14/23 History Metoprolol Tartrate [Lopressor] 12.5 mg PO BID 02/18/23 05/14/23 History Acetaminophen Tab [Tylenol] 650 mg PO Q6HR PRN tab 04/10/23 05/14/23 Rx Sennosides [Senokot] 8.6 mg PO BID tab 04/10/23 05/14/23 Rx Allergies Allergy/AdvReac Type Severity Reaction Status Date / Time Sulfa (Sulfonamide Allergy Rash/Hives Verified 05/14/23 19:40 Antibiotics) Surgical - Exam Vital Signs Temp Pulse Resp BP Pulse Ox 98.8 F 79 18 115/57 98 05/14/23 12:54 05/14/23 12:54 05/14/23 12:54 05/14/23 12:54 05/14/23 12:54 Results - Labs 05/14/23 15:27 05/15/23 10:27 Abnormal Lab Results - Last 24 Hours (Table) 05/14/23 05/15/23 05/15/23 Range/Units 19:09 00:30 00:52 ESR 51 H (0-20) mm/Hr Glucose (74-99) mg/dL POC Glucose (mg/dL) 44 L 54 L (70-110) mg/dL 05/15/23 05/15/23 05/15/23 Range/Units 01:26 01:28 09:37 ESR (0-20) mm/Hr Glucose (74-99) mg/dL POC Glucose (mg/dL) 34 L 43 L <20 L (70-110) mg/dL 05/15/23 05/15/23 05/15/23 Range/Units 09:41 09:54 10:02 ESR (0-20) mm/Hr Glucose (74-99) mg/dL POC Glucose (mg/dL) 51 L 47 L 32 L (70-110) mg/dL 05/15/23 05/15/23 05/15/23 Range/Units 10:27 10:32 12:16 ESR (0-20) mm/Hr Glucose 108 H (74-99) mg/dL POC Glucose (mg/dL) 113 H 111 H (70-110) mg/dL 05/15/23 05/15/23 Range/Units 17:10 17:32 ESR (0-20) mm/Hr Glucose (74-99) mg/dL POC Glucose (mg/dL) 54 L 58 L (70-110) mg/dL Diabetes panel 05/15/23 Range/Units 10:27 Glucose 108 H (74-99) mg/dL Pituitary panel 05/15/23 Range/Units 10:27 Glucose 108 H (74-99) mg/dL Adrenal panel 05/15/23 Range/Units 10:27 Glucose 108 H (74-99) mg/dL
[2023-05-15] MEDS: DEXTROSE 5%-0.9% NACL 1,000 ML IV SCH (17:57)
[2023-05-15 18:05] LABS: Glucose,Whole Blood 118 mg/dL (70-110)
[2023-05-15 18:05] LABS: Glucose,Whole Blood >600 mg/dL (70-110)
[2023-05-15 19:08] LABS: Glucose,Whole Blood 121 mg/dL (70-110)
[2023-05-15 20:14] LABS: Glucose,Whole Blood 140 mg/dL (70-110)
[2023-05-15] MEDS: SENNOSIDES 8.6 MG TAB PO SCH (20:34)
[2023-05-15] MEDS: ZOLPIDEM 5 MG TAB PO SCH (20:34)
[2023-05-15] MEDS: ATORVASTATIN 40 MG TAB PO SCH (20:34)
[2023-05-15] MEDS: IPRATROPIUM-ALBUTEROL 3 ML NEB INHALATION SCH (20:45)
[2023-05-15 21:19] LABS: Glucose,Whole Blood 137 mg/dL (70-110)
--- NOTE | 2023-05-15 22:02 | HP ---
HISTORY AND PHYSICAL HISTORY OF PRESENT ILLNESS: A 67-year-old white male came with wound infection in his feet getting worse. He left AMA from the [facility]. He said the PICC line fell out. He has a large wound on his right foot . He came in for dizziness and worsening foot infection. He feels weak and dizzy, so he came in from home. HOME MEDICATIONS: That he is compliant with: 1. Jardiance 10 mg daily. 2. Lipitor 40 daily. 3. Lopressor 12.5 b.i.d. 4. Nitroglycerin sublingual. ALLERGIES: Sulfa. REVIEW OF SYSTEMS: Fourteen-point review of systems is otherwise negative except for shortness of breath and dyspnea. PAST MEDICAL HISTORY: Coronary artery disease, heart failure, diabetes, hypertension, valvular heart disease, and history of MRSA. PAST SURGICAL HISTORY: Heart catheterization with stent and orthopedic surgery. SOCIAL HISTORY: Current everyday smoker. No alcohol or drugs. PHYSICAL EXAMINATION: VITAL SIGNS: Reviewed. Temperature 98.8, pulse 79, respiratory rate 18, blood pressure 115/57. CARDIOVASCULAR: S1 and S2. Tachycardic. LUNGS: Decreased breath sounds x4. HEMATOLOGY: Negative Homans. EXTREMITIES: Foot shows a large ulceration in his lateral foot, for which, Vascular and Infectious Disease. He has a necrotic base to it. He has swelling of his knees from arthritis. LABORATORY DATA: Hemoglobin is 10.3. BUN is 23, creatinine is 0.89. ASSESSMENT AND PLAN: 1. Diabetic foot ulcer. 2. Foot osteomyelitis, severe. Large amount of his foot is removed. Get Vascular involved. Prognosis is guarded. Infectious Disease consult and Vascular consult. IV antibiotics. MMODL / IJN: [id number] /
[2023-05-15 22:18] LABS: Glucose,Whole Blood 135 mg/dL (70-110)
[2023-05-15] MEDS: SODIUM CHLORIDE 0.9% 1,000 ML IV SCH (22:25)
--- NOTE | 2023-05-15 23:06 | P.CONS ---
History of Present Illness - Reason for Consult Consult date: 05/15/23 - History of Present Illness Patient is a 67-year-old male with a past medical history significant for diabetes mellitus hypertension hyperlipidemia [place] coronary artery disease patient did have a chronic nonhealing wound to the right foot and the patient has been very noncompliant with his treatment has signed out multiple times AGAINST MEDICAL ADVICE last time he did went to the intermediate and the patient was sent on IV to by therapy apparently the patient left AMA from the intermediate with the PICC line patient presenting to [facility] yesterday for evaluation of dizziness symptom has been getting worse for the last few days. Been feeling weak and dizzy and was hard to get around there. His neighbor called the ambulance patient did have a nonhealing wound to the right foot plantar aspect which has been there for couple of months now patient did have some neuropathy denies significant pain to the wound area and denies having any foul-smelling drainage no headache or URI symptoms no chest pain shortness of the cough no abdominal pain or diarrhea on presentation to hospital patient w as afebrile and no fever has been ordered subsequently patient did have a normal white count creatinine 0.89 patient did have a x-ray of the foot large soft tissue ulcer lateral midfoot underlying cortical erosion findings concerning for osteomyelitis generalized soft tissue swelling on both side patient was started on vancomycin and Zosyn infectious disease was consulted for further management of antibiotic therapy Past Medical History Past Medical History: Coronary Artery Disease (CAD), Chest Pain / Angina, Heart Failure, Diabetes Mellitus, Hyperlipidemia, Hypertension, Myocardial Infarction ([place]), Vascular Disorder Additional Past Medical History / Comment(s): Diabetic ulcer, ischemic cardiomyopathy Last Myocardial Infarction Date:: unknown History of Any Multi-Drug Resistant Organisms: MRSA Year Discovered:: 12/11/22 MDRO Source:: right heel Past Surgical History: Heart Catheterization, Heart Catheterization With Stent, Orthopedic Surgery Additional Past Surgical History / Comment(s): 2 cardiac stents, bilateral knee replacements, right foot wound debridement,non-compliance Past Anesthesia/Blood Transfusion Reactions: No Reported Reaction Date of Last Stent Placement:: 08/07/22 Past Psychological History: No Psychological Hx Reported Smoking Status: Current every day smoker, Heavy tobacco smoker Past Alcohol Use History: None Reported Past Drug Use History: None Reported - Past Family History Mother Family Medical History: No Reported History Medications and Allergies Home Medications Medication Instructions Recorded Confirmed Type Aspirin 81 mg PO DAILY #30 tab 08/09/22 05/14/23 Rx Clopidogrel [Plavix] 75 mg PO DAILY #30 tab 08/09/22 05/14/23 Rx Isosorbide Mononitrate ER [Imdur] 30 mg PO DAILY #30 tab 08/09/22 05/14/23 Rx Losartan [Cozaar] 25 mg PO DAILY #30 tab 08/09/22 05/14/23 Rx Spironolactone [Aldactone] 12.5 mg PO DAILY #15 tab 08/09/22 05/14/23 Rx Empagliflozin [Jardiance] 10 mg PO DAILY 12/10/22 05/14/23 History Nitroglycerin Sl Tabs [Nitrostat] 0.4 mg SL Q5M PRN 12/10/22 05/14/23 History Atorvastatin [Lipitor] 40 mg PO HS 02/18/23 05/14/23 History Metoprolol Tartrate [Lopressor] 12.5 mg PO BID 02/18/23 05/14/23 History Acetaminophen Tab [Tylenol] 650 mg PO Q6HR PRN tab 04/10/23 05/14/23 Rx Sennosides [Senokot] 8.6 mg PO BID tab 04/10/23 05/14/23 Rx Allergies Allergy/AdvReac Type Severity Reaction Status Date / Time Sulfa (Sulfonamide Allergy Rash/Hives Verified 05/14/23 19:40 Antibiotics) Physical Exam Vitals: Vital Signs Temp Pulse Pulse Resp BP BP Pulse Ox 05/15/23 07:00 97.6 F 71 12 146/73 98 05/14/23 12:54 98.8 F 79 18 115/57 98 Results CBC & Chem 7: 05/14/23 15:27 05/15/23 10:27 Labs: Abnormal Lab Results - Last 24 Hours (Table) 05/14/23 05/14/23 05/14/23 Range/Units 15:27 15:27 19:09 RBC 3.50 L (4.30-5.90) m/uL Hgb 10.8 L (13.0-17.5) gm/dL Hct 34.1 L (39.0-53.0) % Lymphocytes # 0.6 L (1.0-4.8) k/uL ESR 51 H (0-20) mm/Hr Chloride 110 H (98-107) mmol/L BUN 23 H (9-20) mg/dL Glucose (74-99) mg/dL POC Glucose (mg/dL) (70-110) mg/dL C-Reactive Protein 2.4 H (<1.0) mg/dL 05/15/23 05/15/23 05/15/23 Range/Units 00:30 00:52 01:26 RBC (4.30-5.90) m/uL Hgb (13.0-17.5) gm/dL Hct (39.0-53.0) % Lymphocytes # (1.0-4.8) k/uL ESR (0-20) mm/Hr Chloride (98-107) mmol/L BUN (9-20) mg/dL Glucose (74-99) mg/dL POC Glucose (mg/dL) 44 L 54 L 34 L (70-110) mg/dL C-Reactive Protein (<1.0) mg/dL 05/15/23 05/15/23 05/15/23 Range/Units 01:28 09:37 09:41 RBC (4.30-5.90) m/uL Hgb (13.0-17.5) gm/dL Hct (39.0-53.0) % Lymphocytes # (1.0-4.8) k/uL ESR (0-20) mm/Hr Chloride (98-107) mmol/L BUN (9-20) mg/dL Glucose (74-99) mg/dL POC Glucose (mg/dL) 43 L <20 L 51 L (70-110) mg/dL C-Reactive Protein (<1.0) mg/dL 05/15/23 05/15/23 05/15/23 Range/Units 09:54 10:02 10:27 RBC (4.30-5.90) m/uL Hgb (13.0-17.5) gm/dL Hct (39.0-53.0) % Lymphocytes # (1.0-4.8) k/uL ESR (0-20) mm/Hr Chloride (98-107) mmol/L BUN (9-20) mg/dL Glucose 108 H (74-99) mg/dL POC Glucose (mg/dL) 47 L 32 L (70-110) mg/dL C-Reactive Protein (<1.0) mg/dL 05/15/23 Range/Units 10:32 RBC (4.30-5.90) m/uL Hgb (13.0-17.5) gm/dL Hct (39.0-53.0) % Lymphocytes # (1.0-4.8) k/uL ESR (0-20) mm/Hr Chloride (98-107) mmol/L BUN (9-20) mg/dL Glucose (74-99) mg/dL POC Glucose (mg/dL) 113 H (70-110) mg/dL C-Reactive Protein (<1.0) mg/dL Assessment and Plan Plan: 1patient with a chronic nonhealing wound to the right foot plantar aspect for the patient has multiple admission to this facility and every time he has left AGAINST MEDICAL ADVICE last time he was sent to the intermediate from where he has left AGAINST MEDICAL ADVICE with the PICC line intact which was discontinued by the nursing staff this morning is almost falling off patient is presenting with the dizziness and did have a chronic nonhealing wound with evidence of osteomyelitis on the plain x-ray 2-recommend vascular surgery evaluation for debridement and deep culture this was discussed with the nursing staff 3-continue the vancomycin watching his kidney function closely however switch Zosyn to Unasyn to decrease risk of nephrotoxicity 4-check inflammatory markers We will follow on clinical condition and cultures to further adjust medication if needed Thank you for this consultation we will follow the patient along with you Dictation was produced using [employer] dictation software. please excuse any grammatical, word or spelling errors. Time with Patient: Greater than 30
[2023-05-15 23:24] LABS: Glucose,Whole Blood 134 mg/dL (70-110)
[2023-05-16 00:19] LABS: Glucose,Whole Blood 84 mg/dL (70-110)
[2023-05-16] MEDS: AMPICILLIN-SULBACTAM 3 GM in SODIUM CHLORIDE 0.9% 100 ML IVPB SCH ×5 (00:26→23:57)
[2023-05-16 01:26] LABS: Glucose,Whole Blood 82 mg/dL (70-110)
[2023-05-16 02:34] LABS: Glucose,Whole Blood 59 mg/dL (70-110)
[2023-05-16] MEDS: DEXTROSE 50% SYRINGE 50 ML IVP PRN ×4 (02:36→16:15)
[2023-05-16 03:16] LABS: Glucose,Whole Blood 118 mg/dL (70-110)
[2023-05-16 05:13] LABS: Glucose,Whole Blood 115 mg/dL (70-110)
[2023-05-16] MEDS: HYDROcodone/APAP 5-325MG 1 EACH TAB PO PRN (05:28)
[2023-05-16] MEDS: VANCOMYCIN 1,500 MG in SODIUM CHLORIDE 0.9% 500 ML 500 ML IVPB SCH ×2 (05:28→16:15)
[2023-05-16 06:28] LABS: African American GFR (CKD) 79 (>60 ml/min/1.73 sqM); Non-African American GFR(CKD) 69 (>60 ml/min/1.73 sqM)
[2023-05-16 06:33] LABS: Glucose,Whole Blood 78 mg/dL (70-110)
[2023-05-16] MEDS: DEXTROSE 5%-0.9% NACL 1,000 ML IV SCH ×2 (06:41→18:08)
[2023-05-16 07:19] LABS: Glucose,Whole Blood 61 mg/dL (70-110)
[2023-05-16 07:43] LABS: Glucose,Whole Blood 82 mg/dL (70-110)
[2023-05-16 08:15] LABS: Glucose,Whole Blood 62 mg/dL (70-110)
[2023-05-16 08:32] LABS: Glucose,Whole Blood 97 mg/dL (70-110)
[2023-05-16 09:06] LABS: Glucose,Whole Blood 64 mg/dL (70-110)
[2023-05-16] MEDS: IPRATROPIUM-ALBUTEROL 3 ML NEB INHALATION SCH ×4 (09:13→21:11)
[2023-05-16 09:22] LABS: Glucose,Whole Blood 64 mg/dL (70-110)
--- NOTE | 2023-05-16 09:29 | CA ---
Transthoracic Echo Report Name: Rory Herman Age: 67 Gender: M : 1955 Exam Date: 05/16/2023 07:32 Exam Location: [facility] Ht (in): 68 Wt (lb): 180 Ordering Physician: Dain Brunson MD Attending/Referring Phys: Corporate Financial Analyst Shannon He RDCS Procedure CPT: Indications: chf Cardiac Hx: Technical Quality: Good Contrast 1: Total Dose (mL): Contrast 2: Total Dose (mL): MEASUREMENTS (Male / Female) Normal Values 2D ECHO LV Diastolic Diameter PLAX 6.0 cm 4.2 - 5.9 / 3.9 - 5.3 cm LV Systolic Diameter PLAX 4.9 cm IVS Diastolic Thickness 1.3 cm 0.6 - 1.0 / 0.6 - 0.9 cm LVPW Diastolic Thickness 1.3 cm 0.6 - 1.0 / 0.6 - 0.9 cm LV Relative Wall Thickness 0.4 RV Internal Dim ED PLAX 3.0 cm LA Systolic Diameter LX 4.4 cm 3.0 - 4.0 / 2.7 - 3.8 cm LV Diastolic Volume MOD 4C 181.4 cm??? LV Systolic Volume MOD 4C 131.4 cm??? LV Ejection Fraction MOD 4C 27.6 % LV Cardiac Index MOD 4C 2153.9 cm???/min???m??? LV Diastolic Length 4C 8.7 cm LV Systolic Length 4C 8.1 cm LV Diastolic Volume MOD 2C 131.7 cm??? LV Systolic Volume MOD 2C 85.3 cm??? LV Ejection Fraction MOD 2C 35.3 % LV Cardiac Index MOD 2C 2000.6 cm???/min???m??? LV Diastolic Length 2C 10.1 cm LV Systolic Length 2C 9.2 cm LA Volume 69.4 cm??? 18 - 58 / 22 - 52 cm??? LA Volume Index 34.8 cm???/m??? 16 - 28 cm???/m??? M-MODE Aortic Root Diameter MM 3.0 cm MV E Point Septal Separation 1.4 cm AV Cusp Separation MM 1.6 cm DOPPLER AV Peak Velocity 219.3 cm/s AV Peak Gradient 19.2 mmHg AV Mean Velocity 127.2 cm/s AV Mean Gradient 7.6 mmHg AV Velocity Time Integral 42.8 cm LVOT Peak Velocity 85.9 cm/s LVOT Peak Gradient 2.9 mmHg MV Area PHT 4.2 cm??? Mitral E Point Velocity 107.4 cm/s Mitral A Point Velocity 95.5 cm/s Mitral E to A Ratio 1.1 MV Deceleration Time 181.1 ms MV E' Velocity 5.3 cm/s Mitral E to MV E' Ratio 20.4 TR Peak Velocity 351.7 cm/s TR Peak Gradient 49.5 mmHg Right Ventricular Systolic Press 53.2 mmHg FINDINGS Left Ventricle Left ventricular ejection fraction is estimated at 30-35 %. . Mildly increased left ventricular diastolic diameter. Mild concentric left ventricular hypertrophy. Moderately reduced global left ventricular systolic function. Right Ventricle Normal right ventricular size. Moderate pulmonary hypertension. Right ventricular systolic pressure estimated at 53 mm hg. Right Atrium Normal right atrial size. Left Atrium Mildly increased left atrial diameter. Moderately increased left atrial volume. Mildly increased left atrial area. Mitral Valve Mitral valve thickened. Mild mitral annular calcification. Mild mitral regurgitation. Aortic Valve Trileaflet aortic valve. Mild aortic stenosis with a peak gradient of 19 mmHg and a mean gradient of 8 mmHg. Aortic valve sclerosis. Tricuspid Valve Structurally normal tricuspid valve. Mild tricuspid regurgitation. Pulmonic Valve Structurally normal pulmonic valve. Mild pulmonic regurgitation. Pericardium No pericardial effusion. Aorta Normal size aortic root and proximal ascending aorta. CONCLUSIONS Dilated left ventricle, mild Increase LV mass Reduced LV systolic function ejection fraction 30-35% Calcific aortic valve with mild stenosis Previewed by: Dr. Marques Veronica MD (Electronically Signed) Final Date: 16 May 2023 09:28
[2023-05-16 09:39] LABS: Glucose,Whole Blood 66 mg/dL (70-110)
[2023-05-16 10:02] LABS: Glucose,Whole Blood 91 mg/dL (70-110)
[2023-05-16] MEDS: SENNOSIDES 8.6 MG TAB PO SCH ×2 (10:03→20:56)
[2023-05-16] MEDS: METOPROLOL TARTRATE 12.5 MG TAB PO SCH ×2 (10:03→20:56)
[2023-05-16] MEDS: ASPIRIN 81 MG PO SCH (10:03)
[2023-05-16] MEDS: ISOSORBIDE MONONITRATE ER 30 MG TAB.ER.24H PO SCH (10:03)
[2023-05-16] MEDS: FAMOTIDINE 20 MG TAB PO SCH ×2 (10:04→20:55)
[2023-05-16] MEDS: CLOPIDOGREL 75 MG TAB PO SCH (10:04)
[2023-05-16] MEDS: LOSARTAN 25 MG TAB PO SCH (10:04)
[2023-05-16] MEDS: SPIRONOLACTONE 25 MG TAB PO SCH (10:04)
--- NOTE | 2023-05-16 10:41 | CT ---
EXAMINATION TYPE: CT chest wo con DATE OF EXAM: 05/16/2023 COMPARISON: Radiograph 05/14/2023 HISTORY: 67-year-old male, pleural effusion TECHNIQUE: Contiguous axial scanning of the chest without contrast. Coronal/sagittal reconstructions performed. CT DLP: 417.3mGycm. Automatic exposure control utilized for a dose reduction. FINDINGS: Generalized anasarca change. Heart borderline enlarged. No pericardial effusion. Three-vessel coronary artery calcifications are p resent. Aorta normal caliber with conventional arch vessel branching anatomy. Nonenlarged 8 mm lower right paratracheal lymph node. No thoracic lymphadenopathy by CT size criteria . Mild bilateral gynecomastia. There are trace to small bilateral pleural effusions, right greater than left. Some mild septal lines of the lower lungs. 6 mm pulmonary nodule right upper lobe should be reassessed at follow-up. No matt consolidation. Visualized upper abdomen just probably ingested fluid and debris distending the stomach. Some low den sity thickening of the left adrenal gland. Generalized anasarca change continues. DISH throughout the mid and lower thoracic spine. Suspect old healed fracture deformity sternomanubri al joint. IMPRESSION: 1. Borderline cardiomegaly. Extensive three-vessel coronary artery calcifications. Generalized anasar ca change. Correlate for mild CHF/third spacing. 2. Trace to small bilateral pleural effusions. Mild septal lines in the lower lungs may reflect mild pulmonary vascular congestion. 3. A 6 mm right upper lobe pulmonary nodule. Follow-up CT in 6 months to reassess.
[2023-05-16 11:05] LABS: Glucose,Whole Blood 97 mg/dL (70-110)
[2023-05-16 12:03] LABS: Glucose,Whole Blood 74 mg/dL (70-110)
[2023-05-16] MEDS: HYDROcodone/APAP 10-325MG 1 EACH TAB PO PRN (12:27)
[2023-05-16 12:30] VITALS: BMI 27.3
[2023-05-16 13:08] LABS: Glucose,Whole Blood 51 mg/dL (70-110)
[2023-05-16 13:28] LABS: Glucose,Whole Blood 71 mg/dL (70-110)
[2023-05-16 14:14] LABS: Glucose,Whole Blood 122 mg/dL (70-110)
[2023-05-16 15:19] LABS: Glucose,Whole Blood 69 mg/dL (70-110)
[2023-05-16 15:44] LABS: Glucose,Whole Blood 84 mg/dL (70-110)
[2023-05-16 16:09] LABS: Glucose,Whole Blood 50 mg/dL (70-110)
[2023-05-16 16:26] LABS: Glucose,Whole Blood 173 mg/dL (70-110)
--- NOTE | 2023-05-16 17:04 | P.PN ---
Subjective Progress Note Date: 05/16/23 Principal diagnosis: Diabetic foot ulcer and possible osteomyelitis Patient is a 67-year-old male with a past medical history significant for diabetes mellitus hypertension hyperlipidemia [place] coronary artery disease patient did have a chronic nonhealing wound to the right foot and the patient has been very noncompliant with his treatment has signed out multiple times A GAINST MEDICAL ADVICE, presented to hospital with the dizziness noticed to have worsening of his right plantar wound. On today's evaluation that is 05/16/2023, the patient remains to be afebrile the patient is breathing comfortably on room air without need for supplemental oxygen, the patient denies chest pain, shortness of breath or cough, patient denies nausea/vomiting , no diarrhea and no abdominal pain, has been combining of pain to the right heel wounds and wants the pain medication to be adjusted up. Patient did have a creatinine 1.11, no CBC was done today Objective - Vital Signs Vital signs: Vital Signs Temp 98.2 F 05/16/23 07:00 Pulse 75 05/16/23 07:00 Resp 16 05/16/23 07:00 BP 102/61 05/16/23 07:00 Pulse Ox 98 05/16/23 07:00 FiO2 Intake & Output 05/15/23 05/16/23 05/16/23 18:59 06:59 18:59 Intake Total 480 240 Output Total 300 1000 Balance 180 -1000 240 Weight 81.647 kg 81.647 kg Intake: Oral 480 240 Output: Urine 300 1000 Other: Voiding Method Urinal Urinal Urinal # Voids 1 1 - Exam GENERAL DESCRIPTION: An elderly male lying in bed in no distress RESPIRATORY SYSTEM: Unlabored breathing , decreased breath sounds at bases HEART: S1 S2 regular rate and rhythm , ABDOMEN: Soft , no tenderness EXTREMITIES: Bilateral foot wounds are currently dressed minimal drainage - Labs CBC & Chem 7: 05/14/23 15:27 05/16/23 05:50 Labs: Abnormal Lab Results - Last 24 Hours (Table) 05/15/23 05/15/23 05/15/23 Range/Units 17:10 17:32 18:01 POC Glucose (mg/dL) 54 L 58 L >600 H (70-110) mg/dL 05/15/23 05/15/23 05/15/23 Range/Units 18:04 19:07 20:12 POC Glucose (mg/dL) 118 H 121 H 140 H (70-110) mg/dL 05/15/23 05/15/23 05/15/23 Range/Units 21:18 22:16 23:23 POC Glucose (mg/dL) 137 H 135 H 134 H (70-110) mg/dL 05/16/23 05/16/23 05/16/23 Range/Units 02:32 03:15 05:12 POC Glucose (mg/dL) 59 L 118 H 115 H (70-110) mg/dL 05/16/23 05/16/23 05/16/23 Range/Units 07:17 08:11 09:03 POC Glucose (mg/dL) 61 L 62 L 64 L (70-110) mg/dL 05/16/23 05/16/23 Range/Units 09:20 09:37 POC Glucose (mg/dL) 64 L 66 L (70-110) mg/dL Microbiology - Last 24 Hours (Table) 05/14/23 15:10 Blood Culture - Preliminary Blood 05/14/23 15:25 Blood Culture - Preliminary Blood Assessment and Plan (1) Diabetic foot ulcer Current Visit: Yes Status: Acute Code(s): E11.621 - TYPE 2 DIABETES MELLITUS WITH FOOT ULCER; L97.509 - NON-PRESSURE CHRONIC ULCER OTH PRT UNSP FOOT W UNSP SEVERITY SNOMED Code(s): 668391529 (2) Osteomyelitis of right foot Current Visit: Yes Status: Acute Code(s): M86.9 - OSTEOMYELITIS, UNSPECIFIED SNOMED Code(s): 4723024065073478 Plan: 1patient with a chronic nonhealing wound to the right foot plantar aspect for the patient has multiple admission to this facility and every time he has left AGAINST MEDICAL ADVICE last time he was sent to the alf from where he has left AGAINST MEDICAL ADVICE with the PICC line intact which was discontinued by the nursing staff this morning is almost falling off patient is presenting with the dizziness and did have a chronic nonhealing wound with evidence of osteomyelitis on the plain x-ray Patient has been evaluated by vascular surgery and planning for debridement and deep culture 3-patient to continue the vancomycin and Unasyn and monitor clinical course closely Dictation was produced using [employer] dictation software. please excuse any gra mmatical, word or spelling errors.
[2023-05-16 17:15] LABS: Glucose,Whole Blood 92 mg/dL (70-110)
[2023-05-16 18:24] LABS: Glucose,Whole Blood 100 mg/dL (70-110)
[2023-05-16 19:27] LABS: Glucose,Whole Blood 138 mg/dL (70-110)
[2023-05-16 20:11] LABS: Glucose,Whole Blood 123 mg/dL (70-110)
[2023-05-16] MEDS: ZOLPIDEM 5 MG TAB PO SCH (20:55)
[2023-05-16] MEDS: ATORVASTATIN 40 MG TAB PO SCH (20:55)
[2023-05-16] MEDS: SODIUM CHLORIDE 0.9% 1,000 ML IV SCH (20:56)
[2023-05-16 20:57] LABS: Glucose,Whole Blood 97 mg/dL (70-110)
[2023-05-16 21:04] LABS: Glucose,Whole Blood 104 mg/dL (70-110)
[2023-05-16 22:05] LABS: Glucose,Whole Blood 117 mg/dL (70-110)
[2023-05-16 23:05] LABS: Glucose,Whole Blood 77 mg/dL (70-110)
--- NOTE | 2023-05-17 00:14 | PN ---
PROGRESS NOTE This is a 67-year-old gentleman who is known to me from the past. The patient came with maggots in the right foot 4-5 months ago and then he never showed up at followup. He went against medical advise. Now he has been admitted again with wound on his right foot plantar aspect and left foot dorsum aspect, PE scheduled for surgery today. Patient refused to go for surgery. He wants to be treated with local wound care and IV antibiotic. I have discussed with him, prognosis is guarded. MMODL / IJN: [id number] /
[2023-05-17 00:22] LABS: Glucose,Whole Blood 71 mg/dL (70-110)
[2023-05-17 01:22] LABS: Glucose,Whole Blood 90 mg/dL (70-110)
[2023-05-17 02:23] LABS: Glucose,Whole Blood 89 mg/dL (70-110)
[2023-05-17 03:44] LABS: Glucose,Whole Blood 101 mg/dL (70-110)
[2023-05-17 05:13] LABS: Glucose,Whole Blood 96 mg/dL (70-110)
[2023-05-17 05:22] LABS: African American GFR (CKD) 85 (>60 ml/min/1.73 sqM); Non-African American GFR(CKD) 74 (>60 ml/min/1.73 sqM)
[2023-05-17] MEDS: VANCOMYCIN 1,500 MG in SODIUM CHLORIDE 0.9% 500 ML 500 ML IVPB SCH ×2 (05:30→16:50)
[2023-05-17] MEDS: AMPICILLIN-SULBACTAM 3 GM in SODIUM CHLORIDE 0.9% 100 ML IVPB SCH ×3 (05:30→17:44)
[2023-05-17] MEDS: DEXTROSE 5%-0.9% NACL 1,000 ML IV SCH ×2 (05:31→17:44)
[2023-05-17 06:22] LABS: Glucose,Whole Blood 92 mg/dL (70-110)
[2023-05-17 07:51] LABS: Glucose,Whole Blood 135 mg/dL (70-110)
[2023-05-17 09:02] LABS: Glucose,Whole Blood 101 mg/dL (70-110)
[2023-05-17] MEDS: IPRATROPIUM-ALBUTEROL 3 ML NEB INHALATION SCH ×4 (09:06→20:39)
[2023-05-17] MEDS: ISOSORBIDE MONONITRATE ER 30 MG TAB.ER.24H PO SCH (09:22)
[2023-05-17] MEDS: SPIRONOLACTONE 25 MG TAB PO SCH (09:22)
[2023-05-17] MEDS: CLOPIDOGREL 75 MG TAB PO SCH (09:22)
[2023-05-17] MEDS: ASPIRIN 81 MG PO SCH (09:23)
[2023-05-17] MEDS: LOSARTAN 25 MG TAB PO SCH (09:23)
[2023-05-17] MEDS: SENNOSIDES 8.6 MG TAB PO SCH ×2 (09:23→20:05)
[2023-05-17] MEDS: METOPROLOL TARTRATE 12.5 MG TAB PO SCH ×2 (09:23→20:05)
[2023-05-17] MEDS: FAMOTIDINE 20 MG TAB PO SCH ×2 (09:23→20:05)
[2023-05-17 10:18] LABS: Glucose,Whole Blood 103 mg/dL (70-110)
[2023-05-17 11:15] LABS: Glucose,Whole Blood 103 mg/dL (70-110)
[2023-05-17] MEDS: DAPAGLIFLOZIN PROPANEDIOL 10 MG TABLET PO SCH (11:17)
--- NOTE | 2023-05-17 11:40 | P.CRDCN ---
History of Present Illness Consult date: 05/17/23 History of present illness: HISTORY OF PRESENTING ILLNESS 67-year-old male with past medical history of type 2 diabetes, hypertension, dyslipidemia, suspected peripheral arterial disease, myocardial infarctions status post PCI on DAPT therapy, suspected ischemic cardiomyopathy with an EF of 30-35%, chronic anemia and chronic nonhealing wound on the right foot. Patient is very noncompliant last time when he was in the hospital he left AGAINST MEDICAL ADVICE This time patient presented to the hospital with symptoms of weakness, dizziness and difficulty getting around. He has a nonhealing wound on the right foot plantar aspect which is painful. He denies having any chest pain chest pressure or shortness of breath. He is afebrile. He's been started on IV antibiotics by the infectious disease team and is being evaluated for possible debridement surgery. He had an echo cardiac gram showed an EF of 30-35%, mild LV cavity dilatation, globally reduced LV systolic function, mild aortic stenosis, RVSP of 53 mmhg. No ECG from this visit. Prior to ECG from July 2022 shows sinus rhythm with diffuse T-wave inversions in inferolateral leads suggestive of cardio myopathy Lab shows hemoglobin of 10.8 which is chronic, BNP of 33,000, creatinine of 1.05 Chest x-ray does not show significant pulmonary congestion. On physical exam ination he does not have significant crackles or JVD Erythema and 1+ pitting edema in bilateral lower extremity REVIEW OF SYSTEMS 14 point review of system is negative except what is mentioned above in HPI. PHYSICAL EXAMINATION Vital signs reviewed. Head: Normocephalic. Eyes: Sclerae nonicteric. Neck: Brisk carotid upstroke, no jugular venous distention. Lungs: Clear to auscultation. Heart: Regular rate and rhythm, S1-S2, no S3, mild systolic murmur. Abdomen: Soft nontender, positive bowel sounds . Extremities: 1-2+ pitting edema in bilateral summary, edema, dressing in place, wound was not examined Neuro: Alert, oritented, tired and somnolent no focal deficits ASSESSMENT [id number] right-sided congestive heart failure exacerbation HFrEF, ischemic cardiac myopathy, EF 30% Mild aortic stenosis CAD status post PCI in past Moderate pulmonary hypertension likely Group II Chronic nonhealing wound on right foot plantar aspect,Osteomylitis Suspected PAD Type II Diabetes Hypertension Dyslipidemia Noncompliance PLAN Patient denies any pain, paresthesias, tenderness, pallor in bilateral lower extremity. There are not cold to touch. There is 1-2+ pitting edema with erythema with concerns of infection. Continue IV antibiotics as per infectious disease team and primary team Patient is at moderate to high cardiovascular risk for low risk procedure if debridement surgery is planned Continue aspirin 81 mg, Plavix 75 mg, atorvastatin 40 mg Start Farxiga 10 mg and torsemide 20 mg daily Continue Imdur 30 mg, losartan 25 mg, metoprolol 12.5 mg twice daily. Once lower extremity infections with better, he should get evaluation for peripheral artery disease either with arterial Doppler or CT angiogram Past Medical History Past Medical History: Coronary Artery Disease (CAD), Chest Pain / Angina, Heart Failure, Diabetes Mellitus, Hyperlipidemia, Hypertension, Myocardial Infarction (PR), Vascular Disorder Additional Past Medical History / Comment(s): Diabetic ulcer, ischemic cardiomyopathy Last Myocardial Infarction Date:: unknown History of Any Multi-Drug Resistant Organisms: MRSA Date of last positivie culture/infection: 12/11/22 MDRO Source:: right heel Past Surgical History: Heart Catheterization, Heart Catheterization With Stent, Orthopedic Surgery Additional Past Surgical History / Comment(s): 2 cardiac stents, bilateral knee replacements, right foot wound debridement,non-compliance Past Anesthesia/Blood Transfusion Reactions: No Reported Reaction Date of Last Stent Placement:: 08/07/22 Past Psychological History: No Psychological Hx Reported Smoking Status: Current every day smoker, Heavy tobacco smoker Past Alcohol Use History: None Reported Past Drug Use History: None Reported - Past Family History Mother Family Medical History: No Reported History Medications and Allergies Home Medications Medication Instructions Recorded Confirmed Type Aspirin 81 mg PO DAILY #30 tab 08/09/22 05/14/23 Rx Clopidogrel [Plavix] 75 mg PO DAILY #30 tab 08/09/22 05/14/23 Rx Isosorbide Mononitrate ER [Imdur] 30 mg PO DAILY #30 tab 08/09/22 05/14/23 Rx Losartan [Cozaar] 25 mg PO DAILY #30 tab 08/09/22 05/14/23 Rx Spironolactone [Aldactone] 12.5 mg PO DAILY #15 tab 08/09/22 05/14/23 Rx Empagliflozin [Jardiance] 10 mg PO DAILY 12/10/22 05/14/23 History Nitroglycerin Sl Tabs [Nitrostat] 0.4 mg SL Q5M PRN 12/10/22 05/14/23 History Atorvastatin [Lipitor] 40 mg PO HS 02/18/23 05/14/23 History Metoprolol Tartrate [Lopressor] 12.5 mg PO BID 02/18/23 05/14/23 History Acetaminophen Tab [Tylenol] 650 mg PO Q6HR PRN tab 04/10/23 05/14/23 Rx Sennosides [Senokot] 8.6 mg PO BID tab 04/10/23 05/14/23 Rx Allergies Allergy/AdvReac Type Severity Reaction Status Date / Time Sulfa (Sulfonamide Allergy Rash/Hives Verified 05/14/23 19:40 Antibiotics) Physical Exam Vitals: Vital Signs Temp Pulse Resp BP BP Pulse Ox 05/17/23 07:00 98.5 F 78 18 142/77 99 05/17/23 02:00 98.5 F 74 17 138/65 99 05/16/23 20:00 98.1 F 72 16 119/66 97 05/16/23 15:00 97.7 F 112 H 16 105/41 99 Intake and Output 05/16/23 05/17/23 05/17/23 22:59 06:59 14:59 Output Total 1700 1000 Balance -1700 -1000 Output: Urine 1700 1000 Other: Voiding Method Urinal Results 05/14/23 15:27 05/17/23 04:17 Comprehensive Metabolic Panel 05/17/23 Range/Units 04:17 Creatinine 1.05 (0.66-1.25) mg/dL Current Medications Generic Name Dose Route Start Last Admin Trade Name Freq PRN Reason Stop Dose Admin Acetaminophen 650 mg 05/15/23 11:29 Acetaminophen Tab 325 Mg Tab PO Q6HR PRN Fever and/ or Pain Hydrocodone Bitart/Acetaminophen 1 each 05/16/23 12:04 05/16/23 12:27 Hydrocodone/Apap 10-325mg 1 Each Tab PO 1 each Q6HR PRN Administration Pain Al Hydroxide/Mg Hydroxide 15 ml 05/14/23 22:12 Mag Hydrox/Al Hydrox/Simeth 30 Ml Cup PO Q6HR PRN Indigestion Albuterol/Ipratropium 3 ml 05/15/23 20:00 05/17/23 09:06 Ipratropium-Albuterol 3 Ml Neb INHALATION Not Given RT-QID SHANNA Aspirin 81 mg 05/16/23 09:00 05/17/23 09:23 Aspirin 81 Mg PO 81 mg DAILY SHANNA Administration Atorvastatin Calcium 40 mg 05/15/23 21:00 05/16/23 20:55 Atorvastatin 40 Mg Tab PO 40 mg HS SHANNA Administration Clopidogrel Bisulfate 75 mg 05/16/23 09:00 05/17/23 09:22 Clopidogrel 75 Mg Tab PO 75 mg DAILY SHANNA Administration Dapagliflozin 10 mg 05/17/23 11:00 05/17/23 11:17 Dapagliflozin Propanediol 10 Mg Tablet PO 10 mg DAILY SHANNA Administration Dextrose/Water 25 ml 05/15/23 07:55 05/16/23 08:16 Dextrose 50% Syringe 50 Ml IVP 25 ml PER PROTOCOL PRN Administration Hypoglycemia Protocol Dextrose/Water 50 ml 05/15/23 07:55 05/16/23 16:15 Dextrose 50% Syringe 50 Ml IVP 50 ml PER PROTOCOL PRN Administration Hypoglycemia Protocol Famotidine 20 mg 05/15/23 09:00 05/17/23 09:23 Famotidine 20 Mg Tab PO 20 mg BID SHANNA Administration Sodium Chloride 1,000 mls @ 20 mls/hr 05/14/23 22:15 05/16/23 20:56 Saline 0.9% IV 20 mls/hr .Q24H SHANNA Administration Vancomycin HCl 1,500 mg/ 500 mls @ 167 mls/hr 05/15/23 16:00 05/17/23 05:30 Sodium Chloride IVPB 167 mls/hr Q12H SHANNA Administration Dextrose/Sodium Chloride 1,000 mls @ 100 mls/hr 05/15/23 17:45 05/17/23 05:31 Dextrose 5%-Ns Iv Soln IV 100 mls/hr .Q10H SHANNA Administration Ampicillin Sodium/Sulbactam 100 mls @ 200 mls/hr 05/16/23 00:00 05/17/23 05:30 Sodium 3 gm/ Sodium Chloride IVPB 200 mls/hr Q6HR SHANNA Administration Protocol Isosorbide Mononitrate 30 mg 05/16/23 09:00 05/17/23 09:22 Isosorbide Mononitrate Er 30 Mg Tab.Er.24h PO 30 mg DAILY SHANNA Administration Losartan Potassium 25 mg 05/15/23 11:30 05/17/23 09:23 Losartan 25 Mg Tab PO 25 mg DAILY SHANNA Administration Metoprolol Tartrate 12.5 mg 05/15/23 11:30 05/17/23 09:23 Metoprolol Tartrate 12.5 Mg Tab PO 12.5 mg BID SHANNA Administration Miscellaneous Information 0 each 05/17/23 15:00 Vancomycin Trough Due 1 Each Misc MISCELLANE 05/17/23 15:01 DIRECTED ONE Naloxone HCl 0.2 mg 05/14/23 22:12 Naloxone 0.4 Mg/Ml 1 Ml Vial IV Q2M PRN Opioid Reversal Nitroglycerin 0.4 mg 05/15/23 11:29 Nitroglycerin Sl Tabs 0.4 Mg Tab SUBLINGUAL Q5M PRN Chest Pain Ondansetron HCl 4 mg 05/14/23 22:12 Ondansetron 4 Mg/2 Ml Vial IVP Q8HR PRN Nausea And Vomiting Senna 8.6 mg 05/15/23 21:00 05/17/23 09:23 Sennosides 8.6 Mg Tab PO 8.6 mg BID SHANNA Administration Spironolactone 12.5 mg 05/16/23 09:00 05/17/23 09:22 Spironolactone 25 Mg Tab PO 12.5 mg DAILY SHANNA Administration Torsemide 20 mg 05/17/23 12:00 Torsemide 20 Mg Tab PO DAILY SHANNA Zolpidem Tartrate 5 mg 05/15/23 21:00 05/16/23 20:55 Zolpidem 5 Mg Tab PO 5 mg HS SHANNA Administration Intake and Output 05/16/23 05/17/23 05/17/23 22:59 06:59 14:59 Output Total 1700 1000 Balance -1700 -1000 Output: Urine 1700 1000 Other: Voiding Method Urinal 05/14/23 15:27 05/17/23 04:17
[2023-05-17] MEDS: TORSEMIDE 20 MG TAB PO SCH (12:13)
[2023-05-17 12:16] LABS: Glucose,Whole Blood 95 mg/dL (70-110)
--- NOTE | 2023-05-17 12:52 | P.PN ---
Subjective Progress Note Date: 05/17/23 Principal diagnosis: Diabetic foot ulcer and possible osteomyelitis Patient is a 67-year-old male with a past medical history significant for diabetes mellitus hypertension hyperlipidemia [place] coronary artery disease patient did have a chronic nonhealing wound to the right foot and the patient has been very noncompliant with his treatment has signed out multiple times [facility], presented to hospital with the dizziness noticed to have worsening of his right plantar wound. On today's evaluation that is 05/17/2023, the patient denies any fever or any chills, the patient is breathing comfortably on room air , the patient denies chest pain, shortness of breath and no significant cough, patient denies abdominal pain, no nausea/vomiting or diarrhea, the patient is still complaining of pain to the right heel wounds Patient did have a creatinine 1.05, no CBC was done today Objective - Vital Signs Vital signs: Vital Signs Temp 98.5 F 05/17/23 07:00 Pulse 78 05/17/23 07:00 Resp 18 05/17/23 07:00 BP 142/77 05/17/23 07:00 Pulse Ox 99 05/17/23 07:00 FiO2 Intake & Output 05/16/23 05/17/23 05/17/23 18:59 06:59 18:59 Intake Total 600 Output Total 1400 1300 Balance -800 -1300 Weight 81.647 kg Intake: Oral 600 Output: Urine 1400 1300 Other: Voiding Method Urinal Urinal - Exam GENERAL DESCRIPTION: An elderly male lying in bed in no distress RESPIRATORY SYSTEM: Unlabored breathing , decreased breath sounds at bases HEART: S1 S2 regular rate and rhythm , ABDOMEN: Soft , no tenderness EXTREMITIES: Bilateral foot wounds are currently dressed minimal drainage - Labs CBC & Chem 7: 05/14/23 15:27 05/17/23 04:17 Labs: Abnormal Lab Results - Last 24 Hours (Table) 05/16/23 05/16/23 05/16/23 Range/Units 13:07 14:13 15:17 POC Glucose (mg/dL) 51 L 122 H 69 L (70-110) mg/dL 05/16/23 05/16/23 05/16/23 Range/Units 16:08 16:24 19:25 POC Glucose (mg/dL) 50 L 173 H 138 H (70-110) mg/dL 1005/16/23 05/17/23 Range/Units 20:09 22:03 07:49 POC Glucose (mg/dL) 123 H 117 H 135 H (70-110) mg/dL Microbiology - Last 24 Hours (Table) 05/14/23 15:10 Blood Culture - Preliminary Blood 05/14/23 15:25 Blood Culture - Preliminary Blood Assessment and Plan (1) Diabetic foot ulcer Current Visit: Yes Status: Acute Code(s): E11.621 - TYPE 2 DIABETES MELLITUS WITH FOOT ULCER; L97.509 - NON-PRESSURE CHRONIC ULCER OTH PRT UNSP FOOT W UNSP SEVERITY SNOMED Code(s): 358559074 (2) Osteomyelitis of right foot Current Visit: Yes Status: Acute Code(s): M86.9 - OSTEOMYELITIS, UNSPECIFIED SNOMED Code(s): 3152760252080929 Plan: 1patient with a chronic nonhealing wound to the right foot plantar aspect for the patient has multiple admission to this facility and every time he has left AGAINST MEDICAL ADVICE last time [facility] he has left AGAINST MEDICAL ADVICE with the PICC line intact which was discontinued by the nursing staff this morning is almost falling off patient is presenting with the dizziness and did have a chronic nonhealing wound with evidence of osteomyelitis on the plain x-ray 2Patient has been evaluated by vascular surgery and planning for debridement and deep culture , however the patient has refused 3-patient to continue the vancomycin and Unasyn however keeping in mind he refusing surgical debridement of his wound and did have noncompliance with IV antibiotics in the outpatient setting, will not be recommending any IV antibiotic on discharge hospice may be an option Dictation was produced using [employer] dictation software. please excuse any grammatical, word or spelling errors. Time with Patient: Less than 30
[2023-05-17 13:18] LABS: Glucose,Whole Blood 94 mg/dL (70-110)
[2023-05-17 14:30] LABS: Glucose,Whole Blood 129 mg/dL (70-110)
[2023-05-17] MEDS ORDERED: VANCOMYCIN TROUGH DUE 1 EACH MISC MISCELLANE ONE (15:00)
[2023-05-17 15:22] LABS: Glucose,Whole Blood 142 mg/dL (70-110)
[2023-05-17 16:48] LABS: Glucose,Whole Blood 133 mg/dL (70-110)
[2023-05-17 17:35] LABS: Glucose,Whole Blood 170 mg/dL (70-110)
[2023-05-17 18:33] LABS: Glucose,Whole Blood 236 mg/dL (70-110)
[2023-05-17] MEDS: ATORVASTATIN 40 MG TAB PO SCH (20:05)
[2023-05-17] MEDS: ZOLPIDEM 5 MG TAB PO SCH (20:05)
[2023-05-17 20:09] LABS: Glucose,Whole Blood 267 mg/dL (70-110)
[2023-05-18] MEDS: AMPICILLIN-SULBACTAM 3 GM in SODIUM CHLORIDE 0.9% 100 ML IVPB SCH ×4 (00:25→17:58)
[2023-05-18] MEDS: SODIUM CHLORIDE 0.9% 1,000 ML IV SCH ×2 (00:26→20:43)
[2023-05-18] MEDS: DEXTROSE 5%-0.9% NACL 1,000 ML IV SCH ×2 (00:26→14:23)
[2023-05-18 00:30] LABS: Glucose,Whole Blood 230 mg/dL (70-110)
--- NOTE | 2023-05-18 02:08 | PN ---
PROGRESS NOTE SUBJECTIVE: A 67-year-old white male with significantly bad foot infection and half of his foot was eaten away. He has refused surgery by Dr. Sanchez. Cardiology has seen him. He has a history of leaving against medical advice. His heart is pumping poorly at 30% to 35%, bilateral lower extremity edema. OBJECTIVE: LUNGS: Show wheezes and rhonchi. NECK: Supple. HEART: S1, S2 with 1 to 2 pitting edema. IV antibiotics. Moderate to high cardiovascular risk for a low risk procedure. Debridement surgery is planned. Continue aspirin, Plavix, atorvastatin, Farxiga, and torsemide. Continue Imdur, losartan, and metoprolol, so it makes at least 5 pills to lower blood pressure. ASSESSMENT: Severe diabetic wound infection eating half his foot away in the right foot, coronary artery disease, heart failure, diabetes, chronic obstructive pulmonary disease, dyslipidemia, hypertension. He has had severe hyperglycemia on admission, now sugars in the mid 100s throughout the day, doing better. Prognosis guarded. Continue with Infectious Disease. Medications include IV antibiotics at this time, which is ampicillin sulbactam daily. Blood cultures are negative for 48 hours so far. He has extensive three-vessel coronary calcification, which Cardiology had commented on as well as CHF and pleural effusions and pulmonary nodules. Prognosis guarded. He has been smoking for many years. Ordered updraft treatments. MMODL / IJN: [id number] /
[2023-05-18] MEDS: VANCOMYCIN 1,500 MG in SODIUM CHLORIDE 0.9% 500 ML 500 ML IVPB SCH ×2 (05:07→16:17)
[2023-05-18 06:17] LABS: African American GFR (CKD) 71 (>60 ml/min/1.73 sqM); Non-African American GFR(CKD) 62 (>60 ml/min/1.73 sqM)
[2023-05-18 07:05] LABS: Glucose,Whole Blood 189 mg/dL (70-110)
[2023-05-18] MEDS: IPRATROPIUM-ALBUTEROL 3 ML NEB INHALATION SCH ×4 (09:14→21:13)
[2023-05-18] MEDS: METOPROLOL TARTRATE 12.5 MG TAB PO SCH ×2 (10:09→20:43)
[2023-05-18] MEDS: DAPAGLIFLOZIN PROPANEDIOL 10 MG TABLET PO SCH (10:10)
[2023-05-18] MEDS: ISOSORBIDE MONONITRATE ER 30 MG TAB.ER.24H PO SCH (10:10)
[2023-05-18] MEDS: FAMOTIDINE 20 MG TAB PO SCH ×2 (10:10→20:43)
[2023-05-18] MEDS: TORSEMIDE 20 MG TAB PO SCH (10:10)
[2023-05-18] MEDS: ASPIRIN 81 MG PO SCH (10:10)
[2023-05-18] MEDS: LOSARTAN 25 MG TAB PO SCH (10:10)
[2023-05-18] MEDS: CLOPIDOGREL 75 MG TAB PO SCH (10:10)
[2023-05-18] MEDS: SENNOSIDES 8.6 MG TAB PO SCH ×2 (10:10→20:43)
[2023-05-18] MEDS: SPIRONOLACTONE 25 MG TAB PO SCH (10:10)
[2023-05-18 11:46] LABS: Glucose,Whole Blood 271 mg/dL (70-110)
--- NOTE | 2023-05-18 15:19 | P.PN ---
Subjective Progress Note Date: 05/18/23 Progress note: Patient is doing well from cardiac vessel standpoint. He is hemodynamics stable. No events noted on telemetry HISTORY OF PRESENTING ILLNESS 67-year-old male with past medical history of type 2 diabetes, hypertension, dyslipidemia, suspected peripheral arterial disease, myocardial infarctions status post PCI on DAPT therapy, suspected ischemic cardiomyopathy with an EF of 30-35%, chronic anemia and chronic nonhealing wound on the right foot. Patient is very noncompliant last time when he was in the hospital he left AGAINST MEDICAL ADVICE This time patient presented to the hospital with symptoms of weakness, dizziness and difficulty getting around. He has a nonhealing wound on the right foot plantar aspect which is painful. He denies having any chest pain chest pressure or shortness of breath. He is afebrile. He's been started on IV antibiotics by the infectious disease team and is being evaluated for possible debridement surgery. He had an echo cardiac gram showed an EF of 30-35%, mild LV cavity dilatation, globally reduced LV systolic function, mild aortic stenosis, RVSP of 53 mmhg. No ECG from this visit. Prior to ECG from July 2022 shows sinus rhythm with diffuse T-wave inversions in inferolateral leads suggestive of cardio myopathy Lab shows hemoglobin of 10.8 which is chronic, BNP of 33,000, creatinine of 1.05 Chest x-ray does not show significant pulmonary congestion. On physical examination he does not have significant crackles or JVD Erythema and 1+ pitting edema in bilateral lower extremity PHYSICAL EXAMINATION Vital signs reviewed. Head: Normocephalic. Eyes: Sclerae nonicteric. Neck: Brisk carotid upstroke, no jugular venous distention. Lungs: Clear to auscultation. Heart: Regular rate and rhythm, S1-S2, no S3, mild systolic murmur. Abdomen: Soft nontender, positive bowel sounds . Extremities: 1-2+ pitting edema in bilateral summary, edema, dressing in place, wound was not examined, chronic wounds in bilateral LE Neuro: Alert, oritented, tired and somnolent no focal deficits ASSESSMENT [id number] right-sided congestive heart failure exacerbation HFrEF, ischemic cardiac myopathy, EF 30% Mild aortic stenosis CAD status post PCI in past Moderate pulmonary hypertension likely Group II Chronic nonhealing wound on right foot plantar aspect,Osteomylitis Suspected PAD Type II Diabetes Hypertension Dyslipidemia Noncompliance PLAN Patient denies any pain, paresthesias, tenderness, pallor in bilateral lower extremity. There are not cold to touch. There is 1-2+ pitting edema with erythema with concerns of infection. Continue IV antibiotics as per infectious disease team and primary team Patient is at moderate to high cardiovascular risk for low risk procedure if debridement surgery is planned Continue aspirin 81 mg, Plavix 75 mg, atorvastatin 40 mg Start Farxiga 10 mg and torsemide 20 mg daily Continue Imdur 30 mg, losartan 25 mg, metoprolol 12.5 mg twice daily. Once lower extremity infections with better, he should get evaluation for peripheral artery disease either with arterial Doppler or CT angiogram Objective - Vital Signs Vital signs: Vital Signs Temp 98.1 F 05/18/23 13:55 Pulse 75 05/18/23 13:55 Resp 18 05/18/23 13:55 BP 138/66 05/18/23 13:55 Pulse Ox 96 05/18/23 13:55 FiO2 Intake & Output 05/17/23 05/18/23 05/18/23 18:59 06:59 18:59 Intake Total 280 Output Total 2400 3750 Balance -2400 -3750 280 Intake: Oral 280 Output: Urine 2400 3750 Other: Voiding Method Urinal # Voids 1 3 # Bowel Movements 1 1 - Labs CBC & Chem 7: 05/14/23 15:27 05/18/23 05:46 Labs: Abnormal Lab Results - Last 24 Hours (Table) 05/17/23 05/17/23 05/17/23 Range/Units 15:21 16:46 17:33 POC Glucose (mg/dL) 142 H 133 H 170 H (70-110) mg/dL 05/17/23 05/17/23 05/18/23 Range/Units 18:29 20:07 00:29 POC Glucose (mg/dL) 236 H 267 H 230 H (70-110) mg/dL 05/18/23 05/18/23 Range/Units 07:02 11:45 POC Glucose (mg/dL) 189 H 271 H (70-110) mg/dL Microbiology - Last 24 Hours (Table) 05/14/23 15:10 Blood Culture - Preliminary Blood 05/14/23 15:25 Blood Culture - Preliminary Blood
--- NOTE | 2023-05-18 15:28 | P.PN ---
Subjective Progress Note Date: 05/18/23 Principal diagnosis: Diabetic foot ulcer and possible osteomyelitis Patient is a 67-year-old male with a past medical history significant for diabetes mellitus hypertension hyperlipidemia [place] coronary artery disease patient did have a chronic nonhealing wound to the right foot and the patient has been very noncompliant with his treatment has signed out multiple times A [employer], presented to hospital with the dizziness noticed to have worsening of his right plantar wound. On today's evaluation that is 05/18/2023, the patient remains to be afebrile, the patient is breathing comfortably on room air without the need for supplemental oxygen , the patient denies chest pain or cough, patient denies nausea/vomiting or diarrhea and denies any abdominal pain, the patient continues to be complaining of pain to the bilateral foot wound area Patient did have a creatinine 1.21, no CBC was done today Objective - Vital Signs Vital signs: Vital Signs Temp 98.1 F 05/18/23 13:55 Pulse 75 05/18/23 13:55 Resp 18 05/18/23 13:55 BP 138/66 05/18/23 13:55 Pulse Ox 96 05/18/23 13:55 FiO2 Intake & Output 05/17/23 05/18/23 05/18/23 18:59 06:59 18:59 Intake Total 280 Output Total 2400 3750 Balance -2400 -3750 280 Intake: Oral 280 Output: Urine 2400 3750 Other: Voiding Method Urinal # Voids 1 3 # Bowel Movements 1 1 - Exam GENERAL DESCRIPTION: An elderly male lying in bed in no distress RESPIRATORY SYSTEM: Unlabored breathing , decreased breath sounds at bases HEART: S1 S2 regular rate and rhythm , ABDOMEN: Soft , no tenderness EXTREMITIES: Bilateral foot wounds with slough and necrotic tissue especially to the right foot plantar wound - Labs CBC & Chem 7: 05/14/23 15:27 05/18/23 05:46 Labs: Abnormal Lab Results - Last 24 Hours (Table) 05/17/23 05/17/23 05/17/23 Range/Units 16:46 17:33 18:29 POC Glucose (mg/dL) 133 H 170 H 236 H (70-110) mg/dL 05/17/23 05/18/23 05/18/23 Range/Units 20:07 00:29 07:02 POC Glucose (mg/dL) 267 H 230 H 189 H (70-110) mg/dL 05/18/23 Range/Units 11:45 POC Glucose (mg/dL) 271 H (70-110) mg/dL Microbiology - Last 24 Hours (Table) 05/14/23 15:10 Blood Culture - Preliminary Blood 05/14/23 15:25 Blood Culture - Preliminary Blood Assessment and Plan (1) Diabetic foot ulcer Current Visit: Yes Status: Acute Code(s): E11.621 - TYPE 2 DIABETES MELLITUS WITH FOOT ULCER; L97.509 - NON-PRESSURE CHRONIC ULCER OTH PRT UNSP FOOT W UNSP SEVERITY SNOMED Code(s): 389287458 (2) Osteomyelitis of right foot Current Visit: Yes Status: Acute Code(s): M86.9 - OSTEOMYELITIS, UNSPECIFIED SNOMED Code(s): 4844390510734365 Plan: 1patient with a chronic nonhealing wound to the right foot plantar aspect for the patient has multiple admission to this facility and every time he has left AGAINST MEDICAL ADVICE last time he was sent to the detention from where he has left AGAINST MEDICAL ADVICE with the PICC line intact which was discontinued by the nursing staff this morning is almost falling off patient is presenting with the dizziness and did have a chronic nonhealing wound with evidence of osteomyelitis on the plain x-ray 2Patient has been evaluated by vascular surgery and planning for debridement and deep culture , however the patient has refused 3-patient to continue the vancomycin and Unasyn however keeping in mind he refusing surgical debridement of his wound and patient did have noncompliance with IV antibiotics in the outpatient setting, will not be recommending any IV antibiotic on discharge, debridement was discussed again with the patient and refused it we will repeat his CBC with a.m. lab Dictation was produced using [employer] dictation software. please excuse any gr ammatical, word or spelling errors. Time with Patient: Less than 30
[2023-05-18 17:02] LABS: Glucose,Whole Blood 270 mg/dL (70-110)
[2023-05-18] MEDS: ATORVASTATIN 40 MG TAB PO SCH (20:42)
[2023-05-18] MEDS: ZOLPIDEM 5 MG TAB PO SCH (20:42)
[2023-05-18 20:58] LABS: Glucose,Whole Blood 239 mg/dL (70-110)
[2023-05-18] MEDS: HYDROcodone/APAP 10-325MG 1 EACH TAB PO PRN (21:58)
--- NOTE | 2023-05-18 22:26 | PN ---
PROGRESS NOTE SUBJECTIVE: Sugars now in the high 100s to 200s. Creatinine is 1.21 today. OBJECTIVE: CARDIOVASCULAR: S1, S2. LUNGS: Clear. Scattered rhonchi and wheeze. HEMATOLOGY: Negative Homans. PLAN: Continue broad-spectrum antibiotics. He has refused surgery. He has refused some of his medications, etc. Prognosis guarded. Please see further orders. MMODL / IJN: [id number] /
[2023-05-19 00:08] LABS: Glucose,Whole Blood 242 mg/dL (70-110)
[2023-05-19] MEDS: AMPICILLIN-SULBACTAM 3 GM in SODIUM CHLORIDE 0.9% 100 ML IVPB SCH ×3 (00:40→11:32)
[2023-05-19] MEDS: VANCOMYCIN 1,500 MG in SODIUM CHLORIDE 0.9% 500 ML 500 ML IVPB SCH (03:54)
[2023-05-19 06:12] LABS: Glucose,Whole Blood 162 mg/dL (70-110)
[2023-05-19 07:53] LABS: Glucose,Whole Blood 180 mg/dL (70-110)
[2023-05-19 08:28] VITALS: BP 138/69; RESP 16; TEMP 97.8
[2023-05-19 08:55] LABS: Basophils # (A) 0.05 X 10*3/uL (0.00-0.10); Basophils % (A) 0.7 %; Eosinophils # (A) 0.21 X 10*3/uL (0.04-0.35); Eosinophils % (A) 2.7 %; HCT 27.9 % (39.6-50.0); HGB 8.3 d/dL (13.0-17.0); Lymphocytes # (A) 0.89 X 10*3/uL (0.90-5.00); Lymphocytes % (A) 11.6 %; MCH 29.4 pg (27.0-32.0); MCHC 29.7 d/dL (32.0-37.0); MCV 98.9 FL (80.0-97.0); Mean Platelet Volume 9.7 FL (9.5-12.2); Monocytes # (A) 0.69 X 10*3/uL (0.20-1.00); NRBC Per 100 WBC 0 X 10*3/uL (0.00-0.01); Neutrophils # (A) 5.79 X 10*3/uL (1.80-7.70); Neutrophils % (A) 75.3 %; Platelet Count 260 X 10*3/uL (140-440); RBC 2.82 X 10*6/uL (4.40-5.60); RDW 16.1 % (11.5-14.5); WBC 7.68 X 10*3/uL (4.50-10.00)
[2023-05-19] MEDS: IPRATROPIUM-ALBUTEROL 3 ML NEB INHALATION SCH ×2 (08:57→12:43)
[2023-05-19 09:03] LABS: Glucose,Whole Blood 165 mg/dL (70-110)
[2023-05-19] MEDS: METOPROLOL TARTRATE 12.5 MG TAB PO SCH (09:16)
[2023-05-19] MEDS: DAPAGLIFLOZIN PROPANEDIOL 10 MG TABLET PO SCH (09:16)
[2023-05-19] MEDS: ASPIRIN 81 MG PO SCH (09:16)
[2023-05-19] MEDS: LOSARTAN 25 MG TAB PO SCH (09:16)
[2023-05-19] MEDS: SPIRONOLACTONE 25 MG TAB PO SCH (09:16)
[2023-05-19] MEDS: TORSEMIDE 20 MG TAB PO SCH (09:16)
[2023-05-19] MEDS: CLOPIDOGREL 75 MG TAB PO SCH (09:17)
[2023-05-19] MEDS: FAMOTIDINE 20 MG TAB PO SCH (09:17)
[2023-05-19] MEDS: ISOSORBIDE MONONITRATE ER 30 MG TAB.ER.24H PO SCH (09:17)
[2023-05-19] MEDS: SENNOSIDES 8.6 MG TAB PO SCH (09:17)
[2023-05-19 09:25] VITALS: PULSE 80
[2023-05-19] MEDS: HYDROcodone/APAP 10-325MG 1 EACH TAB PO PRN (09:25)
--- NOTE | 2023-05-19 10:17 | P.PN ---
Subjective HISTORY OF PRESENT ILLNESS: 67-year-old male with past medical history of type 2 diabetes, hypertension, dyslipidemia, suspected peripheral arterial disease, myocardial infarctions status post PCI on DAPT therapy, suspected ischemic cardiomyopathy with an EF of 30-35%, chronic anemia and chronic nonhealing wound on the right foot. Patient is very noncompliant last time when he was in the hospital he left AGAINST MEDICAL ADVICE This time patient presented to the hospital with symptoms of weakness, dizziness and difficulty getting around. He has a nonhealing wound on the right foot plantar aspect which is painful. He denies having any chest pain chest pressure or shortness of breath. He is afebrile. He's been started on IV antibiotics by the infectious disease team and is being evaluated for possible debridement surgery. He had an echo cardiac gram showed an EF of 30-35%, mild LV cavity dilatation, globally reduced LV systolic function, mild aortic stenosis, RVSP of 53 mmhg. No ECG from this visit. Prior to ECG from July 2022 shows sinus rhythm with diffuse T-wave inversions in inferolateral leads suggestive of cardio myopathy Lab shows hemoglobin of 10.8 which is chronic, BNP of 33,000, creatinine of 1.05 Chest x-ray does not show significant pulmonary congestion. On physical examination he does not have significant crackles or JVD 05/18/2023 Progress note: Patient is doing well from cardiac vessel standpoint. He is hemodynamics stable. No events noted on telemetry 05/19/2023 Patient examined this morning at the bedside. patient currently denies any chest pain or pressure. He denies any shortness of breath at rest. Patient is currently not on telemetry monitoring. He denies any palpitations or dizziness. Patient does have lower extremity edema which he states is at his baseline. vital signs are currently stable. PHYSICAL EXAM: VITAL SIGNS: Reviewed. GENERAL: Well-developed in no acute distress. NECK: Supple. No JVD or thyromegaly LUNGS: Respirations even and unlabored. Lungs essentially clear to auscultation bilaterally. HEART: Regular rate and rhythm. S1 and S2 heard.systolic murmur noted. EXTREMITIES: Normal range of motion. No clubbing or cyanosis. Peripheral pulses intact. bilateral lower extremity edema noted. Gauze dressing wrap to left foot. ASSESSMENT: Chronic nonhealing wound of right foot Acute on chronic heart failure with reduced ejection fraction Coronary artery disease with previous stenting Ischemic cardiomyopathy, ejection fraction 30% Mild aortic stenosis Suspected PAD Hypertension Hyperlipidemia Diabetes Noncompliance PLAN: Continue current cardiac medications Continue IV antibiotics per infectious disease Recommend daily compression wraps to bilateral lower extremities to help alleviate swelling After acute infection resolves, recommend outpatient workup for possible peripheral arterial disease Patient is at moderate to high risk to undergo debridement from a cardiac standpoint We will sign off. Please reconsult if needed. Nurse practitioner note has been reviewed by physician. Signing provider agrees with the documented findings, assessment, and plan of care. Objective - Vital Signs Vital signs: Vital Signs Temp 97.8 F 05/19/23 08:00 Pulse 82 05/19/23 08:00 Resp 16 05/19/23 08:00 BP 138/69 05/19/23 08:00 Pulse Ox 98 05/19/23 08:00 FiO2 Intake & Output 05/18/23 05/19/23 05/19/23 18:59 06:59 18:59 Intake Total 460 Output Total 1000 Balance 460 -1000 Intake: Oral 460 Output: Urine 1000 Other: Voiding Method Urinal # Voids 3 2 # Bowel Movements 1 - Labs CBC & Chem 7: 05/19/23 06:10 05/18/23 05:46 Labs: Abnormal Lab Results - Last 24 Hours (Table) 05/18/23 05/18/23 05/18/23 Range/Units 11:45 17:01 20:57 POC Glucose (mg/dL) 271 H 270 H 239 H (70-110) mg/dL 05/19/23 05/19/23 05/19/23 Range/Units 00:06 06:12 07:52 POC Glucose (mg/dL) 242 H 162 H 180 H (70-110) mg/dL Microbiology - Last 24 Hours (Table) 05/14/23 15:10 Blood Culture - Preliminary Blood 05/14/23 15:25 Blood Culture - Preliminary Blood
[2023-05-19 10:21] LABS: ALT 15 U/L (10-49); AST 20 U/L (14-35); Albumin 3.5 d/dL (3.8-4.9); Albumin/Globulin Ratio 1.25 Ratio (1.60-3.17); Alkaline Phosphatase 102 U/L (41-126); BUN/Creat Ratio 18.69 Ratio (12.00-20.00); Blood Urea Nitrogen 24.3 mg/dL (9.0-27.0); Calcium 8.7 mg/dL (8.7-10.3); Carbon Dioxide 22.7 mmol/L (21.6-31.8); Chloride 104 mmol/L (96-109); Globulin 2.8 d/dL (1.6-3.3); Glucose 150 mg/dL (70-110); Potassium 4.4 mmol/L (3.5-5.5); Sodium 139 mmol/L (135-145); Total Bilirubin 0.7 mg/dL (0.3-1.2); Total Protein 6.3 d/dL (6.2-8.2)
[2023-05-19 10:24] LABS: Glucose,Whole Blood 207 mg/dL (70-110)
[2023-05-19 12:17] LABS: Glucose,Whole Blood 224 mg/dL (70-110)
[2023-05-19] MEDS ORDERED: AMOXIC-POT CLAV 875-125MG 1 EACH TAB PO SCH (12:30)
[2023-05-19] MEDS ORDERED: DOXYCYCLINE 100 MG CAP PO SCH (12:30)
[2023-05-19] MEDS ORDERED: VANCOMYCIN TROUGH DUE 1 EACH MISC MISCELLANE ONE (15:00)
== END 2023-05-19 14:46 | disposition left against medical advice (07) | DRG 637 ==
LOC: EC 12:32 → 6NMEDSUR 22:12 → OBSVTOIN 05-15 14:20 → 6NMEDSUR 05-15 16:12
PROVIDERS: ADMIT Family Medicine; ATTEND Family Medicine
DX: E11.621 Type 2 diabetes mellitus with foot ulcer (principal); I50.23 Acute on chronic systolic (congestive) heart failure; M86.8X7 Other osteomyelitis, ankle and foot; L97.528 Non-pressure chronic ulcer of other part of left foot with other specified severity; L97.518 Non-pressure chronic ulcer of other part of right foot with other specified severity; E78.5 Hyperlipidemia, unspecified; R53.1 Weakness; I11.0 Hypertensive heart disease with heart failure; E11.51 Type 2 diabetes mellitus with diabetic peripheral angiopathy without gangrene; F17.210 Nicotine dependence, cigarettes, uncomplicated; Z91.199 Patient's noncompliance with other medical treatment and regimen due to unspecified reason; E11.69 Type 2 diabetes mellitus with other specified complication; E11.42 Type 2 diabetes mellitus with diabetic polyneuropathy; I25.5 Ischemic cardiomyopathy; I25.2 Old myocardial infarction; I25.10 Atherosclerotic heart disease of native coronary artery without angina pectoris; I27.29 Other secondary pulmonary hypertension; J44.9 Chronic obstructive pulmonary disease, unspecified; L08.89 Other specified local infections of the skin and subcutaneous tissue; I50.82 Biventricular heart failure; R01.1 Cardiac murmur, unspecified; I08.1 Rheumatic disorders of both mitral and tricuspid valves; Z53.29 Procedure and treatment not carried out because of patient's decision for other reasons; Z79.02 Long term (current) use of antithrombotics/antiplatelets; Z79.82 Long term (current) use of aspirin; Z79.84 Long term (current) use of oral hypoglycemic drugs; Z79.899 Other long term (current) drug therapy; Z86.14 Personal history of Methicillin resistant Staphylococcus aureus infection; Z95.5 Presence of coronary angioplasty implant and graft; Z96.653 Presence of artificial knee joint, bilateral; Z88.2 Allergy status to sulfonamides
CPT/HCPCS: 36415; 71045; 71250; 80053; 80202; 82565; 82947; 83605; 83735; 83880; 85025; 85652; 86140; 87040; 93306; 94640; 96365; 96366; 99285